=== PATIENT | male | born 1950 | race Hispanic/Latino ===

== ENCOUNTER 2018-06-01 01:40 | Emergency (ER) | payer OTHER ==
[2018-06-01 02:19] LABS: Absolute Lymphocytes (CBC) 1.3 K/uL (0.7-4.9); Absolute Monocytes 0.5 K/uL (0.1-1.3); Absolute Neutrophil 2.5 K/uL (1.8-8.0); Basophils % 0.7 % (0-1.3); Eosinophils % 6.8 % (0-4.4); Hematocrit 41.4 % (39.6-49.0); Lymphocytes % 27.7 % (15.3-44.8); MPV 7.5 fL (7.6-11.3); Monocytes % 11.4 % (3.3-12.3); RBC Red Blood Cell Count 4.15 M/uL (4.33-5.43)
[2018-06-01 02:33] LABS: Protime INR 0.95
[2018-06-01] MEDS ORDERED: ASPIRIN 81 MG CHEWABLE TABLET ONE (02:44)
[2018-06-01] MEDS ORDERED: FENTANYL CITR 100 MCG/2 ML ONE (02:44)
[2018-06-01 02:51] LABS: Albumin 3.9 g/dL (3.4-5.0); Bilirubin Direct 0.2 mg/dL (0-0.2); Bilirubin Total 0.6 mg/dL (0.2-1.0); Magnesium 2.6 mg/dL (1.8-2.4); Potassium 3.7 mmol/L (3.5-5.1); Protein, Total 7.3 g/dL (6.4-8.2); Troponin (Emerg Dept Use Only) 2.58 ng/mL (0.0-0.045)
[2018-06-01] MEDS ORDERED: ONDANSETRON 4 MG/2 ML VIAL ONE (03:38)
[2018-06-01] MEDS ORDERED: ENOXAPARIN 60 MG/0.6 ML SQ ONE (03:38)
[2018-06-01] MEDS ORDERED: PANTOPRAZOLE 40 MG INJ ONE (03:38)
--- NOTE | 2018-06-01 03:41 | ER ---
Nurse's Notes [facility] Name: Tc Mckeon Age: 68 yrs Sex: Male : 1950 Arrival Date: 06/01/2018 Time: 01:42 Bed 4 Private MD: Diagnosis: Non-ST elevation (NSTEMI) myocardial infarction Presentation: 06/01 02:01 Presenting complaint: Patient states: he has some heaviness in his chest which started bb at approx 2200 last night, with some tingling in his left wrist and pain in the back of his head after he took his shower he felt weak then on Wednesday he vomited multiple times. Pt had stress test with Dr Rodriguez about a month ago and was told everything was fine and he has an US scheduled here at 0800 this morning for his "stomach". Transition of care: patient was not received from another setting of care. Onset of symptoms was May 30, 2018. Risk Assessment: Do you want to hurt yourself or someone else? Patient reports no desire to harm self or others. Initial Sepsis Screen: Does the patient meet any 2 criteria? No. Patient's initial sepsis screen is negative. Does the patient have a suspected source of infection? No. Patient's initial sepsis screen is negative. Care prior to arrival: None. 02:01 Method Of Arrival: Ambulatory bb 02:01 Acuity: ZBIGNIEW 3 bb Historical: - Allergies: 02:04 Amoxicillin; bb 02:04 Codeine; bb 02:04 Morphine; bb 02:04 tramadol; bb - Home Meds: 02:04 colchicine 0.6 mg Oral tab 1 tab once daily [Active]; folic acid 20 mg Oral cap bb [Active]; metoprolol tartrate 50 mg Oral tab 1 tab once daily [Active]; clopidogrel 75 mg oral tab 1 tab once daily [Active]; - PMHx: 02:04 Gout; Hypertension; CAD; bb - PSHx: 02:04 CABG; bb - Immunization history:: Adult Immunizations unknown, Flu vaccine is not up to date. - Social history:: Smoking status: Patient/guardian denies using tobacco, Patient uses alcohol, on a daily basis. - Ebola Screening: : No symptoms or risks identified at this time. Screenin:09 Abuse screen: Denies threats or abuse. Nutritional screening: No deficits noted. tl2 Tuberculosis screening: No symptoms or risk factors identified. Fall Risk None identified. Assessment: 02:25 General: Appears in no apparent distress. uncomfortable, Behavior is calm, cooperative, tl2 appropriate for age. Pain: Complains of pain in chest Pain does not radiate. Pain currently is 6 out of 10 on a pain scale. Quality of pain is described as pressure, tightness. Neuro: Level of Consciousness is awake, alert, obeys commands, Oriented to person, place, time, situation. Cardiovascular: Chest pain is described as diffuse, quality is pressure, is located in anterior chest wall. Respiratory: Airway is patent Respiratory effort is even, unlabored, Respiratory pattern is regular, symmetrical. GI: No deficits noted. Patient currently denies nausea, vomiting. : No signs and/or symptoms were reported regarding the genitourinary system. Derm: Skin is pink, warm \\T\\ dry. 02:42 Reassessment: pt denies need for pain medication at this time. tl2 04:06 Reassessment: Report called to Melina KLEIN. ea 04:30 Reassessment: Patient and/or family updated on plan of care and expected duration. Pain ea level reassessed. Patient is alert, oriented x 3, equal unlabored respirations, skin warm/dry/pink. [facility] at facility for transfer. Report given to EMS. Pt taken via stretcher, per EMS, tolerating well. Vital Signs: 02:04 BP 143 / 69; Pulse 51; Resp 16 S; Temp 98.2(O); Pulse Ox 100% on R/A; Weight 58.06 kg bb (R); Height 5 ft. 3 in. (160.02 cm) (R); Pain 6/10; 03:29 BP 135 / 71; Pulse 53; Resp 18; Pulse Ox 100% on R/A; tl2 04:42 BP 150 / 61; Pulse 50; Resp 18; Pulse Ox 99% ; ea 02:04 Body Mass Index 22.67 (58.06 kg, 160.02 cm) bb Vitals: 03:29 Cardiac Rhythm Assessment Sinus serafin. tl2 NIH Stroke Scale Scores: 02:20 NIHSS Score: 0 cp ED Course: 01:42 Patient arrived in ED. ds1 02:03 Triage completed. bb 02:04 Arm band placed on Patient placed in an exam room, on a stretcher, on time buyer, bb on pulse oximetry. EKG completed in triage. Results shown to MD. Family accompanied patient. 02:06 [facility] cp 02:06 Gamaliel Jensen MD is Attending Physician. cp 02:08 Isabelle Salgado, LATOYA is Primary Nurse. tl2 02:09 Patient has correct armband on for positive identification. Placed in gown. Bed in low tl2 position. Call light in reach. Side rails up X 1. Adult w/ patient. 02:09 Inserted saline lock: 22 gauge in right antecubital area, using aseptic technique. tl2 Blood collected. 02:30 XRAY Chest (1 view) In Process Unspecified. EDMS 04:00 No provider procedures requiring assistance completed. Patient transferred, IV remains ea in place. Administered Medications: 02:40 Drug: Aspirin Chewable Tablet 324 mg Route: PO; tl2 03:35 Follow up: Response: No adverse reaction ea 03:09 CANCELLED (Physician Discretion): PlaVIX 600 mg PO once cp 03:10 CANCELLED (Physician Discretion): PlaVIX 300 mg PO once cp 03:12 Not Given (Physician Discretion): fentaNYL (PF) 25 mcg IVP once cp 03:30 Drug: ProTONIX 40 mg Route: IVP; Site: right antecubital; ea 04:00 Follow up: Response: No adverse reaction ea 03:34 Drug: Lovenox 1 mg/kg Route: Sub-Q; Site: right lower abdomen; ea 04:00 Follow up: Response: No adverse reaction ea 03:34 Drug: Zofran 4 mg Route: IVP; Site: right antecubital; ea 04:00 Follow up: Response: No adverse reaction ea Outcome: 03:40 ER care complete, transfer ordered by . cp 04:15 Instructed on the need for transfer. ea 04:30 Transferred by ground EMS to [facility], Transfer form completed. ea 04:30 Condition: stable 04:40 Patient left the ED. ea NIH Stroke Scale - NIH Stroke Score Date: 06/01/2018 Time: 02:20 Total Score = 0 1a. Level of Consciousness (LOC) - 0(Alert) 1b. Level of Consciousness (LOC) (Year \\T\\ Age) - 0(Both) 1c. LOC Commands (Open \\T\\ Closes Eyes/Photographer News) - 0(Both) 2. Best Gaze (Lateral Gaze Paresis) - 0(Normal) 3. Visual Field Loss - 0(No visual loss) 4. Facial Palsy - 0(Normal) 5a. Left Arm: Motor (10-second hold) - 0(No drift) 5b. Right Arm: Motor (10-second hold) - 0(No drift) 6a. Left Leg: Motor (5-second hold - always test supine) - 0(No drift) 6b. Right Leg: Motor (5-second hold - always test supine) - 0(No drift) 7. Limb Ataxia (finger/nose \\T\\ heel/soto - test with eyes open) - 0(Absent) 8. Sensory Loss (pinprick arms/legs/face) - 0(Normal) 9. Best Language: Aphasia (description/naming/reading) - 0(No aphasia) 10. Dysarthria (speech clarity - read or repeat words) - 0(Normal) 11. Extinction and Inattention (visual/tactile/auditory/spatial/personal) - 0(No abnormality) Initials: cp Signatures: Dispatcher [employer] [facility] Reyna Pantoja ds1 Kailee cMgregor RN RN bb Gamaliel Delacruz PA PA cp Isabelle Salgado, LATOYA KLEIN tl2 Lilia Bolden RN RN ea
--- NOTE | 2018-06-01 03:42 | EDPHYS ---
Physician Documentation [facility] Name: Tc Mckeon Age: 68 yrs Sex: Male : 1950 Arrival Date: 06/01/2018 Time: 01:42 Bed 4 Private MD: ED Physician Gamaliel Jensen HPI: 06/01 02:15 This 68 yrs old Male presents to ER via Ambulatory with complaints of Chest cp Discomfort, Tingling in Hands, Weakness. 02:15 The patient or guardian reports chest pain that is located primarily in the anterior cp chest wall, bilaterally. Onset: last night, at 22:00. 02:15 The pain does not radiate. Associated signs and symptoms: Pertinent positives: tingling cp in hands, general weakness. Historical: - Allergies: 02:04 Amoxicillin; bb 02:04 Codeine; bb 02:04 Morphine; bb 02:04 tramadol; bb - Home Meds: 02:04 colchicine 0.6 mg Oral tab 1 tab once daily [Active]; folic acid 20 mg Oral cap bb [Active]; metoprolol tartrate 50 mg Oral tab 1 tab once daily [Active]; clopidogrel 75 mg oral tab 1 tab once daily [Active]; - PMHx: 02:04 Gout; Hypertension; CAD; bb - PSHx: 02:04 CABG; bb - Immunization history:: Adult Immunizations unknown, Flu vaccine is not up to date. - Social history:: Smoking status: Patient/guardian denies using tobacco, Patient uses alcohol, on a daily basis. - Ebola Screening: : No symptoms or risks identified at this time. ROS: 02:15 Constitutional: Negative for body aches, chills, fever, poor PO intake. cp 02:15 Eyes: Negative for injury, pain, redness, and discharge. cp 02:15 ENT: Negative for drainage from ear(s), ear pain, sore throat, difficulty swallowing, difficulty handling secretions. 02:15 Cardiovascular: Positive for chest pain, Negative for edema, palpitations. 02:15 Respiratory: Negative for cough, shortness of breath, wheezing. 02:15 Abdomen/GI: Negative for abdominal pain, vomiting, diarrhea, constipation. 02:15 Back: Negative for pain at rest, pain with movement, radiated pain. 02:15 Skin: Negative for cellulitis, rash. 02:15 Neuro: Positive for headache, general weakness, tingling of hands, Negative for altered mental status. 02:15 All other systems are negative. Exam: 02:15 ECG was reviewed by the Attending Physician. cp 02:20 Head/Face: Normocephalic, atraumatic. Eyes: Pupils equal round and reactive to light, cp extra-ocular motions intact. Lids and lashes normal. Conjunctiva and sclera are non-icteric and not injected. Cornea within normal limits. Periorbital areas with no swelling, redness, or edema. ENT: Nares patent. No nasal discharge, no septal abnormalities noted. Tympanic membranes are normal and external auditory canals are clear. Oropharynx with no redness, swelling, or masses, exudates, or evidence of obstruction, uvula midline. Mucous membranes moist. Neck: Trachea midline, no thyromegaly or masses palpated, and no cervical lymphadenopathy. Supple, full range of motion without nuchal rigidity, or vertebral point tenderness. No Meningismus. Chest/axilla: Normal chest wall appearance and motion. Nontender with no deformity. No lesions are appreciated. 02:20 Constitutional: The patient appears in no acute distress, alert, awake, non-diaphoretic, non-toxic, well developed, well nourished. 02:20 Cardiovascular: Rate: bradycardic, Rhythm: regular, Pulses: Pulses are 2+ in right radial artery and left radial artery. Edema: is not appreciated, JVD: is not appreciated. 02:20 Respiratory: the patient does not display signs of respiratory distress, Respirations: normal, no use of accessory muscles, no retractions, no splinting, no tachypnea, labored breathing, is not present, Breath sounds: are clear throughout, no decreased breath sounds, no stridor, no wheezing. 02:20 Abdomen/GI: Inspection: abdomen appears normal, Bowel sounds: active, all quadrants, Palpation: abdomen is soft and non-tender, in all quadrants. 02:20 Skin: cellulitis, is not appreciated, no rash present. 02:20 Neuro: Orientation: to person, place \T\ time. Mentation: is normal, Cerebellar function: Romberg testing is negative, normal finger to nose testing, heel to soto testing is normal, Motor: moves all fours, strength is normal, Sensation: tingling, that is mild, of the right hand and left hand. Vital Signs: 02:04 BP 143 / 69; Pulse 51; Resp 16 S; Temp 98.2(O); Pulse Ox 100% on R/A; Weight 58.06 kg bb (R); Height 5 ft. 3 in. (160.02 cm) (R); Pain 6/10; 03:29 BP 135 / 71; Pulse 53; Resp 18; Pulse Ox 100% on R/A; tl2 04:42 BP 150 / 61; Pulse 50; Resp 18; Pulse Ox 99% ; ea 02:04 Body Mass Index 22.67 (58.06 kg, 160.02 cm) bb NIH Stroke Scale Scores: 02:20 NIHSS Score: 0 cp MDM: 02:06 Patient medically screened. 03:15 Data reviewed: vital signs, nurses notes, lab test result(s), EKG, radiologic studies, cp plain films. 03:15 The patient was given aspirin in the Emergency Department. Test interpretation: by ED cp physician or midlevel provider: ECG, plain radiologic studies. 03:46 Physician consultation: was contacted at 03:40, regarding regarding transfer, to [facility]. patient's condition, DR Puentes, hospitalist services \T\[facility], will accept patient as transfer. 06/01 02:03 Order name: Basic Metabolic Panel; Complete Time: 02:56 ms 06/01 03:32 Interpretation: Normal except: CL 109; GLUC 111; CRE 1.49; GFR 47; CA 8.4. 06/01 02:03 Order name: CBC with Diff; Complete Time: 02:36 ms 06/01 02:36 Interpretation: Normal except: RBC 4.15; MCV 99.9; MCH 35.3; PLT 107; MPV 7.5; cp EOSINOPHIL % 6.8. 06/01 02:03 Order name: LFT's; Complete Time: 02:56 ms 06/01 03:11 Interpretation: Normal except: AST 57. 06/01 02:03 Order name: Magnesium; Complete Time: 02:56 ms 06/01 03:11 Interpretation: Abnormal: MG 2.6. 06/01 02:03 Order name: NT PRO-BNP; Complete Time: 02:56 ms 06/01 03:43 Interpretation: Abnormal: NT PRO-BNP 910. 06/01 02:03 Order name: PT-INR; Complete Time: 02:36 ms 06/01 02:03 Order name: Troponin (emerg Dept Use Only); Complete Time: 02:56 ms 06/01 03:11 Interpretation: TROPED 2.58; Reviewed. cp 06/01 02:03 Order name: XRAY Chest (1 view) ms 06/01 02:03 Order name: EKG; Complete Time: 02:04 ms 06/01 02:03 Order name: Cardiac monitoring; Complete Time: 02:08 ms 06/01 02:03 Order name: EKG - Nurse/Tech; Complete Time: 02:09 ms 06/01 02:03 Order name: IV Saline Lock; Complete Time: 02:09 ms 06/01 02:03 Order name: Labs collected and sent; Complete Time: 02:09 ms 06/01 02:03 Order name: O2 Per Protocol; Complete Time: 02:09 ms 06/01 02:03 Order name: O2 Sat Monitoring; Complete Time: 02:09 ms EC:15 Rate is 47 beats/min. Rhythm is regular. [place] interval is normal. QRS interval is normal. cp QT interval is normal. T waves are Inverted in lead aVF. Interpreted by me. Reviewed by me. Administered Medications: 02:40 Drug: Aspirin Chewable Tablet 324 mg Route: PO; tl2 03:35 Follow up: Response: No adverse reaction ea 03:09 CANCELLED (Physician Discretion): PlaVIX 600 mg PO once cp 03:10 CANCELLED (Physician Discretion): PlaVIX 300 mg PO once cp 03:12 Not Given (Physician Discretion): fentaNYL (PF) 25 mcg IVP once cp 03:30 Drug: ProTONIX 40 mg Route: IVP; Site: right antecubital; ea 04:00 Follow up: Response: No adverse reaction ea 03:34 Drug: Lovenox 1 mg/kg Route: Sub-Q; Site: right lower abdomen; ea 04:00 Follow up: Response: No adverse reaction ea 03:34 Drug: Zofran 4 mg Route: IVP; Site: right antecubital; ea 04:00 Follow up: Response: No adverse reaction ea Disposition: 06:53 Co-signature as Attending Physician, Gamaliel Jensen MD I agree with the assessment and adi plan of care. Disposition: 06/01/18 03:40 Transfer ordered to [facility]. Diagnosis is Non-ST elevation (NSTEMI) myocardial infarction. - Reason for transfer: Higher level of care. - Accepting physician is doctor. - Condition is Stable. - Problem is new. - Symptoms have improved. NIH Stroke Scale - NIH Stroke Score Date: 06/01/2018 Time: 02:20 Total Score = 0 1a. Level of Consciousness (LOC) - 0(Alert) 1b. Level of Consciousness (LOC) (Year \T\ Age) - 0(Both) 1c. LOC Commands (Open \T\ Closes Eyes/Aerial Gunner) - 0(Both) 2. Best Gaze (Lateral Gaze Paresis) - 0(Normal) 3. Visual Field Loss - 0(No visual loss) 4. Facial Palsy - 0(Normal) 5a. Left Arm: Motor (10-second hold) - 0(No drift) 5b. Right Arm: Motor (10-second hold) - 0(No drift) 6a. Left Leg: Motor (5-second hold - always test supine) - 0(No drift) 6b. Right Leg: Motor (5-second hold - always test supine) - 0(No drift) 7. Limb Ataxia (finger/nose \T\ heel/soto - test with eyes open) - 0(Absent) 8. Sensory Loss (pinprick arms/legs/face) - 0(Normal) 9. Best Language: Aphasia (description/naming/reading) - 0(No aphasia) 10. Dysarthria (speech clarity - read or repeat words) - 0(Normal) 11. Extinction and Inattention (visual/tactile/auditory/spatial/personal) - 0(No abnormality) Initials: cp Signatures: Dispatcher [employer] EDMS Gamaliel Jensen MD MD cha Ballard, Brenda RN RN Sue Leonardo ms, Corey, LUTHER SLOAN cp Isabelle Salgado RN RN tl2 Lilia Bolden RN RN ea Corrections: (The following items were deleted from the chart) 03:09 02:56 PlaVIX 600 mg PO once ordered. cp cp 03:10 03:09 PlaVIX 300 mg PO once ordered. cp cp 03:32 03:11 Normal except: CL 109; GLUC 111; CRE 1.49; GFR 47. cp cp 04:40 03:40 06/01/2018 03:40 Transfer ordered to [facility]. ea Diagnosis is Non-ST elevation (NSTEMI) myocardial infarction. Reason for transfer: Higher level of care. Accepting physician is doctor. Condition is Stable. Problem is new. Symptoms have improved. cp
[2018-06-01 04:52] VITALS: TEMP 98.2; O2SAT 100
[2018-06-01 04:54] VITALS: BP 135/71
--- NOTE | 2018-06-01 08:15 | RAD REPORT ---
EXAM DESCRIPTION: Giulia Single View06/01/2018 2:30 am CLINICAL HISTORY: Chest pain COMPARISON: 2016 FINDINGS: The lungs appear clear of acute infiltrate. The heart is mildly enlarged. Postsurgical changes involve the chest. IMPRESSION: No acute abnormalities displayed
--- NOTE | 2018-06-01 09:53 | EKG ---
Test Date: 2018-06-01 Test Time: 01:59:44 Canvas Baster Jumpbasting: DIA MEASUREMENT RESULTS: Intervals: Rate: 47 TN: 150 QRSD: 86 QT: 482 QTc: 426 [place]: P: 35 TN: 150 QRS: 48 T: -11 INTERPRETIVE STATEMENTS: Marked sinus bradycardia Possible Left atrial enlargement T wave abnormality, consider inferior ischemia Abnormal ECG Compared to ECG 11/04/2015 23:27:26 T-wave abnormality now present Sinus rhythm no longer present Myocardial infarct finding no longer present Electronically Signed On 06-01-18 09:52:29 SLEEVE MAKER by Sanjeev Rodriguez
== END 2018-06-01 04:40 | disposition short-term general hospital (02) ==
LOC: ER 01:40
DX: I21.4 Non-ST elevation (NSTEMI) myocardial infarction (principal); M10.9 Gout, unspecified; I25.10 Atherosclerotic heart disease of native coronary artery without angina pectoris; I10 Essential (primary) hypertension; Z88.5 Allergy status to narcotic agent; Z88.0 Allergy status to penicillin
CPT/HCPCS: 36415; 71045; 80048; 80076; 83735; 83880; 84484; 85025; 85610; 93005; 96372; 96374; 96375; 99285; C9113; J1650; J2405; J3010

== ENCOUNTER 2018-10-13 06:44 | Observation (INO) | payer OTHER ==
--- OUTSIDE RECORDS SUMMARY | 2018-10-13 06:48 | XMS REPORT | Clinical Summary ---
:1950 Author Organization [facility] Address [address] [place] [address] Care Team Providers Name Role Phone Chidi Chavarria Primary Care Provider Allergies Active Allergy Reactions Severity Noted Date Comments Amoxicillin Hives 11/04/2015 Codeine Hives High 11/04/2015 Morphine Nausea And Vomiting 11/04/2015 Tramadol Nausea And Vomiting 11/04/2015 Medications Medication Sig Dispensed Refills Start Date End Date Status allopurinol Take 100 mg 1 05/04/2018 Active (ZYLOPRIM) 100 MG by mouth tablet daily with breakfast. famotidine (PEPCID) Take 20 mg by 0 Active 20 MG tablet mouth 2 (two) times daily. pantoprazole Take 40 mg by 0 Active (PROTONIX) 40 MG mouth daily. tablet atorvastatin Take 1 tablet 30 tablet 0 06/04/2018 Active (LIPITOR) 80 MG (80 mg total) tablet by mouth daily. aspirin 81 MG EC Take 1 tablet 30 tablet 0 06/04/2018 Active tablet (81 mg total) by mouth daily. lisinopril Take 1 tablet 30 tablet 0 06/04/2018 Active (PRINIVIL,ZESTRIL) (5 mg total) 5 MG tablet by mouth daily. ranolazine (RANEXA) Take 1 tablet 60 tablet 0 06/03/2018 Active 500 MG 12 hr tablet (500 mg total) by mouth 2 (two) times daily. ticagrelor Take 1 tablet 60 tablet 0 06/03/2018 Active (BRILINTA) 90 mg (90 mg total) Tab tablet by mouth 2 (two) times daily. atorvastatin Take 80 mg by 0 06/01/2018 Discontinued (LIPITOR) 80 MG mouth daily. tablet clopidogrel Take 75 mg by 0 06/03/2018 Discontinued (PLAVIX) 75 mg mouth daily. tablet phenytoin Take 100 mg 0 06/03/2018 Discontinued (DILANTIN) 100 MG by mouth ER capsule daily. folic acid Take 1 mg by 0 06/01/2018 Discontinued (FOLVITE) 1 MG mouth daily. tablet lansoprazole Take 30 mg by 0 06/03/2018 Discontinued (PREVACID) 30 MG mouth daily. capsule acetaminophen-codei Take 1 tablet 0 06/03/2018 Discontinued ne (TYLENOL #3) by mouth 300-30 mg per every 4 tablet (four) hours as needed for Pain. metoprolol Take 25 mg by 0 06/03/2018 Discontinued (LOPRESSOR) 25 MG mouth once in tabletIndications: morning. hypertension colchicine Take 0.6 mg 0 04/30/2018 06/03/2018 Discontinued (COLCRYS) 0.6 mg by mouth 2 tablet (two) times daily. 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 Encounters Date Type Specialty Care Team Description 06/01/2018 Surgery Komal Rose MD L CATH & PCI 06/01/2018 - Hospital Encounter Cardiology Lynn Puentes Coronary artery disease of [place] artery of [place] heart with stable angina pectoris (HCC); 06/03/2018 MD Kal Essential hypertension; Unstable angina pectoris (HCC); NSTEMI (non-ST elevated myocardial infarction) ([facility]) after 10/12/2017 Family History Medical History Relation Name Comments Heart disease Brother Heart disease Father Hypertension Father Stroke Father Cancer Mother Heart disease Sister Relation Name Status Comments Brother Father Mother Sister Social History Tobacco Use Types Packs/Day Years Used Date Never Smoker Smokeless Tobacco: Never Used Alcohol Use Drinks/Week oz/Week Comments Yes 30 Cans of beer 18.0 beer Sex Assigned at Date Recorded Not on file Job Start Date Occupation Industry Not on file Not on file Not on file Travel History Travel Start Travel End No recent travel history available. Last Filed Vital Signs Vital Sign Reading Time Taken Blood Pressure 118/62 06/03/2018 1:00 PM SHEAR HELPER Pulse 56 06/03/2018 1:00 PM SHEAR HELPER Temperature 36.8 C (98.2 F) 06/03/2018 1:00 PM SHEAR HELPER Respiratory Rate 18 06/03/2018 1:00 PM SHEAR HELPER Oxygen Saturation 98% 06/03/2018 1:00 PM SHEAR HELPER Inhaled Oxygen Concentration - - Weight - - Height - - Body Mass Index - - Plan of Treatment Not on file Implants Implanted Type Area Napping Machine Operator Device Shelf Model / Identifier Expiration Serial / Date Lot Coronary Stent Heart [employer] [id number] / Implanted: Qty: 1 on 06/01/2018 by Komal Rose MD / 6f Angioseal Right: TERUMO [id number] [id number] / Implanted: Qty: 1 on 06/01/2018 by Komal Rose MD Groin / Procedures Procedure Name Priority Date/Time Associated Comments Diagnosis RHYTHM STRIP - SCAN 07/23/2018 12:30 PM CDT RHYTHM STRIP - SCAN 06/13/2018 8:13 AM SHEAR HELPER REPORT OF PROCEDURE - 06/13/2018 8:13 ENDOSCOPY SCAN AM SHEAR HELPER VASCULAR DIAGRAM 06/13/2018 8:13 -SCAN AM SHEAR HELPER CARDIAC CATH REPORT - 06/13/2018 8:13 SCAN AM SHEAR HELPER VASCULAR DIAGRAM 06/08/2018 5:32 -SCAN PM SHEAR HELPER 2D ECHO W/ DOPPLER MANUEL 06/03/2018 8:51 Results for this (CW/PW/COLOR) AM SHEAR HELPER procedure are in the results section. CBC W/PLT COUNT & Routine 06/03/2018 5:05 Results for this AUTO DIFFERENTIAL AM SHEAR HELPER procedure are in the results section. CBC (HEMOGRAM ONLY) Routine 06/03/2018 5:05 Results for this AM SHEAR HELPER procedure are in the results section. CBC W/PLT COUNT & Routine 06/03/2018 5:05 Results for this AUTO DIFFERENTIAL AM SHEAR HELPER procedure are in the results section. BASIC METABOLIC PANEL Routine 06/03/2018 5:05 Results for this (7) AM SHEAR HELPER procedure are in the results section. CBC (HEMOGRAM ONLY) Routine 06/03/2018 5:05 Results for this AM SHEAR HELPER procedure are in the results section. CBC W/PLT COUNT & Routine 06/02/2018 3:37 Results for this AUTO DIFFERENTIAL AM SHEAR HELPER procedure are in the results section. CBC W/PLT COUNT & Routine 06/02/2018 3:37 Results for this AUTO DIFFERENTIAL AM SHEAR HELPER procedure are in the results section. BASIC METABOLIC PANEL Routine 06/02/2018 3:37 Results for this (7) AM SHEAR HELPER procedure are in the results section. TSH/FREE T4 IF Routine 06/02/2018 3:37 Results for this INDICATED AM SHEAR HELPER procedure are in the results section. ECG 12-LEAD Routine 06/01/2018 11:35 Results for this PM SHEAR HELPER procedure are in the results section. POCT-ACT Routine 06/01/2018 7:58 Results for this PM SHEAR HELPER procedure are in the results section. POCT-ACT Routine 06/01/2018 7:39 Results for this PM SHEAR HELPER procedure are in the results section. L CATH & PCI 06/01/2018 6:47 Non-STEMI (non-ST PM SHEAR HELPER elevated myocardial infarction) (HCC) APTT Routine 06/01/2018 10:18 Results for this AM SHEAR HELPER procedure are in the results section. PLATELET COUNT Routine 06/01/2018 10:18 Results for this AM SHEAR HELPER procedure are in the results section. POCT-GLUCOSE METER Routine 06/01/2018 7:28 Results for this AM SHEAR HELPER procedure are in the results section. XR CHEST 1 VIEW Routine 06/01/2018 7:15 Results for this PORTABLE/BEDSIDE AM SHEAR HELPER procedure are in the results section. CBC W/PLT COUNT & Routine 06/01/2018 6:59 Results for this AUTO DIFFERENTIAL AM SHEAR HELPER procedure are in the results section. CBC W/PLT COUNT & Routine 06/01/2018 6:59 Results for this AUTO DIFFERENTIAL AM SHEAR HELPER procedure are in the results section. LIPID PANEL Routine 06/01/2018 6:59 Results for this AM SHEAR HELPER procedure are in the results section. PT/APTT Routine 06/01/2018 6:59 Results for this AM SHEAR HELPER procedure are in the results section. BASIC METABOLIC PANEL Routine 06/01/2018 6:59 Results for this (7) AM SHEAR HELPER procedure are in the results section. TROPONIN I Routine 06/01/2018 6:59 Results for this AM SHEAR HELPER procedure are in the results section. after 10/12/2017 Results RHYTHM STRIP - SCAN (07/23/2018 12:30 PM CDT)Only the most recent of2 resultswithin the time period is included. Narrative Performed At EKG-SCANNED (06/13/2018 8:13 AM SHEAR HELPER) Narrative Performed At VASCULAR DIAGRAM -SCAN (06/13/2018 8:13 AM SHEAR HELPER)Only the most recent of2 resultswithin the time period is included. Narrative Performed At CARDIAC CATH REPORT - SCAN (06/13/2018 8:13 AM SHEAR HELPER) Narrative Performed At 2D Echo W/Doppler(CW/PW/Color) (06/03/2018 8:51 AM SHEAR HELPER) Ejection Fraction [facility] Specimen Narrative Performed At Transthoracic Echocardiography Report (TTE) [facility] Demographics Patient Name CONNIE MAYERS Date of Study 06/03/2018 HIGINIO [id number] GenderMale Visit Number [id number] RaceHispanic [id number] Room Number C622 Number Date of Birth1950 Referring Physician Cassius Skinner, MYRIAM Age68 year(s) Motivational Speaker Frieda Tapia RUST AnalystIzopastor Malik InterpretingJoPhysician SUMIT Contreras Procedure Type of Study TTE procedure:2DECHO W DOPPLER(CW/PW/COLOR) (MANUEL) Indications:Acute Chest Pain/ Suspected CAD. Clinical History HGB 12.5 HCT 35.9 % ANEMIA, CAD, HLD, HTN, SZ, HYPERTHYROID, ACB X4 (11/06/2015), STENT (2009, 2012), HX STEMI Contrast Medium: Definity. Amount - 3 ml Height: 62 inches Weight: 58.97 kg (130 lbs) BSA: 1.59 m^2 BMI: 23.78 kg/m^2 HR: 61 bpm BP: 112/55 mmHg Summary HGB 12.5 HCT 35.9 % The left ventricle is chamber size (by PSLAX dimension) is normal (male - LVIDd 4.2-5.8cm) . Normal LV wall thickness. Septal motion is abnormal, likely related to prior cardiac surgery . All of the LV segments contract normally . Global LV systolic function normal . Estimated LVEF by qualitative assessment is normal (55-60%) . Normal (cardiac index 2-3 L/min/m2) cardiac output state at rest is noted. Normal diastolic function. Mild mitral regurgitation. Estimated peak systolic PA pressure is 25 mmHg + RA pressure. No significant pericardial effusion is visualized. Previous Study In comparison with the prior exam no significant changes. Signature Findings Left Ventricle The left ventricle is chamber size (by PSLAX di mension) is normal (male - LVIDd 4.2-5.8cm) . No rmal LV wall thickness. Septal motion is ab normal, likely related to prior cardiac surgery . Al l of the LV segments contract normally . Global LV systolic function normal . Estimated LVEF by qu alitative assessment is normal (55-60%) . Normal (c ardiac index 2-3 L/min/m2) cardiac output state at rest is noted. Normal diastolic function. Left AtriumLA size is normal (16-34 ml/m2) . Right VentricleThe right ventricular chamber size and systolic fu nction are within normal limits. Right Atrium RA cavity size is normal . Aortic Valve Mild AoV cusp thickening. Ao V cusp mobility is normal . A trace of aortic regurgitation. Mitral Valve Mild MV leaflet thickening. Mi ld mitral annular calcification. Mi ld MV leaflet thickening. Mi ld mitral regurgitation. Tricuspid ValveA trace of tricuspid regurgitation. Es timated peak systolic PA pressure is 25 mmHg + RA pr essure. Pulmonic Valve Normal PV structure and function by limited views an d Doppler. AortaAortic root size (SInus of Valsalva diameter) is no rmal . PericardiumNo significant pericardial effusion is visualized. IVC/SVC/PA/PV/PleuralThe right upper pulmonary vein (RUPV) is normal . Th e estimated RA pressure by IVC dynamics in determinate . Th e inferior vena cava is not well visualized. Chambers/Structures Left Atrium LA Volume: 52.69 ml LA Area: 18.42 cm^2 LA Vol. Index: 33 ml/m^2 Left Ventricle LVIDd: 4.41 cm LV Septum Diastolic: 0.94 cm LV PW Diastolic: 0.89 cm LVEDV Jackson's:44.83 ml LV Length: 5.96 cm LVESV Jackson's:19.5 ml LVEF Jackson's: 56.5 % LVEDVI: 28 ml/m^2 LVESVI: 12 ml/m^2 LVOT Diameter: 2.09 cm Aorta Ao Root S of Tracie.: 2.73 cm Doppler/Quantitative Measurements Mitral Valve MV Peak E-Wave: 0.68 m/sMV Peak A-Wave: 0.57 m/s E/A Ratio: 1.19 Peak Gradient: 1.82 mmHg Deceleration Time: 132.6 msec MV Osei. Peak: Tissue Doppler E' Lateral Velocity: 0.11 m/s E/E': 5.95 Aortic Valve Peak Velocity: 1.1 m/s Mean Velocity: 0.75 m/s Peak Gradient: 4.82 mmHg Mean Gradient: 2.49 mmHg AV Area (continuity): 3.06 cm^2 AV VTI: 23.39 cm AV DVI: 0.89 LVOT Peak Velocity: 1 m/sPeak Gradient: 4.04 mmHg Mean Velocity: 0.61 m/s Mean Gradient: 1.7 mmHg LVOT Diameter: 2.09 cmLVOT VTI: 20.84 cm LVOT Area: 3.43 cm^2LVOT SV:71.46 ml LVOT CO: 4.36 l/min LVOT CI: 2.74 l/min/m^2 Tricuspid Valve TR Velocity: 2.52 m/s TR Gradient: 25.31 mmHg Procedure Note Interface, External Ris In - 06/06/2018 11:43 AM SHEAR HELPER Transthoracic Echocardiography Report (TTE) Demographics Patient Name CONNIE MAYERS Date of Study 06/03/2018 HIGINIO Gender Male Visit Number [id number] Race Room Number C622 Number Date of 1950 Referring Physician Cassius Skinner RES Age 68 year(s) Motivational Speaker Frieda Tapia RUST Manager Requirements Javan Malik Interpreting Chun Savage, Physician Procedure Type of Study TTE procedure:2DECHO W DOPPLER(CW/PW/COLOR) (MANUEL) Indications:Acute Chest Pain/ Suspected CAD. Clinical History HGB 12.5 HCT 35.9 % ANEMIA, CAD, HLD, HTN, SZ, HYPERTHYROID, ACB X4 (11/06/2015), STENT (2009, 2012), HX STEMI Contrast Medium: Definity. Amount - 3 ml Height: 62 inches Weight: 58.97 kg (130 lbs) BSA: 1.59 m^2 BMI: 23.78 kg/m^2 HR: 61 bpm BP: 112/55 mmHg Summary HGB 12.5 HCT 35.9 % The left ventricle is chamber size (by PSLAX dimension) is normal (male - LVIDd 4.2-5.8cm) . Normal LV wall thickness. Septal motion is abnormal, likely related to prior cardiac surgery . All of the LV segments contract normally . Global LV systolic function normal . Estimated LVEF by qualitative assessment is normal (55-60%) . Normal (cardiac index 2-3 L/min/m2) cardiac output state at rest is noted. Normal diastolic function. Mild mitral regurgitation. Estimated peak systolic PA pressure is 25 mmHg + RA pressure. No significant pericardial effusion is visualized. Previous Study In comparison with the prior exam no significant changes. Signature Findings Left Ventricle The left ventricle is chamber size (by PSLAX dimension) is normal (male - LVIDd 4.2-5.8cm) . Normal LV wall thickness. Septal motion is abnormal, likely related to prior cardiac surgery . All of the LV segments contract normally . Global LV systolic function normal . Estimated LVEF by qualitative assessment is normal (55-60%) . Normal (cardiac index 2-3 L/min/m2) cardiac output state at rest is noted. Normal diastolic function. Left Atrium LA size is normal (16-34 ml/m2) . Right Ventricle The right ventricular chamber size and systolic function are within normal limits. Right Atrium RA cavity size is normal . Aortic Valve Mild AoV cusp thickening. AoV cusp mobility is normal . A trace of aortic regurgitation. Mitral Valve Mild MV leaflet thickening. Mild mitral annular calcification. Mild MV leaflet thickening. Mild mitral regurgitation. Tricuspid Valve A trace of tricuspid regurgitation. Estimated peak systolic PA pressure is 25 mmHg + RA pressure. Pulmonic Valve Normal PV structure and function by limited views and Doppler. Aorta Aortic root size (SInus of Valsalva diameter) is normal . Pericardium No significant pericardial effusion is visualized. IVC/SVC/PA/PV/Pleural The right upper pulmonary vein (RUPV) is normal . The estimated RA pressure by IVC dynamics indeterminate . The inferior vena cava is not well visualized. Chambers/Structures Left Atrium LA Volume: 52.69 ml LA Area: 18.42 cm^2 LA Vol. Index: 33 ml/m^2 Left Ventricle LVIDd: 4.41 cm LV Septum Diastolic: 0.94 cm LV PW Diastolic: 0.89 cm LVEDV Jackson's:44.83 ml LV Length: 5.96 cm LVESV Jackson's:19.5 ml LVEF Jackson's: 56.5 % LVEDVI: 28 ml/m^2 LVESVI: 12 ml/m^2 LVOT Diameter: 2.09 cm Aorta Ao Root S of Tracie.: 2.73 cm Doppler/Quantitative Measurements Mitral Valve MV Peak E-Wave: 0.68 m/s MV Peak A-Wave: 0.57 m/s E/A Ratio: 1.19 Peak Gradient: 1.82 mmHg Deceleration Time: 132.6 msec MV Osei. Peak: Tissue Doppler E' Lateral Velocity: 0.11 m/s E/E': 5.95 Aortic Valve Peak Velocity: 1.1 m/s Mean Velocity: 0.75 m/s Peak Gradient: 4.82 mmHg Mean Gradient: 2.49 mmHg AV Area (continuity): 3.06 cm^2 AV VTI: 23.39 cm AV DVI: 0.89 LVOT Peak Velocity: 1 m/s Peak Gradient: 4.04 mmHg Mean Velocity: 0.61 m/s Mean Gradient: 1.7 mmHg LVOT Diameter: 2.09 cm LVOT VTI: 20.84 cm LVOT Area: 3.43 cm^2 LVOT SV:71.46 ml LVOT CO: 4.36 l/min LVOT CI: 2.74 l/min/m^2 Tricuspid Valve TR Velocity: 2.52 m/s TR Gradient: 25.31 mmHg Performing Organization Address City/State/Zipcode Phone Number [facility] CBC with platelet count + automated diff (06/03/2018 5:05 AM SHEAR HELPER)Only the most recent of3 resultswithin the time period is included. WBC 4.1 3.5 - 10.5 K/L [facility] RBC 3.58 (L) 4.63 - 6.08 M/L [facility] Hemoglobin 12.5 (L) 13.7 - 17.5 GM/DL [facility] Hematocrit 35.9 (L) 40.1 - 51.0 % [facility] MCV 100.3 (H) 79.0 - 92.2 fL [facility] MCH 34.9 (H) 25.7 - 32.2 pg [facility] MCHC 34.8 32.3 - 36.5 GM/DL [facility] RDW 13.1 11.6 - 14.4 % [facility] Platelets 76 (L) 150 - 450 K/CU MM [facility] MPV 9.5 9.4 - 12.4 fL [facility] nRBC 0 0 - 0 /100 WBC [facility] % Neutros 65 % [facility] % Lymphs 18 % [facility] % Monos 12 % [facility] % Eos 4 % [facility] % Baso 1 % [facility] # Neutros 2.64 1.78 - 5.38 K/L [facility] # Lymphs 0.72 (L) 1.32 - 3.57 K/L [facility] # Monos 0.50 0.30 - 0.82 K/L [facility] # Eos 0.18 0.04 - 0.54 K/L [facility] # Baso 0.02 0.01 - 0.08 K/L [facility] Immature 1 0 - 1 % [facility] Specimen Blood Performing Organization Address City/State/Zipcode Phone Number [facility] [address] [place] [address] CENTER CBC (hemogram only) (06/03/2018 5:05 AM SHEAR HELPER)Only the most recent of2 resultswithin the time period is included. WBC 4.1 3.5 - 10.5 K/L [facility] RBC 3.53 (L) 4.63 - 6.08 M/L [facility] Hemoglobin 12.5 (L) 13.7 - 17.5 GM/DL [facility] Hematocrit 35.4 (L) 40.1 - 51.0 % [facility] MCV 100.3 (H) 79.0 - 92.2 fL [facility] MCH 35.4 (H) 25.7 - 32.2 pg [facility] MCHC 35.3 32.3 - 36.5 GM/DL [facility] RDW 13.1 11.6 - 14.4 % [facility] Platelets 80 (L) 150 - 450 K/CU MM [facility] MPV 9.6 9.4 - 12.4 fL [facility] nRBC 0 0 - 0 /100 WBC [facility] Specimen Blood Performing Organization Address City/[facility]/Zipcode Phone Number [address] [phone] CENTER Basic Metabolic Panel (06/03/2018 5:05 AM SHEAR HELPER)Only the most recent of3 resultswithin the time period is included. Sodium 139 136 - 145 meq/L [facility] Potassium 4.0 3.5 - 5.1 meq/L [facility] Chloride 110 (H) 98 - 107 meq/L [facility] CO2 23 22 - 29 meq/L [facility] BUN 16 7 - 21 mg/dL [facility] Creatinine 1.20 0.57 - 1.25 mg/dL [facility] Glucose 90 70 - 105 mg/dL [facility] Calcium 8.7 8.4 - 10.2 mg/dL [facility] EGFR 60Comment: ESTIMATED GFR IS mL/min/1.73 sq m [facility] NOT ACCURATE CREATININE [facility] CENTER CLEARANCE IN PREDICTING GLOMERULAR FILTRATION RATE. ESTIMATED GFR IS NOT APPLICABLE FOR DIALYSIS PATIENTS. Specimen Blood Performing Organization Address City/[facility]/Zipcode Phone Number [address] [address] [place] TSH/Free T4 If Indicated (06/02/2018 3:37 AM SHEAR HELPER) TSH 1.45 0.35 - 4.94 uIU/mL [facility] Specimen Blood Performing Organization Address City/[facility]/Zipcode Phone Number [address] [address] CENTER ECG 12 lead (06/01/2018 11:35 PM SHEAR HELPER) Specimen Narrative Performed At Ventricular Rate 55 BPM GE MUSE Atrial Rate 55 BPM P-R Interval 136 ms QRS Duration 90 ms Q-T Interval 468 ms QTC Calculation(Bazett) 447 ms P [place] 56 degrees R [place] 67 degrees T [place] 7 degrees Sinus bradycardia Otherwise normal ECG When compared with ECG of 12-NOV-2015 06:10, Vent. rate has decreased BY29 BPM T wave inversion no longer evident in Anterolateral leads Confirmed by MD SAVAGE JOSEPH P ([id number]) on 06/02/2018 6:29:27 AM Procedure Note Interface, External Ris In - 06/02/2018 6:29 AM SHEAR HELPER Ventricular Rate 55 BPM Atrial Rate 55 BPM P-R Interval 136 ms QRS Duration 90 ms Q-T Interval 468 ms QTC Calculation(Bazett) 447 ms P [place] 56 degrees R [place] 67 degrees T [place] 7 degrees Sinus bradycardia Otherwise normal ECG When compared with ECG of 12-NOV-2015 06:10, Vent. rate has decreased BY 29 BPM T wave inversion no longer evident in Anterolateral leads Confirmed by MD SAVAGE JOSEPH P ([id number]) on 06/02/2018 6:29:27 AM Performing Organization Address [facility] Phone Number GE MUSE POC ACTIVATED CLOTTING TIME (06/01/2018 7:58 PM SHEAR HELPER)Only the most recent of2 resultswithin the time period is included. Activated Clotting Time 356Comment: TESTED AT sec [address] [address] Specimen Blood Performing Organization Address [facility] [place] Phone Number [address] [address] CENTER aPTT (06/01/2018 10:18 AM SHEAR HELPER) PTT 43.8 (H) 22.5 - 36.0 seconds [facility] Specimen Blood Narrative Performed At Prior to initiating heparin [facility] Performing Organization Address [facility] [place] Phone Number [address] [address] [phone] CENTER Platelet count (06/01/2018 10:18 AM SHEAR HELPER) Platelets 92 (L) 150 - 450 K/CU MM [facility] Specimen Blood Performing Organization Address City/State/Zipcode Phone Number [facility] [address] [place] [address] [place] POC-Glucose meter (06/01/2018 7:28 AM SHEAR HELPER) POC-Glucose Meter 100Comment: TESTED AT 70 - 110 mg/dL [facility] [address] [place] [id number] Specimen Blood Performing Organization Address City/[facility]/Zipcode Phone Number [facility] [address] [place] [address] [place] XR chest 1 view portable / bedside (06/01/2018 7:15 AM SHEAR HELPER) Specimen Narrative Performed At Addendum Begins GE RIS REPORT STATUS:A The right jugular line and chest tubes were removed in 2015. No acute cardiopulmonary abnormality is seen. Signed: Nito Li MD Report Verified Date/Time:06/02/2018 09:50:37 Reading Location: [facility] C013Y CT Body Reading Room Addendum Ends FINAL REPORT Portable chest. CLINICAL HISTORY: chest pain. COMPARISON STUDY: November 08, 2015. FINDINGS: The cardiac silhouette is enlarged. Sternotomy wires are seen. The pulmonary parenchyma demonstrates mild interstitial markings. The right jugular line and left chest tubes have been removed. No pneumothorax is seen. Degenerative changes are noted. IMPRESSION: Removal of right jugular line and left-sided chest tubes. Signed: Nito Li MD Report Verified Date/Time:06/01/2018 08:53:52 Reading Location: [facility] Radiology Reading Room Procedure Note Interface, External Ris In - 06/02/2018 9:52 AM SHEAR HELPER Addendum Begins REPORT STATUS:A The right jugular line and chest tubes were removed in 2015. No acute cardiopulmonary abnormality is seen. Signed: Nito Li MD Report Verified Date/Time: 06/02/2018 09:50:37 Reading Location: [facility] C013Y CT Body Reading Room Addendum Ends FINAL REPORT Portable chest. CLINICAL HISTORY: chest pain. COMPARISON STUDY: November 08, 2015. FINDINGS: The cardiac silhouette is enlarged. Sternotomy wires are seen. The pulmonary parenchyma demonstrates mild interstitial markings. The right jugular line and left chest tubes have been removed. No pneumothorax is seen. Degenerative changes are noted. IMPRESSION: Removal of right jugular line and left-sided chest tubes. Signed: Nito Li MD Report Verified Date/Time: 06/01/2018 08:53:52 Reading Location: [facility] Radiology Reading Room Performing Organization Address [facility] Phone Number [facility] PT/aPTT (06/01/2018 6:59 AM SHEAR HELPER) Protime 13.7 11.7 - 14.7 seconds [facility] INR 1.0 <=5.9 [facility] PTT 42.8 (H) 22.5 - 36.0 seconds [facility] Specimen Blood Narrative Performed At RECOMMENDED COUMADIN/WARFARIN INR THERAPY [facility] RANGES STANDARD DOSE: 2.0 - 3.0 Includes: PROPHYLAXIS for venous thrombosis, systemic embolization; TREATMENT for venous thrombosis and/or pulmonary embolus. HIGH RISK: Target INR is 2.5-3.5 for patients with mechanical heart valves. Performing Organization Address [facility] Phone Number [address] [address] [phone] CENTER Troponin I (06/01/2018 6:59 AM SHEAR HELPER) Troponin I 3.52 (HH) 0.00 - 0.03 ng/mL [facility] Specimen Blood Narrative Performed At Troponin I (TnI) levels must be interpreted [facility] in the context of the presenting symptoms and the clinical findings. Elevated TnI levels indicate myocardial damage, but are not specific for ischemic heart disease. Elevated TnI levels are seen in patients with other cardiac conditions (including myocarditis and congestive heart failure), and slight TnI elevations occur in patients with other conditions, including sepsis, renal failure, acidosis, acute neurological disease, and persistent tachyarrhythmia. Performing Organization Address City/State/Zipcode Phone Number [facility] [address] [place], [place] [id number] [place] Lipid panel (06/01/2018 6:59 AM SHEAR HELPER) Triglycerides 162 mg/dL [facility] Cholesterol 159 mg/dL [facility] HDL 33 mg/dL [facility] LDL Calculated 94 mg/dL [facility] Specimen Blood Narrative Performed At Triglyceride Reference Range: [facility] Low Risk <150 [id number] High Risk 200-499 Very High Risk>=500 Cholesterol Reference Range: Low Risk <200 Fkdkmtfswl134-123 High Risk>240 HDL Cholesterol Reference Range: Low Risk >=60 High Risk <40 LDL Cholesterol Reference Range: Optimal<100 Near Zhllbou197-193 Erkiiiadpj641-129 Lzsl809-986 Very High >=190 Performing Organization Address City/State/Zipcode Phone Number [facility] [address] [place] [address] [place] after 10/12/2017 Insurance Payer Benefit Plan / Group Subscriber ID Type Phone Address MEDICARE MEDICARE A B xxxxxxxxxxx Medicare AETNA - MGD CARE AETNA PPO OPEN [facility] xxxxxxxxx PPO (Home) [place] [address] Advance Directives For more information, please contact:[address] [phone] Code Status Date Activated Date Inactivated Comments Full Code 06/01/2018 5:46 AM This code status was determined by: Patient Full Code 11/08/2015 6:13 PM 11/12/2015 8:37 PM This code status was determined by: Patient Full Code 11/05/2015 7:14 PM 11/08/2015 6:13 PM This code status was determined by: Patient Full Code 11/05/2015 2:31 AM 11/05/2015 7:14 PM This code status was determined by: Patient Full Code 11/05/2015 2:31 AM 11/05/2015 2:31 AM This code status was determined by: Patient
--- OUTSIDE RECORDS SUMMARY | 2018-10-13 06:48 | XMS REPORT ---
:1950 [facility] Address [address] [place] [id number] Care Team Providers Name Role Phone MARILUZ DE DIOS Unavailable Unavailable Problems This patient has no known problems. Allergies, Adverse Reactions, Alerts This patient has no known allergies or adverse reactions. Medications This patient has no known medications. Results Test Description Test Time Test Comments Text Results Atomic Results Result Comments BASIC METABOLIC PANEL 2018-06-03 06:04:00 Test Item Value Reference Range Comments SODIUM (BEAKER) (test 139 meq/L 136-145 xutf=179) POTASSIUM (BEAKER) (test 4.0 meq/L 3.5-5.1 ctla=916) CHLORIDE (BEAKER) (test 110 meq/L 98-107 axwt=148) CO2 (BEAKER) (test sgbo=050) 23 meq/L 22-29 BLOOD UREA NITROGEN (BEAKER) 16 mg/dL 7-21 (test utor=113) CREATININE (BEAKER) (test 1.20 mg/dL 0.57-1.25 zihx=307) GLUCOSE RANDOM (BEAKER) 90 mg/dL 70-105 (test nwxu=318) CALCIUM (BEAKER) (test 8.7 mg/dL 8.4-10.2 uftf=880) EGFR (BEAKER) (test 60 mL/min/1.73 sq m ESTIMATED GFR IS NOT aukm=8951) ACCURATE CREATININE CLEARANCE IN PREDICTING GLOMERULAR FILTRATION RATE. ESTIMATED GFR IS NOT APPLICABLE FOR DIALYSIS PATIENTS. CBC W/PLT COUNT & AUTO [id number] 05:29:00 Test Item Value Reference Range Comments WHITE BLOOD CELL COUNT (BEAKER) (test mpqi=073) 4.1 K/ L 3.5-10.5 RED BLOOD CELL COUNT (BEAKER) (test zokc=831) 3.58 M/ L 4.63-6.08 HEMOGLOBIN (BEAKER) (test hshn=399) 12.5 GM/DL 13.7-17.5 HEMATOCRIT (BEAKER) (test jmvd=620) 35.9 % 40.1-51.0 MEAN CORPUSCULAR VOLUME (BEAKER) (test efbk=436) 100.3 fL 79.0-92.2 MEAN CORPUSCULAR HEMOGLOBIN (BEAKER) (test 34.9 pg 25.7-32.2 xfdn=726) MEAN CORPUSCULAR HEMOGLOBIN CONC (BEAKER) (test 34.8 GM/DL 32.3-36.5 rugz=688) RED CELL DISTRIBUTION WIDTH (BEAKER) (test 13.1 % 11.6-14.4 ldbe=037) PLATELET COUNT (BEAKER) (test hikq=674) 76 K/CU MM 150-450 MEAN PLATELET VOLUME (BEAKER) (test kbpp=222) 9.5 fL 9.4-12.4 NUCLEATED RED BLOOD CELLS (BEAKER) (test 0 /100 WBC 0-0 qiwk=479) NEUTROPHILS RELATIVE PERCENT (BEAKER) (test 65 % edep=554) LYMPHOCYTES RELATIVE PERCENT (BEAKER) (test 18 % hahm=360) MONOCYTES RELATIVE PERCENT (BEAKER) (test 12 % pmhl=715) EOSINOPHILS RELATIVE PERCENT (BEAKER) (test 4 % ikyp=413) BASOPHILS RELATIVE PERCENT (BEAKER) (test 1 % juqt=434) NEUTROPHILS ABSOLUTE COUNT (BEAKER) (test 2.64 K/ L 1.78-5.38 pesr=187) LYMPHOCYTES ABSOLUTE COUNT (BEAKER) (test 0.72 K/ L 1.32-3.57 uwpn=083) MONOCYTES ABSOLUTE COUNT (BEAKER) (test qwkw=869) 0.50 K/ L 0.30-0.82 EOSINOPHILS ABSOLUTE COUNT (BEAKER) (test 0.18 K/ L 0.04-0.54 jlbs=811) BASOPHILS ABSOLUTE COUNT (BEAKER) (test fcab=574) 0.02 K/ L 0.01-0.08 IMMATURE GRANULOCYTES-RELATIVE PERCENT (BEAKER) 1 % 0-1 (test ttbp=2069) CBC (HEMOGRAM ONLY)2018-06-03 05:29:00 Test Item Value Reference Range Comments WHITE BLOOD CELL COUNT (BEAKER) (test useh=903) 4.1 K/ L 3.5-10.5 RED BLOOD CELL COUNT (BEAKER) (test rasv=658) 3.58 M/ L 4.63-6.08 HEMOGLOBIN (BEAKER) (test flxh=416) 12.5 GM/DL 13.7-17.5 HEMATOCRIT (BEAKER) (test eomg=024) 35.9 % 40.1-51.0 MEAN CORPUSCULAR VOLUME (BEAKER) (test fusy=573) 100.3 fL 79.0-92.2 MEAN CORPUSCULAR HEMOGLOBIN (BEAKER) (test 34.9 pg 25.7-32.2 ihoo=722) MEAN CORPUSCULAR HEMOGLOBIN CONC (BEAKER) (test 34.8 GM/DL 32.3-36.5 rdnu=010) RED CELL DISTRIBUTION WIDTH (BEAKER) (test 13.1 % 11.6-14.4 ntgj=867) PLATELET COUNT (BEAKER) (test eyqk=164) 76 K/CU MM 150-450 MEAN PLATELET VOLUME (BEAKER) (test fgbw=112) 9.5 fL 9.4-12.4 NUCLEATED RED BLOOD CELLS (BEAKER) (test 0 /100 WBC 0-0 rsgn=456) CBC (HEMOGRAM ONLY)2018-06-03 05:28:00 Test Item Value Reference Range Comments WHITE BLOOD CELL COUNT (BEAKER) (test yfuz=293) 4.1 K/ L 3.5-10.5 RED BLOOD CELL COUNT (BEAKER) (test dqyf=618) 3.53 M/ L 4.63-6.08 HEMOGLOBIN (BEAKER) (test iywj=489) 12.5 GM/DL 13.7-17.5 HEMATOCRIT (BEAKER) (test paak=756) 35.4 % 40.1-51.0 MEAN CORPUSCULAR VOLUME (BEAKER) (test qwbz=893) 100.3 fL 79.0-92.2 MEAN CORPUSCULAR HEMOGLOBIN (BEAKER) (test 35.4 pg 25.7-32.2 uiol=846) MEAN CORPUSCULAR HEMOGLOBIN CONC (BEAKER) (test 35.3 GM/DL 32.3-36.5 ccpr=994) RED CELL DISTRIBUTION WIDTH (BEAKER) (test 13.1 % 11.6-14.4 sjpm=376) PLATELET COUNT (BEAKER) (test qdlv=708) 80 K/CU MM 150-450 MEAN PLATELET VOLUME (BEAKER) (test mhws=777) 9.6 fL 9.4-12.4 NUCLEATED RED BLOOD CELLS (BEAKER) (test 0 /100 WBC 0-0 lqaa=723) RAD, CHEST, 1 VIEW, NON [id number] 09:50:00Reason for exam:->chest painShould this be performed at the bedside?->YesAddendum BeginsREPORT STATUS :A The right jugular line and chest tubes were removed in 2015. No acute cardiopulmonary abnormality is seen. Signed: Nito Li MDReport Verified Date/Time: 06/02/2018 09:50:37 Reading Location: [facility] C013Y CT Body Reading RoomAddendum EndsFINAL REPORT Portable chest. CLINICAL HISTORY: chest pain. COMPARISON STUDY: 2015. FINDINGS: The cardiac silhouette is enlarged. Sternotomy wires are seen. The pulmonary parenchyma demonstrates mild interstitial markings. The right jugular line and left chest tubes have been removed. No pneumothorax is seen. Degenerative changes are noted. IMPRESSION: Removal of right jugular line and left-sided chest tubes. Signed: Nito [place] Verified Date/Time: 08:53:52 Reading Location: [facility] Radiology Reading Room TSH/FREE T4 IF [id number] 05:00:00 Test Item Value Reference Range Comments THYROID STIMULATING HORMONE (BEAKER) (test 1.45 uIU/mL 0.35-4.94 lqqh=685) BASIC METABOLIC [id number] 04:40:00 Test Item Value Reference Range Comments SODIUM (BEAKER) (test 140 meq/L 136-145 plty=008) POTASSIUM (BEAKER) (test 3.7 meq/L 3.5-5.1 sraa=255) CHLORIDE (BEAKER) (test 109 meq/L 98-107 dtem=978) CO2 (BEAKER) (test 26 meq/L 22-29 mbhq=661) BLOOD UREA NITROGEN 13 mg/dL 7-21 (BEAKER) (test amhv=299) CREATININE (BEAKER) (test 1.24 mg/dL 0.57-1.25 lbfg=605) GLUCOSE RANDOM (BEAKER) 89 mg/dL 70-105 (test khfo=992) CALCIUM (BEAKER) (test 8.5 mg/dL 8.4-10.2 mnwq=865) EGFR (BEAKER) (test 58 mL/min/1.73 sq m ESTIMATED GFR IS NOT yily=8718) ACCURATE CREATININE CLEARANCE IN PREDICTING GLOMERULAR FILTRATION RATE. ESTIMATED GFR IS NOT APPLICABLE FOR DIALYSIS PATIENTS. CBC W/PLT COUNT & AUTO [id number] 04:23:00 Test Item Value Reference Range Comments WHITE BLOOD CELL COUNT (BEAKER) (test bbnf=161) 4.9 K/ L 3.5-10.5 RED BLOOD CELL COUNT (BEAKER) (test eszp=103) 3.64 M/ L 4.63-6.08 HEMOGLOBIN (BEAKER) (test sqkg=765) 12.8 GM/DL 13.7-17.5 HEMATOCRIT (BEAKER) (test sirn=087) 37.0 % 40.1-51.0 MEAN CORPUSCULAR VOLUME (BEAKER) (test edxc=584) 101.6 fL 79.0-92.2 MEAN CORPUSCULAR HEMOGLOBIN (BEAKER) (test 35.2 pg 25.7-32.2 rofn=427) MEAN CORPUSCULAR HEMOGLOBIN CONC (BEAKER) (test 34.6 GM/DL 32.3-36.5 fjvy=136) RED CELL DISTRIBUTION WIDTH (BEAKER) (test 13.4 % 11.6-14.4 epsp=650) PLATELET COUNT (BEAKER) (test gbkx=476) 88 K/CU MM 150-450 MEAN PLATELET VOLUME (BEAKER) (test ommk=052) 10.0 fL 9.4-12.4 NUCLEATED RED BLOOD CELLS (BEAKER) (test 0 /100 WBC 0-0 rotj=953) NEUTROPHILS RELATIVE PERCENT (BEAKER) (test 63 % mfbc=375) LYMPHOCYTES RELATIVE PERCENT (BEAKER) (test 21 % wjwd=515) MONOCYTES RELATIVE PERCENT (BEAKER) (test 12 % rcfh=131) EOSINOPHILS RELATIVE PERCENT (BEAKER) (test 4 % xhgz=250) BASOPHILS RELATIVE PERCENT (BEAKER) (test 0 % ytgr=350) NEUTROPHILS ABSOLUTE COUNT (BEAKER) (test 3.08 K/ L 1.78-5.38 hcgk=761) LYMPHOCYTES ABSOLUTE COUNT (AKER) (test 1.01 K/ L 1.32-3.57 lrol=377) MONOCYTES ABSOLUTE COUNT (AKER) (test kqhy=418) 0.59 K/ L 0.30-0.82 EOSINOPHILS ABSOLUTE COUNT (AKER) (test 0.17 K/ L 0.04-0.54 nyil=557) BASOPHILS ABSOLUTE COUNT (AKER) (test minr=739) 0.02 K/ L 0.01-0.08 IMMATURE GRANULOCYTES-RELATIVE PERCENT ([facility]) 0 % 0-1 (test cntb=3268) [id number] 20:34:00 Test Item Value Reference Range Comments ACTIVATED CLOTTING TIME 356 sec TESTED AT [address] ([facility]) (test rqnh=682) [place] [address] [id number] 19:46:00 Test Item Value Reference Range Comments ACTIVATED CLOTTING TIME 186 sec TESTED AT [address] ([facility]) (test xzkv=045) [place] [address] [id number] 10:46:00 Test Item Value Reference Range Comments PARTIAL THROMBOPLASTIN TIME ([facility]) (test 43.8 seconds 22.5-36.0 mmoj=432) Prior to initiating heparinPLATELET [id number] 10:33:00 Test Item Value Reference Range Comments PLATELET COUNT ([facility]) (test kmcz=338) 92 K/CU MM 150-450 POCT-GLUCOSE [id number] 08:20:00 Test Item Value Reference Range Comments POC-GLUCOSE METER ([facility]) 100 mg/dL 70-110 TESTED AT [address] (test hjcx=3250) [place] [address] TROPONIN [id number] 07:41:00 Test Item Value Reference Range Comments TROPONIN I ([facility]) (test xuvo=133) 3.52 ng/mL 0.00-0.03 Troponin I (TnI) levels must be interpreted in the context of the presenting symptoms and the clinical findings. Elevated TnI levels indicate myocardial damage, but are not specific for ischemic heart disease. Elevated TnI levels are seen in patients with other cardiac conditions (including myocarditis and congestive heart failure), and slight TnI elevations occur in patients with other conditions, including sepsis, renal failure, acidosis, acute neurological disease, and persistent tachyarrhythmia.[id number] 07:31:00 Test Item Value Reference Range Comments PROTIME (BEAKER) (test rmar=185) 13.7 seconds 11.7-14.7 INR (BEAKER) (test ogxl=325) 1.0 <=5.9 PARTIAL THROMBOPLASTIN TIME (BEAKER) (test 42.8 seconds 22.5-36.0 wmso=151) RECOMMENDED COUMADIN/WARFARIN INR THERAPY RANGESSTANDARD DOSE: 2.0 - 3.0 Includes: PROPHYLAXIS forvenous thrombosis, systemic embolization; TREATMENT for venous thrombosis and/or pulmonary embolus.HIGH RISK: Target INR is 2.5-3.5 for patients with mechanical heart valves.LIPID [id number] 07:29:00 Test Item Value Reference Range Comments TRIGLYCERIDES (BEAKER) (test qbvw=277) 162 mg/dL CHOLESTEROL (BEAKER) (test ayqx=087) 159 mg/dL HDL CHOLESTEROL (BEAKER) (test mzaz=498) 33 mg/dL LDL CHOLESTEROL CALCULATED (BEAKER) (test 94 mg/dL mljy=988) Triglyceride Reference Range: Low Risk <150 Borderline 150- 199 High Risk 200-499 Very High Risk >=500Cholesterol Reference Range: Low Risk <200 Borderline 200-239 High Risk > 240HDL Cholesterol Reference Range: Low Risk >=60 High Risk <40LDL Cholesterol Reference Range: Optimal <100 Near Optimal 100-129 Borderline 130-159 High 160-189 Very High >=190BASIC METABOLIC [id number] 07:29:00 Test Item Value Reference Range Comments SODIUM (BEAKER) (test 143 meq/L 136-145 exsj=909) POTASSIUM (BEAKER) (test 3.7 meq/L 3.5-5.1 jpag=478) CHLORIDE (BEAKER) (test 110 meq/L 98-107 sicv=769) CO2 (BEAKER) (test 25 meq/L 22-29 oygk=972) BLOOD UREA NITROGEN 12 mg/dL 7-21 (BEAKER) (test qahu=957) CREATININE (BEAKER) (test 1.19 mg/dL 0.57-1.25 qpru=306) GLUCOSE RANDOM (BEAKER) 92 mg/dL 70-105 (test fdmg=577) CALCIUM (BEAKER) (test 8.9 mg/dL 8.4-10.2 xmws=991) EGFR (BEAKER) (test 61 mL/min/1.73 sq m ESTIMATED GFR IS NOT xdln=9665) ACCURATE CREATININE CLEARANCE IN PREDICTING GLOMERULAR FILTRATION RATE. ESTIMATED GFR IS NOT APPLICABLE FOR DIALYSIS PATIENTS. CBC W/PLT COUNT & AUTO [id number] 07:09:00 Test Item Value Reference Range Comments WHITE BLOOD CELL COUNT (BEAKER) (test lywu=165) 3.9 K/ L 3.5-10.5 RED BLOOD CELL COUNT (BEAKER) (test fzhg=999) 4.07 M/ L 4.63-6.08 HEMOGLOBIN (BEAKER) (test fszz=337) 14.5 GM/DL 13.7-17.5 HEMATOCRIT (BEAKER) (test eimp=929) 40.4 % 40.1-51.0 MEAN CORPUSCULAR VOLUME (BEAKER) (test jrkd=572) 99.3 fL 79.0-92.2 MEAN CORPUSCULAR HEMOGLOBIN (BEAKER) (test 35.6 pg 25.7-32.2 ppwh=459) MEAN CORPUSCULAR HEMOGLOBIN CONC (BEAKER) (test 35.9 GM/DL 32.3-36.5 vpxc=610) RED CELL DISTRIBUTION WIDTH (BEAKER) (test 13.2 % 11.6-14.4 ydgw=056) PLATELET COUNT (BEAKER) (test ojfm=491) 93 K/CU MM 150-450 MEAN PLATELET VOLUME (BEAKER) (test rhkq=801) 9.4 fL 9.4-12.4 NUCLEATED RED BLOOD CELLS (BEAKER) (test 0 /100 WBC 0-0 tduz=400) NEUTROPHILS RELATIVE PERCENT (BEAKER) (test 58 % pxfs=421) LYMPHOCYTES RELATIVE PERCENT (BEAKER) (test 23 % bqxg=462) MONOCYTES RELATIVE PERCENT (BEAKER) (test 12 % ogwx=623) EOSINOPHILS RELATIVE PERCENT (BEAKER) (test 6 % dctm=141) BASOPHILS RELATIVE PERCENT (BEAKER) (test 1 % ixen=491) NEUTROPHILS ABSOLUTE COUNT (BEAKER) (test 2.28 K/ L 1.78-5.38 yvlp=430) LYMPHOCYTES ABSOLUTE COUNT (BEAKER) (test 0.91 K/ L 1.32-3.57 cvpc=691) MONOCYTES ABSOLUTE COUNT (BEAKER) (test rufp=717) 0.46 K/ L 0.30-0.82 EOSINOPHILS ABSOLUTE COUNT (BEAKER) (test 0.24 K/ L 0.04-0.54 tmwe=594) BASOPHILS ABSOLUTE COUNT (BEAKER) (test dysr=128) 0.02 K/ L 0.01-0.08 IMMATURE GRANULOCYTES-RELATIVE PERCENT (BEAKER) 0 % 0-1 (test rljg=4968)
[2018-10-13] MEDS ORDERED: NITROGLYCERIN 0.4 MG/TAB SL ONE (07:32)
[2018-10-13] MEDS ORDERED: ASPIRIN 81 MG CHEWABLE TABLET ONE (07:32)
[2018-10-13 07:51] LABS: Protime INR 0.93
[2018-10-13 07:53] LABS: Absolute Lymphocytes (CBC) 0.5 K/uL (0.7-4.9); Basophils % 0.7 % (0-1.3); Hematocrit 38.8 % (39.6-49.0); Lymphocytes % 12.5 % (15.3-44.8); MPV 7.2 fL (7.6-11.3); Monocytes % 11.3 % (3.3-12.3); RBC Red Blood Cell Count 3.89 M/uL (4.33-5.43)
[2018-10-13 08:01] LABS: ALT/SGPT 56 U/L (12-78); AST/SGOT 37 U/L (15-37); Albumin 3.9 g/dL (3.4-5.0); Alkaline Phosphatase 105 U/L (45-117); BUN Blood Urea Nitrogen 13 mg/dL (7-18); Bicarbonate 25 mmol/L (21-32); Bilirubin Direct 0.2 mg/dL (0-0.2); Bilirubin Total 0.9 mg/dL (0.2-1.0); Glucose Level 97 mg/dL (74-106); Magnesium 2.5 mg/dL (1.8-2.4); NT PRO-BNP 296 pg/mL (<125); Protein, Total 7.4 g/dL (6.4-8.2); Sodium Level 141 mmol/L (136-145); Troponin (Emerg Dept Use Only) < 0.02 ng/mL (0.0-0.045)
--- NOTE | 2018-10-13 08:41 | ER ---
Nurse's Notes [facility] Name: Tc Mckeon Age: 68 yrs Sex: Male : 1950 Arrival Date: 10/13/2018 Time: 06:46 Bed 14 Private MD: Chidi Chavarria V Diagnosis: Angina pectoris, unspecified Presentation: 10/13 06:48 Presenting complaint: Patient states: This morning I woke up with chest pressure and jb4 left arm numbness. 06:48 Transition of care: patient was not received from another setting of care. Onset of jb4 symptoms was October 13, 2018. Risk Assessment: Do you want to hurt yourself or someone else? Patient reports no desire to harm self or others. Initial Sepsis Screen: Does the patient meet any 2 criteria? No. Patient's initial sepsis screen is negative. Does the patient have a suspected source of infection? No. Patient's initial sepsis screen is negative. Care prior to arrival: None. 06:48 Method Of Arrival: Ambulatory jb4 06:48 Acuity: ZBIGNIEW 3 jb4 Historical: - Allergies: 06:48 Amoxicillin; jb4 06:48 Codeine; jb4 06:48 Morphine; jb4 06:48 tramadol; jb4 06:48 Demerol; jb4 - Home Meds: 06:48 lisinopril Oral [Active]; BRILINTA oral oral [Active]; Colchicine Oral [Active]; jb4 - PMHx: 06:48 CAD; Gout; Hypertension; Hyperlipidemia; jb4 - PSHx: 06:48 CABG; quadruple bypass; jb4 - Immunization history:: Adult Immunizations not up to date. - Social history:: Smoking status: Patient/guardian denies using tobacco, Patient uses alcohol, on a daily basis. - Ebola Screening: : No symptoms or risks identified at this time. Screenin:13 Abuse screen: Denies threats or abuse. Denies injuries from another. Nutritional hb screening: No deficits noted. Tuberculosis screening: No symptoms or risk factors identified. Fall Risk None identified. Assessment: 07:10 General: Appears in no apparent distress. Behavior is calm, cooperative. Pain: hb Complains of pain in chest left arm Pain currently is 2 out of 10 on a pain scale. Quality of pain is described as pressure, Pain began 2 hours ago. Neuro: Level of Consciousness is awake, alert, obeys commands, Oriented to person, place, time, situation. Cardiovascular: Heart tones S1 S2 present Capillary refill < 3 seconds Patient's skin is warm and dry. Respiratory: Airway is patent Respiratory effort is even, unlabored, Respiratory pattern is regular, symmetrical, Breath sounds are clear bilaterally. GI: No signs and/or symptoms were reported involving the gastrointestinal system. : No signs and/or symptoms were reported regarding the genitourinary system. EENT: No signs and/or symptoms were reported regarding the EENT system. Derm: Skin is intact, is healthy with good turgor, Skin is pink, warm \T\ dry. Musculoskeletal: No signs and/or symptoms reported regarding the musculoskeletal system. 07:58 Reassessment: Pt report pain relief, now 0/10. NAD. VSS. hb 09:00 Reassessment: Patient appears in no apparent distress at this time. Patient and/or hb family updated on plan of care and expected duration. Pain level reassessed. Patient is alert, oriented x 3, equal unlabored respirations, skin warm/dry/pink. 10:00 Reassessment: Patient appears in no apparent distress at this time. Patient and/or hb family updated on plan of care and expected duration. Pain level reassessed. Patient is alert, oriented x 3, equal unlabored respirations, skin warm/dry/pink. Patient denies pain at this time. Patient states feeling better. Patient states symptoms have improved. Vital Signs: 06:48 BP 154 / 68; Pulse 61; Resp 15; Temp 98.1(O); Pulse Ox 99% on R/A; Weight 58.06 kg (R); jb4 Height 5 ft. 3 in. (160.02 cm) (R); Pain 2/10; 07:00 BP 143 / 62 LA; hb 07:12 BP 142 / 64 RA; hb 07:41 BP 116 / 64; Pulse 63; Resp 10; Temp 98.0(O); Pulse Ox 99% on R/A; mh5 08:00 BP 115 / 62; Pulse 56; Resp 15; Pulse Ox 100% on R/A; Pain 0/10; hb 09:01 BP 143 / 63; Pulse 57; Resp 14; Temp 97.9(O); Pulse Ox 100% on R/A; mh5 10:00 BP 130 / 72; Pulse 65; Resp 15; Pulse Ox 99% on R/A; Pain 0/10; hb 06:48 Body Mass Index 22.67 (58.06 kg, 160.02 cm) jb4 ED Course: 06:46 Patient arrived in ED. am2 06:46 Chidi Chavarria MD is Private Physician. am2 06:48 Arm band placed on left wrist. jb4 06:59 Gamaliel Delacruz PA is PHCP. cp 06:59 Jonah Peres MD is Attending Physician. cp 07:01 Triage completed. jb4 07:10 Patient has correct armband on for positive identification. Placed in gown. Bed in low hb position. Call light in reach. Side rails up X 1. rice dryer mechanic on. Pulse ox on. NIBP on. 07:10 Patient maintains SpO2 saturation greater than 95% on room air. hb 07:11 Imelda Felder, RN is Primary Nurse. hb 07:16 X-ray completed. Portable x-ray completed in exam room. Patient tolerated procedure jb2 well. 07:19 XRAY Chest (1 view) In Process Unspecified. EDMS 07:25 Initial lab(s) drawn, by az, sent to lab. Inserted saline lock: 22 gauge in right mh5 antecubital area, using aseptic technique. Blood collected. 07:39 Basic Metabolic Panel Sent. mh5 07:39 CBC with Diff Sent. mh5 07:39 LFT's Sent. 5 07:39 Magnesium Sent. 5 07:40 NT PRO-BNP Sent. 5 07:40 PT-INR Sent. 5 07:40 Troponin (emerg Dept Use Only) Sent. mh5 08:40 Chidi Chavarria MD is Hospitalizing Provider. cp 10:03 No provider procedures requiring assistance completed. Patient admitted, IV remains in hb place. Administered Medications: 07:27 Drug: Aspirin Chewable Tablet 324 mg Route: PO; hb 08:00 Follow up: Response: No adverse reaction hb 07:27 Drug: Nitroglycerin 0.4 mg Route: Sublingual; hb 08:00 Follow up: Response: No adverse reaction; Pain is decreased hb Outcome: 08:40 Decision to Hospitalize by Provider. cp 10:03 Admitted to Tele accompanied by tech, via wheelchair, with chart. hb 10:03 Condition: stable 10:03 Instructed on the need for admit, Demonstrated understanding of instructions. 10:14 Patient left the ED. brandon Signatures: Dispatcher [employer] Karam Trevino RN RN aj Buechter, Jesse jb2 Gamaliel Delacruz PA PA cp Baxter, Heather, RN RN hb Bryson, James, RN RN jb4 Sue Flores [facility] Karma Mckeon
--- NOTE | 2018-10-13 08:41 | EDPHYS ---
Physician Documentation [facility] Name: Tc Mckeon Age: 68 yrs Sex: Male : 1950 Arrival Date: 10/13/2018 Time: 06:46 Bed 14 Private MD: Chidi Chavarria V ED Physician Jonah Peres HPI: 10/13 07:08 This 68 yrs old Male presents to ER via Ambulatory with complaints of Chest cp Tightness, Numbness Of Arm. 07:08 The patient or guardian reports chest pain that is located primarily in the anterior cp chest wall. 07:08 Onset: this morning, at 06:20, upon awakening. The pain does not radiate. cp 07:08 The chest pain is described as a pressure. cp 07:08 Associated signs and symptoms: Pertinent positives: left arm numbness, improving, cp Pertinent negatives: abdominal pain, cough, fever, wheezing. Historical: - Allergies: 06:48 Amoxicillin; jb4 06:48 Codeine; jb4 06:48 Morphine; jb4 06:48 tramadol; jb4 06:48 Demerol; jb4 - Home Meds: 06:48 lisinopril Oral [Active]; BRILINTA oral oral [Active]; Colchicine Oral [Active]; jb4 - PMHx: 06:48 CAD; Gout; Hypertension; Hyperlipidemia; jb4 - PSHx: 06:48 CABG; quadruple bypass; jb4 - Immunization history:: Adult Immunizations not up to date. - Social history:: Smoking status: Patient/guardian denies using tobacco, Patient uses alcohol, on a daily basis. - Ebola Screening: : No symptoms or risks identified at this time. ROS: 07:12 Constitutional: Negative for body aches, chills, fever, poor PO intake. cp 07:12 Eyes: Negative for injury, pain, redness, and discharge. cp 07:12 ENT: Negative for drainage from ear(s), ear pain, sore throat, difficulty swallowing, difficulty handling secretions. 07:12 Cardiovascular: Positive for chest pain, Negative for edema, palpitations. 07:12 Respiratory: Negative for cough, shortness of breath, wheezing. 07:12 Abdomen/GI: Negative for abdominal pain, nausea, vomiting, and diarrhea. 07:12 Back: Negative for pain at rest, pain with movement. 07:12 MS/extremity: Positive for paresthesias, of the left forearm and left hand, Negative for injury or acute deformity, decreased range of motion. 07:12 Neuro: Negative for altered mental status, headache, speech changes, weakness. 07:12 All other systems are negative. Exam: 07:00 ECG was reviewed by the Attending Physician. cp 07:20 Constitutional: The patient appears in no acute distress, alert, awake, cp non-diaphoretic, non-toxic, well developed, well nourished. 07:20 Head/Face: Normocephalic, atraumatic. cp 07:20 Eyes: Periorbital structures: appear normal, Conjunctiva: normal, no exudate, no cp injection, Sclera: no appreciated abnormality, Lids and lashes: appear normal, bilaterally. 07:20 ENT: External ear(s): are unremarkable, Nose: is normal, Mouth: is normal, Posterior pharynx: is normal, airway is patent, no erythema, no exudate. 07:20 Neck: ROM/movement: is normal, is supple, without pain, no range of motions limitations, no meningismus, no nuchal rigidity. 07:20 Chest/axilla: Inspection: normal, Palpation: is normal, no crepitus, no tenderness. 07:20 Cardiovascular: Rate: normal, Rhythm: regular, Edema: is not appreciated, JVD: is not appreciated. 07:20 Respiratory: the patient does not display signs of respiratory distress, Respirations: cp normal, no use of accessory muscles, no retractions, no splinting, no tachypnea, labored breathing, is not present, Breath sounds: are clear throughout, no decreased breath sounds, no stridor, no wheezing. 07:20 Abdomen/GI: Inspection: abdomen appears normal, Palpation: abdomen is soft and non-tender, in all quadrants. 07:20 Back: pain, is absent, ROM is normal. 07:20 Skin: no rash present. 07:20 Neuro: Orientation: to person, place \T\ time. Mentation: is normal, Cerebellar function: is grossly normal, Motor: moves all fours, strength is normal, Sensation: no obvious gross deficits. Vital Signs: 06:48 BP 154 / 68; Pulse 61; Resp 15; Temp 98.1(O); Pulse Ox 99% on R/A; Weight 58.06 kg (R); jb4 Height 5 ft. 3 in. (160.02 cm) (R); Pain 2/10; 07:00 BP 143 / 62 LA; hb 07:12 BP 142 / 64 RA; hb 07:41 BP 116 / 64; Pulse 63; Resp 10; Temp 98.0(O); Pulse Ox 99% on R/A; mh5 08:00 BP 115 / 62; Pulse 56; Resp 15; Pulse Ox 100% on R/A; Pain 0/10; hb 09:01 BP 143 / 63; Pulse 57; Resp 14; Temp 97.9(O); Pulse Ox 100% on R/A; mh5 10:00 BP 130 / 72; Pulse 65; Resp 15; Pulse Ox 99% on R/A; Pain 0/10; hb 06:48 Body Mass Index 22.67 (58.06 kg, 160.02 cm) jb4 MDM: 07:00 Patient medically screened. cp 07:52 The patient was given aspirin in the Emergency Department. cp 08:08 HEART Score: History: Moderately Suspicious (1), ECG: Normal (0), Age: > or = 65 years cp (2), Risk Factors: > or = 3 Risk factors for atherosclerotic disease (2), [Hypercholesterolemia] [Hypertension] Troponin: < or = 1 x Normal Limit (0), Total Score =. 08:15 Data reviewed: vital signs, nurses notes, lab test result(s), EKG, radiologic studies, cp plain films. 08:15 Test interpretation: by ED physician or midlevel provider: ECG, chest xray negative for cp infiltrates. Response to treatment: the patient's symptoms have markedly improved after treatment. 08:28 Physician consultation: Chidi Chavarria MD was contacted at 08:29, regarding admission, to the telemetry unit. patient's condition. 10/13 07:06 Order name: Basic Metabolic Panel; Complete Time: 08:06 10/13 08:07 Interpretation: Normal except: CL 109; GFR 58; CA 8.4. 10/13 07:06 Order name: CBC with Diff; Complete Time: 08:06 cp 10/13 08:06 Interpretation: Normal except: WBC 3.9; RBC 3.89; HCT 38.8; MCH 35.5; PLT 108; MPV 7.2; cp LYM% 12.5; EOSINOPHIL % 6.0; LYMA 0.5. 10/13 07:06 Order name: LFT's; Complete Time: 08:06 10/13 07:06 Order name: Magnesium; Complete Time: 08:06 10/13 08:07 Interpretation: MG 2.5; Reviewed. 10/13 07:06 Order name: NT PRO-BNP; Complete Time: 08:06 10/13 08:06 Interpretation: Abnormal: NT PRO-BNP 296. 10/13 07:06 Order name: PT-INR; Complete Time: 08:06 10/13 07:06 Order name: Troponin (emerg Dept Use Only); Complete Time: 08:06 10/13 07:06 Order name: XRAY Chest (1 view); Complete Time: 09:04 10/13 09:04 Interpretation: Report review. 10/13 07:06 Order name: EKG; Complete Time: 07:08 10/13 08:57 Order name: EKG Electrocardiogram EDMA 10/13 08:57 Order name: Troponin I EDMA 10/13 08:57 Order name: Troponin I EDMA 10/13 07:06 Order name: Cardiac monitoring; Complete Time: 07:27 10/13 07:06 Order name: EKG - Nurse/Tech; Complete Time: 07:27 10/13 07:06 Order name: IV Saline Lock; Complete Time: 07:28 10/13 07:06 Order name: Labs collected and sent; Complete Time: 07:28 10/13 07:06 Order name: O2 Per Protocol; Complete Time: 07:28 10/13 07:06 Order name: O2 Sat Monitoring; Complete Time: 07:28 10/13 07:06 Order name: Blood Pressure Recheck: upper extremities; Complete Time: 07:27 10/13 08:57 Order name: EKG Electrocardiogram EDMA 10/13 08:58 Order name: Regular EDMA 10/13 08:58 Order name: EKG Electrocardiogram EDMS EC:00 Rate is 63 beats/min. Rhythm is regular. MT interval is normal. QRS interval is normal. cp QT interval is normal. Q waves are Present in leads III, aVF. Interpreted by me. Reviewed by me. Administered Medications: 07:27 Drug: Aspirin Chewable Tablet 324 mg Route: PO; hb 08:00 Follow up: Response: No adverse reaction hb 07:27 Drug: Nitroglycerin 0.4 mg Route: Sublingual; hb 08:00 Follow up: Response: No adverse reaction; Pain is decreased hb Disposition: 10/13/18 08:40 Hospitalization ordered by Chidi Chavarria for Observation. Preliminary diagnosis is Angina pectoris, unspecified. - Bed requested for Telemetry/MedSurg (observation). - Status is Observation. aj - Condition is Stable. - Problem is new. - Symptoms have improved. UTI on Admission? No Addendum: 10/15/2018 07:00 Co-signature as Attending Physician, Jonah Peres MD. r n Signatures: Dispatcher [employer] EDMS Karma Dubon RN RN aj Nieto, Roman, MD MD rn Page, Corey, PA PA cp Baxter, Heather, RN RN hb Bryson, James, RN RN jb4 Botello, Elizabeth eb Corrections: (The following items were deleted from the chart) 10/13 08:07 08:06 Normal except: CL 109; GFR 58. cp cp 09:37 08:40 Hospitalization Ordered by Chidi Chavarria MD for Observation. Preliminary diagnosis eb is Angina pectoris, unspecified. Bed requested for Telemetry/MedSurg (observation). Status is Observation. Condition is Stable. Problem is new. Symptoms have improved. UTI on Admission? No. cp 10:14 09:37 10/13/2018 08:40 Hospitalization Ordered by Chidi Chavarria MD for Observation. aj Preliminary diagnosis is Angina pectoris, unspecified. Bed requested for Telemetry/MedSurg (observation). Status is Observation. Condition is Stable. Problem is new. Symptoms have improved. UTI on Admission? No. eb 21:40 10/12 07:20 Constitutional: The patient appears in no acute distress, alert, awake, cp non-diaphoretic, non-toxic, well developed, well nourished, cp 10/13 21:40 10/12 07:20 Head/Face: Normocephalic, atraumatic. cp cp 10/14 07:34 10/13 07:08 Associated signs and symptoms: Pertinent negatives: abdominal pain, cough, cp fever, shortness of breath, vomiting, wheezing, cp
[2018-10-13] MEDS ORDERED: ONDANSETRON 4 MG/2 ML VIAL IV PRN (08:52)
--- NOTE | 2018-10-13 08:58 | RAD REPORT ---
EXAM DESCRIPTION: RAD - Chest Single View - 10/13/2018 7:19 am CLINICAL HISTORY: Chest pain, chest pressure COMPARISON: May 2018 TECHNIQUE: AP portable chest image was obtained 0713 hours . FINDINGS: No peripheral mass or consolidation. Minimal prominence of the lung markings matches the p rior study. Sternotomy wires are in place. Heart size and vasculature are normal range and similar to comparison. No measurable pleural effusion and no pneumothorax. No acute bony abnormality seen. No a cute aortic findings suspected. IMPRESSION: No acute cardiopulmonary process. No significant interval change.
--- NOTE | 2018-10-13 10:08 | EKG ---
Test Date: 2018-10-13 Test Time: 06:53:20 Field Examiner: MARY JO MEASUREMENT RESULTS: Intervals: Rate: 63 MN: 142 QRSD: 96 QT: 426 QTc: 435 [place]: P: 64 MN: 142 QRS: 70 T: 35 INTERPRETIVE STATEMENTS: Normal sinus rhythm Normal ECG Compared to ECG 06/01/2018 01:59:44 Sinus bradycardia no longer present T-wave abnormality no longer present Possible ischemia no longer present Electronically Signed On 10-13-18 10:07:21 CDT by Bryn Almanza
[2018-10-13 10:25] VITALS: BMI 22.6
[2018-10-13 13:22] VITALS: O2SAT 98
[2018-10-13 16:03] VITALS: BP 153/63; TEMP 97.4
--- NOTE | 2018-10-13 17:31 | P.SSS ---
Patient History Date of Service: 10/13/18 Reason for admission: CHEST PAIN History of Present Illness: MR. MAYERS HAS KNOWN CAD, HE HAS BEEN TO DR. EDMOND BUT THEN ENDS UP IN [facility] WHEN SENT FROM ER AND HAD OTHER HEART MD. HE COMES TO ER WITH CHEST PAIN FOR 30 MINS AND RELIEVED BY ONE NTG. HE WAS SEEN BY DR. NUNEZ AND HE AUTHORIZED DISCHARGE WITH TOPROL XL DAILY. I WILL ALSO GIVE NTG SL AND HE WILL FU WITH DR. NUNEZ. Allergies Penicillins Allergy (Intermediate, Verified 10/30/15 15:57) Hives/Rash amoxicillin trihydrate [From Amoxil] Allergy (Mild, Verified 10/13/18 11:05) Hives/Rash codeine Allergy (Mild, Verified 10/13/18 11:05) Hives/Rash morphine Allergy (Mild, Verified 10/13/18 11:05) Itching tramadol Allergy (Verified 10/13/18 11:05) Nausea/Vomiting Hydrocodone-Acetaminophen Allergy (Uncoded 10/13/18 11:05) Nausea/Vomiting Home Medications: Colchicine [Colcrys] 0.6 mg PO DAILY 10/13/18 Lisinopril [Prinivil] 5 mg PO DAILY 10/13/18 Ticagrelor [Brilinta*] 90 mg PO BID 10/13/18 - Past Medical/Surgical History Has patient received pneumonia vaccine in the past: No Diabetic: No -: HTN -: Gout -: Cardiac stents x 3 - Family History Father -: Heart disease Notes: - heart attack Mother -: Diabetes, Cancer Notes: - cancer - Social History Smoking Status: Former smoker Alcohol use: Yes CD- Drugs: No Caffeine use: Yes Place of Residence: Home Review of Systems 10-point ROS is otherwise unremarkable Cardiovascular: Chest Pain Physical Examination - Vital Signs Temperature: 97.4 F Blood Pressure: 153/63 Pulse: 60 Respirations: 18 Pulse Ox (%): 95 - Physical Exam General: Alert, In no apparent distress HEENT: Atraumatic, PERRLA, Mucous membr. moist/pink, EOMI, Sclerae nonicteric Neck: Supple, 2+ carotid pulse no bruit, No LAD, Without JVD or thyroid abnormality Respiratory: Clear to auscultation bilaterally, Normal air movement Cardiovascular: Regular rate/rhythm, Normal S1 S2 Gastrointestinal: Normal bowel sounds, No tenderness Musculoskeletal: No tenderness Integumentary: No rashes Neurological: Normal gait, Normal speech, Normal strength at 5/5 x4 extr, Normal tone, Normal affect Lymphatics: No axilla or inguinal lymphadenopathy - Studies Laboratory Data (last 24 hrs) 10/13/18 07:25: PT 11.0, INR 0.93 10/13/18 07:25: WBC 3.9 L, Hgb 13.8, Hct 38.8 L, Plt Count 108 L 10/13/18 07:25: Sodium 141, Potassium 4.0, BUN 13, Creatinine 1.24, Glucose 97, Magnesium 2.5 H, Total Bilirubin 0.9, AST 37, ALT 56, Alkaline Phosphatase 105 - Diagnosis (Problem(s)) (1) Angina pectoris Current Visit: Yes Status: Acute Plan: NTG SL. TOPROL XL. STABLE FOR DC. CE NEGATIVE DR. NUNEZ WILL SEE HIM. (2) CAD (coronary artery disease) Current Visit: Yes Status: Acute - Disposition Disposition: ROUTINE DISCHARGE
--- NOTE | 2018-10-13 22:53 | CON ---
Date of Consultation: 10/13/2018 Reason For Consultation: Chest pain. History Of Present Illness: Mr. Mckeon is a 68-year-old male, whom Dr. Rodriguez and Natasha hewitt met him in the hospital down in the office for the last few years. He had multiple stents before 2015, but then in 2015, a catheterization revealed severe coronary artery disease, three-vessel. He underwent a three-vessel bypass surgery by Dr. Lowell Gannon. He in May of 2018 underwent a stent in [place] by Dr. Craft. He has been seeing him since. Apparently, he had an NC in May here, un derwent transplant, and was transferred to [facility] where Dr. Craft met him. He unfortunately is sensitive to Crestor. He has tried Lopressor in the past, which gave him reactions as well. He came in with substernal chest pain, some left arm numbness that lasted about 10-15 minutes and resolv ed after nitroglycerin. Denied PND, orthopnea, pedal edema, palpitation, or syncope. Symptoms were not exertional. He woke up with his pain. He was ruled out for an NC. He had normal EKG, normal ch est x-ray, and normal blood work. Past Medical History: 1.CABG and stent. 2.Hypertension. 3.Dyslipidemia. 4.Gout. Allergies: HE IS ALLERGIC TO PENICILLIN, CODEINE, MORPHINE, AND HE IS SENSITIVE TO STATINS AND BETA BLOCKERS, AT LEAST LOPRESSOR. Family History: Noncontributory. Social History: Noncontributory. Medications: At home only include colchicine, lisinopril, and Brilinta. Physical Examination: Vital Signs: Stable. He was afebrile. HEENT: Negative. Neck: Supple with no bruit. Chest: Clear to auscultation and percussion. Cardiac: Regular rhythm and rate. No murmurs, gallops, or rubs. Abdomen: Benign. Extremities: No clubbing, cyanosis, or edema. Diagnostic Data: All normal. Impression And Plan: I think Mr. Mckeon is having stable angina symptoms. I am going to try him on Toprol-XL 50 mg daily. He had said that he has been sensitive to Lopressor in the past, but maybe he will do better with a long-acting beta james. Certainly another choice will be to switch him to C ardizem as a calcium james instead. We will continue the lisinopril and Brilinta for now. He is g syed to be able to go home today. I will see him in the office next week. If his symptoms continue, we may do another catheterization. If his symptoms stop, he may be due for another stress test, antonio mills I will make an arrangement for. Case was discussed with Dr. Chavarria. His other problems including hypertension, dyslipidemia, and gout are stable. BYRON/EARL Voice ID: [id number] Report ID: [id number]
== END 2018-10-13 18:22 | disposition home or self-care (01) ==
LOC: ER 06:44 → ERHOLD 08:51 → 2ND 09:58
PROVIDERS: ADMIT Internal Medicine; ATTEND Internal Medicine
DX: I25.119 Atherosclerotic heart disease of native coronary artery with unspecified angina pectoris (principal); I10 Essential (primary) hypertension; E78.5 Hyperlipidemia, unspecified; M10.9 Gout, unspecified; Z95.5 Presence of coronary angioplasty implant and graft; Z95.1 Presence of aortocoronary bypass graft; Z88.0 Allergy status to penicillin
CPT/HCPCS: 93005; 85025; 80048; 36415; 83735; 85610; 80076; 84484 ×3; 83880; 71045; 99285; G0378 ×2

== ENCOUNTER 2020-08-17 07:05 | Emergency (ER) | payer OTHER ==
--- OUTSIDE RECORDS SUMMARY | 2020-08-17 07:09 | XMS REPORT | Continuity of Care Document ---
:1950 Author Organization [facility] t Address [address] [place] [address] Care Team Providers Name Role Phone Basim Chavarria Primary Care Physician DANIEL DE DIOS Attending Clinician Unavailable DANIEL DE DIOS Admitting Clinician Unavailable Problems Condition Condition Condition Status Onset Resolution Last Treating Co mments Source Name Details Category Date Date Treatment Clinician Date NSTEMI NSTEMI Disease Active [facility] ([facility] ([facility]13 [facility] - elevated elevated 00:00: Medica l myocardial myocardial 00 Ce nter infarction infarction ) ) HLD HLD Disease Active [facility] (hyperlipi (hyperlipi 7-20 Alvina kes - demia) demia) 00:00: Medical 00 Center Essential Essential Disease Active [facility] hypertensi hypertensi 7-20 Alvina kes - on on 00:00: Medical 00 Center GERD GERD Disease Active [facility] (gastroeso (gastroeso 7-20 Alvina kes - phageal phageal 00:00: Medical reflux reflux 00 Center disease) disease) Gout Gout Disease Active [facility] 7[facility] - [facility] STEMI (ST STEMI (ST Disease Active [facility] elevation elevation 7-19 [facility] - myocardial myocardial 00:00: Me dical infarction infarction 00 Ce nter ) ) Ischemic Ischemic Disease [facility] chest pain chest pain 7-19 [facility]ina kes - 00:00: Medical 00 Center Coronary Coronary Disease [facility] artery artery [facility] - disease of disease of 00:00: Me dical [place] 00 Center artery of artery of [place] heart 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 Allergies, Adverse Reactions, Alerts Allergy Allergy Status Severity Reaction(s) Onset Inactive Treating Comm ents Source Name Type Date Date Clinician Amoxicil Drug Active Hives [facility] александр Allergy 7-18 [facility] - [facility] Center Codeine Drug Active Hives [facility] Allergy 7-18 [facility] - 00:00: Medical 00 [place] Morphine Drug Active Nausea And [facility] Allergy Vomiting 18 [facility] - 00:00: Medical 00 [place] Tramadol Drug Active Nausea And [facility] Allergy Vomiting 18 [facility] - 00:[facility]: Medical 00 Center Family History Family Member Diagnosis Comments Start Date Stop Date Source Natural father Stroke [facility] Natural father Heart disease [facility] Natural father Hypertension [facility] Natural mother Cancer [facility] Natural sister Heart disease [facility] Natural brother Heart disease [facility] Social History Social Habit Start Date Stop Date Quantity Comments Source Alcohol Comment beer [facility] Sex Assigned At [facility] Tobacco use and 2018-06-03 2018-06-03 Never used [facility] exposure 00:00:00 00:00:00 [facility] Alcohol intake 2018-06-03 2018-06-03 Current drinker [facility] - 00:00:00 00:00:00 of alcohol [facility] Center (finding) Smoking Status Start Date Stop Date Source Never smoker [facility] Medications Ordered Filled Start Stop Current Ordering Indication Dosage Frequency Signature Comments Components Source Medication Medication Date Date Medication? Clinician (SIG) Name Name atorvastati Yes 80mg QD Take [address] [facility] n (LIPITOR) 2-16 tablet (80 Alvina kes - 80 MG 00:00: mg total) Medical tablet 00 by mouth Center daily. aspirin 81 Yes 81mg QD Take 1 [facility] MG EC 2-16 tablet (81 [facility] - tablet 00:00: mg total) Medica l 00 by mouth Center daily. lisinopril Yes 5mg QD Take 1 [facility] (PRINIVIL,Z 2-16 tablet (5 [facility] es - ESTRIL) 5 00:00: mg total) Med ical MG tablet 00 by mouth Center daily. famotidine 2019-0 Yes 20mg Q.5D Take [address] (PEPCID) 20 2-15 by mouth 2 Alvina kes - MG tablet 15:17: (two) Medical 37 times Center daily. pantoprazol 2019-0 Yes 40mg QD Take [address] [facility] e 2-15 by mouth [facility] - (PROTONIX) 15:17: daily. Medic al 40 MG 37 Center tablet ranolazine 2019-0 Yes 500mg Q.5D Take [address] [facility] [address] (RANEXA) 2-15 tablet [facility] - 500 MG 12 00:00: (500 mg Medic al hr tablet 00 total) by Cente r mouth 2 (two) times daily. ticagrelor 2019-0 Yes 90mg Q.5D Take 1 [facility] (BRILINTA) 2-15 tablet (90 Mary es - 90 mg Tab 00:00: mg total) Med ical tablet 00 by mouth 2 Center (two) times daily. allopurinol 2019- Yes 100mg Take [address] (ZYLOPRIM) 1-16 mg by [facility] - 100 MG 00:00: mouth Medical tablet 00 daily with Center breakfast. Procedures This patient has no known procedures. Plan of Care Planned Activity Planned Date Details Comments Source Future Scheduled 2019-12-19 INFLUENZA VACCINE (#1) [facility] - Test 00:00:00 [code = INFLUENZA Medical Ce nter VACCINE (#1)] Future Scheduled 2015-05-[address] [facility] - Test 00:00:00 WELLNESS (YEAR 2 or Medical Center FIRST YEAR if no IPPE) [code = MEDICARE ANNUAL WELLNESS (YEAR 2 or FIRST YEAR if no IPPE)] Future Scheduled 2014 PNEUMOCOCCAL 65+ YRS [facility] - Test 00:00:00 (1 of 1 - Medical Center [id number]) [code = PNEUMOCOCCAL 65+ YRS (1 of 1 - [id number] PCV13)] Future Scheduled [address] [facility] - Test 00:00:00 malignant neoplasm of Medica l Center colon (procedure) [code = 232336511] Results Test Description Test Time Test Comments Results Result Comments Source BASIC METABOLIC PANEL 2018-06-03 06:04:00 Test Item Value Reference Range Interpretation Comme nts SODIUM (BEAKER) (test code 139 meq/L 136-145 = 381) POTASSIUM (BEAKER) (test 4.0 meq/L 3.5-5.1 code = 379) CHLORIDE (BEAKER) (test 110 meq/L 98-107 H code = 382) CO2 (BEAKER) (test code = 23 meq/L 22-29 355) BLOOD UREA NITROGEN 16 mg/dL 7-21 (BEAKER) (test code = 354) CREATININE (BEAKER) (test 1.20 mg/dL 0.57-1.25 code = 358) GLUCOSE RANDOM (BEAKER) 90 mg/dL 70-105 (test code = 652) CALCIUM (BEAKER) (test code 8.7 mg/dL 8.4-10.2 = 697) EGFR (BEAKER) (test code = 60 mL/min/1.73 sq m ESTIMATED GFR IS NOT 1092) ACCURATE CRE ATININE CLEARANCE IN [place] EDICTING GLOMERULAR FILT RATION RATE. ESTIMATED GFR IS NOT APPLICABLE FOR DIALYSIS PATIENTS. CBC W/PLT COUNT & AUTO [id number] 05:29:00 Test Item Value Reference Range Interpretation Comments WHITE BLOOD CELL COUNT (BEAKER) 4.1 K/ L 3.5-10.5 (test code = 775) RED BLOOD CELL COUNT (BEAKER) 3.58 M/ L 4.63-6.08 L (test code = 761) HEMOGLOBIN (BEAKER) (test code = 12.5 GM/DL 13.7-17.5 L 410) HEMATOCRIT (BEAKER) (test code = 35.9 % 40.1-51.0 L 411) MEAN CORPUSCULAR VOLUME (BEAKER) 100.3 fL 79.0-92.2 H (test code = 753) MEAN CORPUSCULAR HEMOGLOBIN 34.9 pg 25.7-32.2 H (BEAKER) (test code = 751) MEAN CORPUSCULAR HEMOGLOBIN CONC 34.8 GM/DL 32.3-36.5 (BEAKER) (test code = 752) RED CELL DISTRIBUTION WIDTH 13.1 % 11.6-14.4 (BEAKER) (test code = 412) PLATELET COUNT (BEAKER) (test code 76 K/CU MM 150-450 L = 756) MEAN PLATELET VOLUME (BEAKER) 9.5 fL 9.4-12.4 (test code = 754) NUCLEATED RED BLOOD CELLS (BEAKER) 0 /100 WBC 0-0 (test code = 413) NEUTROPHILS RELATIVE PERCENT 65 % (BEAKER) (test code = 429) LYMPHOCYTES RELATIVE PERCENT 18 % (BEAKER) (test code = 430) MONOCYTES RELATIVE PERCENT 12 % (BEAKER) (test code = 431) EOSINOPHILS RELATIVE PERCENT 4 % (BEAKER) (test code = 432) BASOPHILS RELATIVE PERCENT 1 % (BEAKER) (test code = 437) NEUTROPHILS ABSOLUTE COUNT 2.64 K/ L 1.78-5.38 (BEAKER) (test code = 670) LYMPHOCYTES ABSOLUTE COUNT 0.72 K/ L 1.32-3.57 L (BEAKER) (test code = 414) MONOCYTES ABSOLUTE COUNT (BEAKER) 0.50 K/ L 0.30-0.82 (test code = 415) EOSINOPHILS ABSOLUTE COUNT 0.18 K/ L 0.04-0.54 (BEAKER) (test code = 416) BASOPHILS ABSOLUTE COUNT (BEAKER) 0.02 K/ L 0.01-0.08 (test code = 417) IMMATURE GRANULOCYTES-RELATIVE 1 % 0-1 PERCENT (BEAKER) (test code = 2801) CBC (HEMOGRAM ONLY)2018-06-03 05:29:00 Test Item Value Reference Range Interpretation Comments WHITE BLOOD CELL COUNT (BEAKER) 4.1 K/ L 3.5-10.5 (test code = 775) RED BLOOD CELL COUNT (BEAKER) 3.58 M/ L 4.63-6.08 L (test code = 761) HEMOGLOBIN (BEAKER) (test code = 12.5 GM/DL 13.7-17.5 L 410) HEMATOCRIT (BEAKER) (test code = 35.9 % 40.1-51.0 L 411) MEAN CORPUSCULAR VOLUME (BEAKER) 100.3 fL 79.0-92.2 H (test code = 753) MEAN CORPUSCULAR HEMOGLOBIN 34.9 pg 25.7-32.2 H (BEAKER) (test code = 751) MEAN CORPUSCULAR HEMOGLOBIN CONC 34.8 GM/DL 32.3-36.5 (BEAKER) (test code = 752) RED CELL DISTRIBUTION WIDTH 13.1 % 11.6-14.4 (BEAKER) (test code = 412) PLATELET COUNT (BEAKER) (test code 76 K/CU MM 150-450 L = 756) MEAN PLATELET VOLUME (BEAKER) 9.5 fL 9.4-12.4 (test code = 754) NUCLEATED RED BLOOD CELLS (BEAKER) 0 /100 WBC 0-0 (test code = 413) CBC (HEMOGRAM ONLY)2018-06-03 05:28:00 Test Item Value Reference Range Interpretation Comments WHITE BLOOD CELL COUNT (BEAKER) 4.1 K/ L 3.5-10.5 (test code = 775) RED BLOOD CELL COUNT (BEAKER) 3.53 M/ L 4.63-6.08 L (test code = 761) HEMOGLOBIN (BEAKER) (test code = 12.5 GM/DL 13.7-17.5 L 410) HEMATOCRIT (BEAKER) (test code = 35.4 % 40.1-51.0 L 411) MEAN CORPUSCULAR VOLUME (BEAKER) 100.3 fL 79.0-92.2 H (test code = 753) MEAN CORPUSCULAR HEMOGLOBIN 35.4 pg 25.7-32.2 H (BEAKER) (test code = 751) MEAN CORPUSCULAR HEMOGLOBIN CONC 35.3 GM/DL 32.3-36.5 (BEAKER) (test code = 752) RED CELL DISTRIBUTION WIDTH 13.1 % 11.6-14.4 (BEAKER) (test code = 412) PLATELET COUNT (BEAKER) (test code 80 K/CU MM 150-450 L = 756) MEAN PLATELET VOLUME (BEAKER) 9.6 fL 9.4-12.4 (test code = 754) NUCLEATED RED BLOOD CELLS (BEAKER) 0 /100 WBC 0-0 (test code = 413) RAD, CHEST, 1 VIEW, NON [id number] 09:50:00Reason for exam:->chest painShould this be performed at the bedside?->YesAddendum BeginsREPORT STATUS:A The right jugular line and chest tubes were rem taran in 2015. No acute cardiopulmonary abnormality is seen. Signed: Nito Li MDReport Verified Date/Time: 06/02/2018 09:50:37 Reading Location: [facility] B1 C013Y CT Body Reading RoomAddendum EndsFINAL REPORT [...] and left-sided chest tubes. Signed: Nito Li MDReport Verified Date/Time: 06/01/201808:53:52 Reading Location: [facility] Radiology Reading Room TSH/FREE T4 IF [id number] 05:00:00 Test Item Value Reference Range Interpretation Comments THYROID STIMULATING HORMONE 1.45 uIU/mL 0.35-4.94 (BEAKER) (test code = 772) BASIC METABOLIC [id number] 04:40:00 Test Item Value Reference Range Interpretation Comments SODIUM (BEAKER) 140 meq/L 136-145 (test code = 381) POTASSIUM (BEAKER) 3.7 meq/L 3.5-5.1 (test code = 379) CHLORIDE (BEAKER) 109 meq/L 98-107 H (test code = 382) CO2 (BEAKER) (test 26 meq/L 22-29 code = 355) BLOOD UREA NITROGEN 13 mg/dL 7-21 (BEAKER) (test code = 354) CREATININE (BEAKER) 1.24 mg/dL 0.57-1.25 (test code = 358) GLUCOSE RANDOM 89 mg/dL 70-105 (BEAKER) (test code = 652) CALCIUM (BEAKER) 8.5 mg/dL 8.4-10.2 (test code = 697) EGFR (BEAKER) (test 58 mL/min/1.73 ESTIMA CHANG GFR IS code = 1092) sq m NOT ACCURATE CREATININE CLEARANCE IN PREDICTING GLOMERULAR FILTRATION RATE . ESTIMATED GFR I S NOT APPLICABLE FOR DIALYSIS PATIEN TS. CBC W/PLT COUNT & AUTO [id number] 04:23:00 Test Item Value Reference Range Interpretation Comments WHITE BLOOD CELL COUNT (BEAKER) 4.9 K/ L 3.5-10.5 (test code = 775) RED BLOOD CELL COUNT (BEAKER) 3.64 M/ L 4.63-6.08 L (test code = 761) HEMOGLOBIN (BEAKER) (test code = 12.8 GM/DL 13.7-17.5 L 410) HEMATOCRIT (BEAKER) (test code = 37.0 % 40.1-51.0 L 411) MEAN CORPUSCULAR VOLUME (BEAKER) 101.6 fL 79.0-92.2 H (test code = 753) MEAN CORPUSCULAR HEMOGLOBIN 35.2 pg 25.7-32.2 H (BEAKER) (test code = 751) MEAN CORPUSCULAR HEMOGLOBIN CONC 34.6 GM/DL 32.3-36.5 (BEAKER) (test code = 752) RED CELL DISTRIBUTION WIDTH 13.4 % 11.6-14.4 (BEAKER) (test code = 412) PLATELET COUNT (BEAKER) (test code 88 K/CU MM 150-450 L = 756) MEAN PLATELET VOLUME (BEAKER) 10.0 fL 9.4-12.4 (test code = 754) NUCLEATED RED BLOOD CELLS (BEAKER) 0 /100 WBC 0-0 (test code = 413) NEUTROPHILS RELATIVE PERCENT 63 % (BEAKER) (test code = 429) LYMPHOCYTES RELATIVE PERCENT 21 % (BEAKER) (test code = 430) MONOCYTES RELATIVE PERCENT 12 % (BEAKER) (test code = 431) EOSINOPHILS RELATIVE PERCENT 4 % (BEAKER) (test code = 432) BASOPHILS RELATIVE PERCENT 0 % (BEAKER) (test code = 437) NEUTROPHILS ABSOLUTE COUNT 3.08 K/ L 1.78-5.38 (BEAKER) (test code = 670) LYMPHOCYTES ABSOLUTE COUNT 1.01 K/ L 1.32-3.57 L (BEAKER) (test code = 414) MONOCYTES ABSOLUTE COUNT (BEAKER) 0.59 K/ L 0.30-0.82 (test code = 415) EOSINOPHILS ABSOLUTE COUNT 0.17 K/ L 0.04-0.54 (BEAKER) (test code = 416) BASOPHILS ABSOLUTE COUNT (BEAKER) 0.02 K/ L 0.01-0.08 (test code = 417) IMMATURE GRANULOCYTES-RELATIVE 0 % 0-1 PERCENT (BEAKER) (test code = 2801) [id number] 20:34:00 Test Item Value Reference Range Interpretation Comments ACTIVATED CLOTTING TIME 356 sec TEST ED AT [place] [address] (BANNER) (test code = [facility] 441) [id number] 19:46:00 Test Item Value Reference Range Interpretation Comments ACTIVATED CLOTTING TIME 186 sec TEST ED AT [place] [address] ([facility]ANNER) (test code = [facility] 441) [id number] 10:46:00 Test Item Value Reference Range Interpretation Comments PARTIAL THROMBOPLASTIN TIME 43.8 seconds 22.5-36.0 H (BANNER) (test code = 760) Prior to initiating heparinPLATELET [id number] 10:33:00 Test Item Value Reference Range Interpretation Comments PLATELET COUNT (BANNER) (test code 92 K/CU MM 150-450 L = 756) POCT-GLUCOSE [id number] 08:20:00 Test Item Value Reference Range Interpretation Comments POC-GLUCOSE METER 100 mg/dL 70-110 TESTED AT [place] [address] (BANNER) (test code = [facility] [place] [facility] 1538) [id number] TROPONIN [id number] 07:41:00 Test Item Value Reference Range Interpretation Comments TROPONIN I (BANNER) (test code = 3.52 ng/mL 0.00-0.03 397) Troponin I (TnI) levels must be interpreted [...] failure, acidosis, acute neurological disease, and persistent tachyarrhythmia.PT/[id number] 07:31:00 Test Item Value Reference Range Interpretation Comments PROTIME (BANNER) (test code = 13.7 seconds 11.7-14.7 759) INR (BANNER) (test code = 370) 1.0 <=5.9 PARTIAL THROMBOPLASTIN TIME 42.8 seconds 22.5-36.0 H (BANNER) (test code = 760) RECOMMENDED COUMADIN/WARFARIN INR THERAPY RANGESSTANDARD DOSE: 2.0 - 3.0 Includes: PROPHYLAXIS forvenous thrombosis, systemic embolization; TREATMENT for venous thrombosis and/or pulmonary embolus.HIGH RISK: Target INR is 2.5-3.5 for patients with mechanical heart valves.LIPID [id number] 07:29:00 Test Item Value Reference Range Interpretation Comments TRIGLYCERIDES (BEAKER) (test code = 162 mg/dL 540) CHOLESTEROL (BEAKER) (test code = 159 mg/dL 631) HDL CHOLESTEROL (BEAKER) (test code 33 mg/dL = 976) LDL CHOLESTEROL CALCULATED (BEAKER) 94 mg/dL (test code = 633) Triglyceride Reference Range: Low Risk <150 Borderline 150-199 High Risk 200-499 Very High Risk >=500Cholesterol Reference Range: Low Risk <200 Borderline 200-239 High Risk >240HDL Cholesterol Reference Range: Low Risk >=60 High Risk <40LDL Cholesterol Reference Range: Optimal <100 Near Optimal 100-129 Borderline 130-159 High 160-189 Very High >=190BASIC METABOLIC [id number] 07:29:00 Test Item Value Reference Range Interpretation Comments SODIUM (BEAKER) 143 meq/L 136-145 (test code = 381) POTASSIUM (BEAKER) 3.7 meq/L 3.5-5.1 (test code = 379) CHLORIDE (BEAKER) 110 meq/L 98-107 H (test code = 382) CO2 (BEAKER) (test 25 meq/L 22-29 code = 355) BLOOD UREA NITROGEN 12 mg/dL 7-21 (BEAKER) (test code = 354) CREATININE (BEAKER) 1.19 mg/dL 0.57-1.25 (test code = 358) GLUCOSE RANDOM 92 mg/dL 70-105 (BEAKER) (test code = 652) CALCIUM (BEAKER) 8.9 mg/dL 8.4-10.2 (test code = 697) EGFR (BEAKER) (test 61 mL/min/1.73 ESTIMA CHANG GFR IS code = 1092) sq m NOT ACCURATE CREATININE CLEARANCE IN PREDICTING GLOMERULAR FILTRATION RATE . ESTIMATED GFR I S NOT APPLICABLE FOR DIALYSIS PATIEN TS. CBC W/PLT COUNT & AUTO [id number] 07:09:00 Test Item Value Reference Range Interpretation Comments WHITE BLOOD CELL COUNT (BEAKER) 3.9 K/ L 3.5-10.5 (test code = 775) RED BLOOD CELL COUNT (BEAKER) 4.07 M/ L 4.63-6.08 L (test code = 761) HEMOGLOBIN (BEAKER) (test code = 14.5 GM/DL 13.7-17.5 410) HEMATOCRIT (BEAKER) (test code = 40.4 % 40.1-51.0 411) MEAN CORPUSCULAR VOLUME (BEAKER) 99.3 fL 79.0-92.2 H (test code = 753) MEAN CORPUSCULAR HEMOGLOBIN 35.6 pg 25.7-32.2 H (BEAKER) (test code = 751) MEAN CORPUSCULAR HEMOGLOBIN CONC 35.9 GM/DL 32.3-36.5 (BEAKER) (test code = 752) RED CELL DISTRIBUTION WIDTH 13.2 % 11.6-14.4 (BEAKER) (test code = 412) PLATELET COUNT (BEAKER) (test code 93 K/CU MM 150-450 L = 756) MEAN PLATELET VOLUME (BEAKER) 9.4 fL 9.4-12.4 (test code = 754) NUCLEATED RED BLOOD CELLS (BEAKER) 0 /100 WBC 0-0 (test code = 413) NEUTROPHILS RELATIVE PERCENT 58 % (BEAKER) (test code = 429) LYMPHOCYTES RELATIVE PERCENT 23 % (BEAKER) (test code = 430) MONOCYTES RELATIVE PERCENT 12 % (BEAKER) (test code = 431) EOSINOPHILS RELATIVE PERCENT 6 % (BEAKER) (test code = 432) BASOPHILS RELATIVE PERCENT 1 % (BEAKER) (test code = 437) NEUTROPHILS ABSOLUTE COUNT 2.28 K/ L 1.78-5.38 (BEAKER) (test code = 670) LYMPHOCYTES ABSOLUTE COUNT 0.91 K/ L 1.32-3.57 L (BEAKER) (test code = 414) MONOCYTES ABSOLUTE COUNT (BEAKER) 0.46 K/ L 0.30-0.82 (test code = 415) EOSINOPHILS ABSOLUTE COUNT 0.24 K/ L 0.04-0.54 (BEAKER) (test code = 416) BASOPHILS ABSOLUTE COUNT (BEAKER) 0.02 K/ L 0.01-0.08 (test code = 417) IMMATURE GRANULOCYTES-RELATIVE 0 % 0-1 PERCENT (IGNACIA) (test code = 2801)
[2020-08-17 09:07] LABS: Absolute Lymphocytes (CBC) 0.8 K/uL (0.7-4.9); Basophils % 0.9 % (0-1.3); Lymphocytes % 15.6 % (15.3-44.8); MPV 7.7 fL (7.6-11.3); RBC Red Blood Cell Count 4.38 M/uL (4.33-5.43)
[2020-08-17 09:24] LABS: Albumin 4.1 g/dL (3.4-5.0); Bilirubin Direct 0.2 mg/dL (0-0.2); Bilirubin Total 0.7 mg/dL (0.2-1.0); Potassium 4.3 mmol/L (3.5-5.1); Protein, Total 8.3 g/dL (6.4-8.2)
--- NOTE | 2020-08-17 09:38 | RAD REPORT ---
EXAM DESCRIPTION: CT - Stone Protocol - 08/17/2020 9:10 am CLINICAL HISTORY: back pain COMPARISON: Hip Left 2 View dated 11/17/2011 TECHNIQUE: Axial 3 mm thick images were obtained without oral or IV contrast. The [id number] span s the entirety of the system including uppermost abdomen and lung bases. All CT scans are performed using dose optimization technique as appropriate and may include automated exposure control or mA/KV adjustment according to patient size. FINDINGS: No hydronephrosis is present and no obstructing ureteral calculi. A punctate 2 mm calcific ation present in the calyx lower pole right kidney. Trace amount of pyramid calcifications seen in th e posterior mid right kidney. No suspicious renal masses. Isodense masses and pyelonephritis are not excluded on a stone protocol CT scan. No significant adrenal finding. No urinary bladder suspicious f inding. Imaged portions of the liver, spleen and pancreas show no suspicious findings on non-contrast imaging . Numerous small layering gallstones are present in a normal size gallbladder. No wall thickening or edema. No duct stone or biliary tree dilatation. No suspicious bowel findings. Appendix is normal. Moderate stool volume fills but does not dilate the colon. No hernia, mass or bulky lymphadenopathy noted. No free air, free fluid or inflammatory stranding. Lumbar spine degenerative changes are present with no compression fracture. No acute fracture changes present. SI joint, hip joint and pubic symphysis degenerative changes are present. Patient has a sym metric mottled pattern of diminished attenuation throughout the pelvis, sacrum and proximal femurs. F inding is slightly less pronounced in the vertebral bodies. This may be an aggressive osteoporosis. M yeloma or other marrow replacing process is possible and needs correlation with history and relevant lab studies. Changes from chronic renal disease are possible. Patient's renal status is unknown. IMPRESSION: Noncontrast CT imaging of the abdomen and pelvis shows no acute or emergent finding. Patient has multi stone cholelithiasis without any gallbladder or biliary tree findings of obstructio n or cholecystitis. Mottled attenuation pattern of the pelvis and proximal femurs. This could be prominent osteoporosis o r possibly changes related to chronic renal disease. Myeloma or other marrow replacing process cannot be excluded and needs correlation with history and relevant lab studies. Full assessment of the abdomen and pelvis limited in the absence of contrast.
[2020-08-17 09:39] LABS: Urine Bacteria <20 /HPF (NONE SEEN); Urine RBC NONE SEEN /HPF (NONE SEEN)
--- NOTE | 2020-08-17 10:07 | EDPHYS ---
Physician Documentation [facility] Name: Tc Mckeon Age: 70 yrs Sex: Male : 1950 Arrival Date: 08/17/2020 Time: 07:07 Bed 20 Private MD: Chidi Chavarria V ED Physician Jonah Peres HPI: 08/17 08:34 This 70 yrs old Male presents to ER via Ambulatory with complaints of Flank rn Pain, Low Back Pain. 08:34 The patient complains of pain in the left low back and right low back. The pain does rn not radiate. Onset: The symptoms/episode began/occurred yesterday. Modifying factors: The symptoms are alleviated by OTC meds, remaining still, the symptoms are aggravated by movement, palpation/percussion. Associated signs and symptoms: Pertinent negatives: diarrhea, dysuria, fever, hematuria, pain radiating to the lower extremities. Severity of pain: At its worst the pain was moderate in the emergency department the pain has improved. The patient has not experienced similar symptoms in the past. The patient has not recently seen a physician. Reports yesterday with left lower back pain, now hurting right lower back, no fever, no trauma, reports improved with OTC meds. No bowel or urinary problems. Reports had this before, given abx for UTI, and got better. No urinary symptoms. . Historical: - Allergies: 07:22 Amoxicillin; iw 07:22 Codeine; iw 07:22 Demerol; iw 07:22 Morphine; iw 07:22 tramadol; iw - Home Meds: 07:22 lisinopril 5 mg Oral tab 1 tab once daily [Active]; colchicine 0.6 mg Oral tab 1 tab iw once daily [Active]; aspirin 81 mg Oral TbEC 1 tab once daily [Active]; - PMHx: 07:22 CAD; Gout; Hyperlipidemia; Hypertension; Myocardial infarction; iw - PSHx: 07:22 CABG; quadruple bypass; iw - Immunization history:: Adult Immunizations Client reports receiving the 2nd dose of the Covid vaccine. - Social history:: Smoking status: Patient denies any tobacco usage or history of. - Family history:: not pertinent. - Hospitalizations: : No recent hospitalization is reported. ROS: 08:34 Constitutional: Negative for fever, chills, and weight loss, Eyes: Negative for injury, rn pain, redness, and discharge, Neck: Negative for injury, pain, and swelling, Cardiovascular: Negative for chest pain, palpitations, and edema, Respiratory: Negative for shortness of breath, cough, wheezing, and pleuritic chest pain, Abdomen/GI: Negative for abdominal pain, nausea, vomiting, diarrhea, and constipation, Back: Negative for injury : Negative for injury, bleeding, discharge, and swelling, MS/Extremity: Negative for injury and deformity, Skin: Negative for injury, rash, and discoloration, Neuro: Negative for headache, weakness, numbness, tingling, and seizure. Exam: 08:34 Constitutional: This is a well developed, well nourished patient who is awake, alert, rn and in no acute distress. Ambulatory to room without assistance. Head/Face: Normocephalic, atraumatic. Cardiovascular: Regular rate and rhythm. No pulse deficits. Respiratory: No increased work of breathing, no retractions or nasal flaring. Abdomen/GI: Soft, non-tender Back: No spinal tenderness Skin: Warm, dry MS/ Extremity: Pulses equal, no cyanosis. Neurovascular intact. Full, normal range of motion. Equal circumference. Neuro: Awake and alert, GCS 15, oriented to person, place, time, and situation. Cranial nerves II-XII grossly intact. Motor strength 5/5 in all extremities. Sensory grossly intact. Cerebellar exam normal. Normal gait. Vital Signs: 07:19 BP 146 / 63; Pulse 59; Resp 16; Pulse Ox 98% on R/A; Weight 57.61 kg; Height 5 ft. 2 iw in. (157.48 cm); Pain 4/10; 09:15 BP 149 / 79; Pulse 70; Resp 17; Pulse Ox 97% ; rb3 10:00 BP 157 / 63; Pulse 52; Resp 17; Pulse Ox 100% ; rb3 07:19 Body Mass Index 23.23 (57.61 kg, 157.48 cm) iw MDM: 08:23 Patient medically screened. rn 10:04 Differential diagnosis: nephrolithiasis, pyelonephritis, UTI, arthritis, MSK pain, rn radiculopathy. Data reviewed: vital signs, nurses notes, lab test result(s), radiologic studies, CT scan, and as a result, I will discharge patient. Counseling: I had a detailed discussion with the patient and/or guardian regarding: the historical points, exam findings, and any diagnostic results supporting the discharge/admit diagnosis, lab results, radiology results, the need for outpatient follow up, to return to the emergency department if symptoms worsen or persist or if there are any questions or concerns that arise at home. Special discussion: I discussed with the patient/guardian in detail that at this point there is no indication for admission to the hospital. It is understood, however, that if the symptoms persist or worsen the patient needs to return immediately for re-evaluation. ED course: Printed out all results, no acute findings, will dc home with muscle relaxer and pcp f/u. . 08/17 08:34 Order name: Basic Metabolic Panel rn 08/17 08:34 Order name: CBC with Diff rn 08/17 08:34 Order name: Hepatic Function; Complete Time: 09:39 rn 08/17 08:34 Order name: Lipase; Complete Time: 09:39 rn 08/17 08:34 Order name: Urine Culture rn 08/17 08:34 Order name: Urine Microscopic Only; Complete Time: 09:43 rn 08/17 08:34 Order name: IV Saline Lock; Complete Time: 09:14 rn 08/17 08:34 Order name: Labs collected and sent; Complete Time: 09:14 rn 08/17 08:34 Order name: CT Stone Protocol; Complete Time: 09:39 rn 08/17 08:34 Order name: Urine Dipstick-Ancillary (obtain specimen); Complete Time: 09:23 rn 08/17 08:34 Order name: Basic Metabolic Panel; Complete Time: 09:39 EDMS 08/17 08:34 Order name: CBC with Automated Diff; Complete Time: 09:39 EDMS Administered Medications: No medications were administered Disposition: 08/17/20 10:06 Discharged to Home. Impression: Low back pain. - Condition is Stable. - Discharge Instructions: Back Pain, Adult. - Prescriptions for Cyclobenzaprine 5 mg Oral Tablet - take 1 tablet by ORAL route 3 times per day As needed; 15 tablet. - Medication Reconciliation Form, Thank You Letter, Antibiotic Education, Prescription Opioid Use form. - Follow up: Private Physician; When: As needed; Reason: Recheck today's complaints, Re-evaluation by your physician. - Problem is new. - Symptoms have improved. Signatures: Dispatcher [employer] Michelle Arora RN Jonah Cardona MD MD rn Barber, Rebecca, RN RN rb3 Corrections: (The following items were deleted from the chart) 10:29 10:06 08/17/2020 10:06 Discharged to Home. Impression: Low back pain. Condition is rb3 Stable. Forms are Medication Reconciliation Form, Thank You Letter, Antibiotic Education, Prescription Opioid Use. Follow up: Private Physician; When: As needed; Reason: Recheck today's complaints, Re-evaluation by your physician. Problem is new. Symptoms have improved. rn
--- NOTE | 2020-08-17 10:07 | ER ---
Nurse's Notes [facility] Name: Tc Mckeon Age: 70 yrs Sex: Male : 1950 Arrival Date: 08/17/2020 Time: 07:07 Bed 20 Private MD: Chidi Chavarria V Diagnosis: Low back pain Presentation: 08/17 07:19 Chief complaint: Patient states: had pain in left lower back, now this morning his iw right low back is hurting, denies injury, denies urinary s/s. Coronavirus screen: At this time, the client does not indicate any symptoms associated with coronavirus-19. Ebola Screen: Patient negative for fever greater than or equal to 101.5 degrees Fahrenheit, and additional compatible Ebola Virus Disease symptoms Patient denies exposure to infectious person. Patient denies travel to an Ebola-affected area in the 21 days before illness onset. No symptoms or risks identified at this time. Initial Sepsis Screen: Does the patient meet any 2 criteria? No. Patient's initial sepsis screen is negative. Does the patient have a suspected source of infection? No. Patient's initial sepsis screen is negative. Risk Assessment: Do you want to hurt yourself or someone else? Patient reports no desire to harm self or others. Onset of symptoms was August 16, 2020. 07:19 Method Of Arrival: Ambulatory iw 07:19 Acuity: ZBIGNIEW 3 iw Historical: - Allergies: 07:22 Amoxicillin; iw 07:22 Codeine; iw 07:22 Demerol; iw 07:22 Morphine; iw 07:22 tramadol; iw - Home Meds: 07:22 lisinopril 5 mg Oral tab 1 tab once daily [Active]; colchicine 0.6 mg Oral tab 1 tab iw once daily [Active]; aspirin 81 mg Oral TbEC 1 tab once daily [Active]; - PMHx: 07:22 CAD; Gout; Hyperlipidemia; Hypertension; Myocardial infarction; iw - PSHx: 07:22 CABG; quadruple bypass; iw - Immunization history:: Adult Immunizations Client reports receiving the 2nd dose of the Covid vaccine. - Social history:: Smoking status: Patient denies any tobacco usage or history of. - Family history:: not pertinent. - Hospitalizations: : No recent hospitalization is reported. Screenin:29 Abuse screen: Denies threats or abuse. Nutritional screening: No deficits noted. rb3 Tuberculosis screening: No symptoms or risk factors identified. Fall Risk None identified. Assessment: 08:29 General: Appears in no apparent distress. comfortable, Behavior is calm, cooperative, rb3 Denies fever. Pain: Complains of pain in right low back Pain began this morning. Neuro: Level of Consciousness is awake, alert, obeys commands, Oriented to person, place, time, situation. Cardiovascular: Patient's skin is warm and dry. Respiratory: Airway is patent Respiratory effort is even, unlabored, Respiratory pattern is regular, symmetrical. GI: No signs and/or symptoms were reported involving the gastrointestinal system. : No signs and/or symptoms were reported regarding the genitourinary system. 09:30 Reassessment: Patient appears in no apparent distress at this time. No changes from rb3 previously documented assessment. 10:00 Reassessment: Patient appears in no apparent distress at this time. Patient and/or rb3 family updated on plan of care and expected duration. Pain level reassessed. Patient is alert, oriented x 3, equal unlabored respirations, skin warm/dry/pink. Vital Signs: 07:19 BP 146 / 63; Pulse 59; Resp 16; Pulse Ox 98% on R/A; Weight 57.61 kg; Height 5 ft. 2 iw in. (157.48 cm); Pain 4/10; 09:15 BP 149 / 79; Pulse 70; Resp 17; Pulse Ox 97% ; rb3 10:00 BP 157 / 63; Pulse 52; Resp 17; Pulse Ox 100% ; rb3 07:19 Body Mass Index 23.23 (57.61 kg, 157.48 cm) iw ED Course: 07:07 Patient arrived in ED. am2 07:07 Chidi Chavarria MD is Private Physician. am2 07:20 Triage completed. iw 07:22 Arm band placed on. iw 08:23 Jonah Peres MD is Attending Physician. rn 08:29 Patient has correct armband on for positive identification. Bed in low position. Call rb3 light in reach. Side rails up X 1. Pulse ox on. NIBP on. 08:31 Ghazal Kramer, RN is Primary Nurse. rb3 08:50 Inserted saline lock: 22 gauge in right antecubital area, using aseptic technique. rb3 Blood collected. 09:10 CT Stone Protocol In Process Unspecified. EDMS 10:20 No provider procedures requiring assistance completed. rb3 10:20 IV discontinued, intact, bleeding controlled, No redness/swelling at site. Pressure rb3 dressing applied. Administered Medications: No medications were administered Outcome: 10:06 Discharge ordered by . rn 10:20 Discharged to home ambulatory. rb3 10:20 Condition: stable 10:20 Discharge instructions given to patient, Instructed on discharge instructions, follow up and referral plans. medication usage, Demonstrated understanding of instructions, follow-up care, medications, Prescriptions given X 1. 10:20 Patient left the ED. rb3 Signatures: Dispatcher [employer] EDMichelle Mast RN RN iw Jonah Peres MD MD rn Moreno, Amanda am2 Barber, Rebecca, RN RN rb3 Corrections: (The following items were deleted from the chart) 10:29 10:29 Patient left the ED. rb3 rb3
[2020-08-17 10:38] VITALS: BP 157/63; O2SAT 100
[2020-08-19 15:14] LABS: Urine Blood Negative (Negative); Urine Glucose Negative (Negative); Urine Protein Negative (Negative); Urine Specific Gravity 1.015 (1.005-1.030); Urine pH 5.5 (5.0-7.0)
== END 2020-08-17 10:29 | disposition home or self-care (01) ==
LOC: ER 07:05
DX: M54.5 Low back pain (principal); I10 Essential (primary) hypertension; E78.5 Hyperlipidemia, unspecified; Z95.1 Presence of aortocoronary bypass graft; Z79.82 Long term (current) use of aspirin; Z88.1 Allergy status to other antibiotic agents; Z88.5 Allergy status to narcotic agent
CPT/HCPCS: 36415; 74176; 76377; 80048; 80076; 81003; 81015; 83690; 85025; 87086; 87088; 99284

== ENCOUNTER 2021-06-27 21:17 | Emergency (ER) | payer OTHER ==
--- OUTSIDE RECORDS SUMMARY | 2021-06-27 21:22 | XMS REPORT | Continuity of Care Document ---
:1950 Author Organization [facility] t Address [address] [place] [address] Care Team Providers Name Role Phone Deon Betts Primary Care Physician MAYANK, Lewis Attending Clinician Unavailable Mayank ARANA, A Attending Clinician Doctor Unassigned, Name Attending Clinician Unavailable Only, Test Attending Clinician Unavailable Pob, Lab Main Attending Clinician Unavailable DANIEL DE DIOS Attending Clinician Unavailable MAYANK, A Admitting Clinician Unavailable Mayank ARANA, A Admitting Clinician DANIEL DE DIOS Admitting Clinician Unavailable Payers Payer Name Policy Type Policy Number Effective Date Expiration Date S heri MEDICARE PART A \T\ [id number] 2014 B 00:00:00 [employer] [id number] 2014 OUT OF NETWORK 00:00:00 Problems This patient has no known problems. Allergies, Adverse Reactions, Alerts Allergy Allergy Status Severity Reaction(s) Onset Inactive Treating Comm ents Source Name Type Date Date Clinician AMOXICIL DRUG Active Med Hives 2020-04 Univers АЛЕКСАНДР INGREDI 04-19 ity of 00:00: [place] 00 [facility] CODEINE DRUG Active Med Hives 2020-04 Univers INGREDI 04-19 ity of 00:00: [place] 00 [facility] Branch MORPHINE DRUG Active Low N/V 2020-04 Univers INGREDI 04-19 ity of 00:00: [place] 00 [facility] TRAMADOL DRUG Active Low N/V 2020-04 Univers INGREDI 04-19 ity of 00:00: [place] 00 [facility] Amoxicil Propensi Active Hives 2020-04 Univer s александр ty to 04-19 ity of adverse 00:00: [place] reaction 00 Medical s Branch Codeine Propensi Active Hives 2020-04 Univers ty to 04-19 ity of adverse 00:00: [place] reaction 00 Medical s Branch Morphine Propensi Active Nausea 2020-04 Univer s ty to and/or 04-19 ity of adverse Vomiting 00:00: [place] reaction 00 Medical s Branch Tramadol Propensi Active Nausea 2020-04 Univer s ty to and/or 04-19 ity of adverse Vomiting 00:00: [place] reaction 00 Medical s Branch NO KNOWN Drug Active [facility] ALLERGIE Class ity of S [facility] Social History Social Habit Start Date Stop Date Quantity Comments Source Exposure to Not sure [facility] SARS-CoV-2 (event[facility] Tobacco use and 2021-02-18 2021-02-18 Never used [facility] exposure 00:00:00 00:00:00 [facility] Sex Ass[birth year] At [birth year] [facility] 00:00:00 00:00:00 [facility] Smoking Status Start Date Stop Date Source Unknown if ever smoked [facility] Never smoker [facility] Medications Ordered Filled Start Stop Current Ordering Indication Dosage Frequency Signature Comments Components Source Medication Medication Date Date Medication? Clinician (SIG) Name Name EPINEPHrine 2020-04 Yes PRN, Univer s 1:1,000 (05-05 Starting ity o f mg/mL) 20:31: on Wed [place] (ADRENALIN) 00 03/05/21 Medi smith injection at 1431, Branch Until Discontinu ed, Routine, Intra-op DUOVISC 2020-04 Yes PRN, Univers (DUOVISC 05-05 Starting ity of VISCO 20:31: on Wed [place] ELASTIC) 3 00 03/05/21 Medic al %-4 %(0.5 at 1431, Branch mL) 1 % Until (0.55 mL) Discontinu intraocular ed, injection Routine, Intra-op balanced 2020-04 Yes PRN, Univers salt irrig 17 Starting ity o f soln comb1 20:31: on Wed [place] (BSS PLUS) 00 03/05/21 Medic al ophthalmic at 1431, Branc h solution Until 500 mL bag Discontinu ed, Routine, Intra-op EPINEPHrine 2021-1 2021- No PRN, Unive rs 1:1,000 (05-05 Starting ity of mg/mL) 20:31: 22:59 on Wed (ADRENALIN) 00 :26 03/05/21 Medi smith injection at 1431, Branch Until Wed03/05/21 at 1659, Routine, Intra-op DUOVISC 2020-04- No PRN, Univers (DUOVISC 05-05 Starting ity of VISCO 20:31: 22:59 on Wed [place] ELASTIC) 3 00 :03/05/21 Medic al %-4 %(0.5 at 1431, Branch mL) 1 % Until Wed (0.55 mL) 03/05/21 intraocular at 1659, injection Routine, Intra-op balanced 2020-04- No PRN, Univers salt irrig 05-05 Starting ity of soln comb1 20:31: 22:59 on [place] (BSS PLUS[place] 00 :03/05/21 Medic al ophthalmic at 1431, Branc h solution Until Wed 500 mL bag 03/05/21 at 1659, Routine, Intra-op Hyaluronida 2020-04 Yes PRN, Univer s se, Human 05-05 Starting ity of Recomb. 20:03: on Wed (HYLENEX) 00 03/05/21 Medica l injection at 1403, Branch Until Discontinu ed, Routine, Intra-op eye block 2020-04 Yes PRN, Univers syringe 05-05 Starting ity o f mL 20:03: on Wed 00 03/05/21 Medical at 1403, Branch Until Discontinu ed, Intra-op Hyaluronida 2020-04- No PRN, Unive rs se, Human 05-05 Starting ity o f Recomb. 20:03: 22:59 on Wed (HYLENEX) 00 :26 03/05/21 Medica l injection at 1403, Branch Until Wed03/05/21 at 1659, Routine, Intra-op eye block 2020-04- No PRN, Univers syringe 11 05-05 Starting ity of mL 20:03: 22:59 on Wed 00 :26 03/05/21 Medical at 1403, Branch Until Wed03/05/21 at 1659, Intra-op cyclopent 2020-04- No .5mL 0.5 mL, Univ ers 1%-tropic -05 03-17 Left Eye, ity of 1%-phenyl 18:15: 18:08 ONCE, 1 [place] 2.5%-ketor 00 :00 dose, On Medic al 0.5% Wed Branch (MYDRIATIC 03/05/21 #5) at 1215, ophthalmic Routine, solution DSU Pre-op syringe 0.5 mL lactated 2020-04- No 1000mL at 42 Unive rs ringers IV 1-17 11-17 mL/hr, ity of infusion 18:15: 18:11 1,000 mL, B[place] as 1,000 mL 00 :00 IV Medical Infusion, Branch ONCE, 1 dose, On Wed03/05/21 at 1215, Routine, DSU Pre-op cyclopent 2020-04- No .5mL 0.5 mL, Univ ers 1%-tropic 05-05 Left Eye, ity of 1%-phenyl 18:15: 18:08 ONCE, 1 [place] 2.5%-ketor 00 :00 dose, On Medic al 0.5% Wed Branch (MYDRIATIC 03/05/21 #5) at 1215, ophthalmic Routine, solution DSU Pre-op syringe 0.5 mL lactated 2020-04- No 1000mL at 42 Unive rs ringers IV -17 11-17 mL/hr, ity of infusion 18:15: 18:11 1,000 mL, Beb[place] as 1,000 mL 00 :00 IV Medical Infusion, Branch ONCE, 1 dose, On Wed03/05/21 at 1215, Routine, DSU Pre-op colchicine 2020-04 Yes .6mg Take 0.6 Uni vers 0.6 mg Cap 1-17 mg by ity of 14:59: mouth. [address] gabapentin 2020-04 Yes 300mg Take 300 Un benny 100 mg 1-17 mg by ity of capsule 14:59: mouth [address] [place] [address] (three) Medical times Branch daily. aspirin 81 2020-04 Yes 81mg Take 81 mg U nivers mg chewable 1-17 by mouth ity of tablet 14:59: daily. [place] 22 Medical Branch colchicine 2020-04 Yes .6mg Take 0.6 Uni vers 0.6 mg Cap 1-17 mg by ity of 14:59: mouth. [place] 22 [facility] Branch gabapentin 2020-04 Yes 300mg Take 300 Un benny 100 mg 1-17 mg by ity of capsule 14:59: mouth 3 [place] [address] (three) Medical times [place] daily. aspirin 81 2020-04 Yes 81mg Take 81 mg U nivers mg chewable 1-17 by mouth ity of tablet 14:59: daily. [place] 22 [facility] Branch No known 2020-04 No Univers medications -17 ity of 12:00: [address] neomycin-po 2020-04 Yes PRN, Univer s lymyxin-dex 04-21 Starting ity of amethasone 16:02: on Wed [place] (MAXITROL) 00 02/19/21 at [facility] ical 3.5 1102, Branch mg/g-10,000 Until unit/g-0.1 Discontinu % ed, ophthalmic Routine, ointment Intra-op Hyaluronida 2020-04 Yes PRN, Univer s se, Human 04-21 Starting ity of Recomb. 16:02: on Wed [place] (HYLENEX) 02/19/21 at [facility] smith injection 1102, Branch Until Discontinu ed, Routine, Intra-op eye block 2020-04 Yes PRN, Univers syringe 04-21 Starting ity o f mL 16:02: on [facility] 02/19/21 at [facility] 1102, Branch Until Discontinu ed, Intra-op EPINEPHrine 2020-04 Yes PRN, Univer s 1:1,000 (04-21 Starting ity o f mg/mL) 16:02: on [facility] (ADRENALIN) 00 02/19/21 at [place] dical injection 1102, Branch Until Discontinu ed, Routine, Intra-op DUOVISC 2020-04 Yes PRN, Univers (DUOVISC 04-21 Starting ity of VISCO 16:02: on [facility] ELASTIC) 3 02/19/21 at [facility] ical %-4 %(0.5 1102, Branch mL) 1 % Until (0.55 mL) Discontinu intraocular ed, injection Routine, Intra-op neomycin-po 2020-04 PRN, Univmode rs lymyxin-dex 04-21 Starting ity of amethasone 16:02: 18:45 on Wed [place] (MAXITROL) 00 :19 02/19/21 at Med ical 3.5 1102, Branch mg/g-10,000 Until Wed unit/g-0.1 02/19/21 at % 1345, ophthalmic Routine, ointment Intra-op Hyaluronida 2020-04- No PRN, Unive rs se, Human 04-21 Starting ity o f Recomb. 16:02: 18:45 on Wed (HYLENEX) 00 :19 02/19/21 at Medi smith injection 1102, Branch Until Wed02/19/21 at 1345, Routine, Intra-op eye block 2020-04- No PRN, Univers syringe 11 04-21 Starting ity of mL 16:02: 18:45 on Wed 00 :19 02/19/21 at Medical 1102, Branch Until Wed02/19/21 at 1345, Intra-op EPINEPHrine 2020-04- No PRN, Unive rs 1:1,000 (1 04-21 Starting ity of mg/mL) 16:02: 18:45 on Wed (ADRENALIN) 00 :19 02/19/21 at Il dical injection 1102, Branch Until Wed02/19/21 at 1345, Routine, Intra-op DUOVISC 2020-04- No PRN, Univers (DUOVISC 04-21 Starting ity of VISCO 16:02: 18:45 on Wed [place] ELASTIC) 3 00 :19 02/19/21 at Med ical %-4 %(0.5 1102, Branch mL) 1 % Until Wed (0.55 mL) 02/19/21 at intraocular 1345, injection Routine, Intra-op carbachoL 2020-04 Yes PRN, Univers (MIOSTAT) 04-21 Starting ity of 0.01 % 16:01: on Wed [place] intraocular 00 02/19/21 at Il dical injection 1101, Branch Until Discontinu ed, Routine, Intra-op balanced 2020-04 Yes PRN, Univers salt irrig 04-21 Starting ity o f soln comb1 16:01: on Wed (BSS PLUS) 00 02/19/21 at [facility] ical ophthalmic 1101, Branch solution Until 500 mL bag Discontinu ed, Routine, Intra-op dexamethaso 2020-04 Yes PRN, Univer s ne 04-21 Starting ity of (DECADRON 16:01: on Wed [place] PHOSPHATE) 00 02/19/21 at [facility] ical injection 1101, Branch Until Discontinu ed, Routine, Intra-op ceFAZolin 2020-04 Yes PRN, Univers (ANCEF) 04-21 Starting ity of injection 16:01: on Wed [place] 00 02/19/21 at [facility] 1101, Branch Until Discontinu ed, MANUEL, Intra-op ceFAZolin 2020-04- No PRN, Univers (ANCEF) 04-21 Starting ity of injection 16:01: 18:45 on Wed [place] 00 :19 02/19/21 at [facility] 1101, Branch Until Wed02/19/21 at 1345, MANUEL, Intra-op carbachoL 2020-04- No PRN, Univers (MIOSTAT) 04-21 Starting ity o f 0.01 % 16:01: 18:45 on Wed [place] intraocular 00 :19 02/19/21 at Il dical injection 1101, Branch Until Wed02/19/21 at 1345, Routine, Intra-op balanced 2020-04- No PRN, Univers salt irrig 04-21 Starting ity of soln comb1 16:01: 18:45 on Wed [place] (BSS PLUS) 00 :19 02/19/21 at [facility] ical ophthalmic 1101, Branch solution Until Wed 500 mL bag 02/19/21 at 1345, Routine, Intra-op dexamethaso 2020-04- No PRN, Unive rs ne 04-21 Starting ity of (DECADRON 16:01: 18:45 on Wed [place] PHOSPHATE) 00 :19 02/19/21 at [facility] ical injection 1101, Branch Until 02/19/21 at 1345, Routine, Intra-op mydriatic 2020-04- No .5mL 0.5 mL, Univ ers #5 04-21 Right Eye, ity of ophthalmic 13:15: 13:39 ONCE, 1 [place] as solution 00 :00 dose, On Medical 0.5 mL Wed Branch syringe 02/19/21 at 0815, Routine, DSU Pre-op lactated 2020-04- No 1000mL at 42 Unive rs ringers IV 1-03 11-03 mL/hr, ity of infusion 13:15: 13:39 1,000 mL, Beb[place] as 1,000 mL 00 :00 IV Medical Infusion, Branch ONCE, 1 dose, On Wed02/19/21 at 0815, Routine, DSU Pre-op mydriatic 2020-04- No .5mL 0.5 mL, Univ ers #5 04-21 1103 Right Eye, ity of ophthalmic 13:15: 13:39 ONCE, 1 [place] as solution 00 :00 dose, On Medical 0.5 mL Wed Branch syringe 02/19/21 at 0815, Routine, DSU Pre-op lactated 2020-04- No 1000mL at 42 Unive rs ringers IV 04-21 11-03 mL/hr, ity of infusion 13:15: 13:39 1,000 mL, Beb[place] as 1,000 mL 00 :00 IV Medical Infusion, Branch ONCE, 1 dose, On Wed02/19/21 at 0815, Routine, DSU Pre-op colchicine 2020-04 Yes .6mg Take 0.6 Uni vers 0.6 mg Cap 1-03 mg by ity of 11:45: mouth. [address] gabapentin 2020-04 Yes 300mg Take 300 Un benny 100 mg 1-03 mg by ity of capsule 11:45: mouth 3 [place] [address] (three) Medical times [place] daily. aspirin 81 2020-04 Yes 81mg Take 81 mg U nivers mg chewable 1-03 by mouth ity of tablet 11:45: daily. [address] colchicine 2020-04 Yes .6mg Take 0.6 Uni vers 0.6 mg Cap 1-03 mg by ity of 11:45: mouth. [address] gabapentin 2020-04 Yes 300mg Take 300 Un benny 100 mg 1-03 mg by ity of capsule 11:45: mouth 3 [place] [address] (three) Medical times [place] daily. aspirin 81 2020-04 Yes 81mg Take 81 mg U nivers mg chewable 1-03 by mouth ity of tablet 11:45: daily. [address] colchicine 2020-04 Yes .6mg Take 0.6 Uni vers 0.6 mg Cap 1-03 mg by ity of 11:45: mouth. [address] gabapentin 2020-04 Yes 300mg Take 300 Un benny 100 mg 1-03 mg by ity of capsule 11:45: mouth 3 [place] [address] (three) Medical times [place] daily. aspirin 81 2020-04 Yes 81mg Take 81 mg U nivers mg chewable 1-03 by mouth ity of tablet 11:45: daily. [address] colchicine 2020-04 Yes .6mg Take 0.6 Uni vers 0.6 mg Cap 1-02 mg by ity of 08:41: mouth. [address] gabapentin 2020-04 Yes 300mg Take 300 Un benny 100 mg 1-02 mg by ity of capsule 08:41: mouth 3 [place] [address] (three) Medical times [place] daily. aspirin 81 2020-04 Yes 81mg Take 81 mg U nivers mg chewable 1-02 by mouth ity of tablet 08:41: daily. [address] lisinopriL 0 Yes Univers 5 mg tablet 12-26 ity of 00:00: [address] lisinopriL 2020-0 Yes Univers 5 mg tablet 12-26 ity of 00:00: [address] lisinopriL 2020-0 Yes Univers 5 mg tablet 12-26 ity of 00:00: [address] lisinopriL 2020-0 Yes Univers 5 mg tablet 12-26 ity of 00:00: [address] lisinopriL 2020-0 Yes Univers 5 mg tablet 12-26 ity of 00:00: [address] lisinopriL 2020-0 Yes Univers 5 mg tablet -09 ity of 00:00: [address] Immunizations Ordered Filled Immunization Date Status Comments [facility] e Immunization Name Name SARS-COV-2 COVID-19 2020-08-13 Completed Unive rsity of MODERNA VACCINE 00:00:00 [facility] SARS-COV-2 COVID-19 2020-08-13 Completed Unive rsity of MODERNA VACCINE 00:00:00 [facility] SARS-COV-2 COVID-19 2020-08-13 Completed Unive rsity of MODERNA VACCINE 00:00:00 [facility] SARS-COV-2 COVID-19 2020-07-16 Completed Unive rsity of MODERNA VACCINE 00:00:00 [facility] SARS-COV-2 COVID-19 2020-07-16 Completed Unive rsity of MODERNA VACCINE 00:00:00 [facility] SARS-COV-2 COVID-19 2020-07-16 Completed Unive rsity of MODERNA VACCINE 00:00:00 [facility] Vital Signs Vital Name Observation Time Observation Value Comments Source Heart rate 2021-03-05 20:49:00 51 /min Universi ty of [facility] Respiratory rate 2021-03-05 20:49:00 14 /min Univ ersity of [facility] Oxygen saturation in 2021-03-05 20:49:00 100 /min University of Arterial blood by [facility] Pulse oximetry Branch Systolic blood 2021-03-05 20:46:00 166 mm[Hg] Univer sity of pressure [facility] Diastolic blood 2021-03-05 20:46:00 51 mm[Hg] Unive rsity of pressure [facility] Body temperature 2021-03-05 20:34:00 36.28 Dalila Univ ersity of [facility] Body height 2021-02-27 14:55:00 160 cm [facility] Body weight 2021-02-27 14:55:00 80.3 kg [facility] BMI 2021-02-27 14:55:00 31.37 kg/m2 [facility] Systolic blood 2021-03-05 18:01:00 150 mm[Hg] Univer sity of pressure [place] [facility] Diastolic blood 2021-03-05 18:01:00 56 mm[Hg] Unive rsity of pressure [facility] Heart rate 2021-03-05 18:01:00 56 /min Universi ty [facility] Body temperature 2021-03-05 18:01:00 36.11 Dalila Univ ersity of [place] [facility] Respiratory rate 2021-03-05 18:01:00 19 /min Univ ersity of [facility] Oxygen saturation in 2021-03-05 18:01:00 100 /min University of Arterial blood by [facility] Pulse oximetry Branch Body height 2021-02-27 14:55:00 160 cm Universi ty of [place] [facility] Body weight 2021-02-27 14:55:00 80.3 kg Universi ty of [place] [facility] BMI 2021-02-27 14:55:00 31.37 kg/m2 Universi ty of [place] [facility] Systolic blood 2021-02-19 16:30:00 167 mm[Hg] Univer sity of pressure [place] [facility] Diastolic blood 2021-02-19 16:30:00 93 mm[Hg] Unive rsity of pressure [place] [facility] Heart rate 2021-02-19 16:30:00 54 /min Universi ty of [place] [facility] Respiratory rate 2021-02-19 16:30:00 20 /min Univ ersity of [place] [facility] Oxygen saturation in 2021-02-19 16:30:00 99 /min University of Arterial blood by [facility] Pulse oximetry Branch Body temperature 2021-02-19 16:15:00 36.67 Dalila Univ ersity of [place] [facility] Body height 2021-02-17 15:18:00 160 cm Universi ty of [place] [facility] Body weight 2021-02-17 15:18:00 80.3 kg Universi ty of [place] [facility] BMI 2021-02-17 15:18:00 31.37 kg/m2 Universi ty of [place] [facility] Systolic blood 2021-02-19 13:37:00 144 mm[Hg] Univer sity of pressure [place] [facility] Diastolic blood 2021-02-19 13:37:00 79 mm[Hg] Unive rsity of pressure [place] [facility] Heart rate 2021-02-19 13:37:00 63 /min Universi ty of [place] [facility] Body temperature 2021-02-19 13:37:00 36.56 Dalila Univ ersity of [place] [facility] Respiratory rate 2021-02-19 13:37:00 18 /min Univ ersity of [place] [facility] Oxygen saturation in 2021-02-19 13:37:00 100 /min University of Arterial blood by [facility] Pulse oximetry Branch Body height 2021-02-17 15:18:00 160 cm Universi ty of [place] [facility] Body weight 2021-02-17 15:18:00 80.3 kg Universi ty of [place] [facility] BMI 2021-02-17 15:18:00 31.37 kg/m2 [facility] Medical Branch Procedures Procedure Date / Time Performing Source Performed Clinician PHACOEMULSIFICATION OF 2021-03-05 Korey Burger [facility] CATARACT WITH INTRAOCULAR 19:53:00 Medica l Branch LENS IMPLANT NOTICE OF PRIVACY PRACTICES 2021-03-03 Doctor Unassigned, [facility] 16:32:56 [place] [facility] NOTICE OF PRIVACY PRACTICES 2021-03-03 Doctor Unassigned, [facility] 16:32:56 [place] [facility] CONSENT/REFUSAL FOR DIAGNOSIS 2021-03-03 Doctor Unassigned, [facility] 16:32:37 [place] [facility] CONSENT/REFUSAL FOR DIAGNOSIS 2021-03-03 Doctor Unassigned, [facility] TREATMENT 16:32:37 [place] [facility] ASSIGNMENT OF BENEFITS 2021-03-03 Doctor Unassigned, [facility] 16:32:14 [place] [facility] ASSIGNMENT OF BENEFITS 2021-03-03 Doctor Unassigned, [facility] 16:32:14 [place] [facility] PHACOEMULSIFICATION OF 2021-02-19 Korey Burger [facility] CATARACT WITH INTRAOCULAR 15:25:00 Medica l Branch LENS IMPLANT DAY SURGERY - ADC 2021-02-19 Doctor Unassigned, [facility] 05:01:00 [place] [facility] ASSIGNMENT OF BENEFITS 2021-02-10 Doctor Nicole, [facility] 17:54:14 [place] [facility] EXTERNAL PROVIDER RECORDS 2021-01-29 Doctor Unassigned, [facility] 05:01:00 [place] [facility] EXTERNAL PROVIDER RECORDS 2021-01-29 Doctor Unassigned, [facility] 05:01:00 [place] [facility] VACCINATIONS - CONSENTS, 2020-08-13 Doctor Unassigned, [facility] ELIGIBILITY, HISTORY 05:01:00 [place] [facility] Encounters Start End Encounter Admission Attending Care Care Encounter Source Date/Time Date/Time Type Type Clinicians Facility Department ID 2021-03-05 2021-03-05 Outpatient R VINAY BURGER OPH [id number] Univers 11:56:00 14:58:00 KOREY delgado [facility] Medical Branch 2021-03-05 2021-03-05 [facility] [id number] Univers 11:56:00 14:58:00 Encounter Korey Saucedo ANNI [id number] ity of [place] SUR[place] [id number] [place] [address] Branch 2021-03-05 2021-03-05 [facility] [id number] Univers 13:29:00 14:12:00 Korey Saucedo ANNI [id number] ity of [place] [id number] [facility] 020 Branch 2021-02-19 2021-02-19 Outpatient R [facility] OPH [id number] Univers 08:08:00 11:44:00 KOREY ity [facility] 2021-02-19 2021-02-19 [facility] [id number] Univers 08:08:00 11:44:00 Encounter Korey Saucedo ANNI [id number] [place]y of [place] [id number] [place] [address] Branch 2021-02-19 2021-02-19 [facility] [id number] Univers 09:30:00 10:09:00 Korey Lewis ANNI [id number] [place]y [place] [id number] [facility] 020 Branch 2021-02-19 2021-02-19 Orders Doctor SAMEERA [id number] Univers 00:00:00 00:00:00 Only Unassigned, GUME 350.1.13.10 ity of [place] [facility] 4.2.7.2.686 [place] as [id number] [facility] 009 Branch 2021-02-18 2021-02-18 Laboratory Only, Adc Test [facility] [id number]. [id number] Univers 10:59:59 11:14:59 Only Korey Burger 350.1.13.1 0 [place] [id number] [address] 2021-02-18 2021-02-18 Outpatient R [facility] [id number] Univers 11:00:00 11:00:00 [id number] boy [facility] 2021-02-18 2021-02-18 Outpatient Chelsea MAYANK [facility] [id number] Univers 11:00:00 11:00:00 KOREY [facility] 2021-02-10 2021-02-10 Slubber Runner Barry, Adc Lab Main [facility] [id number] Univers 12:57:31 13:12:31 Visit Korey Burger 350.1.13.1 0 [facility] 4.2.7.2.686 [facility] [id number] [address] 2021-02-10 2021-02-10 [facility] [id number] Univers 13:00:00 13:00:00 KOREY [facility] 2021-02-10 2021-02-10 Orders Doctor SAMEERA [id number] Univers 00:00:00 00:00:00 Only Unassigned, GUME 350.1.13.10 ity of [place] [facility] 4.2.7.2.686 [place] as [id number] [address] 2020-08-13 2020-08-13 Orders Doctor SAMEERA [id number] Univers 00:00:00 00:00:00 Only Unassigned, GUME 350.1.13.10 ity of [place] [facility] 4.2.7.2.686 [place] as [id number] [address] Results Test Description Test Time Test Comments [...] NOT 1092) ACCURATE CRE ATININE CLEARANCE IN HI EDICTING GLOMERULAR FILT RATION RATE. ESTIMATED GFR IS NOT APPLICABLE FOR DIALYSIS PATIENTS. CBC W/PLT COUNT & AUTO [id number] 05:29:00 Test Item Value Reference Range Interpretation [...] = 413) RAD, CHEST, 1 VIEW, NON [id number] 09:50:00Reason for exam:->chest painShould this be performed at the bedside?->YesAddendum BeginsREPORT STATUS:A The right jugular line and chest tubes were rem taran in 2015. No acute cardiopulmonary abnormality is seen. Signed: Nito Li MDReport Verified Date/Time: 06/02/2018 09:50:37 Reading Location: [facility] C013Y CT Body Reading RoomAddendum EndsFINAL REPORT [...] Li MDReport Verified Date/Time: 06/01/201808:53:52 Reading Location: [facility] Radiology Reading Room TSH/FREE T4 IF [id number] 05:00:00 Test Item Value Reference Range Interpretation Comments THYROID STIMULATING HORMONE 1.45 uIU/mL 0.35-4.94 (BEAKER) (test code = 772) BASIC METABOLIC [id number] 04:40:00 Test Item Value Reference Range Interpretation [...] PATIEN TS. CBC W/PLT COUNT & AUTO [id number] 04:23:00 Test Item Value Reference Range Interpretation [...] 0-1 PERCENT (BEAKER) (test code = 2801) [id number] 20:34:00 Test Item Value Reference Range Interpretation Comments ACTIVATED CLOTTING TIME 356 sec TEST ED AT [facility] 6720 ([facility]) (test code = [place] 441) [address] [id number] 19:46:00 Test Item Value Reference Range Interpretation Comments ACTIVATED CLOTTING TIME 186 sec TEST ED AT [place] [address] ([facility]) (test code = TRI [place] 441) [id number] 10:46:00 Test Item Value Reference Range Interpretation Comments PARTIAL THROMBOPLASTIN TIME 43.8 seconds 22.5-36.0 H ([facility]) (test code = 760) Prior to initiating heparinPLATELET [id number] 10:33:00 Test Item Value Reference Range Interpretation Comments PLATELET COUNT ([facility]) (test code 92 K/CU MM 150-450 L = 756) POCT-GLUCOSE [id number] 08:20:00 Test Item Value Reference Range Interpretation Comments POC-GLUCOSE METER 100 mg/dL 70-110 TESTED AT [place] [address] ([facility]) (test code = TRI [facility] 1538) [address] TROPONIN [id number] 07:41:00 Test Item Value Reference Range Interpretation Comments TROPONIN I ([facility]) (test code = 3.52 ng/mL 0.00-0.03 397) [...] failure, acidosis, acute neurological disease, and persistent tachyarrhythmia.PT/[id number] 07:31:00 Test Item Value Reference Range Interpretation Comments PROTIME ([facility]) (test code = 13.7 seconds 11.7-14.7 759) INR ([facility]) (test code = 370) 1.0 <=5.9 PARTIAL THROMBOPLASTIN TIME 42.8 seconds 22.5-36.0 H ([facility]) (test code = 760) RECOMMENDED COUMADIN/WARFARIN INR THERAPY RANGESSTANDARD DOSE: 2.0 - 3.0 Includes: PROPHYLAXIS forvenous thrombosis, systemic embolization; TREATMENT for venous thrombosis and/or pulmonary embolus.HIGH RISK: Target INR is 2.5-3.5 for patients with mechanical heart valves.LIPID [id number] 07:29:00 Test Item Value Reference Range Interpretation [...] 130-159 High 160-189 Very High >=190BASIC METABOLIC [id number] 07:29:00 Test Item Value Reference Range Interpretation [...] PATIEN TS. CBC W/PLT COUNT & AUTO [id number] 07:09:00 Test Item Value Reference Range Interpretation [...]
[2021-06-27 21:54] LABS: Urine Blood 3+ (Negative); Urine Glucose Negative (Negative); Urine Protein 3+ (Negative); Urine Specific Gravity >=1.030 (1.005-1.030); Urine pH 5.5 (5.0-7.0)
[2021-06-27] MEDS ORDERED: COLCHICINE 0.6 MG TAB ONE (23:16)
[2021-06-27] MEDS ORDERED: CIPROFLOXACIN 400mg IV 400 MG/200 ML BAG IV ONE (23:16)
[2021-06-27 23:18] LABS: Absolute Lymphocytes (CBC) 0.7 K/uL (0.7-4.9); Hematocrit 39.4 % (39.6-49.0); Lymphocytes % 15.9 % (15.3-44.8); MPV 7.5 fL (7.6-11.3); RBC Red Blood Cell Count 3.81 M/uL (4.33-5.43)
[2021-06-27 23:23] LABS: Protime INR 1.01
[2021-06-27 23:32] LABS: Potassium 3.7 mmol/L (3.5-5.1)
--- NOTE | 2021-06-27 23:39 | EDPHYS ---
Physician Documentation [facility] Name: Tc Mckeon Age: 71 yrs Sex: Male : 1950 Arrival Date: 06/27/2021 Time: 21:19 Bed 27 Private MD: ED Physician Jonah Peres HPI: 06/27 23:34 This 71 yrs old Male presents to ER via Wheelchair with complaints of Gout rn flare up, Blood in urine. 23:34 The patient presents with urinary symptoms, hematuria. Onset: The symptoms/episode rn began/occurred today. Modifying factors: The symptoms are alleviated by nothing, the symptoms are aggravated by urinating. Severity of symptoms: At their worst the symptoms were mild, in the emergency department the symptoms are unchanged. The patient has not experienced similar symptoms in the past. The patient has not recently seen a physician. Pt reports noticed dark/red urine today, no difficulty urinating, no signs of urinary retention, no fever. Reports has been having a gout flare for 1 week and taking aspirin/colchicine. No trauma. . Historical: - Allergies: 21:36 Amoxicillin; st1 21:36 Codeine; st1 21:36 Demerol; st1 21:36 Morphine; st1 21:36 tramadol; st1 - PMHx: 21:36 CAD; Gout; Hyperlipidemia; Hypertension; Myocardial infarction; st1 - Immunization history:: Adult Immunizations not up to date, Pneumococcal vaccine is not up to date, patient has never been vaccinated, Flu vaccine is not up to date. - Social history:: Smoking status: Patient denies any tobacco usage or history of. Patient/guardian denies using alcohol, street drugs, IV drugs, tobacco products. - Family history:: not pertinent. - Hospitalizations: : No recent hospitalization is reported. ROS: 23:34 Constitutional: Negative for fever, chills, and weight loss, Eyes: Negative for injury, rn pain, redness, and discharge, Cardiovascular: Negative for chest pain, palpitations, and edema, Respiratory: Negative for shortness of breath, cough, wheezing, and pleuritic chest pain, Abdomen/GI: Negative for abdominal pain, nausea, vomiting, diarrhea, and constipation, Back: Negative for injury and pain, : + dark/bloody urine MS/Extremity: Negative for injury and deformity, Skin: Negative for injury, rash, and discoloration, Neuro: Negative for headache, weakness, numbness, tingling, and seizure. Exam: 23:34 Constitutional: This is a well developed, well nourished patient who is awake, alert, rn and in no acute distress. Head/Face: Normocephalic, atraumatic. Eyes: Periorbital areas with no swelling, redness, or edema. Cardiovascular: Regular rate and rhythm . No pulse deficits. Respiratory: No increased work of breathing, no retractions or nasal flaring. Abdomen/GI: soft, non-tender Back: No spinal tenderness. No costovertebral tenderness. Full range of motion. Skin: Warm, dry MS/ Extremity: Pulses equal, no cyanosis. + tophi to left toes Neuro: Awake and alert, GCS 15 Vital Signs: 21:32 BP 144 / 59; Pulse 71; Resp 16; Temp 98.8; Pulse Ox 100% on R/A; Weight 57.15 kg; st1 Height 5 ft. 2 in. (157.48 cm); Pain 8/10; 22:07 BP 153 / 60 RA Sitting (auto/reg); Pulse 67 MON; Resp 19 S; Temp 98.3(O); Pulse Ox 96% sv1 on R/A; Pain 8/10; 06/28 00:11 BP 128 / 104 LA Supine (auto/reg); Pulse 77 MON; Resp 18 S; Pulse Ox 98% on R/A; Pain sv1 06/26; 06/27 21:32 Body Mass Index 23.05 (57.15 kg, 157.48 cm) st1 MDM: 06/27 22:03 Patient medically screened. rn 23:37 Differential diagnosis: UTI, cystitis. Data reviewed: vital signs, nurses notes, bottle label inspector test result(s), and as a result, I will discharge patient. Counseling: I had a detailed discussion with the patient and/or guardian regarding: the historical points, exam findings, and any diagnostic results supporting the discharge/admit diagnosis, lab results, the need for outpatient follow up, to return to the emergency department if symptoms worsen or persist or if there are any questions or concerns that arise at home. Response to treatment: the patient's symptoms have mildly improved after treatment, and as a result, I will discharge patient. Special discussion: I discussed with the patient/guardian in detail that at this point there is no indication for admission to the hospital. It is understood, however, that if the symptoms persist or worsen the patient needs to return immediately for re-evaluation. ED course: Pt with UTI/cystitis, in combination with aspirin likely leading to some hematuria, normal h/h, stable vitals, will dc home with abx for uti with return precautions.. 06/27 21:44 Order name: Urine Culture [facility] 06/27 21:45 Order name: Urine Culture EDMD 06/27 21:53 Order name: Urine Dipstick-Ancillary; Complete Time: 22:10 EDMD 06/27 22:11 Order name: CBC with Diff 06/27 22:11 Order name: Basic Metabolic Panel 06/27 22:11 Order name: Protime (+inr); Complete Time: 23:37 06/27 22:11 Order name: Ptt, Activated; Complete Time: 23:37 06/27 22:11 Order name: Procalcitonin; Complete Time: 01:01 06/27 22:11 Order name: CBC with Automated Diff; Complete Time: 23:37 EDMD 06/27 22:11 Order name: Basic Metabolic Panel; Complete Time: 23:37 [facility] 06/27 22:11 Order name: Blood Culture Adult (2) rn 06/27 23:13 Order name: Lactate 2 06/27 23:13 Order name: Lactate; Complete Time: 01:01 [facility] 06/27 21:44 Order name: Urine Dipstick-Ancillary (obtain specimen); Complete Time: 21:49 [facility] 06/27 22:11 Order name: IV Start; Complete Time: 22:37 rn Administered Medications: 23:24 Drug: Cipro (ciprofloxacin) 400 mg Volume: 200 ml; Route: IVPB; Infused Over: 60 mins; sv1 Site: right antecubital; 23:24 Drug: Colchicine-Probenecid 2 tabs Route: PO; sv1 Disposition Summary: 06/27/21 23:38 Discharge Ordered Location: Home rn Problem: new rn Symptoms: have improved rn Condition: Stable rn Diagnosis - UTI/ Urinary tract infection, site not specified rn - Gout, unspecified rn Followup: rn - With: Private Physician - When: As needed - Reason: Recheck today's complaints, Re-evaluation by your physician Discharge Instructions: - Discharge Summary Sheet rn - Gout rn - Urinary Tract Infection, Adult rn Forms: - Medication Reconciliation Form rn - Thank You Letter rn - Antibiotic heater furnace - Prescription Opioid Use rn Prescriptions: - Cipro 500 mg Oral Tablet - take 1 tablet by ORAL route every 12 hours for 10 days; 20 tablet; Refills: 0, rn Product Selection Permitted Signatures: Dispatcher [employer] Jonah Gama MD MD rn Villicano, Steven RN RN sv1 Shahana Christine RN RN st1
--- NOTE | 2021-06-27 23:39 | ER ---
Nurse's Notes [facility] Name: Tc Mckeon Age: 71 yrs Sex: Male : 1950 Arrival Date: 06/27/2021 Time: 21:19 Bed 27 Private MD: Diagnosis: UTI/ Urinary tract infection, site not specified;Gout, unspecified Presentation: 06/27 21:32 Chief complaint: Patient states: The patient has a left ankle gout exacerbation since st1 Wednesday with blood in his urine today. Coronavirus screen: Vaccine status: Patient reports receiving the 2nd dose of the covid vaccine. Moderna. Ebola Screen: No symptoms or risks identified at this time. Initial Sepsis Screen: Does the patient meet any 2 criteria? No. Patient's initial sepsis screen is negative. Does the patient have a suspected source of infection? No. Patient's initial sepsis screen is negative. Risk Assessment: Do you want to hurt yourself or someone else? Patient reports no desire to harm self or others. Onset of symptoms was June 23, 2021. 21:32 Method Of Arrival: Wheelchair st1 21:32 Acuity: ZBIGNIEW 3 st1 Triage Assessment: 21:36 General: Appears in no apparent distress. uncomfortable, slender, well groomed, st1 Behavior is calm, cooperative. Pain: Complains of pain in left ankle (outer) Pain radiates to Up the left leg Pain currently is 8 out of 10 on a pain scale. Historical: - Allergies: 21:36 Amoxicillin; st1 21:36 Codeine; st1 21:36 Demerol; st1 21:36 Morphine; st1 21:36 tramadol; st1 - PMHx: 21:36 CAD; Gout; Hyperlipidemia; Hypertension; Myocardial infarction; st1 - Immunization history:: Adult Immunizations not up to date, Pneumococcal vaccine is not up to date, patient has never been vaccinated, Flu vaccine is not up to date. - Social history:: Smoking status: Patient denies any tobacco usage or history of. Patient/guardian denies using alcohol, street drugs, IV drugs, tobacco products. - Family history:: not pertinent. - Hospitalizations: : No recent hospitalization is reported. Screenin:38 Abuse screen: Denies threats or abuse. Nutritional screening: No deficits noted. st1 Tuberculosis screening: No symptoms or risk factors identified. Fall Risk None identified. No fall in past 12 months (0 pts). No secondary diagnosis (0 pts). No IV (0 pts). Ambulatory Aid- None/Bed Rest/Nurse Assist (0 pts). Gait- Normal/Bed Rest/Wheelchair (0 pts) Mental Status- Oriented to own ability (0 pts). Total Esparza Fall Scale indicates No Risk (0-24 pts). Assessment: 21:39 Reassessment: Patient appears in no apparent distress at this time. No changes from st1 previously documented assessment. Please see triage note. 23:54 Reassessment: received discharge orders. Will discharge the patient when the cipro is sv1 done infusing. . Vital Signs: 21:32 BP 144 / 59; Pulse 71; Resp 16; Temp 98.8; Pulse Ox 100% on R/A; Weight 57.15 kg; st1 Height 5 ft. 2 in. (157.48 cm); Pain 8/10; 22:07 BP 153 / 60 RA Sitting (auto/reg); Pulse 67 MON; Resp 19 S; Temp 98.3(O); Pulse Ox 96% sv1 on R/A; Pain 8/10; 06/28 00:11 BP 128 / 104 LA Supine (auto/reg); Pulse 77 MON; Resp 18 S; Pulse Ox 98% on R/A; Pain sv1 3/10; 06/27 21:32 Body Mass Index 23.05 (57.15 kg, 157.48 cm) st1 ED Course: 06/27 21:19 Patient arrived in ED. wm 21:36 Triage completed. st1 21:38 Arm band placed on right wrist. st1 21:39 Patient has correct armband on for positive identification. st1 21:49 Urine Culture Sent. bb 21:49 Urine Culture Sent. bb 21:55 Dell Don, LATOYA is Primary Nurse. sv1 22:03 Jonah Peres MD is Attending Physician. rn 22:07 Assist provider with bone marrow aspiration. sv1 22:37 Basic Metabolic Panel Sent. sv1 22:37 CBC with Automated Diff Sent. sv1 22:37 Ptt, Activated Sent. sv1 22:37 Protime (+inr) Sent. sv1 22:37 Basic Metabolic Panel Sent. sv1 22:37 CBC with Diff Sent. sv1 22:37 Urine Culture Sent. sv1 23:10 Blood Culture Adult (2) Sent. sv1 23:10 Procalcitonin Sent. sv1 Administered Medications: 23:24 Drug: Cipro (ciprofloxacin) 400 mg Volume: 200 ml; Route: IVPB; Infused Over: 60 mins; sv1 Site: right antecubital; 23:24 Drug: Colchicine-Probenecid 2 tabs Route: PO; sv1 Outcome: 23:38 Discharge ordered by . rn 06/28 00:08 Discharged to home ambulatory, with family. sv1 Condition: improved Discharge instructions given to patient, family. 01:21 Patient left the ED. bb Signatures: Kailee Mcgregor RN RN bb Jonah Peres MD MD rn Marsh, Wendy wm Villicano, Steven, RN RN sv1 Shahana Christine RN RN st1
[2021-06-28 02:18] VITALS: TEMP 98.3
[2021-06-28 02:19] VITALS: BP 128/104; O2SAT 98
== END 2021-06-28 01:21 | disposition home or self-care (01) ==
LOC: ER 21:17
DX: N39.0 Urinary tract infection, site not specified (principal); M10.9 Gout, unspecified; I10 Essential (primary) hypertension; I25.2 Old myocardial infarction; Z88.1 Allergy status to other antibiotic agents; Z88.5 Allergy status to narcotic agent
CPT/HCPCS: 87040 ×2; 87088; 85025; 87086; 80048; 36415; 85610; 83605; 85730; 81003; 84145; 96374; 99284; J0744

== ENCOUNTER 2022-06-24 06:59 | Day surgery (SDC) | payer OTHER ==
[2022-06-23 10:06] LABS: Absolute Lymphocytes (CBC) 0.6 K/uL (0.7-4.9); Hematocrit 31.1 % (39.6-49.0); Lymphocytes % 21.4 % (15.3-44.8); MCV 101.9 fL (80-100); MPV 6.9 fL (7.6-11.3); RBC Red Blood Cell Count 3.05 M/uL (4.33-5.43)
[2022-06-23 10:32] LABS: Albumin 3.3 g/dL (3.4-5.0); Bilirubin Direct 0.3 mg/dL (0-0.2); Bilirubin Total 0.9 mg/dL (0.2-1.0); Potassium 3.7 mmol/L (3.5-5.1); Protein, Total 7.1 g/dL (6.4-8.2)
--- NOTE | 2022-06-23 11:05 | RAD REPORT ---
EXAM DESCRIPTION: Giulia Strauss And Kori (2 Views)06/23/2022 10:00 am CLINICAL HISTORY: Hypertension/preop for gallbladder surgery COMPARISON: May 2022 FINDINGS: The lungs appear clear of acute infiltrate. The heart is normal size. Postsurgical changes involve the chest IMPRESSION: No acute abnormalities displayed
--- NOTE | 2022-06-23 17:31 | EKG ---
Test Date: 2022-06-23 Test Time: 10:16:26 Bag Making Machine Tender: SAMAN MEASUREMENT RESULTS: Intervals: Rate: 54 CT: 138 QRSD: 102 QT: 478 QTc: 453 [place]: P: 66 CT: 138 QRS: 83 T: 46 INTERPRETIVE STATEMENTS: Sinus bradycardia Otherwise normal ECG Compared to ECG 10/13/2018 06:53:20 Sinus rhythm no longer present Electronically Signed On 06-23-22 17:30:34 LABOR REPRESENTATIVE by Raul Braun
[2022-06-24] MEDS ORDERED: CIPROFLOXACIN 400mg IV 400 MG/200 ML BAG IV ONE (07:25)
[2022-06-24] MEDS ORDERED: Ringers Lactate 1,000 ML IV ONE (07:25)
[2022-06-24] MEDS ORDERED: BUPIVACAINE 0.5% PF 10 ML VIAL ONE (08:51)
[2022-06-24] MEDS ORDERED: propofoL 200 MG/20 ML VIAL IV ONE (09:00)
[2022-06-24] MEDS ORDERED: FENTANYL CITR 100 MCG/2 ML ONE (09:00)
[2022-06-24] MEDS ORDERED: LIDOCAINE 2% MPF 5 ML VIAL ONE (09:00)
[2022-06-24] MEDS ORDERED: ROCURONIUM 50 MG/5 ML VIAL IV ONE (09:00)
[2022-06-24] MEDS ORDERED: ONDANSETRON 4 MG/2 ML VIAL ONE ×2 (09:30→12:49)
[2022-06-24] MEDS ORDERED: EPHEDRINE SULF 50 MG/ML VIAL ONE (09:39)
[2022-06-24] MEDS ORDERED: GLYCOPYRROLATE 0.2 MG/ML SYR ONE (09:58)
[2022-06-24] MEDS ORDERED: NEOSTIGMINE 1 MG/ML -10 ML VIAL ONE (09:58)
--- NOTE | 2022-06-24 10:31 | P.OP ---
Date of Service: 06/24/22 Preop diagnosis: Chronic cholecystitis and cholelithiasis Postop diagnosis: Same Procedure performed: Laparoscopic cholecystectomy Surgeon: Alverto Arndt MD Surgeon/President: RADHA Cuevas Estimated blood loss: Minimal Specimen: Gallbladder Findings: As above Anesthesia: General Complications: None Drains: None Fluids and blood products: Nonapplicable Disposition: Recovery room Operative note: Patient brought to the OR and placed in supine position. General anesthesia begun. Patient prepped and draped in the usual sterile fashion. Marcaine 0.5% right locally. 15 blade used to make a 1 cm supraumbilical midline incision. Subcutaneous tissue divided and fascia identified and divided. #1 Vicryl stay suture placed. Peritoneal cavity entered with sharp and blunt dissection. 12 mm trocar placed into the peritoneal cavity under direct vision. Pneumoperitoneum established. One 5 mm trocar placed in the epigastric region just to the right of midline. Two 5 mm trocars placed in the right subcostal region. Laparoscopy revealed chronic inflammation of the gallbladder. Fundus retracted superiorly and inferiorly identified retracted inferolaterally. Cystic duct cystic artery clearly identified with sharp and blunt dissection. Clips clips placed and both structures divided. Gallbladder removed from the gallbladder fossa utilizing cautery. Patient did have oozing from the liver bed. Memo and Surgicel were utilized as patient had low platelets as a preventive measure. Patient's blood was clotting. Bleeding was under control. Gallbladder was retrieved to the umbilicus via Endo Catch bag. Prior to the Memo and Surgicel being placed right upper quadrant was irrigated. Effluent was clear and there was no evidence of bleeding or bile leakage appreciated. Subsequently all trocars removed under direct vision. Stay sutures tied to each other to reapproximate the fascial defect. Subcutaneous was irrigated bleeding controlled cautery. 0 chromic used to approximate subcutaneous tissue. Jon used to close skin. Sterile dressing applied and patient awakened. Patient taken to recovery room in good general condition. CC: Dr. Chavarria's office
[2022-06-24] MEDS ORDERED: HYDROCODONE/APAP 7.5/325 MG TAB PO PRN (10:33)
[2022-06-24 10:34] VITALS: O2SAT 100
[2022-06-24] MEDS: HYDROMORPHONE HCL 1 MG/ML INJ ONE ×4 (10:47→11:06)
[2022-06-24] MEDS ORDERED: PROMETHAZINE INJ 25 MG/ML AMP ONE (13:44)
[2022-06-24 14:48] VITALS: BP 134/53; TEMP 97.1
== END 2022-06-24 14:15 | disposition home or self-care (01) ==
LOC: OR 06:59
PROVIDERS: ATTEND Surgery
PROC: 0FT44ZZ Resection of Gallbladder, Percutaneous Endoscopic Approach (ICD-10-PCS; principal; 2022-06-24 08:30)
DX: K80.10 Calculus of gallbladder with chronic cholecystitis without obstruction (principal)
CPT/HCPCS: 36415; 71046; 80048; 80076; 83690; 85025; 86850; 86900; 86901; 88304; 93005; J0744; J1170; J2001; J2405; J2550; J2704; J2710; J3010; J7120

== ENCOUNTER 2022-06-26 21:23 | Emergency (ER) | payer OTHER ==
--- OUTSIDE RECORDS SUMMARY | 2022-06-26 21:45 | XMS REPORT | Continuity of Care Document ---
:1950 Author Organization [facility] t Address [address] [facility] [address] [place] [address] Care Team Providers Name Role Phone Chidi Mora Primary Care Physician KOREY BURGER Attending Clinician Unavailable Korey Burger MD Attending Clinician Doctor Unassigned, [place] Attending Clinician Unavailable Only, Adc Test Attending Clinician Unavailable Pob, [facility] Lab Main Attending Clinician Unavailable MARILUZ DE DIOS Attending Clinician Unavailable KOREY BURGER Admitting Clinician Unavailable Korey Burger MD Admitting Clinician MARILUZ DE DIOS Admitting Clinician Unavailable Payers Payer Name Policy Type Policy Number Effective Date Expiration Date S [facility] MEDICARE PART A \T\ [id number] 2014 B 00:00:00 [employer] [id number] 2014 OUT OF NETWORK 00:00:00 Problems Condition Condition Condition Status Onset Resolution Last Treating Co mments Source Name Details Category Date Date Treatment Clinician Date NSTEMI NSTEMI Disease Active [facility] ([facility] (non-ST [facility]13 [facility] elevated elevated 00:00: Medica l myocardial myocardial 00 Ce nter infarction infarction ) ) HLD HLD Disease Active [facility] (hyperlipi (hyperlipi 7-20 Alvina kes demia) demia) 00:00: Medical Center Essential Essential Disease Active [facility] hypertensi hypertensi 7-20 Alvina kes on on 00:00: Medical 00 Center GERD GERD Disease Active [facility] (gastroeso (gastroeso 7-20 Alvina kes phageal phageal 00:00: Medical reflux reflux 00 Center disease) disease) Gout Gout Disease Active [facility] 00 Center STEMI (ST STEMI (ST Disease Active [facility] elevation elevation 11-04 Luke s myocardial myocardial 00:00: Me dical infarction infarction 00 Ce nter ) ) Ischemic Ischemic Disease Active [facility] chest pain chest pain 11-04 Alvina kes 00:00: Medical 00 Center 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-04 [facility] disease of disease of 00:00: [place] 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 Allergies, Adverse Reactions, Alerts Allergy Allergy Status Severity Reaction(s) Onset Inactive Treating Comm ents Source Name Type Date Date Clinician AMOXICIL DRUG Active Med Hives 2020-04 Univers АЛЕКСАНДР INGREDI 04-19 ity of 00:00: [place] 00 Medical Branch CODEINE DRUG Active Med Hives 2020-04 Univers INGREDI 04-19 ity of 00:00: [place] 00 Medical Branch MORPHINE DRUG Active Low N/V 2020-04 Univers INGREDI 04-19 ity of 00:00: [place] 00 Medical Branch TRAMADOL DRUG Active Low N/V 2020-04 Univers INGREDI 04-19 ity of 00:00: [place] 00 Medical Branch Amoxicil Propensi Active Hives [...] 00:00: [place] reaction 00 Medical s Branch Amoxicil Drug Active Hives [facility] александр Allergy 718 [facility] 00:[facility] Medical [facility] Center Codeine Drug Active Hives 2015- [facility] Allergy 7-18 [facility] 00:[facility]: Medical 00 Center Morphine Drug Active Nausea And [facility] Allergy Vomiting 7-18 [facility] 00:[facility]: Medical 00 Center Tramadol Drug Active Nausea [facility] Allergy Vomiting 7-18 [facility] 00:[facility]: Medical 00 Center NO KNOWN Drug Active Univers ALLERGIE Class ity of S [facility] Family History Family Member Diagnosis Comments Start Date Stop Date Source Natural brother Heart disease [facility] Natural father Heart disease [facility] Natural father Hypertension [facility] Natural father Stroke [facility] Natural mother Cancer [facility] Natural sister Heart disease [facility] Social History Social Habit Start Date Stop Date Quantity Comments Source Exposure to Not sure [facility] SARS-CoV-2 [facility] (event) [place] Tobacco use and 2021-02-18 2021-02-18 Never used Universit y of exposure 00:00:00 00:00:00 [facility] Alcohol intake 2018-06-03 2018-06-03 Current drinker [facility] Mary Ellen pena Luivan 00:00:00 00:00:[address] [facility] (finding) Sex Assigned At [birth year] [facility] 00:00:00 00:00:00 [facility] Center Smoking Status Start Date Stop Date Source Unknown if ever smoked Universit y [facility] Never smoker [facility] Medications Ordered Filled Start Stop Current Ordering Indication Dosage Frequency Signature Comments Components Source Medication Medication Date Date Medication? Clinician (SIG) Name Name EPINEPHrine 2020-04 Yes PRN, Univer s 1:1,000 (05-05 Starting ity o f mg/mL) 20:31: on Wed [place] (ADRENALIN) 00 03/05/21 Medi smith injection at 1431, Branch Until Discontinu ed, Routine, Intra-op DUOVISC 2020-04 Yes PRN, Univers (DUOVISC 05-05 Starting ity of VISCO 20:31: on Wed [place] ELASTIC) 3 00 03/05/21 Medic al %-4 %(0.5 at 1431, Branch mL) 1 % Until (0.55 mL) Discontinu intraocular ed, injection Routine, Intra-op balanced 2020-04 Yes PRN, Univers salt irrig 1-17 Starting ity o f soln comb1 20:31: on Wed (BSS PLUS) 00 03/05/21 Medic al ophthalmic at 1431, Branc h solution Until 500 mL bag Discontinu ed, Routine, Intra-op EPINEPHrine 2020-04- No PRN, Unive rs 1:1,000 (05-05 Starting ity of mg/mL) 20:31: 22:59 on Wed (ADRENALIN) 00 :26 03/05/21 Medi smith injection at 1431, Branch Until Wed03/05/21 at 1659, Routine, Intra-op DUOVISC 2020-04- No PRN, Univers (DUOVISC 05-05 Starting ity of VISCO 20:31: 22:59 on Wed ELASTIC) 3 00 :03/05/21 Medic al %-4 %(0.5 at 1431, Branch mL) 1 % Until Wed (0.55 mL) 03/05/21 intraocular at 1659, injection Routine, Intra-op balanced 2020-04- No PRN, Univers salt irrig 05-05 Starting ity of soln comb1 20:31: 22:59 on Weda s (BSS PLUS) 00 :03/05/21 Medic al ophthalmic at 1431, Branc h solution Until Wed 500 mL bag 03/05/21 at 1659, Routine, Intra-op Hyaluronida 2020-04 Yes PRN, Univer s se, Human 05-05 Starting ity of Recomb. 20:03: on Wed (HYLENEX) 03/05/21 Medica l injection at 1403, Branch [...] 1000mL at 42 Unive rs ringers IV 05-05 11-17 mL/hr, ity of infusion 18:15: 18:11 [...] 1000mL at 42 Unive rs ringers IV 17 11-17 mL/hr, ity of infusion 18:15: 18:11 1,000 mL, [place] as 1,000 mL 00 :00 IV Medical Infusion, Branch ONCE, 1 dose, On Wed03/05/21 at 1215, Routine, DSU Pre-op gabapentin 2020-04 Yes 300mg Take 300 Un benny 100 mg 1-17 mg by ity of capsule 14:59: mouth 3 [place] 22 (three) Medical times Branch daily. aspirin 81 2020-04 Yes 81mg Take 81 mg U nivers mg chewable 1-17 by mouth ity of tablet 14:59: daily. [address] colchicine 2020-04 Yes .6mg Take 0.6 Uni vers 0.6 mg Cap 1-17 mg by ity of 14:59: mouth. [address] gabapentin 2020-04 Yes 300mg Take 300 Un benny 100 mg 1-17 mg by ity of capsule 14:59: mouth 3 [place] [address] (three) Medical times [place] daily. aspirin 81 2020-04 Yes 81mg Take 81 mg U nivers mg chewable 1-17 by mouth ity of tablet 14:59: daily. [address] colchicine 2020-04 Yes .6mg Take 0.6 Uni vers 0.6 mg Cap 1-17 mg by ity of 14:59: mouth. [address] No known 2020-04 No Univers medications 17 ity of 12:00: [address] neomycin-po 2020-04 Yes PRN, Univer s lymyxin-dex 04-21 Starting ity of amethasone 16:02: on [facility] (MAXITROL) 02/19/21 at [facility] ical 3.5 [facility], [place] mg/g-10,000 Until unit/g-0.1 Discontinu % ed, ophthalmic Routine, ointment Intra-op Hyaluronida 2020-04 Yes PRN, Univer s se, Human 04-21 Starting ity of Recomb. 16:02: on [facility] (HYLENEX) 02/19/21 at [facility] smith injection 1102, [place] Until Discontinu ed, Routine, Intra-op eye block 2020-04 Yes PRN, Univers syringe 04-21 Starting ity o f mL 16:02: on [facility] 02/19/21 at [place] [address], [place] Until Discontinu ed, Intra-op EPINEPHrine 2020-04 Yes PRN, Univer s 1:1,000 (04-21 Starting ity o f mg/mL) 16:02: on [facility] (ADRENALIN) 02/19/21 at Va dical injection 1102, [place] Until Discontinu ed, Routine, Intra-op DUOVISC 2020-04 Yes PRN, Univers (DUOVISC 04-21 Starting ity of VISCO 16:02: on [facility] ELASTIC) 3 02/19/21 at Med ical %-4 %(0.5 1102, Branch mL) 1 % Until (0.55 mL) Discontinu intraocular ed, injection Routine, Intra-op neomycin-po 2020-04- No PRN, Unive rs lymyxin-dex 04-21 Starting ity of amethasone [...] ity of mL 16:02: 18:45 on Wed [place] 00 :19 02/19/21 at Medical 1102, Branch Until Wed02/19/21 at 1345, Intra-op EPINEPHrine 2020-04- No PRN, Unive rs 1:1,000 (1 04-21 Starting ity of mg/mL) 16:02: 18:45 on Wed (ADRENALIN) 00 :19 02/19/21 at Me dical injection 1102, Branch Until Wed02/19/21 at 1345, Routine, Intra-op DUOVISC 2020-04- No PRN, Univers (DUOVISC 04-21 Starting ity of VISCO 16:02: 18:45 on Wed ELASTIC) 3 00 :19 02/19/21 at Med ical %-4 %(0.5 1102, Branch mL) 1 % Until Wed (0.55 mL) 02/19/21 at intraocular 1345, injection Routine, Intra-op dexamethaso 2020-04 Yes PRN, Univer s ne 04-21 Starting ity of (DECADRON 16:01: on Wed [place] PHOSPHATE) 00 02/19/21 at [facility] ical injection 1101, Branch Until Discontinu ed, Routine, Intra-op ceFAZolin 2020-04 Yes PRN, Univers (ANCEF) 04-21 Starting ity of injection 16:01: on Wed [place] 00 02/19/21 at [facility] 1101, Branch Until Discontinu ed, MANUEL, Intra-op carbachoL 2020-04 Yes PRN, Univers (MIOSTAT) 04-21 Starting ity of 0.01 % 16:01: on Wed [place] intraocular 00 02/19/21 at Va dical injection 1101, Branch Until Discontinu ed, Routine, Intra-op balanced 2020-04 Yes PRN, Univers salt irrig 04-21 Starting ity o f soln comb1 16:01: on Wed [place] (BSS PLUS) 00 02/19/21 at [facility] ical ophthalmic 1101, Branch solution Until 500 mL bag Discontinu ed, Routine, Intra-op ceFAZolin 2020-04- No PRN, Univers (ANCEF) 04-21 Starting ity of injection 16:01: 18:45 on Wed [place] 00 :19 02/19/21 at Medical 1101, Branch Until Wed02/19/21 at 1345, MANUEL, Intra-op carbachoL 2020-04- No PRN, Univers (MIOSTAT) 04-21 Starting ity o f 0.01 % 16:01: 18:45 on Wed [place] intraocular 00 :19 02/19/21 at Va dical injection 1101, Branch Until Wed02/19/21 at 1345, Routine, Intra-op balanced 2020-04- No PRN, Univers salt irrig 04-21 Starting ity of soln comb1 16:01: 18:45 on Wed [place] (BSS PLUS) 00 :19 02/19/21 at [facility] ical ophthalmic 1101, Branch solution Until Wed 500 mL bag 02/19/21 at 1345, Routine, Intra-op dexamethaso 2020-04- No PRN, Unive rs ne 04-21 Starting ity of (DECADRON 16:01: 18:45 on Wed [place] PHOSPHATE) 00 :19 02/19/21 at [facility] ical injection 1101, Branch Until Wed02/19/21 at 1345, Routine, Intra-op mydriatic 2020-04- No [...] 1-03 mg by ity of 11:45: mouth. [address] gabapentin 2020-04 Yes 300mg Take 300 Un benny 100 mg 1-03 mg by ity of capsule 11:45: mouth 3 [place] [address] (three) Medical times [place] daily. aspirin 81 2020-04 Yes 81mg Take 81 mg U nivers mg chewable 1-03 by mouth ity of tablet 11:45: daily. [address] colchicine 2020-04 Yes .6mg Take 0.6 Uni vers 0.6 mg Cap 1-03 mg by ity of 11:45: mouth. [address] gabapentin 2020-04 Yes 300mg Take 300 Un benny 100 mg 1-03 mg by ity of capsule 11:45: mouth 3 [place] [address] (three) Medical times Branch daily. aspirin 81 2020-04 Yes 81mg Take 81 mg U nivers mg chewable 1-03 by mouth ity of tablet 11:45: daily. [address] colchicine 2020-04 Yes .6mg Take 0.6 Uni vers 0.6 mg Cap 1-03 mg by ity of 11:45: mouth. [address] gabapentin 2020-04 Yes 300mg Take 300 Un benny 100 mg 1-03 mg by ity of capsule 11:45: mouth 3 [place] [address] (three) Medical times [place] daily. aspirin 81 2020-04 Yes 81mg Take 81 mg U nivers mg chewable 1-03 by mouth ity of tablet 11:45: daily. [address] colchicine 2020-04 Yes .6mg Take 0.6 Uni vers 0.6 mg Cap 1-02 mg by ity of 08:41: mouth. [address] gabapentin 2020-04 Yes 300mg Take 300 Un benny 100 mg 1-02 mg by ity of capsule 08:41: mouth 3 [place] [address] [address]) Medical times [place] daily. aspirin 81 2020-04 Yes 81mg Take 81 mg U nivers mg chewable 1-02 by mouth ity of tablet 08:41: daily. [address] lisinopriL 2020-0 Yes Univers 5 mg tablet 12-26 ity of 00:00: [address] Branch lisinopriL 0 Yes Univers 5 mg tablet 12-26 ity of 00:00: [address] lisinopriL 2020-0 Yes Univers 5 mg tablet 12-26 ity of 00:00: [address] lisinopriL 2020-0 Yes Univers 5 mg tablet 12-26 ity of 00:00: [place] [address] Medical Branch lisinopriL 2020-0 Yes Univers 5 mg tablet 12-26 ity of 00:00: [place] [facility] lisinopriL 2020-0 Yes Univers 5 mg tablet 12-26 ity of 00:00: [place] [address] Medical Branch atorvastati 2018-0 Yes 80mg QD Take [address] [facility] (LIPITOR) 2-16 tablet (80 Alvina kes 80 MG 00:00: mg total) Medical tablet 00 by mouth Center daily. aspirin 81 2019-0 Yes 81mg QD Take 1 [facility]I [facility] t MG EC 2-16 tablet (81 [facility] tablet 00:00: mg total) Medica l 00 by mouth Center daily. lisinopril 2019-0 Yes 5mg QD Take 1 [facility] t (PRINIVIL,Z 2-16 tablet (5 Mary es ESTRIL) 5 00:00: mg total) Med ical MG tablet 00 by mouth Center daily. famotidine 2019-0 Yes 20mg Q.5D Take [address] (PEPCID) 20 2-15 by mouth 2 Alvina kes MG tablet 15:17: (two) Medical 37 times Center daily. pantoprazol 2019-0 Yes 40mg QD Take [address] [facility] e 2-15 by mouth [facility] (PROTONIX) 15:17: daily. Medic al 40 MG 37 Center tablet ranolazine 2019-0 Yes 500mg Q.5D Take [address] (RANEXA) 2-15 tablet [facility] 500 MG 12 00:00: (500 mg Medic al hr tablet 00 total) by Cente r mouth 2 (two) times daily. ticagrelor 2019-0 Yes 90mg Q.5D Take 1 [facility] t (BRILINTA) 2-15 tablet (90 Mary es 90 mg Tab 00:00: mg total) Med ical tablet 00 by mouth 2 Center (two) times daily. allopurinol 2019-0 Yes 100mg Take [address] (ZYLOPRIM) 1-16 mg by [facility] 100 MG 00:00: mouth Medical tablet 00 daily with Center breakfast. Immunizations Ordered Filled Immunization Date Status Comments [facility] e Immunization Name Name SARS-COV-2 COVID-19 2020-08-13 Completed Unive rsity of MODERNA VACCINE 00:00:00 [facility] SARS-COV-2 COVID-19 2020-08-13 Completed Unive rsity of MODERNA VACCINE 00:00:00 [facility] SARS-COV-2 COVID-19 2020-08-13 Completed Unive rsity of MODERNA VACCINE 00:00:00 [facility] SARS-COV-2 COVID-19 2020-07-16 Completed Unive rsity of MODERNA VACCINE 00:00:00 [facility] SARS-COV-2 COVID-19 2020-07-16 Completed Unive rsity of MODERNA VACCINE 00:00:00 [place] [facility] ical Branch SARS-COV-2 COVID-19 2020-07-16 Completed Unive rsity of MODERNA VACCINE 00:00:00 [facility] [place] Vital Signs Vital Name Observation Time Observation Value Comments Source Heart rate 2021-03-05 20:49:00 51 /min [facility] [place] [facility] Respiratory rate 2021-03-05 20:49:00 14 /min Univ ersity of [place] [facility] Oxygen saturation in 2021-03-05 20:49:00 100 /min University of Arterial blood by [facility] Pulse oximetry Branch Systolic blood 2021-03-05 20:46:00 166 mm[Hg] Univer sity of pressure [place] [facility] Diastolic blood 2021-03-05 20:46:00 51 mm[Hg] Unive rsity of pressure [place] [facility] Body temperature 2021-03-05 20:34:00 36.28 Dalila Univ ersity [facility] [place] [facility] Body height 2021-02-27 14:55:00 160 cm [facility] [place] [facility] Body weight 2021-02-27 14:55:00 80.3 kg [facility] [place] [facility] BMI 2021-02-27 14:55:00 31.37 kg/m2 [facility] [place] [facility] Systolic blood 2021-03-05 18:01:00 150 mm[Hg] Univer sity of pressure [place] [facility] Diastolic blood 2021-03-05 18:01:00 56 mm[Hg] Unive rsity of pressure [place] [facility] Heart rate 2021-03-05 18:01:00 56 /min [facility] [place] [facility] Body temperature 2021-03-05 18:01:00 36.11 Dalila Univ ersity [facility] [place] [facility] Respiratory rate 2021-03-05 18:01:00 19 /min Univ ersity [facility] [place] [facility] Oxygen saturation in 2021-03-05 18:01:00 100 /min University of Arterial blood by [facility] Pulse oximetry Branch Body height 2021-02-27 14:55:00 160 cm [facility] [place] [facility] Body weight 2021-02-27 14:55:00 80.3 kg [facility] [place] [facility] BMI 2021-02-27 14:55:00 31.37 kg/m2 Universi ty of [facility] [place] [facility] Systolic blood 2021-02-19 16:30:00 167 mm[Hg] Univer sity of pressure [facility] Branch Diastolic blood 2021-02-19 16:30:00 93 mm[Hg] Unive rsity of pressure [facility] Heart rate 2021-02-19 16:30:00 54 /min Universi ty of [facility] Respiratory rate 2021-02-19 16:30:00 20 /min Univ ersity of [facility] Oxygen saturation in 2021-02-19 16:30:00 99 /min University of Arterial blood by [place] [employer] smith Pulse oximetry Branch Body temperature 2021-02-19 16:15:00 36.67 Dalila [facility] ersity of [facility] Body height 2021-02-17 15:18:00 160 cm Universi ty of [facility] Body weight 2021-02-17 15:18:00 80.3 kg Universi ty of [facility] [place] [facility] BMI 2021-02-17 15:18:00 31.37 kg/m2 Universi ty of [facility] [place] [facility] Systolic blood 2021-02-19 13:37:00 144 mm[Hg] Univer sity of pressure [facility] Diastolic blood 2021-02-19 13:37:00 79 mm[Hg] Unive rsity of pressure [facility] Heart rate 2021-02-19 13:37:00 63 /min Universi ty of [facility] [place] [facility] Body temperature 2021-02-19 13:37:00 36.56 Dalila Univ ersity of [facility] [place] [facility] Respiratory rate 2021-02-19 13:37:00 18 /min Univ ersity of [facility] Oxygen saturation in 2021-02-19 13:37:00 100 /min University of Arterial blood by [place] [employer] smith Pulse oximetry Branch Body height 2021-02-17 15:18:00 160 cm Universi ty of [facility] [place] [facility] Body weight 2021-02-17 15:18:00 80.3 kg Universi ty of [facility] [place] [facility] BMI 2021-02-17 15:18:00 31.37 kg/m2 Universi ty of [facility] [place] [facility] Procedures Procedure Date / Time Performing Source Performed Clinician PHACOEMULSIFICATION OF 2021-03-05 [facility] Burger [facility] [place] CATARACT WITH INTRAOCULAR 19:53:00 Medica l Branch LENS IMPLANT NOTICE OF PRIVACY PRACTICES 2021-03-03 Doctor Unassigned, [facility] 16:32:56 [place] [facility] NOTICE OF PRIVACY PRACTICES 2021-03-03 Doctor Unassigned, [facility] 16:32:56 [place] [facility] CONSENT/REFUSAL FOR DIAGNOSIS 2021-03-03 Doctor Unassigned, [facility] 16:32:37 [place] [facility] CONSENT/REFUSAL FOR DIAGNOSIS 2021-03-03 Doctor Unassigned, [facility] 16:32:37 [place] [facility] ASSIGNMENT OF BENEFITS 2021-03-03 Doctor Unassigned, [facility] 16:32:14 [place] [facility] ASSIGNMENT OF BENEFITS 2021-03-03 Doctor Unassigned, [facility] 16:32:14 [place] [facility] PHACOEMULSIFICATION OF 2021-02-19 Korey Burger [facility] CATARACT WITH INTRAOCULAR 15:25:00 Medica l Branch LENS IMPLANT DAY SURGERY - ADC 2021-02-19 Doctor Unassigned, [facility] 05:01:00 [place] [facility] ASSIGNMENT OF BENEFITS 2021-02-10 Doctor Unassigned, [facility] 17:54:14 [place] [facility] EXTERNAL PROVIDER RECORDS 2021-01-29 Doctor Unassigned, [facility] 05:01:00 [place] [facility] EXTERNAL PROVIDER RECORDS 2021-01-29 Doctor Unassigned, [facility] 05:01:00 [place] [facility] VACCINATIONS - CONSENTS, 2020-08-13 Doctor Unassigned, [facility] ELIGIBILITY, HISTORY 05:01:00 [place] Medical [facility] Encounters Start End Encounter Admission Attending Care Care Encounter Source Date/Time Date/Time Type Type Clinicians Facility Department ID 2021-03-05 2021-03-05 Outpatient R VINAY BURGER OPH [id number] Univers 11:56:00 14:58:00 KOREY delgado [facility] Medical Branch 2021-03-05 2021-03-05 Hospital VINAY Burger [id number] Univers 11:56:00 14:58:00 Encounter Korey HUTTON [id number] sandy su SLEMP [id number] [id number] [facility] 071 Branch 2021-03-05 2021-03-05 Surgery [facility] [id number] Univers 13:29:00 14:12:00 Korey HUTTON [id number] ity of [facility] [id number] [place] [id number] [facility] 020 Branch 2021-02-19 2021-02-19 Outpatient R JENNYFERUNM [facility] OPH [id number] Univers 08:08:00 11:44:00 KOREY ity of [facility] [place] [facility] 2021-02-19 2021-02-19 [facility] [id number] Univers 08:08:00 11:44:00 Encounter Korey HUTTON [id number] ity of [facility] [id number] [place] [id number] [place] [address] Branch 2021-02-19 2021-02-19 Surgery [facility] [id number] Univers 09:30:00 10:09:00 Korey HUTTON [id number] ity of [facility] [id number] [place] [id number] [facility] 020 Branch 2021-02-19 2021-02-19 Orders Doctor SAMEERA [id number] Univers 00:00:00 00:00:00 Only Unassigned, GUME [id number] ity of [place] [facility] [id number] Bebeto as [id number] [facility] 009 Branch 2021-02-18 2021-02-18 Laboratory Only, Adc Test [facility] [id number]. 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 [employer] Barry, Alida Lab Main [facility] [id number] Univers 12:57:31 13:12:31 Visit Korey Burger 350.1.13.1 0 ity of [id number] [place] Professio [id number] Va dical [facility] 353 [facility] 2021-02-10 2021-02-10 Outpatient R JENNYFER [facility] [id number] Univers 13:00:00 13:00:00 KOREY sandy [facility] 2021-02-10 2021-02-10 Orders Doctor SAMEERA [id number] Univers 00:00:00 00:00:00 Only Unassigned, GUME [id number] ity of [facility] [id number] [place] as [id number] [address] 2020-08-13 2020-08-13 Orders Doctor SAMEERA [id number] Univers 00:00:00 00:00:00 Only Unassigned, GUME [id number] ity of [facility] [id number] [place] as [id number] [address] Results Test Description Test Time Test [...] NOT 1092) ACCURATE CRE ATININE CLEARANCE IN [place] EDICTING GLOMERULAR FILT RATION RATE. ESTIMATED GFR IS NOT APPLICABLE FOR DIALYSIS PATIENTS. CBC W/PLT COUNT & AUTO [id number] 05:29:00 Test Item Value Reference Range Interpretation [...] = 413) RAD, CHEST, 1 VIEW, NON [id number] 09:50:00Reason for exam:->chest painShould this be performed at the bedside?->YesAddendum BeginsREPORT STATUS:A The right jugular line and chest tubes were remov ed in 2015. No acute cardiopulmonary abnormality is seen. Signed: Nito Lieport Verified Date/Time: 06/02/2018 09:50:37 Reading Location: [address] Body Reading RoomAddendum EndsFINAL REPORT Portable [...] chest tubes. Signed: Nito Lieport Verified Date/Time: 06/01/2018 08:53:52 Reading Location: [facility] [facility] TSH/FREE T4 IF [id number] 05:00:00 Test Item Value Reference Range Interpretation Comments THYROID STIMULATING HORMONE 1.45 uIU/mL 0.35-4.94 (BEAKER) (test code = 772) BASIC METABOLIC [id number] 04:40:00 Test Item Value Reference Range Interpretation [...] PATIEN TS. CBC W/PLT COUNT & AUTO [id number] 04:23:00 Test Item Value Reference Range Interpretation [...] 0-1 PERCENT (BEAKER) (test code = 2801) [id number] 20:34:00 Test Item Value Reference Range Interpretation Comments ACTIVATED CLOTTING TIME 356 sec TEST ED AT [place] [address] ([facility]) (test code = [place] [address]) [id number] 19:46:00 Test Item Value Reference Range Interpretation Comments ACTIVATED CLOTTING TIME 186 sec TEST ED AT [place] [address] ([facility]) (test code = [place] [address]) [id number] 10:46:00 Test Item Value Reference Range Interpretation Comments PARTIAL THROMBOPLASTIN TIME 43.8 seconds 22.5-36.0 H ([facility]) (test code = 760) Prior to initiating heparinPLATELET [id number] 10:33:00 Test Item Value Reference Range Interpretation Comments PLATELET COUNT ([facility]) (test code 92 K/CU MM 150-450 L = 756) POCT-GLUCOSE [id number] 08:20:00 Test Item Value Reference Range Interpretation Comments POC-GLUCOSE METER 100 mg/dL 70-110 TESTED AT [facility] [address] ([facility]) (test code = [place] [address]) [id number] TROPONIN [id number] 07:41:00 Test Item Value Reference Range Interpretation Comments TROPONIN I ([facility]) (test code = 3.52 ng/mL 0.00-0.03 397) [...] failure, acidosis, acute neurological disease, and persistent tachyarrhythmia.[id number] 07:31:00 Test Item Value Reference Range Interpretation Comments PROTIME ([facility]) (test code = 13.7 seconds 11.7-14.7 759) INR ([facility]) (test code = 370) 1.0 <=5.9 PARTIAL THROMBOPLASTIN TIME 42.8 seconds 22.5-36.0 H (AKER) (test code = 760) RECOMMENDED COUMADIN/WARFARIN INR THERAPY RANGESSTANDARD DOSE: 2.0 - 3.0 Includes: PROPHYLAXIS for venous thrombosis, systemic embolization; TREATMENT for venous thrombosis and/or pulmonary embolus.HIGH RISK: Target INR is 2.5-3.5 for patients with mechanical heart valves.LIPID [id number] 07:29:00 Test Item Value Reference Range Interpretation Comments TRIGLYCERIDES (BEAKER) (test code = 162 mg/dL 540) CHOLESTEROL (BEAKER) (test code = 159 mg/dL 631) HDL CHOLESTEROL (BEAKER) (test code 33 mg/dL = 976) LDL CHOLESTEROL CALCULATED ([facility]) 94 mg/dL (test code = 633) Triglyceride Reference Range: Low Risk <150 Borderline 150-199 High Risk 200- 499 Very High Risk >=500Cholesterol Reference Range: Low Risk <200 Borderline 200-239 High Risk >240HDL Cholesterol Reference Range: Low Risk >=60 High Risk <40LDL Cholesterol Reference Range: Optimal <100 Near Optimal 100-129 Borderline 130-159 High 160-189 Very High >=190BASIC METABOLIC [id number] 07:29:00 Test Item Value Reference Range Interpretation [...] PATIEN TS. CBC W/PLT COUNT & AUTO [id number] 07:09:00 Test Item Value Reference Range Interpretation [...] % 0-1 PERCENT (BEAKER) (test code = 5001)
[2022-06-26 23:30] LABS: Hematocrit 32.8 % (39.6-49.0); Lymphocytes % 14.6 % (15.3-44.8); MCV 100.8 fL (80-100); MPV 6.8 fL (7.6-11.3); RBC Red Blood Cell Count 3.25 M/uL (4.33-5.43)
[2022-06-26 23:46] LABS: Albumin 3.2 g/dL (3.4-5.0); Bilirubin Total 1.9 mg/dL (0.2-1.0); Protein, Total 7.5 g/dL (6.4-8.2)
[2022-06-27 07:53] VITALS: BP 143/58; TEMP 99.4; O2SAT 99
--- NOTE | 2022-06-27 21:24 | RAD REPORT ---
EXAM DESCRIPTION: CT - Abdomen Pelvis W Contrast - 06/27/2022 2:58 am CLINICAL HISTORY: The patient is 72 years old and is Male; abd pain, recent cholecystectomy [facility] MAIN TECHNIQUE: Axial computed tomography images of the abdomen and pelvis with intravenous contrast. S agittal and coronal reformatted images were created and reviewed. This CT exam was performed using one or more of the following dose reduction techniques: automated exposure control, adjustment of t he mA and/or kV according to patient size, and/or use of iterative reconstruction technique. COMPARISON: 08/17/2020 CT abdomen pelvis without contrast FINDINGS: LUNG BASES: Bibasal subsegmental atelectasis. HEART: Sternotomy and post-CABG changes with multivessel coronary artery calcifications. ABDOMEN: LIVER: See below. GALLBLADDER AND BILE DUCTS: 6.4 x 5.2 x 5.8 cm gas and heterogenous collection noted in the gallbl adder fossa, suspicious for developing abscess versus post procedural phlegmonous change. No calcified stones. No ductal dilation. PANCREAS: Unremarkable. No mass. No ductal dilation. SPLEEN: New mild splenomegaly, measuring 13 cm in the craniocaudal dimension. ADRENALS: Unremarkable. No mass. KIDNEYS AND URETERS: Mildly atrophic appearance of the right kidney, with otherwise unremarkable a ppearance of the bilateral renal nephrograms. No hydronephrosis. STOMACH AND BOWEL: Unremarkable. No obstruction. No mucosal thickening. No pneumatosis or portal venous gas. PELVIS: APPENDIX: No findings to suggest acute appendicitis. BLADDER: Unremarkable. No mass. REPRODUCTIVE: Mild prostatomegaly. ABDOMEN and PELVIS: INTRAPERITONEAL SPACE: Small volume pneumoperitoneum, not unexpected in the setting of recent lapa roscopy, with trace subcutaneous emphysema demonstrated along the right abdominal wall and inferior c hest wall. Trace free fluid noted in the upper abdomen and tracking along the bilateral paracolic gutte rs, with layering simple free fluid in the pelvic cul-de-sac. BONES/JOINTS: Redemonstrated diffusely heterogenous appearance of the bone marrow and the bilatera l hips and hemipelvis, and sternum, which appears less conspicuous in the vertebral bodies. No acute fracture. No dislocation. SOFT TISSUES: Surgical clips noted in the superficial right supraumbilical midline abdominal wall. Tiny fat-containing supraumbilical hernia. VASCULATURE: No abdominal aortic aneurysm or dissection. LYMPH NODES: Unremarkable. No enlarged lymph nodes. IMPRESSION: 1. Small volume pneumoperitoneum, not unexpected in the setting of recent laparoscopy, with trace subcutaneous emphysema demonstrated along the right abdominal wall and inferior chest wal l. 2. 6.4 x 5.2 x 5.8 cm gas and heterogenous collection noted in the gallbladder fossa, suspicious fo r developing abscess versus post procedural phlegmonous change. Dr. Roca discussed the above impressions with Dr. Jensen via telephone at approximately 02:12 hour s EST on 06/27/2022. 3. Mild prostatomegaly. 4. New mild splenomegaly, measuring 13 cm in the craniocaudal dimension. Possibly reactive in the s etting of acute inflammatory/infectious process. Attention on follow-up exams recommended. 5. Redemonstrated diffusely heterogenous appearance of the bone marrow and the bilateral hips and h emipelvis, and sternum, which appears less conspicuous in the vertebral bodies. Nonspecific appearanc e may be related to osteoporosis, sequela of chronic renal disease, or possible marrow infiltrating p rocess, such as multiple myeloma. Clinical and laboratory correlation recommended if not previously p erformed. Consider bone marrow biopsy if not previously performed. 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 The interpreting radiologist is fully responsible for the content of the report.
--- NOTE | 2022-07-10 16:11 | ER ---
Nurse's Notes [facility] Name: Tc Mckeon Age: 72 yrs Sex: Male : 1950 Arrival Date: 06/26/2022 Time: 21:24 Bed Treatment Private MD: Diagnosis: Postprocedural hemorrhage of skin and subcutaneous tissue following other procedure-LAP RACHELE;Thrombocytopenia, unspecified;Alcohol abuse Presentation: 06/26 21:46 Chief complaint: Patient states: he had a cholecystectomy on Wednesday by Dr Arndt and bb today when he took off the bandage there was no bleeding but later on he coughed real hard and his umbilical incision started bleeding. Coronavirus screen: At this time, the client does not indicate any symptoms associated with coronavirus-19. Ebola Screen: No symptoms or risks identified at this time. Initial Sepsis Screen: Does the patient meet any 2 criteria? No. Patient's initial sepsis screen is negative. Does the patient have a suspected source of infection? No. Patient's initial sepsis screen is negative. Risk Assessment: Do you want to hurt yourself or someone else? Patient reports no desire to harm self or others. Onset of symptoms was June 26, 2022. 21:46 Method Of Arrival: Ambulatory bb 21:46 Acuity: ZBIGNIEW 3 bb Triage Assessment: 21:48 General: Appears in no apparent distress. uncomfortable, slender, Behavior is calm, bb cooperative. Pain: Complains of pain in abdomen. Neuro: Level of Consciousness is awake, alert, obeys commands, Oriented to person, place, time, situation. Cardiovascular: Capillary refill Patient's skin is warm and dry. Respiratory: Respiratory effort is unlabored. GI: Abdomen is non-distended. Derm: surgical incision to umbilicus intact slow drop of serosanguinous fluid dripping. Historical: - Allergies: 21:48 Amoxicillin; bb 21:48 Codeine; bb 21:48 Demerol; bb 21:48 Morphine; bb 21:48 tramadol; bb - Home Meds: 21:48 aspirin 81 mg Oral TbEC 1 tab once daily [Active]; BRILINTA Oral [Active]; clopidogrel bb 75 mg Oral tab 1 tab once daily [Active]; colchicine 0.6 mg Oral tab 1 tab once daily [Active]; Colchicine Oral [Active]; folic acid 20 mg Oral cap [Active]; lisinopril 5 mg Oral tab 1 tab once daily [Active]; lisinopril Oral [Active]; - PMHx: 21:48 CAD; Gout; Hyperlipidemia; Hypertension; Myocardial infarction; bb - PSHx: 21:48 Coronary artery bypass graft; Cholecystectomy; bb - Immunization history:: Client reports receiving the 2nd dose of the Covid vaccine, Moderna. - Social history:: Smoking status: Patient denies any tobacco usage or history of. - Family history:: not pertinent. Screenin:19 [facility] ED Fall Risk Assessment (Adult) History of falling in the last 3 months, mb9 including since admission No falls in past 3 months (0 pts) Confusion or Disorientation No (0 pts) Intoxicated or Sedated No (0 pts) Impaired Gait No (0 pts) Mobility Assist Device Used No (0 pt) Altered Elimination No (0 pt) Score/Fall Risk Level 0 - 2 = Low Risk Oriented to surroundings, Maintained a safe environment, Educated pt \T\ family on fall prevention, incl call for assistance when getting out of bed. Abuse screen: Denies threats or abuse. Nutritional screening: No deficits noted. Tuberculosis screening: No symptoms or risk factors identified. Assessment: 23:18 General: Appears uncomfortable, Behavior is cooperative. Pain: Complains of pain in mb9 abdomen Pain does not radiate. Quality of pain is described as throbbing. Neuro: Level of Consciousness is awake, alert, obeys commands, Oriented to person, place, time, situation, Appropriate for age. Cardiovascular: Patient's skin is warm and dry. Respiratory: Airway is patent Respiratory effort is even, unlabored, Respiratory pattern is regular, symmetrical. GI: Reports bleeding from post surgical site from gallbladder removal after coughing. : No signs and/or symptoms were reported regarding the genitourinary system. Derm: Skin is pink, warm \T\ dry. Musculoskeletal: Range of motion: intact in all extremities. 06/27 00:41 Reassessment: Patient is alert, oriented x 3, equal unlabored respirations, skin bb warm/dry/pink. pt to CT scan via stretcher accompanied by technical support assistant. 02:22 Reassessment: Patient is alert, oriented x 3, equal unlabored respirations, skin bb warm/dry/pink. pt verbalized understanding of and agrees to plan of care discharge instructions given pt ambulated with steady gait to exit accompanied by spouse. Vital Signs: 06/26 21:46 BP 155 / 51; Pulse 80; Resp 18 S; Temp 98.5(O); Pulse Ox 97% on R/A; Weight 56.7 kg bb (R); Height 5 ft. 2 in. (R); Pain 10/26; 06/27 02:23 BP 143 / 58; Pulse 79; Resp 16 S; Temp 99.4(O); Pulse Ox 99% on R/A; bb 06/26 21:46 Body Mass Index 22.86 (56.70 kg, 157.48 cm) bb 06/26 21:46 Pain Scale: Adult bb ED Course: 06/26 21:24 Patient arrived in ED. ja2 21:48 Triage completed. bb 21:48 Arm band placed on Patient placed in waiting room, Patient notified of wait time. bb Family accompanied patient. 22:08 Gamaliel Jensen MD is Attending Physician. adi 23:17 Comprehensive Metabolic Panel Sent. mb9 23:17 CBC with Diff Sent. mb9 23:18 Inserted saline lock: 22 gauge in left antecubital area, using aseptic technique. mb9 23:19 Bed in low position. Call light in reach. Side rails up X 1. Client placed on mb9 continuous cardiac and pulse oximetry monitoring. NIBP monitoring applied. 23:19 No provider procedures requiring assistance completed. mb9 23:49 Haley Castellano, RN is Primary Nurse. mb9 06/27 00:47 CT Abd/Pelvis - IV Contrast Only In Process Unspecified. EDAL 01:55 Alverto Arndt MD is Referral Physician. adi 02:24 IV discontinued, intact, bleeding controlled, No redness/swelling at site. Pressure bb dressing applied. Administered Medications: No medications were administered Medication: 06/26 23:19 VIS not applicable for this client. mb9 Outcome: 06/27 01:55 Discharge ordered by . adi 02:23 Discharged to home ambulatory, with family. bb 02:23 Condition: stable 02:23 Discharge instructions given to patient, Instructed on discharge instructions, follow up and referral plans. medication usage, Demonstrated understanding of instructions, follow-up care, medications, Prescriptions given X 1. 02:24 Patient left the ED. bb Signatures: Dispatcher [employer] EDAL Sam Jenseny, MD MD adi Mcgregor, Kailee, RN RN bb Ann Thompson Mary Beth, RN RN mb9
--- NOTE | 2022-07-10 16:12 | EDPHYS ---
Physician Documentation [facility] Name: Tc Mckeon Age: 72 yrs Sex: Male : 1950 Arrival Date: 06/26/2022 Time: 21:24 Bed Treatment Private MD: HEIDY Physician Gamaliel Jensen HPI: 06/27 00:15 This 72 yrs old Male presents to ER via Ambulatory with complaints of Post adi Surgical Bleeding. 00:15 The patient presents with abdominal pain in the periumbilical area. abdominal adi distention in the upper abdomen, in the lower abdomen. Onset: The symptoms/episode began/occurred 4 day(s) ago. The symptoms do not radiate. Associated signs and symptoms: none. The symptoms are described as crampy. Severity of pain: At its worst the pain was mild in the emergency department the pain is unchanged. The patient has not experienced similar symptoms in the past, HAD LAP RACHELE ON WEDNESDAY, DR SOLIS. Historical: - Allergies: 06/26 21:48 Amoxicillin; bb 21:48 Codeine; bb 21:48 Demerol; bb 21:48 Morphine; bb 21:48 tramadol; bb - Home Meds: 21:48 aspirin 81 mg Oral TbEC 1 tab once daily [Active]; BRILINTA Oral [Active]; clopidogrel bb 75 mg Oral tab 1 tab once daily [Active]; colchicine 0.6 mg Oral tab 1 tab once daily [Active]; Colchicine Oral [Active]; folic acid 20 mg Oral cap [Active]; lisinopril 5 mg Oral tab 1 tab once daily [Active]; lisinopril Oral [Active]; - PMHx: 21:48 CAD; Gout; Hyperlipidemia; Hypertension; Myocardial infarction; bb - PSHx: 21:48 Coronary artery bypass graft; Cholecystectomy; bb - Immunization history:: Client reports receiving the 2nd dose of the Covid vaccine, Moderna. - Social history:: Smoking status: Patient denies any tobacco usage or history of. - Family history:: not pertinent. ROS: 06/27 00:15 Constitutional: Negative for fever, chills, and weight loss, Eyes: Negative for injury, adi pain, redness, and discharge, ENT: Negative for injury, pain, and discharge, Neck: Negative for injury, pain, and swelling, Cardiovascular: Negative for chest pain, palpitations, and edema, Respiratory: Negative for shortness of breath, cough, wheezing, and pleuritic chest pain, Back: Negative for injury and pain, : Negative for injury, bleeding, discharge, and swelling, MS/Extremity: Negative for injury and deformity, Neuro: Negative for headache, weakness, numbness, tingling, and seizure, Psych: Negative for depression, anxiety, suicide ideation, homicidal ideation, and hallucinations, Allergy/Immunology: Negative for hives, rash, and allergies, Endocrine: Negative for neck swelling, polydipsia, polyuria, polyphagia, and marked weight changes, Hematologic/Lymphatic: Negative for swollen nodes, abnormal bleeding, and unusual bruising. Abdomen/GI: Positive for abdominal pain, abdominal distension, of the umbilical area. Skin: Positive for hematoma, swelling. Exam: 00:15 Constitutional: This is a well developed, well nourished patient who is awake, alert, adi and in no acute distress. Head/Face: Normocephalic, atraumatic. Eyes: Pupils equal round and reactive to light, extra-ocular motions intact. Lids and lashes normal. Conjunctiva and sclera are non-icteric and not injected. Cornea within normal limits. Periorbital areas with no swelling, redness, or edema. ENT: Nares patent. No nasal discharge, no septal abnormalities noted. Tympanic membranes are normal and external auditory canals are clear. Oropharynx with no redness, swelling, or masses, exudates, or evidence of obstruction, uvula midline. Mucous membranes moist. Neck: Trachea midline, no thyromegaly or masses palpated, and no cervical lymphadenopathy. Supple, full range of motion without nuchal rigidity, or vertebral point tenderness. No Meningismus. Chest/axilla: Normal chest wall appearance and motion. Nontender with no deformity. No lesions are appreciated. Cardiovascular: Regular rate and rhythm with a normal S1 and S2. No gallops, murmurs, or rubs. Normal PMI, no JVD. No pulse deficits. Respiratory: Lungs have equal breath sounds bilaterally, clear to auscultation and percussion. No rales, rhonchi or wheezes noted. No increased work of breathing, no retractions or nasal flaring. Abdomen/GI: Soft, non-tender, with normal bowel sounds. No distension or tympany. No guarding or rebound. No evidence of tenderness throughout. Back: No spinal tenderness. No costovertebral tenderness. Full range of motion. Male : Normal genitalia with no discharge or lesions. MS/ Extremity: Pulses equal, no cyanosis. Neurovascular intact. Full, normal range of motion. Neuro: Awake and alert, GCS 15, oriented to person, place, time, and situation. Cranial nerves II-XII grossly intact. Motor strength 5/5 in all extremities. Sensory grossly intact. Cerebellar exam normal. Normal gait. Psych: Awake, alert, with orientation to person, place and time. Behavior, mood, and affect are within normal limits. 00:15 Skin: Appearance: PERIUMBILICAL HEMATOMA , SEROMA, injury, contusion(s), that are superficial. Vital Signs: 06/26 21:46 BP 155 / 51; Pulse 80; Resp 18 S; Temp 98.5(O); Pulse Ox 97% on R/A; Weight 56.7 kg (R); Height 5 ft. 2 in. (R); Pain 10/26; 06/27 02:23 BP 143 / 58; Pulse 79; Resp 16 S; Temp 99.4(O); Pulse Ox 99% on R/A; bb 06/26 21:46 Body Mass Index 22.86 (56.70 kg, 157.48 cm) 06/26 21:46 Pain Scale: Adult bb MDM: 06/26 22:08 Patient medically screened. [facility] 06/27 00:20 Differential diagnosis: non-specific abd pain. Data reviewed: vital signs, nurses [facility] notes, radiologic studies, CT scan. Consideration of Admission/Observation Escalation of care including admission/observation considered. Test considered but Not performed: Ultrasound NO ABD USG. Care significantly affected by the following chronic conditions: Hypertension, Obesity, Liver Disease. 06/26 22:09 Order name: CBC with Diff; Complete Time: 00:12 [facility] 06/26 22:09 Order name: Comprehensive Metabolic Panel; Complete Time: 00:12 [facility] 06/26 22:09 Order name: CT Abd/Pelvis - IV Contrast Only [facility] 06/26 22:09 Order name: Urine Dipstick-Ancillary (obtain specimen) [facility] 06/26 23:18 Order name: IV Saline Lock; Complete Time: 23:18 mb9 Administered Medications: No medications were administered Disposition Summary: 06/27/22 01:55 Discharge Ordered Location: Home adi Problem: new adi Symptoms: have improved adi Condition: Stable adi Diagnosis - Postprocedural hemorrhage of skin and subcutaneous tissue following other procedure adi - LAP RACHELE - Thrombocytopenia, unspecified adi - Alcohol abuse adi Followup: adi - With: Private Physician - When: 2 - 3 days - Reason: Recheck today's complaints, Continuance of care, Re-evaluation by your physician Followup: adi - With: - When: 2 - 3 days - Reason: Recheck today's complaints, Re-evaluation by your physician Discharge Instructions: - Discharge Summary Sheet adi - Hematoma adi - Hematoma, [id number] adi - Thrombocytopenia adi - Alcohol Abuse and Nutrition adi - Thrombocytopenia, [id number] adi Forms: - Medication Reconciliation Form adi - Thank You Letter adi - Antibiotic Education adi - Prescription Opioid Use adi Prescriptions: - Cephalexin 500 mg Oral Capsule - take 1 capsule by ORAL route every 6 hours for 10 days; 20 capsule; Refills: 0, adi Product Selection Permitted Signatures: Dispatcher [employer] EDGamaliel Albert MD MD cha Ballard, Brenda, RN RN Haley Barahona RN RN mb9
== END 2022-06-27 02:24 | disposition home or self-care (01) ==
LOC: ER 21:23
DX: K91.840 Postprocedural hemorrhage of a digestive system organ or structure following a digestive system procedure (principal); D69.6 Thrombocytopenia, unspecified; F10.10 Alcohol abuse, uncomplicated; I10 Essential (primary) hypertension; Z95.1 Presence of aortocoronary bypass graft; Z90.49 Acquired absence of other specified parts of digestive tract
CPT/HCPCS: 85025; 36415; 80053; 74177; 99284; Q9967

== ENCOUNTER 2022-08-24 15:45 | Inpatient (IN) | payer OTHER ==
--- OUTSIDE RECORDS SUMMARY | 2022-08-24 15:50 | XMS REPORT | Continuity of Care Document ---
:1950 Author Organization [facility] t Address [address] [facility] [address] [place] [address] Care Team Providers Name Role Phone MAGDALENE HORTON Primary Care Physician UnavailTASH Rosas Attending Clinician Unavailable KOREY BURGER Attending Clinician Unavailable Korey Burger MD Attending Clinician Doctor Unassigned, [place] Attending Clinician Unavailable Only, Adc Test Attending Clinician Unavailable Pob, [facility] Lab Main Attending Clinician Unavailable MARILUZ DE DIOS Attending Clinician Unavailable KOREY BURGER Admitting Clinician Unavailable Korey Burger MD Admitting Clinician MARILUZ DE DIOS Admitting Clinician Unavailable Payers Payer Name Policy Type Policy Number Effective Date Expiration Date S heri MEDICARE A B [id number] 2014 00:00:00 [employer] PPO [facility] [id number] 2014 NAP 00:00:00 MEDICARE PART A \T\ [id number] 2014 B 00:00:00 [employer] COMMERCIAL [id number] 2014 OUT OF NETWORK 00:00:00 Problems Condition Condition Condition Status Onset Resolution Last Treating Co mments Source Name Details Category Date Date Treatment Clinician Date NSTEMI NSTEMI Disease Recurre [facility] ([facility] (non-ST nce 2[facility]13 [facility] elevated elevated 00:00: Medica l myocardial myocardial 00 Ce nter infarction infarction ) ) HLD HLD Disease Active [facility] (hyperlipi (hyperlipi 7-20 Alvina kes demia) demia) 00:00: Medical 00 Center Essential [...] (ST Disease Active [facility] elevation elevation -19 [facility] myocardial myocardial 00:00: Me dical infarction infarction 00 Ce nter ) ) Ischemic Ischemic Disease [facility] chest pain chest pain 7-19 Alvina kes 00:00: Medical 00 Center Coronary Coronary Disease [facility] artery artery 7-19 [facility] disease of disease of 00:00: Me dical tling[place] & ha[place] tlingit & haida 00 Center artery of artery of tling[place] & [place] tling[place] & [place] heart 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 Coronary Coronary Disease Active [facility] artery artery 7-19 [facility] disease of disease of 00:00: Me dical tling[place] tlingit & ha[place] 00 Center artery of artery of [place] tling[place] & [place] heart with heart with stable stable angina [...] [place] 00 Medical Branch Amoxicil Propensi Active 2020-04 Univer s александр ty to 04-19 ity of adverse 00:00: [place] reaction 00 Medical s Branch Codeine Propensi Active Hiv2020-04 Univers ty to 04-19 ity of adverse 00:00: [place] reaction 00 Medical s Branch Morphine Propensi Active Nausea 2020-04 Univer s ty to and/or 04-19 ity of adverse Vomiting 00:00: [place] reaction [facility] s Branch Tramadol Propensi Active Nausea 2020-04 Univer s ty to and/or 04-19 ity of adverse Vomiting 00:00: [place] reaction 00 [facility] Amoxicil Drug Active Hives [address] [facility] александр Allergy 7-18 [facility] 00:00: Medical 00 Center Codeine Drug Active Hives [address] [facility] Allergy 7-18 [facility] 00:00: Medical 00 Center Morphine Drug Active Nausea And [facility] Allergy Vomiting 7-18 [facility] 00:00: Medical 00 Center Tramadol Drug Active Nausea And [facility] Allergy Vomiting 7-18 [facility] 00:00: Medical 00 Center CODEINE Allergy Active High Hives 0 [facility] 7-18 00:00: 00 AMOXICIL Allergy Active Hives 0 [facility] АЛЕКСАНДР 7-18 00:00: 00 MORPHINE Allergy Active N\T\V 0 [facility] 7-18 00:00: 00 TRAMADOL Allergy Active N\T\V 0 [facility] 7-18 00:00: 00 NO KNOWN Drug Active Univers ALLERGIE Class ity of [facility] Family History Family Member Diagnosis Comments Start Date Stop Date Source Natural brother Heart disease [facility] Natural father Heart disease [facility] Natural father Hypertension [facility] Natural father Stroke [facility] Natural mother Cancer [facility] Natural sister Heart disease [facility] Social History Social Habit Start Date Stop Date Quantity Comments Source Exposure to Not sure [facility] SARS-CoV-2 [facility] (event) Branch Tobacco use and 2021-02-18 2021-02-18 Never used Universit y of exposure 00:00:00 00:00:00 [facility] Alcohol intake 2018-06-03 2018-06-03 [facility] (finding) Sex Ass[birth year] At [birth year] [facility] 00:00:00 00:00:00 Medical Center Smoking Status Start Date Stop Date Source Unknown if ever smoked [facility] [place] [facility] [place] Never smoker [facility] [place] [facility] Medications Ordered Filled Start Stop Current Ordering Indication Dosage Frequency Signature Comments Components Source Medication Medication Date Date Medication? Clinician (SIG) Name Name EPINEPHrine 2020-04 Yes PRN, Univer s 1:1,000 (05-05 Starting ity o f mg/mL) 20:31: on Wed [place] (ADRENALIN) 00 03/05/21 Medi smith injection at 1431, Branch Until Discontinu ed, Routine, Intra-op DUOVISC 2020-04 Yes PRN, Univers (DUOVISC 05-05 Starting ity of VISCO 20:31: on Wed [place] ELASTIC) 3 00 03/05/21 Medic al %-4 %(0.5 at 1431, Branch mL) 1 % Until (0.55 mL) Discontinu intraocular ed, injection Routine, Intra-op balanced 2020-04 Yes PRN, Univers salt irrig 05-05 Starting ity o f soln comb1 20:31: on Wed (BSS PLUS) 00 03/05/21 Medic al ophthalmic at 1431, Branc h solution Until 500 mL bag Discontinu ed, Routine, Intra-op EPINEPHrine 2020-04- No PRN, Unive rs 1:1,000 (05-05 Starting ity of mg/mL) 20:31: 22:59 on Wed [place] (ADRENALIN) 00 :26 03/05/21 Medi smith injection at 1431, Branch Until 03/05/21 at 1659, Routine, Intra-op DUOVISC 2020-04- No [...] on Wed [place] (BSS PLUS) 00 :26 03/05/21 Medic al ophthalmic at 1431, Branc h solution Until Wed 500 mL bag 03/05/21 at 1659, Routine, Intra-op Hyaluronida 2020-04 Yes PRN, Univer s se, Human 05-05 Starting ity of Recomb. 20:03: on Wed (HYLENEX) 03/05/21 Medica l injection at 1403, Branch Until Discontinu ed, Routine, Intra-op eye block 2020-04 Yes PRN, Univers syringe 05-05 Starting ity o f mL 20:03: on Wed03/05/21 Medical at 1403, Branch Until Discontinu ed, Intra-op Hyaluronida 2020-04- No PRN, Unive rs se, Human 05-05 Starting ity o f Recomb. 20:03: 22:59 on Wed (HYLENEX) 00 :03/05/21 Medica l injection at 1403, Branch Until Wed03/05/21 at 1659, Routine, Intra-op eye block 2020-04- No PRN, Univers syringe 05-05 Starting ity of mL 20:03: 22:59 on Wed [place] 00 :03/05/21 Medical at 1403, Branch Until Wed03/05/21 at 1659, Intra-op cyclopent 2020-04- No .5mL 0.5 mL, Univ ers 1%-tropic 05-05 Left Eye, ity of 1%-phenyl 18:15: 18:08 ONCE, 1 [place] 2.5%-ketor 00 :00 dose, On Medic al 0.5% [facility] Branch (MYDRIATIC 03/05/21 #5) at 1215, ophthalmic Routine, solution DSU Pre-op syringe 0.5 mL lactated 2020-04- No 1000mL at 42 Unive rs ringers IV 05-05 mL/hr, ity of infusion 18:15: 18:11 1,000 mL, Bebeto as 1,000 mL 00 :00 IV Medical Infusion, Branch ONCE, 1 dose, On Wed03/05/21 at 1215, Routine, DSU Pre-op cyclopent 2020-04- No .5mL 0.5 mL, Univ ers 1%-tropic 05-05 Left Eye, ity of 1%-phenyl 18:15: 18:08 ONCE, 1 [place] 2.5%-ketor 00 :00 dose, On Medic al 0.5% Wed [place] (MYDRIATIC 03/05/21 #5) at 1215, ophthalmic Routine, solution DSU Pre-op syringe 0.5 mL lactated 2020-04 1000mL at 42 Univ rs ringers IV -17 11-17 mL/hr, ity of infusion 18:15: 18:11 1,000 mL, Bebeto as 1,000 mL 00 :00 IV Medical Infusion, Branch ONCE, 1 dose, On Wed03/05/21 at 1215, Routine, DSU Pre-op colchicine 2020-04 Yes .6mg Take 0.6 Uni vers 0.6 mg Cap 1-17 mg by ity of 14:59: mouth. [address] gabapentin 2020-04 Yes 300mg Take 300 Un benny 100 mg 1-17 mg by ity of capsule 14:59: mouth [address] [place] [id number] (three) Medical times [place] daily. aspirin 81 2020-04 Yes 81mg Take 81 mg U nivers mg chewable 1-17 by mouth ity of tablet 14:59: daily. [address] colchicine 2020-04 Yes .6mg Take 0.6 Uni vers 0.6 mg Cap 1-17 mg by ity of 14:59: mouth. [address] gabapentin 2020-04 Yes 300mg Take 300 Un benny 100 mg 1-17 mg by ity of capsule 14:59: mouth [address] [place] [address] (three) Medical times [place] daily. aspirin 81 2020-04 Yes 81mg Take 81 mg U nivers mg chewable 1-17 by mouth ity of tablet 14:59: daily. [address] No known 2020-04 No Univers medications -17 ity of 12:00: [address] neomycin-po 2020-04 Yes PRN, [facility] s lymyxin-dex 1-03 Starting ity of amethasone 16:02: on Wed [place] (MAXITROL) 02/19/21 at [facility] ical 3.5 1102, Branch mg/g-10,000 Until unit/g-0.1 Discontinu % ed, ophthalmic Routine, ointment Intra-op Hyaluronida 2020-04 Yes PRN, [facility] s se, Human 1-03 Starting ity of Recomb. 16:02: on Wed [place] (HYLENEX) 00 02/19/21 at [facility] smith injection 1102, Branch Until Discontinu ed, Routine, Intra-op eye block 2020-04 Yes PRN, Univers syringe 11 04-21 Starting ity o f mL 16:02: on Wed 00 02/19/21 at [facility] 1102, Branch Until Discontinu ed, Intra-op EPINEPHrine 2020-04 Yes PRN, Univer s 1:1,000 (04-21 Starting ity o f mg/mL) 16:02: on Wed (ADRENALIN) 00 02/19/21 at Ia dical injection 1102, Branch Until Discontinu ed, Routine, Intra-op DUOVISC 2020-04 Yes PRN, Univers (DUOVISC 04-21 Starting ity of VISCO 16:02: on Wed ELASTIC) 3 00 02/19/21 at [facility] ical %-4 %(0.5 1102, Branch mL) 1 % Until (0.55 mL) Discontinu intraocular ed, injection Routine, Intra-op neomycin-po 2020-04- No PRN, Unive rs lymyxin-dex 04-21 Starting ity of amethasone 16:02: 18:45 on Wed [place] (MAXITROL) 00 :19 02/19/21 at [facility] ical 3.5 1102, Branch mg/g-10,000 Until Wed unit/g-0.1 02/19/21 at % 1345, ophthalmic Routine, ointment Intra-op Hyaluronida 2020-04- No PRN, Unive rs se, Human 04-21 Starting ity o f Recomb. 16:02: 18:45 on Wed (HYLENEX) 00 :19 02/19/21 at [facility] smith injection 1102, Branch Until Wed02/19/21 at 1345, Routine, Intra-op eye block 2020-04- No PRN, Univers syringe 11 04-21 Starting ity of mL 16:02: 18:45 on Wed [place] 00 :19 02/19/21 at [facility] 1102, Branch Until Wed02/19/21 at 1345, Intra-op EPINEPHrine 2020-04- No PRN, Unive rs 1:1,000 (04-21 Starting ity of mg/mL) 16:02: 18:45 on Wed (ADRENALIN) 00 :19 02/19/21 at Ia dical injection 1102, Branch Until Wed02/19/21 at 1345, Routine, Intra-op DUOVISC 2020-04- No PRN, Univers (DUOVISC 04-21 Starting ity of VISCO 16:02: 18:45 on Wed ELASTIC) 3 00 :19 02/19/21 at [facility] ica %-4 %(0.5 1102, Branch mL) 1 % Until Wed (0.55 mL) 02/19/21 at intraocular 1345, injection Routine, Intra-op dexamethaso 2020-04 Yes PRN, Univer s ne 04-21 Starting ity of (DECADRON 16:01: on Wed PHOSPHATE) 00 02/19/21 at [facility] ical injection 1101, Branch Until Discontinu ed, Routine, Intra-op ceFAZolin 2020-04 Yes PRN, Univers (ANCEF) 04-21 Starting ity of injection 16:01: on Wed 00 02/19/21 at Medical 1101, Branch Until Discontinu ed, MANUEL, Intra-op carbachoL 2020-04 Yes PRN, Univers (MIOSTAT) 04-21 Starting ity of 0.01 % 16:01: on Wed intraocular 00 02/19/21 at Ia dical injection 1101, Branch Until Discontinu ed, Routine, Intra-op balanced 2020-04 Yes PRN, Univers salt irrig 04-21 Starting ity o f soln comb1 16:01: on Wed (BSS PLUS) 00 02/19/21 at [facility] ical ophthalmic 1101, Branch solution Until 500 mL bag Discontinu ed, Routine, Intra-op ceFAZolin 2020-04- No PRN, Univers (ANCEF) 04-21 Starting ity of injection 16:01: 18:45 on Wed [place] 00 :19 02/19/21 at Medical 1101, Branch Until 02/19/21 at 1345, MANUEL, Intra-op carbachoL 2020-04- No PRN, Univers (MIOSTAT) 04-21 Starting ity o f 0.01 % 16:01: 18:45 on Wed intraocular 00 :19 02/19/21 at Ia dical injection 1101, Branch Until Wed02/19/21 at 1345, Routine, Intra-op balanced 2020-04- No PRN, Univers salt irrig 04-21 Starting ity of soln comb1 16:01: 18:45 on Wed [place] (BSS PLUS) 00 :19 02/19/21 at [facility] ical ophthalmic 1101, Branch solution Until Wed 500 mL bag 02/19/21 at 1345, Routine, Intra-op dexamethaso 2020-04- No PRN, Unive rs ne 04-21 Starting ity of (DECADRON 16:01: 18:45 on Wed [place] PHOSPHATE) 00 :19 02/19/21 at [facility] ical injection 1101, Branch Until Wed02/19/21 at 1345, Routine, Intra-op mydriatic 2020-04- No .5mL 0.5 mL, Univ ers #5 04-21 Right Eye, ity of ophthalmic 13:15: 13:39 ONCE, 1 [place] as solution 00 :00 dose, On Medical 0.5 mL Wed Branch syringe 02/19/21 at 0815, Routine, DSU Pre-op lactated 2020-04- No 1000mL at 42 [facility] 04-21 mL/hr, ity of infusion 13:15: 13:39 1,000 [...] 1000mL at 42 Unive rs ringers IV 04-2103 mL/hr, ity of infusion 13:15: 13:39 1,000 mL, Bebeto as 1,000 mL 00 :00 IV Medical Infusion, Branch ONCE, 1 dose, On Wed02/19/21 at 0815, Routine, DSU Pre-op colchicine 2020-04 Yes .6mg Take 0.6 Uni vers 0.6 mg Cap 1-03 mg by ity of 11:45: mouth. [address] gabapentin 2020-04 Yes 300mg Take 300 Un benny 100 mg 1-03 mg by ity of capsule 11:45: mouth 3 [place] [id number] ([facility] daily. aspirin 81 2020-04 Yes 81mg Take 81 mg U nivers mg chewable 1-03 by mouth ity of tablet 11:45: daily. [address] colchicine 2020-04 Yes .6mg Take 0.6 Uni vers 0.6 mg Cap 1-03 mg by ity of 11:45: mouth. [address] gabapentin 2020-04 Yes 300mg Take 300 Un benny 100 mg 1-03 mg by ity of capsule 11:45: mouth [address] daily[address] aspirin 81 2020-04 Yes 81mg Take 81 mg U nivers mg chewable 1-03 by mouth ity of tablet 11:45: daily. [address] colchicine 2020-04 Yes .6mg Take 0.6 Uni vers 0.6 mg Cap 1-03 mg by ity of 11:45: mouth. [address] gabapentin 2020-04 Yes 300mg Take 300 Un benny 100 mg 1-03 mg by ity of capsule 11:45: mouth [address] daily[address] aspirin 81 2020-04 Yes 81mg Take 81 mg U nivers mg chewable 1-03 by mouth ity of tablet 11:45: daily. [address] colchicine 2020-04 Yes .6mg Take 0.6 Uni vers 0.6 mg Cap 1-02 mg by ity of 08:41: mouth. [address] gabapentin 2020-04 Yes 300mg Take 300 Un benny 100 mg 1-02 mg by ity of capsule 08:41: mouth [address] daily. aspirin 81 2020-04 Yes 81mg Take 81 mg U nivers mg chewable 1-02 by mouth ity of tablet 08:41: daily. [address] lisinopriL Yes Univers 5 mg tablet 12-26 ity of 00:00: [place] 00 Medical Branch lisinopriL 1-0 Yes Univers 5 mg tablet 12-26 ity of 00:00: Medical Branch lisinopriL 2020-0 Yes Univers 5 mg tablet 12-26 ity of 00:00: Medical Branch lisinopriL 2020-0 Yes Univers 5 mg tablet 12-26 ity of 00:: Medical Branch lisinopriL 2020-0 Yes Univers 5 mg tablet 12-26 ity of :: [place] [facility] lisinopriL 2020-0 Yes Univers 5 mg tablet 12-26 ity of 00:00: [place] [facility] atorvastati 2019-0 Yes 80mg QD Take [address] [facility] [facility] (LIPITOR) 2-16 tablet (80 Alvina kes 80 MG 00:00: mg total) Medical tablet 00 by mouth Center daily. aspirin 81 2018-0 Yes 81mg QD Take 1 [facility] MG EC 2-16 tablet (81 [facility] tablet 00:00: mg total) Medica l 00 by mouth Center daily. lisinopril 2019-0 Yes 5mg QD Take 1 [facility] (PRINIVIL,Z 2-16 tablet (5 Mary es ESTRIL) 5 00:00: mg total) Med ical MG tablet 00 by mouth Center daily. atorvastati 2019-0 Yes 80mg QD Take [address] [facility] [facility] [...] MG tablet 00 by mouth Center daily. atorvastati 2019-0 Yes 80mg QD Take [address] [...] MG tablet 00 by mouth Center daily. atorvastati 2019-0 Yes 80mg QD Take [address] [...] Medic al 40 MG 37 Center tablet famotidine 2019-0 Yes 20mg Q.5D Take [address] (PEPCID) 20 2-15 by mouth 2 Alvina kes MG tablet 15:17: (two) Medical 37 times Center daily. pantoprazol 2019-0 Yes 40mg QD Take [address] [facility] 2-15 by mouth [facility] (PROTONIX) 15:17: daily. Medic al 40 MG 37 Center tablet famotidine 2019-0 Yes 20mg Q.5D Take [address] (PEPCID) 20 2-15 by mouth 2 Alvina kes MG tablet 15:17: (two) Medical 37 times Center daily. pantoprazol 2019-0 Yes 40mg QD Take [address] e 2-15 by mouth [facility] (PROTONIX) 15:17: daily. Medic al 40 MG 37 Center tablet famotidine 2019-0 Yes 20mg Q.5D Take 20 [...] by mouth 2 Center (two) times daily. ranolazine 2019-0 Yes 500mg Q.5D Take 1 [...] by mouth 2 Center (two) times daily. ranolazine 2019-0 Yes 500mg Q.5D Take 1 [...] by mouth 2 Center (two) times daily. ranolazine 2019-0 Yes 500mg Q.5D Take 1 [...] Medical tablet 00 daily with Center breakfast. allopurinol 2019-0 Yes 100mg Take [address] (ZYLOPRIM) 1-16 mg by [facility] 100 MG 00:00: mouth Medical tablet 00 daily with Center breakfast. allopurinol 2018-0 Yes 100mg Take [address] (ZYLOPRIM) 1-16 mg by [facility] 100 MG 00:00: mouth Medical tablet 00 daily with Center breakfast. allopurinol 2018-0 Yes 100mg Take [address] (ZYLOPRIM) 1-16 mg by [facility] 100 MG 00:00: mouth Medical tablet 00 daily with Center breakfast. Immunizations Ordered Filled Immunization Date Status Comments [facility] e Immunization Name Name SARS-COV-2 COVID-19 2020-08-13 Completed Unive rsity of MODERNA VACCINE 00:00:00 [facility] SARS-COV-2 COVID-19 2020-08-13 Completed Unive rsity of MODERNA VACCINE 00:00:00 [facility] SARS-COV-2 COVID-19 2020-08-13 Completed Unive rsity of MODERNA VACCINE 00:00:00 [facility] SARS-COV-2 COVID-19 2020-07-16 Completed Unive rsity of MODERNA VACCINE 00:00:00 [facility] SARS-COV-2 COVID-19 2020-07-16 Completed Unive rsity of MODERNA VACCINE 00:00:00 [facility] SARS-COV-2 COVID-19 2020-07-16 Completed Unive rsity of MODERNA VACCINE 00:00:00 [facility] Vital Signs Vital Name Observation Time Observation Value Comments Source Heart rate 2021-03-05 20:49:00 51 /min Universi ty [facility] Respiratory rate 2021-03-05 20:49:00 14 /min [facility] Oxygen saturation in 2021-03-05 20:49:00 100 /min [facility] Arterial blood by [facility] Pulse oximetry Branch Systolic blood 2021-03-05 20:46:00 166 mm[Hg] [facility] pressure [place] [facility] Diastolic blood 2021-03-05 20:46:00 51 mm[Hg] Unive rsity of pressure [place] [facility] Body temperature 2021-03-05 20:34:00 36.28 Dalila Univ ersity of [place] [facility] Body height 2021-02-27 14:55:00 160 cm Universi ty [facility] [place] [facility] Body weight 2021-02-27 14:55:00 80.3 kg Universi ty [facility] [place] [facility] BMI 2021-02-27 14:55:00 31.37 kg/m2 [facility] [place] [facility] Systolic blood 2021-03-05 18:01:00 150 mm[Hg] Univer sity of pressure [place] [facility] Diastolic blood 2021-03-05 18:01:00 56 mm[Hg] Unive rsity of pressure [place] [facility] Heart rate 2021-03-05 18:01:00 56 /min Universi ty [facility] [place] [facility] Body temperature 2021-03-05 18:01:00 36.11 Dalila Univ ersity of [place] [facility] Respiratory rate 2021-03-05 18:01:00 19 /min Univ ersity of [place] [facility] Oxygen saturation in 2021-03-05 18:01:00 100 /min University of Arterial blood by CIRQY smith Pulse oximetry Branch Body height 2021-02-27 14:55:00 160 cm Universi ty [facility] [place] [facility] Body weight 2021-02-27 14:55:00 80.3 kg Universi [facility] [place] [facility] BMI 2021-02-27 14:55:00 31.37 kg/m2 [facility] [place] [facility] Systolic blood 2021-02-19 16:30:00 167 mm[Hg] Univer sity of pressure [place] [facility] Diastolic blood 2021-02-19 16:30:00 93 mm[Hg] Unive rsity of pressure [place] [facility] Heart rate 2021-02-19 16:30:00 54 /min [facility]i ty [facility] [place] [facility] Respiratory rate 2021-02-19 16:30:00 20 /min Univ ersity of [place] [facility] Oxygen saturation in 2021-02-19 16:30:00 99 /min University of Arterial blood by CIRQY smith Pulse oximetry Branch Body temperature 2021-02-19 16:15:00 36.67 Dal[place] Univ ersity of [place] [facility] Body height 2021-02-17 15:18:00 160 cm Universi ty [facility] [place] [facility] [place] Body weight 2021-02-17 15:18:00 80.3 kg Universi ty of [facility] BMI 2021-02-17 15:18:00 31.37 kg/m2 Universi ty [facility] Systolic blood 2021-02-19 13:37:00 144 mm[Hg] Univer sity of pressure [facility] Diastolic blood 2021-02-19 13:37:00 79 mm[Hg] Unive rsity of pressure [facility] Heart rate 2021-02-19 13:37:00 63 /min Universi ty [facility] Body temperature 2021-02-19 13:37:00 36.56 [place] [facility] Respiratory rate 2021-02-19 13:37:00 18 /min [facility] Oxygen saturation in 2021-02-19 13:37:00 100 /min [facility] Arterial blood by [facility] Pulse oximetry Branch Body height 2021-02-17 15:18:00 160 cm Universi ty of [facility] Body weight 2021-02-17 15:18:00 80.3 kg Universi ty [facility] BMI 2021-02-17 15:18:00 31.37 kg/m2 [facility] Procedures Procedure Date / Time Performing Source Performed Clinician PHACOEMULSIFICATION OF 2021-03-05 Korey Burger [facility] CATARACT WITH INTRAOCULAR 19:53:00 [facility] LENS IMPLANT NOTICE OF PRIVACY PRACTICES 2021-03-03 Doctor Unassigned, [facility] 16:32:56 [place] [facility] NOTICE OF PRIVACY PRACTICES 2021-03-03 Doctor Unassigned, [facility] 16:32:56 [place] [facility] CONSENT/REFUSAL FOR DIAGNOSIS 2021-03-03 Doctor Unassigned, [facility] 16:32:37 [place] [facility] CONSENT/REFUSAL FOR DIAGNOSIS 2021-03-03 Doctor Unassigned, [facility] 16:32:37 [place] [facility] ASSIGNMENT OF BENEFITS 2021-03-03 Doctor Unassigned, [facility] 16:32:14 [place] [facility] ASSIGNMENT OF BENEFITS 2021-03-03 Doctor Unassigned, [facility] 16:32:14 [place] [facility] PHACOEMULSIFICATION OF 2021-02-19 Korey Burger [facility] CATARACT WITH INTRAOCULAR 15:25:00 Medica l Branch LENS IMPLANT DAY SURGERY - ADC 2021-02-19 Doctor Unassigned, [facility] 05:01:00 [place] [facility] ASSIGNMENT OF BENEFITS 2021-02-10 Doctor Unassigned, [facility] 17:54:14 [place] [facility] EXTERNAL PROVIDER RECORDS 2021-01-29 Doctor Unassigned, [facility] 05:01:00 [place] [facility] EXTERNAL PROVIDER RECORDS 2021-01-29 Doctor Unassigned, [facility] 05:01:00 [place] [facility] VACCINATIONS - CONSENTS, 2020-08-13 Doctor Unassigned, [facility] ELIGIBILITY, HISTORY 05:01:00 [place] [facility] Plan of Care Planned Activity Planned Date Details Comments Source Future Scheduled 2022-12-[address] [facility] Test 00:00:00 (Season Ended) [code = Medic al Center INFLUENZA VACCINE (Season Ended)] Future Scheduled 2022-04-[address] [facility] Test 00:00:00 (12+) [code = Medical Center DEPRESSION SCREENING (12+)] Future Scheduled 2022-04-19 FALLS RISK SCREENING [facility] Test 00:00:00 [code = FALLS RISK Medical C enter SCREENING] Future Scheduled 2020-10-08 COVID-19 VACCINE (3 - [facility] 00:[facility]00 Booster for [facility] series) [code = COVID-19 VACCINE (3 - Booster for [employer] series)] Future Scheduled 2015-05-[address] [facility] 00:00:00 WELLNESS (YEAR 2 or Medical Center FIRST YEAR if no IPPE) [code = MEDICARE ANNUAL WELLNESS (YEAR 2 or FIRST YEAR if no IPPE)] Future Scheduled 1999 SHINGLES VACCINES ([address] [facility] Test 00:00:00 2) [code = SHINGLES Medical Center VACCINES (1 of 2)] Future Scheduled 1968 DTAP/TDAP/TD VACCINES [facility] 00:00:00 (1 - Tdap) [code = Medical C enter DTAP/TDAP/TD VACCINES (1 - Tdap)] Future Scheduled 1967 HEPATITIS C SCREENING [facility] 00:00:00 [code = HEPATITIS C Medical Center SCREENING] Future Scheduled [address] [facility] Test 00:00:00 Counseling and Medical Cente r Screening (12+) [code = Tobacco Cessation Counseling and Screening (12+)] Future Scheduled 1955 PNEUMOCOCCAL 65+ YRS ([address] [facility] Test 00:00:00 - PCV) [code = Medical Cente r PNEUMOCOCCAL 65+ YRS (1 - PCV)] Future Scheduled 1949 CT Colonography (combo) [facility] Test 00:00:00 [code = CT Colonography [facility] (combo)] Future Scheduled 1950 Screening for malignant [facility] Test 00:00:00 neoplasm of colon Medical Ce nter (procedure) [code = 476698502] Future Scheduled 1950 Screening for malignant [facility] Test 00:00:00 neoplasm of colon Medical Ce nter (procedure) [code = 828310079] Future Scheduled 1949 Screening for malignant [facility] Test 00:00:00 neoplasm of colon Medical Ce nter (procedure) [code = 911276670] Future Scheduled 1949 Screening for malignant [facility] Test 00:00:00 neoplasm of colon Medical Ce nter (procedure) [code = 361389890] Future Scheduled 1950 Sigmoidoscopy [code = [facility]] [facility] Encounters Start End Encounter Admission Attending Care Care Encounter Source Date/Time Date/Time Type Type Clinicians Facility Department ID 2022-08-26 2022-08-26 Outpatient CHUN NUNO [facility] SLE [id number] SLE 00:00:00 00:00:00 PRASUN 2021-03-05 2021-03-05 Outpatient Chelsea BURGER CAJOE OPH [id number] Univers 11:56:00 14:58:00 KOREY delgado [facility] 2021-03-05 2021-03-05 [facility] Mayank [facility] [id number] Univers 11:56:00 14:58:00 Encounter Korey HUTTON 350.1.13.10 it[place] [id number] [facility] [address] 2021-03-05 2021-03-05 Surgery [facility] [id number] Univers 13:29:00 14:12:00 Korey Saucedo ANNI 350.1.13.10 [place] [id number] [facility] [address] 2021-02-19 2021-02-19 Outpatient R [facility] OPH [id number] Univers 08:08:00 11:44:00 KOREY ity of [facility] 2021-02-19 2021-02-19 [facility] [id number] Univers 08:08:00 11:44:00 Encounter Korey HUTTON 350.1.13.10 [facility] [place] [id number] [place] [address] [place] 2021-02-19 2021-02-19 Surgery [facility] [id number] Univers 09:30:00 10:09:00 Korey Lewis ANNI 350.1.13.10 [place] [id number] [facility] [address] [place] 2021-02-19 2021-02-19 Orders Doctor BRASHER [id number] Univers 00:00:00 00:00:00 Only Unassigned, GUME 350.1.13.10 ity of [place] [facility] 4.2.7.2.686 [place] as [id number] [facility] [address] 2021-02-18 2021-02-18 Laboratory Only, Adc Test [facility] 1.2.840. [id number] Univers 10:59:59 11:14:59 Only Korey Burger 350.1.13.1 0 [place] [id number] [facility] [address] 2021-02-18 2021-02-18 Outpatient R [facility] [id number] Univers 11:00:00 11:00:00 KOREY delgado [facility] 2021-02-10 2021-02-10 Diversity Intern Barry, Alida Lab Main [facility] [id number] Univers 12:57:31 13:12:31 Visit Korey Burger 350.1.13.1 0 [place] of [place] Profess[place] [id number] Ia dical [address] 2021-02-10 2021-02-10 [facility] [id number] Univers 13:00:00 13:00:00 KOREY sandy [facility] 2021-02-10 2021-02-10 Orders Doctor SAMEERA [id number] Univers 00:00:00 00:00:00 Only Unassigned, GUME 350.1.13.10 ity of [place] [facility] 4.2.7.2.686 [place] as [id number] [address] 2020-08-13 2020-08-13 Orders Doctor SAMEERA [id number] Univers 00:00:00 00:00:00 Only Unassigned, GUME 350.1.13.10 ity of [place] [facility] 4.2.7.2.686 [place] [phone] [address] Results Test Description Test Time Test [...] NOT 1092) ACCURATE CRE ATININE CLEARANCE IN ND EDICTING GLOMERULAR FILT RATION RATE. ESTIMATED GFR IS NOT APPLICABLE FOR DIALYSIS PATIENTS. CBC W/PLT COUNT & AUTO [id number] 05:29:00 Test Item Value Reference Range Interpretation [...] = 413) RAD, CHEST, 1 VIEW, NON [id number] 09:50:00Reason for exam:->chest painShould this be performed at the bedside?->YesAddendum BeginsREPORT STATUS:A The right jugular line and chest tubes were remov ed in 2015. No acute cardiopulmonary abnormality is seen. Signed: Nito Lieport Verified Date/Time: 06/02/2018 09:50:37 Reading Location: [facility] C013Y CT Body Reading RoomAddendum [...] tubes. Signed: Nito Li MDReport Verified Date/Time: 06/01/2018 08:53:52 Reading Location: [facility] Radiology Reading Room TSH/FREE T4 IF [id number] 05:00:00 Test Item Value Reference Range Interpretation Comments THYROID STIMULATING HORMONE 1.45 uIU/mL 0.35-4.94 (BEAKER) (test code = 772) BASIC METABOLIC [id number] 04:40:00 Test Item Value Reference Range Interpretation [...] 697) EGFR (BEAKER) (test 58 mL/min/1.73 ESTIMA CHAGN GFR IS code = 1092) sq m NOT ACCURATE CREATININE CLEARANCE IN PREDICTING GLOMERULAR FILTRATION RATE . ESTIMATED GFR I S NOT APPLICABLE FOR DIALYSIS PATIEN TS. CBC W/PLT COUNT & AUTO [id number] 04:23:00 Test Item Value Reference Range Interpretation [...] 0-1 PERCENT (BEAKER) (test code = 2801) [id number] 20:34:00 Test Item Value Reference Range Interpretation Comments ACTIVATED CLOTTING TIME 356 sec TEST ED AT [place] [address] ([facility]) (test code = [place] [address]) [id number] 19:46:00 Test Item Value Reference Range Interpretation Comments ACTIVATED CLOTTING TIME 186 sec TEST ED AT [place] [address] ([facility]) (test code = [place] [address]) [address] [id number] 10:46:00 Test Item Value Reference Range Interpretation Comments PARTIAL THROMBOPLASTIN TIME 43.8 seconds 22.5-36.0 H ([facility]) (test code = 760) Prior to initiating heparinPLATELET [id number] 10:33:00 Test Item Value Reference Range Interpretation Comments PLATELET COUNT (IGNACIA) (test code 92 K/CU MM 150-450 L = 756) POCT-GLUCOSE [id number] 08:20:00 Test Item Value Reference Range Interpretation Comments POC-GLUCOSE METER 100 mg/dL 70-110 TESTED AT [facility] 6720 ([facility]) (test code = [place] [address]) [address] TROPONIN [id number] 07:41:00 Test Item Value Reference Range Interpretation Comments TROPONIN I (BEAKER) (test code = 3.52 ng/mL 0.00-0.03 HH 397) Troponin I (TnI) levels must be [...] failure, acidosis, acute neurological disease, and persistent tachyarrhythmia.[id number] 07:31:00 Test Item Value Reference Range Interpretation Comments PROTIME (BEAKER) (test code = 13.7 seconds 11.7-14.7 759) INR (AKER) (test code = 370) 1.0 <=5.9 PARTIAL THROMBOPLASTIN TIME 42.8 seconds 22.5-36.0 H (BEAKER) (test code = 760) RECOMMENDED COUMADIN/WARFARIN INR THERAPY RANGESSTANDARD DOSE: 2.0 - 3.0 Includes: PROPHYLAXIS for venous thrombosis, systemic embolization; TREATMENT for venous thrombosis and/or pulmonary embolus.HIGH RISK: Target INR is 2.5-3.5 for patients with mechanical heart valves.LIPID [id number] 07:29:00 Test Item Value Reference Range Interpretation Comments TRIGLYCERIDES (BEAKER) (test code = 162 mg/dL 540) CHOLESTEROL (BEAKER) (test code = 159 mg/dL 631) HDL CHOLESTEROL (BEAKER) (test code 33 mg/dL = 976) LDL CHOLESTEROL CALCULATED ([facility]) 94 mg/dL (test code = 633) Triglyceride Reference Range: Low Risk <150 Borderline 150-199 High Risk 200- 499 Very High Risk >=500Cholesterol Reference Range: Low Risk <200 Borderline 200-239 High Risk >240HDL Cholesterol Reference Range: Low Risk >=60 High Risk <40LDL Cholesterol Reference Range: Optimal <100 Near Optimal 100-129 Borderline 130-159 High 160-189 Very High >=190BASIC METABOLIC [id number] 07:29:00 Test Item Value Reference Range Interpretation [...] PATIEN TS. CBC W/PLT COUNT & AUTO [id number] 07:09:00 Test Item Value Reference Range Interpretation [...] % 0-1 PERCENT (BEAKER) (test code = 9751)
--- NOTE | 2022-08-24 17:00 | RAD REPORT ---
EXAM DESCRIPTION: RADChest Single View08/24/2022 4:12 pm CLINICAL HISTORY: SWELLING COMPARISON: Chest Pa And Lat (2 Views) dated 06/23/2022; Chest Pa And Lat (2 Views) dated 06/16/2022; C hest Single View dated 10/13/2018; Chest Single View dated 06/01/2018 TECHNIQUE: Portable AP view of the chest. FINDINGS: The lungs are clear.Decreased inspiratory effort limits evaluation. Bibasilar minimal atel ectatic changes. No pneumothorax or effusion. The cardiomediastinal contours are unremarkable. 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 IMPRESSION: No acute cardiopulmonary process.
[2022-08-24 17:18] LABS: Absolute Lymphocytes (CBC) 0.5 K/uL (0.7-4.9); Hematocrit 31.7 % (39.6-49.0); Lymphocytes % 7.4 % (15.3-44.8); MCV 96.4 fL (80-100); MPV 7.1 fL (7.6-11.3); RBC Red Blood Cell Count 3.29 M/uL (4.33-5.43)
[2022-08-24 17:30] LABS: Protime INR 1.28
[2022-08-24] MEDS ORDERED: NA CHLORIDE 0.9% 500 ML ONE (17:32)
[2022-08-24 17:38] LABS: Albumin 2.3 g/dL (3.4-5.0); Bilirubin Direct 0.5 mg/dL (0-0.2); Bilirubin Total 1.2 mg/dL (0.2-1.0); Magnesium 2.4 mg/dL (1.6-2.4); Potassium 3.9 mEq/L (3.5-5.1); Protein, Total 7.3 g/dL (6.4-8.2); Troponin High Sensitivity 12.1 pg/mL (<58.9)
--- NOTE | 2022-08-24 18:54 | RAD REPORT ---
EXAM DESCRIPTION: CT - Abdomen Pelvis Wo Contrast - 08/24/2022 6:02 pm CLINICAL HISTORY: ABD PAIN COMPARISON: Abdomen Pelvis Wo Contrast dated 07/28/2022; Abdomen Pelvis Wo Contrast dated 3; Abdomen Pelvis W Contrast dated 06/27/2022; Stone Protocol dated 08/17/2020 TECHNIQUE: Thin cut axial CT imaging of the abdomen and pelvis was performed without IV contrast. Mu ltiplanar reformats were generated and reviewed. All CT scans are performed using dose optimization technique as appropriate and may include automated exposure control or mA/KV adjustment according to patient size. FINDINGS: Trace left pleural effusion. . The liver, spleen, and pancreas show no suspicious findings. Gallbladder Was surgically removed, with a small collection containing locules of gas in the gallbladder bed, measuring 3.9 x 3.0 centimeter, not significantly changed since the prior exam. Atrophic changes of the right kidney again noted. No suspicious parenchymal findings within limits of noncontrast technique. No evidence of radiopaque calculi or hydroureteronephrosis. No dilated bowel loops or bowel wall thickening. No free air. Large volume ascites, increased since t he prior exam. No hernia, mass or bulky lymphadenopathy. The urinary bladder is without significant f inding. No suspicious bony findings. IMPRESSION: Large volume ascites, increased since the prior exam. Stable small collection containing locules of gas in the gallbladder bed. Trace left pleural effusion.
--- NOTE | 2022-08-24 21:06 | ER ---
Nurse's Notes [facility] Name: Tc Mckeon Age: 72 yrs Sex: Male : 1950 Arrival Date: 08/24/2022 Time: 15:45 Bed 8 Private MD: Chidi Chavarria V Diagnosis: Other ascites;Weakness Presentation: 08/24 15:54 Chief complaint: Spouse and/or significant other states: the patient has not been ap3 eating much over the last 5-7 days, and has become increasingly weak. Coronavirus screen: At this time, the client does not indicate any symptoms associated with coronavirus-19. Ebola Screen: No symptoms or risks identified at this time. Initial Sepsis Screen: Does the patient meet any 2 criteria? No. Patient's initial sepsis screen is negative. Does the patient have a suspected source of infection? No. Patient's initial sepsis screen is negative. Risk Assessment: Do you want to hurt yourself or someone else? Patient reports no desire to harm self or others. Onset of symptoms was August 17, 2022. 15:54 Method Of Arrival: Wheelchair ap3 15:54 Acuity: ZBIGNIEW 2 ap3 Triage Assessment: 15:56 General: Appears ill, malnourished, Behavior is quiet. Pain: Denies pain. EENT: Oral ap3 mucosa is dry. Neuro: Level of Consciousness is awake, Weakness. Cardiovascular: Patient's skin is warm and dry. Respiratory: Airway is patent Respiratory effort is even, unlabored, Respiratory pattern is regular, symmetrical. GI: Parent/caregiver reports the patient having decreased appetite over the last 5-7 days. Historical: - Allergies: 15:56 Amoxicillin; ap3 15:56 Codeine; ap3 15:56 Demerol; ap3 15:56 Morphine; ap3 15:56 tramadol; ap3 - PMHx: 15:56 CAD; Gout; Hyperlipidemia; Hypertension; Myocardial infarction; Angina pectoris; ap3 - Immunization history:: Client reports having NOT received the Covid vaccine. - Social history:: Smoking status: Patient denies any tobacco usage or history of. Screenin:57 Abuse screen: Denies threats or abuse. Nutritional screening: Intervention for positive ap3 screen:. Tuberculosis screening: No symptoms or risk factors identified. Assessment: 17:00 Reassessment:. General: Appears in no apparent distress. uncomfortable, Behavior is nj1 calm, cooperative. Pain: Complains of pain in abdomen. Neuro: Level of Consciousness is awake, alert, obeys commands, Oriented to person, place, situation. Cardiovascular: Patient's skin is warm and dry. Respiratory: Airway is patent Respiratory effort is even, unlabored. GI: Abdomen is round distended, Reports upper abdominal pain. 18:00 Reassessment: Patient appears in no apparent distress at this time. Patient and/or nj1 family updated on plan of care and expected duration. Pain level reassessed. Patient is alert, oriented x 3, equal unlabored respirations, skin warm/dry/pink. 19:00 Reassessment: Patient appears in no apparent distress at this time. Patient and/or nj1 family updated on plan of care and expected duration. Pain level reassessed. Pt resting/sleeping. 20:00 Reassessment: Patient appears in no apparent distress at this time. Patient and/or nj1 family updated on plan of care and expected duration. Pain level reassessed. Pt resting/sleeping. at bedside. 21:00 Reassessment: Patient appears in no apparent distress at this time. Patient and/or nj1 family updated on plan of care and expected duration. Pain level reassessed. Patient is alert, oriented x 3, equal unlabored respirations, skin warm/dry/pink. 22:35 Reassessment: Patient appears in no apparent distress at this time. Patient and/or nj1 family updated on plan of care and expected duration. Pain level reassessed. Patient is alert, oriented x 3, equal unlabored respirations, skin warm/dry/pink. Vital Signs: 15:54 BP 120 / 66; Pulse 90; Resp 18; Temp 97.7; Pulse Ox 98% ; Weight 50.8 kg; ap3 17:13 BP 132 / 61; Pulse 87; Resp 15; Pulse Ox 99% on R/A; nj1 18:00 BP 132 / 54; Pulse 84; Resp 17; Pulse Ox 100% on R/A; nj1 19:00 BP 121 / 58; Pulse 83; Resp 16; Pulse Ox 100% on R/A; nj1 20:00 BP 124 / 56; Pulse 83; Resp 16; Pulse Ox 100% on R/A; nj1 22:29 BP 129 / 60; Pulse 86; Resp 16; Pulse Ox 100% on R/A; nj1 ED Course: 15:47 Patient arrived in ED. am2 15:48 Chidi Chavarria MD is Private Physician. am2 15:53 Lindsay Duncan FNP-C [facility]. kb 15:53 Gamaliel Jensen MD is Attending Physician. kb 15:56 Triage completed. ap3 15:58 Arm band placed on left wrist. ap3 16:14 XRAY Chest (1 view) In Process Unspecified. EDMS 16:30 Char Hoffmann, RN is Primary Nurse. nj1 17:00 Patient has correct armband on for positive identification. Bed in low position. Call nj1 light in reach. Side rails up X 1. Adult w/ patient. 17:00 Inserted saline lock: 22 gauge in right antecubital area, using aseptic technique. nj1 Blood collected. 18:03 CT Abd/Pelvis - Without Contrast In Process Unspecified. EDMS 21:05 Chidi Chavarria MD is Hospitalizing Provider. kb 22:29 No provider procedures requiring assistance completed. Patient admitted, IV remains in nj1 place. Administered Medications: 17:25 Drug: NS 0.9% IV 500 ml Route: IV; Rate: bolus; Site: right antecubital; nj1 Medication: 22:29 VIS not applicable for this client. nj1 Outcome: 21:06 Decision to Hospitalize by Provider. kb 22:29 Admitted to Tele room 408, Report called to Magdi KLEIN nj1 22:34 Condition: stable nj1 22:34 Instructed on the need for admit. 23:10 Patient left the ED. lg3 Signatures: Dispatcher [employer] EDMO Lindsay Duncan FNP-C ELECTRIC METER SETTER-[employer] [place]ary am2 Karma Gallegos, RN RN ap3 Aline Black, RN RN lg3 Char Hoffmann, RN RN nj1 Corrections: (The following items were deleted from the chart) 20:29 19:00 Reassessment: Patient appears in no apparent distress at this time. Patient nj1 and/or family updated on plan of care and expected duration. Pain level reassessed. Patient is alert, oriented x 3, equal unlabored respirations, skin warm/dry/pink. Pt resting/sleeping. nj1
--- NOTE | 2022-08-24 21:06 | EDPHYS ---
Physician Documentation [facility] Name: Tc Mckeon Age: 72 yrs Sex: Male : 1950 Arrival Date: 08/24/2022 Time: 15:45 Bed 8 Private MD: Chidi Chavarria V ED Physician Gamaliel Jensen HPI: 08/24 16:03 This 72 yrs old Male presents to ER via Wheelchair with complaints of kb Decreased Appetite, General Weakness. 16:03 The patient presents with generalized weakness. Onset: The symptoms/episode kb began/occurred 2 month(s) ago, and became worse today. Context: occurred at home. Modifying factors: The symptoms are alleviated by nothing, the symptoms are aggravated by nothing. Associated signs and symptoms: Pertinent positives: abdominal pain. Severity of symptoms: At their worst the symptoms were moderate in the emergency department the symptoms are unchanged. Patient's baseline: Neuro: alert and fully oriented, Motor: no deficits, Ambulation: walks without assistance, Speech: normal. The patient has experienced similar episodes in the past. The patient has been recently seen by a physician:. Family reports pt had his gallbladder removed 2 months ago and since then has been declining. Reports pt will not eat or drink anything and has been getting more and more weak. also reports fluid on his abd that started happening after the surgery, had it drained once. . Historical: - Allergies: 15:56 Amoxicillin; ap3 15:56 Codeine; ap3 15:56 Demerol; ap3 15:56 Morphine; ap3 15:56 tramadol; ap3 - PMHx: 15:56 CAD; Gout; Hyperlipidemia; Hypertension; Myocardial infarction; Angina pectoris; ap3 - Immunization history:: Client reports having NOT received the Covid vaccine. - Social history:: Smoking status: Patient denies any tobacco usage or history of. ROS: 16:05 Respiratory: Negative for shortness of breath, cough, wheezing, and pleuritic chest kb pain. 16:05 Constitutional: Positive for poor PO intake, weight loss. 16:05 Abdomen/GI: Positive for abdominal pain, abdominal distension. 16:05 Neuro: Positive for weakness. 16:05 All other systems are negative. Exam: 17:40 ECG was reviewed by the Attending Physician. kb 08/25 00:36 Head/Face: Normocephalic, atraumatic. ENT: dry Mucous membranes Cardiovascular: kb Regular rate and rhythm with a normal S1 and S2. No gallops, murmurs, or rubs. No pulse deficits. Respiratory: Respirations even and unlabored. No increased work of breathing. Talking in full sentences Skin: Warm, dry with normal turgor. Normal color. MS/ Extremity: Pulses equal, no cyanosis. Neurovascular intact. Full, normal range of motion. Constitutional: The patient appears alert, awake. Abdomen/GI: Inspection: distension, that is moderate, in the abdomen diffusely. Vital Signs: 08/24 15:54 BP 120 / 66; Pulse 90; Resp 18; Temp 97.7; Pulse Ox 98% ; Weight 50.8 kg; ap3 17:13 BP 132 / 61; Pulse 87; Resp 15; Pulse Ox 99% on R/A; nj1 18:00 BP 132 / 54; Pulse 84; Resp 17; Pulse Ox 100% on R/A; nj1 19:00 BP 121 / 58; Pulse 83; Resp 16; Pulse Ox 100% on R/A; nj1 20:00 BP 124 / 56; Pulse 83; Resp 16; Pulse Ox 100% on R/A; nj1 22:29 BP 129 / 60; Pulse 86; Resp 16; Pulse Ox 100% on R/A; nj1 MDM: 15:55 Patient medically screened. kb 19:05 ED course: Call placed to Dr Chavarria, voicemail left. kb 21:00 Data reviewed: vital signs, nurses notes. kb 21:03 Management of patient was discussed with the following: Primary Care Provider: ann marie Discussed case with Dr Chavarria. Accepts pt for admission. Requests paracentesis order be placed for tomorrow. 08/25 00:38 Differential diagnosis: CVA, generalized weakness, TIA. Historians other than the kb Patient: Daughter/Son: son. Counseling: I had a detailed discussion with the patient and/or guardian regarding: the historical points, exam findings, and any diagnostic results supporting the discharge/admit diagnosis, lab results, radiology results, the need for further work-up and treatment in the hospital. 08/24 16: Order name: Basic Metabolic Panel; Complete Time: 17:40 kb 08/24 16: Order name: CBC with Diff; Complete Time: 17:27 kb 08/24 16:01 Order name: LFT's; Complete Time: 17:40 kb 08/24 16:01 Order name: Magnesium; Complete Time: 17:40 kb 08/24 16:01 Order name: NT PRO-BNP; Complete Time: 17:40 kb 05 16:01 Order name: PT-INR; Complete Time: 17:38 kb 05 16:01 Order name: Troponin HS; Complete Time: 17:40 kb 08/24 16:50 Order name: AMMONIA; Complete Time: 17:38 kb 08/24 20:59 Order name: Ptt, Activated kb 05 16:01 Order name: XRAY Chest (1 view); Complete Time: 17:05 kb 08/24 16:29 Order name: CT Abd/Pelvis - Without Contrast; Complete Time: 18:56 kb 08/24 16:01 Order name: EKG; Complete Time: 16:02 kb 08/24 16:02 Order name: Cardiac monitoring; Complete Time: 16:42 kb 08/24 16:02 Order name: EKG - Nurse/Tech; Complete Time: 17:40 kb 08/24 16:02 Order name: IV Saline Lock; Complete Time: 17:40 kb 08/24 16:02 Order name: Labs collected and sent; Complete Time: 17:13 kb 08/24 16:02 Order name: O2 Per Protocol; Complete Time: 17:13 kb 08/24 16:02 Order name: O2 Sat Monitoring; Complete Time: 17:13 kb EC/08 17:40 Rate is 82 beats/min. Rhythm is regular. QRS [place] is Normal. IA interval is normal at kb 128 msec. QRS interval is normal at 90 msec. QT interval is normal at 450 msec. Administered Medications: 17:25 Drug: NS 0.9% IV 500 ml Route: IV; Rate: bolus; Site: right antecubital; nj1 Disposition Summary: 08/24/22 21:06 Hospitalization Ordered Hospitalization Status: Observation kb Provider: Chidi Chavarria Location: Telemetry/MedSurg (observation) kb Condition: Fair kb Problem: chronic kb Symptoms: are unchanged kb Bed/Room Type: Standard Room Assignment: 408(08/24/22 21:43) kd3 Diagnosis - Other ascites kb - Weakness kb Forms: - Medication Reconciliation Form kb - SBAR form kb Signatures: Dispatcher [employer] Lindsay Brady, DISTRIBUTION DISPATCHER-C DISTRIBUTION DISPATCHER-Ckb Karma Gallegos, RN RN ap3 Nadeen Allen RN RN kd3 Char Hoffmann RN RN nj1 Corrections: (The following items were deleted from the chart) 21:43 21:06 kb kd3
[2022-08-24] MEDS ORDERED: NA CHLORIDE 0.9% 1,000 ML IV SCH (23:01)
[2022-08-25 06:44] LABS: Absolute Lymphocytes (CBC) 0.4 K/uL (0.7-4.9); Lymphocytes % 7.9 % (15.3-44.8); MCV 96.9 fL (80-100); MPV 7.1 fL (7.6-11.3); RBC Red Blood Cell Count 2.89 M/uL (4.33-5.43)
[2022-08-25 06:46] LABS: Potassium 3.6 mEq/L (3.5-5.1)
[2022-08-25] MEDS ORDERED: TRAMADOL HCL 50 MG TAB PO PRN (07:48)
[2022-08-25] MEDS: NA CHLORIDE 0.9% 1,000 ML IV SCH ×2 (07:49→17:06)
--- NOTE | 2022-08-25 07:53 | EKG ---
Test Date: 2022-08-24 Test Time: 17:37:28 Senior Internet Sales Consultant: ALIYAH MEASUREMENT RESULTS: Intervals: Rate: 82 NJ: 128 QRSD: 90 QT: 386 QTc: 450 [place]: P: 69 NJ: 128 QRS: 94 T: 10 INTERPRETIVE STATEMENTS: Normal sinus rhythm Normal ECG Compared to ECG 06/23/2022 10:16:26 Sinus bradycardia no longer present Electronically Signed On 08-25-22 07:52:20 CDT by Bryn Almanza
--- NOTE | 2022-08-25 11:02 | RAD REPORT ---
EXAM DESCRIPTION: US - Paracentesis Proc Guidance - 08/25/2022 10:06 am CLINICAL HISTORY: ascites Ascites COMPARISON: Paracentesis Proc Guidance dated 07/23/2022 FINDINGS: Informed consent was obtained and time-out was performed. Patient's abdomen was prepped and draped in the usual sterile fashion. 1% lidocaine was used for loca l anesthetic purposes. A small skin incision was made. A paracentesis catheter was guided into the peroneal cavity under son ographic guidance. A small amount of fluid was sent for requested lab studies. A large volume paracentesis was performed yielding 4.3 liters of yellow fluid. The patient tolerated the procedure well. IMPRESSION: Successful ultrasound-guided paracentesis.
--- NOTE | 2022-08-25 14:29 | P.HP ---
Certification for Inpatient Patient admitted to: Inpatient With expected LOS: >2 Midnights Practitioner: I am a practitioner with admitting privileges, knowledge of patient current condition, hospital course, and medical plan of care. Services: Services provided to patient in accordance with Admission requirements found in Title 42 Section 412.3 of the Code of Federal Regulations Patient History Date of Service: 08/25/22 Reason for admission: WEAK, NOT EATING WELL History of Present Illness: SAYDA HAS SEVERE CIRRHOSIS FROM ALCOHOL USE. HE IS NOT DOING WELL. HE IS NOT EATING. HE HAS ASCITES AGAIN. HE COULD NOT WALK ANY LONGER. THEY BROUGHT HIM TO ER. I TALKED TO HIM AND LAST VISIT AND TOLD THEM THAT ALCOHOL HAS DONE SEVERE DAMAGE AND HE HAS CIRRHOSIS FROM IT AND SHE DENIED THAT TO ER PA. I ONCE AGAIN TOLD HER TODAY. SHE SAYS SHE KNEW AND HE HAD APT WITH LICENSED INVESTMENT SALES ASSISTANT BUT HE WILL NOT MAKE IT HE IS VERY WEAK. Allergies amoxicillin trihydrate [From Amoxil] Allergy (Mild, Verified 06/23/22 09:55) Hives/Rash morphine Allergy (Mild, Verified 06/23/22 09:55) Itching Home Medications: Cefuroxime [Ceftin*] 1 tab PO BID 08/24/22 Ondansetron [Zofran (Odt)*] 8 mg PO Q8HP PRN 08/24/22 Tramadol HCl [Ultram] 25 mg PO Q8HP PRN 08/24/22 - Past Medical/Surgical History Has patient received pneumonia vaccine in the past: No Diabetic: No -: HTN -: Gout -: CAD -: hyperlipidemia -: cirrhosis -: Cardiac stents x 3, 2009, 2012 -: CABAG 2015 -: cholecystectomy - Family History Father -: Heart disease Notes: - heart attack Mother -: Diabetes, Cancer Notes: - cancer - Social History Smoking Status: Unknown if ever smoked Alcohol use: Yes CD- Drugs: No Caffeine use: No Place of Residence: Home Review of Systems 10-point ROS is otherwise unremarkable General: Weakness, Malaise Gastrointestinal: Distention, As per HPI Physical Examination - Vital Signs Temperature: 97.8 F Blood Pressure: 120/58 Pulse: 86 Respirations: 16 Pulse Ox (%): 96 - Physical Exam General: Alert, Cachectic, Mild distress, Confused HEENT: Atraumatic Neck: Supple Respiratory: Clear to auscultation bilaterally Cardiovascular: Normal S1 S2, Edema Gastrointestinal: No tenderness, Distended, Ascites Neurological: Abnormal speech (LOW VOLUME.) - Studies Laboratory Data (last 24 hrs) 08/24/22 20:59: APTT Cancelled 08/24/22 17:00: PT 14.1 H, INR 1.28 08/24/22 17:00: WBC 7.20, Hgb 10.9 L, Hct 31.7 L, Plt Count 85 L 08/24/22 17:00: Sodium 137, Potassium 3.9, BUN 30 H, Creatinine 1.44 H, Glucose 106, Magnesium 2.4, Total Bilirubin 1.2 H, AST 20, ALT 18, Alkaline Phosphatase 90 Assessment and Plan - Problems (Diagnosis) (1) End stage liver disease Current Visit: Yes Status: Chronic Plan: HE HAS BEEN A HEAVY DRINKER AND PER HE DID NOT LISTEN TO ANY ONE. NOW HIS LIVER IS FAILING RAPIDLY. HE IS NOT ABLE TO GO TO LICENSED INVESTMENT SALES ASSISTANT. THEY ASKED ME ABOUT TUBE FEEDING. I EXPLAINED THAT WITH SEVERE ASICTES THAT PROCEDURE IS CONTRAINDICATED. HE IS CACHECTIC AND MOST LIKE WILL NOT MAKE IT FOR LONG. I ADVISED HOSPICE CARE AND FAMILY IS THINKING ABOUT IT. I TALKED TO AND ONE SON TODAY. (2) Hepatorenal failure Current Visit: Yes Status: Acute (3) Alcoholic cirrhosis of liver with ascites Current Visit: No Status: Chronic - Advance Directives Does patient have a Living Will: No Does patient have a Durable POA for Healthcare: No
[2022-08-25] MEDS: CEFTRIAXONE 1,000 MG in NA CHLORIDE 0.9% 50 ML IVPB SCH (20:46)
[2022-08-26] MEDS ORDERED: ONDANSETRON 4 MG/2 ML VIAL ONE ×2 (01:37→12:08)
[2022-08-26] MEDS ORDERED: PANTOPRAZOLE 40 MG INJ ONE (01:37)
[2022-08-26] MEDS ORDERED: NA CHLORIDE 0.9% 250 ML ONE (01:38)
[2022-08-26] MEDS ORDERED: NA CHLORIDE 0.9% 500 ML ONE (01:53)
[2022-08-26] MEDS ORDERED: OCTREOTIDE ACETATE 500 MCG/ML ONE (01:54)
[2022-08-26] MEDS ORDERED: OCTREOTIDE 500 MCG in NA CHLORIDE 0.9% 500 ML IV SCH (05:00)
[2022-08-26] MEDS ORDERED: PANTOPRAZOLE INJ 80 MG in NA CHLORIDE 0.9% 250 ML IV SCH (05:00)
[2022-08-26 06:26] LABS: Absolute Lymphocytes (CBC) 0.3 K/uL (0.7-4.9); Hematocrit 26.6 % (39.6-49.0); Lymphocytes % 4.6 % (15.3-44.8); MCV 97.9 fL (80-100); MPV 7.7 fL (7.6-11.3); RBC Red Blood Cell Count 2.72 M/uL (4.33-5.43)
[2022-08-26 06:44] LABS: Potassium 4.2 mEq/L (3.5-5.1)
[2022-08-26] MEDS ORDERED: Ringers Lactate 1,000 ML IV ONE (09:56)
--- NOTE | 2022-08-26 10:35 | P.PN ---
Subjective Date of Service: 08/26/22 Chief Complaint: VOMITED BLOOD LAST NIGHT. Subjective: Worsening SAYDA HAS END STAGE CIRRHOSIS FROM ALCOHOL USE AND HE VOMITED BLOOD LAST NIGHT. SANDOSTATIN HELPED TO STOP BLEEDING. DR. FLORES CALLED IN TO DO EGD TODAY. I CALLED TO DISCUSS. NO REPLY YET. I ALSO TALKED TO HIM THIS AM. HE IS LUCID AND HE DECIDED TO HAVE DNR STATUS AND HOSPICE AT HOME. Review of Systems 10-point ROS is otherwise unremarkable General: Weakness, Malaise Gastrointestinal: No Distention Physical Examination - Vital Signs Temperature: 98.0 F Blood Pressure: 118/56 Pulse: 89 Respirations: 16 Pulse Ox (%): 98 - Physical Exam General: Oriented x3, Cachectic ( PALE, ASHENED.), Moderate distress HEENT: Atraumatic, PERRLA, EOMI Neck: Supple, JVD not distended Respiratory: Clear to auscultation bilaterally, Normal air movement Cardiovascular: Regular rate/rhythm, Normal S1 S2 Gastrointestinal: Normal bowel sounds, No tenderness Musculoskeletal: No tenderness Integumentary: No rashes Neurological: Normal speech, Normal tone, Normal affect Lymphatics: No axilla or inguinal lymphadenopathy - Studies Laboratory Data (last 24 hrs) 08/26/22 06:02: Sodium 140, Potassium 4.2 D, BUN 39 H, Creatinine 1.19, Glucose 135 H 08/26/22 06:02: WBC 6.00, Hgb 9.1 L, Hct 26.6 L, Plt Count 62 L Medications List Reviewed: Yes Assessment And Plan - Current Problems (Diagnosis) (1) End stage liver disease Current Visit: Yes Status: Chronic Plan: HE HAS BEEN A HEAVY DRINKER AND PER HE DID NOT LISTEN TO ANY ONE. NOW HIS LIVER IS FAILING RAPIDLY. 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 THEY ASKED ME ABOUT TUBE FEEDING. I EXPLAINED THAT WITH SEVERE ASICTES THAT PROCEDURE IS CONTRAINDICATED. HE IS CACHECTIC AND MOST LIKE WILL NOT MAKE IT FOR LONG. I ADVISED HOSPICE CARE AND FAMILY IS THINKING ABOUT IT. I TALKED TO AND ONE SON TODAY. HE HAS VARICEAL BLEEDING NOW EGD TODAY. SANDOSTATIN POOR PROGNOGIS HE WANTS DNR STATUS AND HOSPICE FOR HOME. NURSES TRIED TO CALL ME BUT WITH HEAVY STORM MY HOME PHONE AND MY CELL PHONE DID NOT RING. THEY GOT HELP FROM HOSPITALISTS LAST NIGHT. (2) Hepatorenal failure Current Visit: Yes Status: Acute (3) Alcoholic cirrhosis of liver with ascites Current Visit: No Status: Chronic
[2022-08-26] MEDS ORDERED: propofoL 200 MG/20 ML VIAL IV ONE ×2 (10:47→11:25)
[2022-08-26] MEDS ORDERED: LIDOCAINE 1% MPF 5 ML VIAL ONE (10:47)
[2022-08-26] MEDS: OCTREOTIDE 500 MCG in NA CHLORIDE 0.9% 500 ML IV SCH ×2 (12:27→22:49)
[2022-08-26] MEDS: LACTULOSE 20 GM/30 ML UCUP PO SCH (12:27)
[2022-08-26] MEDS: PANTOPRAZOLE INJ 80 MG in NA CHLORIDE 0.9% 250 ML IV SCH ×2 (12:55→22:50)
[2022-08-26] MEDS: NA CHLORIDE 0.9% 1,000 ML IV SCH ×2 (15:57→23:49)
[2022-08-26] MEDS: carvediloL 3.125 MG TAB PO SCH (17:21)
[2022-08-26] MEDS: ONDANSETRON 4 MG (ODT) TAB PO PRN (17:23)
[2022-08-26] MEDS: ENSURE HIGH PROTEIN 237 ML CAN PO SCH (21:00)
[2022-08-26] MEDS: CEFTRIAXONE 1,000 MG in NA CHLORIDE 0.9% 50 ML IVPB SCH (21:27)
[2022-08-27] MEDS: carvediloL 3.125 MG TAB PO SCH ×2 (06:41→22:08)
[2022-08-27] MEDS: OCTREOTIDE 500 MCG in NA CHLORIDE 0.9% 500 ML IV SCH ×2 (09:51→22:03)
[2022-08-27] MEDS: LACTULOSE 20 GM/30 ML UCUP PO SCH (09:52)
[2022-08-27] MEDS: PANTOPRAZOLE INJ 80 MG in NA CHLORIDE 0.9% 250 ML IV SCH ×2 (09:52→22:04)
[2022-08-27] MEDS: ENSURE HIGH PROTEIN 237 ML CAN PO SCH ×2 (09:58→21:00)
[2022-08-27] MEDS: COLCHICINE 0.6 MG TAB PO SCH ×2 (12:22→22:07)
--- NOTE | 2022-08-27 13:05 | P.PN ---
Subjective Date of Service: 08/27/22 Chief Complaint: WEAK, BEDBOUND Subjective: Worsening SAYDA HAS END STAGE CIRRHOSIS FROM ALCOHOL USE AND HE VOMITED BLOOD LAST NIGHT. SANDOSTATIN HELPED TO STOP BLEEDING. DR. FLORES CALLED IN TO DO EGD TODAY. I CALLED TO DISCUSS. NO REPLY YET. I ALSO TALKED TO HIM THIS AM. HE IS LUCID AND HE DECIDED TO HAVE DNR STATUS AND HOSPICE AT HOME. I TALK TO DAILY. HE SHOULD BE ON HOSPICE WITH THIS END STAGE CONDITION. THE OTHER SON WANTS SECOND OPINION. I CALLED DR. FALCON THEY ASKED FOR HIM. HE WILL COME ON HIS OFF DAY TO SEE HIM AND GIVE OPINION. Review of Systems 10-point ROS is otherwise unremarkable General: Weakness, Malaise Gastrointestinal: No Distention, As per HPI Physical Examination - Vital Signs Temperature: 97.9 F Blood Pressure: 135/60 Pulse: 83 Respirations: 16 Pulse Ox (%): 100 - Physical Exam General: Cachectic, Mild distress, Other (LETHARGIC. PALE, ASHENED, FRAIL, SUNKEN EYES. ) HEENT: Atraumatic, PERRLA, EOMI Neck: Supple, JVD not distended Respiratory: Clear to auscultation bilaterally, Normal air movement Cardiovascular: Regular rate/rhythm, Normal S1 S2 Gastrointestinal: Normal bowel sounds, No tenderness Musculoskeletal: No tenderness Integumentary: No rashes Neurological: Normal speech (WEAK BUT UNDERSTANDABLE.), Other (FATIGUE, SLOW TO SPEAK, LETHARGIC, LUCID WHEN DISCUSSED HIS PLANS. HE IS OKAY WITH HOSPICE AND DNR. FAMILY WANTS OPINIONS.) Lymphatics: No axilla or inguinal lymphadenopathy - Studies Medications List Reviewed: Yes Assessment And Plan - Current Problems (Diagnosis) (1) End stage liver disease Current Visit: Yes Status: Chronic Plan: HE HAS BEEN A HEAVY DRINKER AND PER HE DID NOT LISTEN TO ANY ONE. NOW HIS LIVER IS FAILING RAPIDLY. HE IS NOT ABLE TO GO TO PEN RIDER. THEY ASKED ME ABOUT TUBE FEEDING. I EXPLAINED THAT WITH SEVERE ASICTES THAT PROCEDURE IS CONTRAINDICATED. HE IS CACHECTIC AND MOST LIKE WILL NOT MAKE IT FOR LONG. I ADVISED HOSPICE CARE AND FAMILY IS THINKING ABOUT IT. I TALKED TO AND ONE SON TODAY. HE HAS VARICEAL BLEEDING NOW EGD TODAY. SANDOSTATIN POOR PROGNOGIS HE WANTS DNR STATUS AND HOSPICE FOR HOME. NURSES TRIED TO CALL ME BUT WITH HEAVY STORM MY HOME PHONE AND MY CELL PHONE DID NOT RING. THEY GOT HELP FROM HOSPITALISTS LAST NIGHT. (2) Hepatorenal failure Current Visit: Yes Status: Acute (3) Alcoholic cirrhosis of liver with ascites Current Visit: No Status: Chronic Plan: HE IS TERMINAL IN MY OPINION. HE IS NOT ABLE TO GO TO ANY P[facility] RIDER. WE WILL GET FAMILY SECOND OPINION. THEY ARE THINKING ABOUT HOSPICE. ME TALKING TO AND ONE SON WAS NOT ENOUGH. 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
[2022-08-27] MEDS: CEFTRIAXONE 1,000 MG in NA CHLORIDE 0.9% 50 ML IVPB SCH (22:08)
[2022-08-27] MEDS: Mupirocin NASAL 2 APPL/1 GM TUBE NAS SCH (22:09)
[2022-08-27] MEDS: NA CHLORIDE 0.9% 1,000 ML IV SCH (22:09)
[2022-08-28] MEDS: PANTOPRAZOLE INJ 80 MG in NA CHLORIDE 0.9% 250 ML IV SCH ×2 (04:00→15:58)
[2022-08-28] MEDS: OCTREOTIDE 500 MCG in NA CHLORIDE 0.9% 500 ML IV SCH ×2 (04:00→15:58)
[2022-08-28] MEDS: carvediloL 3.125 MG TAB PO SCH ×2 (07:25→18:06)
[2022-08-28 07:28] LABS: Absolute Lymphocytes (CBC) 0.4 K/uL (0.7-4.9); Hematocrit 24.2 % (39.6-49.0); Lymphocytes % 5.5 % (15.3-44.8); MCV 97.9 fL (80-100); MPV 7.1 fL (7.6-11.3); RBC Red Blood Cell Count 2.47 M/uL (4.33-5.43)
[2022-08-28 07:33] LABS: Protime INR 1.31
[2022-08-28 07:45] LABS: Albumin 1.7 g/dL (3.4-5.0); Bilirubin Direct 0.4 mg/dL (0-0.2); Bilirubin Indirect, Calculated 0.3 (0.2-0.8); Bilirubin Total 0.7 mg/dL (0.2-1.0); Potassium 3.8 mEq/L (3.5-5.1); Protein, Total 5.5 g/dL (6.4-8.2)
[2022-08-28] MEDS ORDERED: DEXTROSE 10%-WATER 500 ML IV SCH (09:00)
[2022-08-28] MEDS: LACTULOSE 20 GM/30 ML UCUP PO SCH (09:00)
[2022-08-28 09:23] LABS: Blood Morphology Comment NOT SEEN (NOT SEEN); Platelet Estimate DECR; White Blood Cell Scan OK (OK)
[2022-08-28] MEDS: COLCHICINE 0.6 MG TAB PO SCH ×2 (10:11→20:34)
[2022-08-28] MEDS: Mupirocin NASAL 2 APPL/1 GM TUBE NAS SCH ×2 (10:12→20:33)
[2022-08-28] MEDS: ENSURE HIGH PROTEIN 237 ML CAN PO SCH ×3 (10:13→20:43)
[2022-08-28] MEDS: NA CHLORIDE 0.9% 1,000 ML IV SCH ×2 (12:31→15:49)
[2022-08-28] MEDS ORDERED: AA 4.25 %/D5W/ELECTROLYTES 2,000 ML, Lipids 20% 250 ML with MULTIVITAMINS INJ 10 ML IV SCH ×3 (17:00)
--- NOTE | 2022-08-28 17:23 | P.PN ---
Subjective Date of Service: 08/28/22 Chief Complaint: WEAK, BEDBOUND Subjective: No new changes HE IS WEAK. HIS VOICE IS DOWN TO WHISPER. NOT EATING MUCH. Review of Systems 10-point ROS is otherwise unremarkable General: Weakness Physical Examination - Vital Signs Temperature: 97.7 F Blood Pressure: 149/67 Pulse: 76 Respirations: 16 Pulse Ox (%): 98 - Physical Exam General: In no apparent distress, Cachectic, Mild distress, Other (ASHENED, PALE, LACK OF LUSTER. ) HEENT: Atraumatic, PERRLA, EOMI Neck: Supple, JVD not distended Respiratory: Clear to auscultation bilaterally, Normal air movement Cardiovascular: Regular rate/rhythm, Normal S1 S2 Gastrointestinal: Normal bowel sounds, No tenderness Musculoskeletal: No tenderness Integumentary: No rashes Neurological: Normal speech, Normal tone, Normal affect Lymphatics: No axilla or inguinal lymphadenopathy - Studies Medications List Reviewed: Yes Assessment And Plan - Current Problems (Diagnosis) (1) End stage liver disease Current Visit: Yes Status: Chronic Plan: PATIENTS WITH CIRRHOSIS AND COMPLICATIONS LIKE ASCITES, VARICEAL BLEEDING AND WEIGHT LOSS WITH ANOREXIA USUALLY DON'T LIVE LONGER THAN A YEAR. FAMILY DID NOT WANT HOSPICE SO I ORDERED LTAC WITH PICC LINE AND PPN. FAMILY DOES NOT WANT LTAC ALSO. I WILL GIVE OVER THE WEEKEND TO DECIDE WHAT THEY WANT. PROGNOSIS IS POOR IN MY OPINION. MELD SCORE IS MISLEADING IN SOMEONE WITH POOR GENERAL CONDITION LIKE HIS. (2) Hepatorenal failure Current Visit: Yes Status: Acute (3) Alcoholic cirrhosis of liver with ascites Current Visit: No Status: Chronic Plan: HE IS TERMINAL IN MY OPINION. 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 WE WILL GET FAMILY SECOND OPINION. THEY ARE THINKING ABOUT HOSPICE. ME TALKING TO AND ONE SON WAS NOT ENOUGH. 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
[2022-08-28] MEDS: AA 4.25 %/D5W/ELECTROLYTES 2,000 ML, Lipids 20% 250 ML with MULTIVITAMINS INJ 10 ML IV SCH ×3 (17:54)
[2022-08-28] MEDS: CEFTRIAXONE 1,000 MG in NA CHLORIDE 0.9% 50 ML IVPB SCH (20:33)
[2022-08-28] MEDS: MIRTAZAPINE 15 MG TAB PO SCH (20:34)
[2022-08-29] MEDS: PANTOPRAZOLE INJ 80 MG in NA CHLORIDE 0.9% 250 ML IV SCH ×3 (04:04)
[2022-08-29] MEDS: OCTREOTIDE 500 MCG in NA CHLORIDE 0.9% 500 ML IV SCH ×3 (04:04)
[2022-08-29] MEDS: carvediloL 3.125 MG TAB PO SCH ×2 (05:22→17:11)
[2022-08-29] MEDS: LACTULOSE 20 GM/30 ML UCUP PO SCH (09:00)
[2022-08-29] MEDS: ENSURE HIGH PROTEIN 237 ML CAN PO SCH ×2 (09:00→20:45)
[2022-08-29] MEDS: Mupirocin NASAL 2 APPL/1 GM TUBE NAS SCH ×2 (09:09→20:45)
[2022-08-29] MEDS: COLCHICINE 0.6 MG TAB PO SCH ×2 (09:09→20:45)
[2022-08-29] MEDS ORDERED: dexAMETHasone 10 MG/ML VIAL IV ONE (09:28)
[2022-08-29] MEDS ORDERED: OCTREOTIDE 500 MCG in NA CHLORIDE 0.9% 500 ML IV SCH ×8 (12:00→20:00)
[2022-08-29] MEDS ORDERED: PANTOPRAZOLE INJ 80 MG in NA CHLORIDE 0.9% 250 ML IV SCH (14:00)
--- NOTE | 2022-08-29 14:45 | P.PN ---
Subjective Date of Service: 08/29/22 Chief Complaint: WEAK, BEDBOUND Subjective: No new changes HE IS WEAK. HIS VOICE IS DOWN TO WHISPER. NOT EATING MUCH. SAYDA IS HAVING L KNEE AND ANKLE PAIN NOW FROM ACUTE GOUT. HE IS NOT EATING MUCH. I SAW HIM THIS AM AND HE HAD NOT HAD BREAKFAST THAT WAS IN FRONT OF HIM. Review of Systems 10-point ROS is otherwise unremarkable General: Weakness Physical Examination - Vital Signs Temperature: 98.1 F Blood Pressure: 123/59 Pulse: 68 Respirations: 18 Pulse Ox (%): 98 - Physical Exam General: Oriented x3, Cachectic, Mild distress HEENT: Atraumatic, PERRLA, EOMI Neck: Supple, JVD not distended Respiratory: Clear to auscultation bilaterally, Normal air movement Cardiovascular: Regular rate/rhythm, Normal S1 S2 Gastrointestinal: Normal bowel sounds, No tenderness Musculoskeletal: No tenderness Integumentary: No rashes Neurological: Normal speech (WEAK, WHISPERS), Abnormal strength (GEN WEAK. ), Abnormal tone (GEN WEAK.) Lymphatics: No axilla or inguinal lymphadenopathy - Studies Medications List Reviewed: Yes Assessment And Plan - Current Problems (Diagnosis) (1) End stage liver disease Current Visit: Yes Status: Chronic Plan: PATIENTS WITH CIRRHOSIS AND COMPLICATIONS LIKE ASCITES, VARICEAL BLEEDING AND WEIGHT LOSS WITH ANOREXIA USUALLY DON'T LIVE LONGER THAN A YEAR. FAMILY DID NOT WANT HOSPICE SO I ORDERED LTAC WITH PICC LINE AND PPN. FAMILY DOES NOT WANT LTAC ALSO. I WILL GIVE OVER THE WEEKEND TO DECIDE WHAT THEY WANT. PROGNOSIS IS POOR IN MY OPINION. MELD SCORE IS MISLEADING IN SOMEONE WITH POOR GENERAL CONDITION LIKE HIS. (2) Hepatorenal failure Current Visit: Yes Status: Acute (3) Alcoholic cirrhosis of liver with ascites Current Visit: No Status: Chronic Plan: HIS FLUID IS BUILDING UP AGAIN IN ABDOMEN. I ALSO TOOK OPINION OF DR. FLORES ABOUT HIS LIFESPAN. HE SUGGESTED THAT WITH TWO MAJOR COMPLICATIONS OF CIRRHOSIS, THAT IS ASCITES AND HEMATEMESIS HE HAS ONLY 50% CHANCE OF MAKING THROUGH A YEAR. HOSPICE WILL BE GOOD IN THIS CONDITION. FAMILY HAS NOT AGREED TO IT YET. HIS PPN HAS STARTED. IDEALLY HE SHOULD BE IN LTAC HE MAY TAKE MORE THAN A COUPLE OF WEEKS TO RECOVER IF HE DOES RECOVER. I TALKED TO SON SHAHAB TODAY AND THEY WILL THINK ABOUT LTAC AFTER A FEW DAYS HERE. HE IS NOT SHOWING ANY SIGNS OF ALCOHOL DT YET.
[2022-08-29] MEDS ORDERED: dexAMETHasone 4 MG/ML VIAL IV SCH (15:00)
[2022-08-29] MEDS: dexAMETHasone 4 MG/ML VIAL IV SCH (17:10)
[2022-08-29] MEDS: AA 4.25 %/D5W/ELECTROLYTES 2,000 ML IV SCH (17:10)
[2022-08-29] MEDS: CEFTRIAXONE 1,000 MG in NA CHLORIDE 0.9% 50 ML IVPB SCH (20:44)
[2022-08-29] MEDS: MIRTAZAPINE 15 MG TAB PO SCH (20:45)
[2022-08-30] MEDS: dexAMETHasone 4 MG/ML VIAL IV SCH ×5 (00:05→23:58)
[2022-08-30] MEDS: carvediloL 3.125 MG TAB PO SCH ×2 (05:34→17:31)
[2022-08-30] MEDS: LACTULOSE 20 GM/30 ML UCUP PO SCH (09:00)
[2022-08-30] MEDS: ENSURE HIGH PROTEIN 237 ML CAN PO SCH ×2 (09:00→19:58)
[2022-08-30] MEDS: Mupirocin NASAL 2 APPL/1 GM TUBE NAS SCH ×2 (09:20→21:10)
[2022-08-30] MEDS: PANTOPRAZOLE 40MG TABLET PO SCH (09:22)
[2022-08-30] MEDS: COLCHICINE 0.6 MG TAB PO SCH ×2 (09:22→21:09)
[2022-08-30 10:32] LABS: Absolute Lymphocytes (CBC) 0.4 K/uL (0.7-4.9); Hematocrit 25.8 % (39.6-49.0); Lymphocytes % 7.3 % (15.3-44.8); MCV 97.8 fL (80-100); RBC Red Blood Cell Count 2.64 M/uL (4.33-5.43)
[2022-08-30 10:46] LABS: Potassium 4.4 mEq/L (3.5-5.1)
[2022-08-30] MEDS: AA 4.25 %/D5W/ELECTROLYTES 2,000 ML IV SCH (17:00)
[2022-08-30] MEDS: MIRTAZAPINE 15 MG TAB PO SCH (21:09)
--- NOTE | 2022-08-30 22:26 | P.PN ---
Subjective Date of Service: 08/30/22 Chief Complaint: WEAK, BEDBOUND Subjective: Worsening HE IS WEAK. HIS VOICE IS DOWN TO WHISPER. NOT EATING MUCH. SAYDA IS HAVING L KNEE AND ANKLE PAIN NOW FROM ACUTE GOUT. HE IS NOT EATING MUCH. I SAW HIM THIS AM AND HE HAD NOT HAD BREAKFAST THAT WAS IN FRONT OF HIM. SAYDA IS NOT EATING. I AM GIVING HIM IV STEROIDS FOR SEVERE GOUT AND REMERON FOR APPETITE. HE IS STILL NOT EATING. IS AT BEDSIDE TODAY ADN I TALKED TO SON ON PHONE. I ANSWERED THEIR QUESTIONS. Review of Systems 10-point ROS is otherwise unremarkable General: Weakness Gastrointestinal: Distention Physical Examination - Vital Signs Temperature: 99.8 F Blood Pressure: 132/64 Pulse: 62 Respirations: 15 Pulse Ox (%): 99 - Physical Exam General: Oriented x1, Cachectic, Moderate distress (KNEE PAIN. ) HEENT: Atraumatic, PERRLA, EOMI Neck: Supple, JVD not distended Respiratory: Clear to auscultation bilaterally, Normal air movement Cardiovascular: Regular rate/rhythm, Normal S1 S2 Gastrointestinal: Normal bowel sounds, No tenderness Musculoskeletal: No tenderness Integumentary: No rashes Neurological: Normal speech, Normal tone, Normal affect Lymphatics: No axilla or inguinal lymphadenopathy - Studies Medications List Reviewed: Yes Assessment And Plan - Current Problems (Diagnosis) (1) End stage liver disease Current Visit: Yes Status: Chronic Plan: PATIENTS WITH CIRRHOSIS AND COMPLICATIONS LIKE ASCITES, VARICEAL BLEEDING AND WEIGHT LOSS WITH ANOREXIA USUALLY DON'T LIVE LONGER THAN A YEAR. FAMILY DID NOT WANT HOSPICE SO I ORDERED LTAC WITH PICC LINE AND PPN. FAMILY DOES NOT WANT LTAC ALSO. I WILL GIVE OVER THE WEEKEND TO DECIDE WHAT THEY WANT. PROGNOSIS IS POOR IN MY OPINION. MELD SCORE IS MISLEADING IN SOMEONE WITH POOR GENERAL CONDITION LIKE HIS. HE IS NOT RECOVERING MUCH WE LIKE FOR IT TO HAPPEN. HE IS ON PPN NOW THAT HE IS NOT EATING. SON ASKED ABOUT SANDOSTATIN AND PROTONIX THAT WERE TAPERED BY DR. FLORES. HE ASKED IF PPN WILL TAKE HIS APPETITE AWAY. I EXPLAINED THAT PPN WILL HELP THE ORGANS RECOVER AT CELLULAR LEVEL SO NORMAL FUNCTIONING MAY HOPEFULLY RETURN. (2) Hepatorenal failure Current Visit: Yes Status: Acute (3) Alcoholic cirrhosis of liver with ascites Current Visit: No Status: Chronic Plan: HIS FLUID IS BUILDING UP AGAIN IN ABDOMEN. I ALSO TOOK OPINION OF DR. FLORES ABOUT HIS LIFE-SPAN. HE SUGGESTED THAT WITH TWO MAJOR COMPLICATIONS OF CIRRHOSIS, THAT IS ASCITES AND HEMATEMESIS HE HAS ONLY 50% CHANCE OF MAKING THROUGH A YEAR. HOSPICE WILL BE GOOD IN THIS CONDITION. FAMILY HAS NOT AGREED TO IT YET. HIS PPN HAS STARTED. IDEALLY HE SHOULD BE IN LTAC HE MAY TAKE MORE THAN A COUPLE OF WEEKS TO RECOVER IF HE DOES RECOVER. I TALKED TO SON SHAHAB TODAY AND THEY WILL THINK ABOUT LTAC AFTER A FEW DAYS HERE. HE IS NOT SHOWING ANY SIGNS OF ALCOHOL DT YET. I AM NOT SURE IF WE CAN HAVE INDWELLING CATHETER IN HE HAS RECURRENT ASCITES TO A GOOD EXTENT ALREADY IN A WEEK I EXPECTED.
[2022-08-31 04:51] LABS: Absolute Lymphocytes (CBC) 0.4 K/uL (0.7-4.9); Hematocrit 25.2 % (39.6-49.0); Lymphocytes % 3.9 % (15.3-44.8); MCV 96.8 fL (80-100); MPV 8.5 fL (7.6-11.3); RBC Red Blood Cell Count 2.61 M/uL (4.33-5.43)
[2022-08-31 05:08] LABS: Albumin 1.5 g/dL (3.4-5.0); Bilirubin Direct 0.2 mg/dL (0-0.2); Bilirubin Indirect, Calculated 0.3 mg/dL (0.2-0.8); Bilirubin Total 0.5 mg/dL (0.2-1.0); Potassium 4.4 mEq/L (3.5-5.1); Protein, Total 5.6 g/dL (6.4-8.2)
[2022-08-31] MEDS: carvediloL 3.125 MG TAB PO SCH ×2 (06:00→17:12)
[2022-08-31] MEDS: dexAMETHasone 4 MG/ML VIAL IV SCH ×3 (06:00→17:12)
[2022-08-31] MEDS: PANTOPRAZOLE 40MG TABLET PO SCH (07:34)
[2022-08-31] MEDS: COLCHICINE 0.6 MG TAB PO SCH ×2 (08:22→20:55)
[2022-08-31] MEDS: Mupirocin NASAL 2 APPL/1 GM TUBE NAS SCH ×2 (08:22→20:57)
[2022-08-31] MEDS: LACTULOSE 20 GM/30 ML UCUP PO SCH ×2 (08:23→08:27)
[2022-08-31] MEDS: ENSURE HIGH PROTEIN 237 ML CAN PO SCH ×2 (08:23→08:24)
[2022-08-31] MEDS: AA 4.25 %/D5W/ELECTROLYTES 2,000 ML, Lipids 20% 250 ML with MULTIVITAMINS INJ 10 ML IV SCH ×3 (17:13)
--- NOTE | 2022-08-31 18:55 | P.PN ---
Subjective Date of Service: 08/31/22 Chief Complaint: WEAK, BEDBOUND Subjective: No new changes HE IS STILL NOT EATING. HE HAS FACE LIKE MASK. HE HAS LOT OF SECRETIONS THAT ARE THICK HE IS NOT ABLE TO SWALLOW. Review of Systems 10-point ROS is otherwise unremarkable General: Weakness, Malaise Physical Examination - Vital Signs Temperature: 97.7 F Blood Pressure: 152/71 Pulse: 65 Respirations: 18 Pulse Ox (%): 98 - Physical Exam General: Oriented x2, Cachectic, Mild distress, Moderate distress HEENT: Atraumatic, PERRLA, EOMI Neck: Supple, JVD not distended Respiratory: Clear to auscultation bilaterally, Normal air movement Cardiovascular: Regular rate/rhythm, Normal S1 S2 Gastrointestinal: Normal bowel sounds, No tenderness Musculoskeletal: No tenderness Integumentary: No rashes Neurological: Other (WEAK, CACHECTIC, NOT ABLE TO SWALLOW MUCH. THICK SALIVA COLLECTS IN THE BACK OF RHTOAT AND HAS TO REGURGITATE OUT.) Lymphatics: No axilla or inguinal lymphadenopathy - Studies Medications List Reviewed: Yes Assessment And Plan - Current Problems (Diagnosis) (1) End stage liver disease Current Visit: Yes Status: Chronic Plan: PATIENTS WITH CIRRHOSIS AND COMPLICATIONS LIKE ASCITES, VARICEAL BLEEDING AND WEIGHT LOSS WITH ANOREXIA USUALLY DON'T LIVE LONGER THAN A YEAR. FAMILY DID NOT WANT HOSPICE SO I ORDERED LTAC WITH PICC LINE AND PPN. FAMILY DOES NOT WANT LTAC ALSO. I WILL GIVE OVER THE WEEKEND TO DECIDE WHAT THEY WANT. PROGNOSIS IS POOR IN MY OPINION. MELD SCORE IS MISLEADING IN SOMEONE WITH POOR GENERAL CONDITION LIKE HIS. HE IS NOT RECOVERING MUCH WE LIKE FOR IT TO HAPPEN. HE IS ON PPN NOW THAT HE IS NOT EATING. SON ASKED ABOUT SANDOSTATIN AND PROTONIX THAT WERE TAPERED BY DR. LFORES. HE ASKED IF PPN WILL TAKE HIS APPETITE AWAY. I EXPLAINED THAT PPN WILL HELP THE ORGANS RECOVER AT CELLULAR LEVEL SO NORMAL FUNCTIONING MAY HOPEFULLY RETURN. (2) Hepatorenal failure Current Visit: Yes Status: Acute (3) Alcoholic cirrhosis of liver with ascites Current Visit: No Status: Chronic Plan: HIS FLUID IS BUILDING UP AGAIN IN ABDOMEN. I ALSO TOOK OPINION OF DR. FLORES ABOUT HIS LIFE-SPAN. HE SUGGESTED THAT WITH TWO MAJOR COMPLICATIONS OF CIRRHOSIS, THAT IS ASCITES AND HEMATEMESIS HE HAS ONLY 50% CHANCE OF MAKING THROUGH A YEAR. HOSPICE WILL BE GOOD IN THIS CONDITION. FAMILY HAS NOT AGREED TO IT YET. HIS PPN HAS STARTED. IDEALLY HE SHOULD BE IN LTAC HE MAY TAKE MORE THAN A COUPLE OF WEEKS TO RECOVER IF HE DOES RECOVER. I TALKED TO SON SHAHAB TODAY AND THEY WILL THINK ABOUT LTAC AFTER A FEW DAYS HERE. HE IS NOT SHOWING ANY SIGNS OF ALCOHOL DT YET. I AM NOT SURE IF WE CAN HAVE INDWELLING CATHETER IN HE HAS RECURRENT ASCITES TO A GOOD EXTENT ALREADY IN A WEEK I EXPECTED. (4) Dysphagia Current Visit: Yes Status: Chronic Plan: FROM DEBILTIY I SUSPECT NEUROLOGICAL ISSUES ALSO. I CONSULTED DR. ACUÑA. WILL ORDER SPEECH THERAPY. THIS ALL HAPPENED SINCE CURRENT ILLNESS THAT IS CONSEQUENCE OF HEAVY ALCOHOL RELATED CIRRHOSIS. FAMILY IS NOT DECIDING ON LTAC HE NEEDS TO GO TO LTAC I STILL SEE VERY POOR PROGNOSIS. FAMILY IS IN DENIAL. HE CAN'T HAVE G TUBE BEC OF SEVERE ASCITES.
[2022-08-31] MEDS: CARBIDOPA/LEVODOPA 25/100 TAB PO SCH (20:56)
[2022-08-31] MEDS: MIRTAZAPINE 15 MG TAB PO SCH (20:56)
--- NOTE | 2022-08-31 22:42 | P.PN ---
Subjective Date of Service: 08/31/22 Chief Complaint: Hematemesis, ESLD/cirrhosis from prior EtOH use, Subjective: New changes (No further hematemesis s/p EGD with esophageal varices banding. Decreased appetite with increased abdominal girth.) Review of Systems 10-point ROS is otherwise unremarkable General: Weakness, Malaise Gastrointestinal: Distention Neurological: Weakness Physical Examination - Vital Signs Temperature: 97.9 F Blood Pressure: 143/66 Pulse: 66 Respirations: 16 Pulse Ox (%): 98 - Physical Exam General: Alert, Oriented x3, Cooperative, Mild distress HEENT: Atraumatic, Normocephalic, PERRLA Respiratory: Diminished Cardiovascular: Normal pulses Gastrointestinal: Distended - Studies Medications List Reviewed: Yes Assessment And Plan - Current Problems (Diagnosis) (1) Hematemesis Current Visit: Yes Status: Acute (2) Esophageal varices Current Visit: Yes Status: Acute (3) Hepatorenal failure Current Visit: Yes Status: Acute (4) Angina pectoris Current Visit: No Status: Acute (5) Alcoholic cirrhosis of liver with ascites Current Visit: No Status: Chronic (6) Renal insufficiency Current Visit: No Status: Chronic - Plan REC:1) Dobhoff tube & start TFs 2) Discontinue TPN (probably adding to ascites) 3) U/S guided paracentesis with studies
[2022-09-01] MEDS: dexAMETHasone 4 MG/ML VIAL IV SCH ×4 (00:01→17:14)
[2022-09-01 04:44] LABS: Absolute Lymphocytes (CBC) 0.3 K/uL (0.7-4.9); Hematocrit 24.3 % (39.6-49.0); Lymphocytes % 3.3 % (15.3-44.8); MCV 97.7 fL (80-100); MPV 8.6 fL (7.6-11.3); RBC Red Blood Cell Count 2.49 M/uL (4.33-5.43)
[2022-09-01 05:05] LABS: Albumin 1.6 g/dL (3.4-5.0); Bilirubin Direct 0.2 mg/dL (0-0.2); Bilirubin Indirect, Calculated 0.4 mg/dL (0.2-0.8); Bilirubin Total 0.6 mg/dL (0.2-1.0); Potassium 4.5 mEq/L (3.5-5.1); Protein, Total 5.6 g/dL (6.4-8.2)
[2022-09-01] MEDS: carvediloL 3.125 MG TAB PO SCH ×2 (05:17→17:13)
[2022-09-01 05:36] LABS: Blood Morphology Comment NOT SEEN (NOT SEEN); Platelet Estimate DECR
--- NOTE | 2022-09-01 08:21 | CON ---
Reason For Consultation: Consultation called because of possible parkinsonism. History Of Present Illness: Mr. 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 After he became seizure-free, he was not seen in clinic around 7 years. Anyway, in this admission he is now because of progressive weakness, nonambulatory, and not eating and chronic alcohol use. The patient was admitted to [facility] on 08/24/2022 with failure to thrive, cirrhosis of the liver, alcohol use, and ascites. He is nonambulatory. It is not clear how long, 7 weeks now, he has diffuse weakness and he is not following instructions to stop dr inking alcohol. The patient is noted to be diffusely weak and has mask-like face with inability to a mbulate and dysphagia. Past Medical History: He has gout, hypertension, dyslipidemia, cirrhosis, multiple cardiac stents, s troke 2014 and localization-related seizures uncontrolled. Past Surgical History: Coronary artery bypass grafting 2016, cholecystectomy. Family History: Heart disease in father, he is . Mother diabetes and cancer, also . Allergies: AMOXICILLIN AND MORPHINE. Home Medications: Zofran, Ultram, and Ceftin. Social History: Reportedly, he drinks alcohol heavily. No IV drugs. Review of Systems: The patient is lying in bed without much spontaneous speech, but does answer questions. He denies an y fevers, chills. Just reports weakness, some abdominal pain and distention, some pain in his ankles and has gout from pain in his feet and swelling. Otherwise, no problems with swallowing and some is sues with stool and urine. No other positives on the systems review. Physical Examination: Vital Signs: Blood pressure 140 to 165 over 70 to 76, temperature 97.6, oxygen saturation is 94%, pu lse 66, respiratory rate 16. General: Mr. Mckeon was resting in bed. He does have very little expression and does make poor eye contact. HEENT: He is otherwise normocephalic, atraumatic. Sclerae anicteric. Oropharynx is moist. Abdomen: Somewhat distended. Extremities: Show no significant edema or cyanosis. Neurologic: He is somewhat he does answer appropriately and follows instructions to move arms and legs without significant difficulty. In terms of cranial nerves, no focal deficits. Motor examination, diffuse weakness of lower extremities. Sensory exam, stocking-glove loss to light touch and temperature. Reflexes depressed. Coordination, mild incoordination in upper and lower extremit ies. Gait, the patient has been nonambulatory . Laboratory Studies: White blood cell count 10.0, hemoglobin 8.7, platelets 171. INR 1.3. Sodium 14 0, potassium 4.4, carbon dioxide 20, BUN 53, creatinine 1.24, calcium 7.2, AST 25, ALT 16, alkaline p hosphatase 65, direct bilirubin 0.2, indirect 0.3, total bilirubin 0.5, total serum protein 5.6, albu min 5.1, albumin to globulin ratio 0.4. Chest x-ray report is pending. Stomach biopsy shows chronic active gastritis, Helicobacter related, Helicobacter organism identified specimen stain. No intestinal metaplasia or dysplasia identified. Assessment: Mr. Mckeon is a 72-year-old patient with multiple medical problems as above. He does ramirez ve apparently heavy alcohol abuse with cirrhosis of the liver, stroke with localization-related seizu res that are uncontrolled, gout. He does have gastroesophageal reflux, hypertension. His examinatio n is suggestive of parkinsonism. He does not have cogwheeling or ratcheting. He does have some slow speech in terms of labial, lingual and guttural sounds and a mask-like face. Plan: 1.We will try Sinemet 25/100 twice daily and will have the patient ambulate with physical therapy to determine his improvement. barium swallow to fully assess his aspiration risk. Also, hi s comorbid issues are managed by Dr. Chavarria, his primary care physician. 2.After discharge, he may have DaTscan to rule out Parkinson disease and that may be done in [facility] facilitate. He may follow up in Dr. Hadley's office once discharged from hospital within a month. JUSTINE/EARL Voice ID: [id number] Report ID: [id number]
[2022-09-01] MEDS: PANTOPRAZOLE 40MG TABLET PO SCH (08:46)
[2022-09-01] MEDS: LACTULOSE 20 GM/30 ML UCUP PO SCH ×2 (08:46→08:54)
--- NOTE | 2022-09-01 08:46 | RAD REPORT ---
EXAM DESCRIPTION: RAD - Chest Single View - 08/28/2022 2:11 am CLINICAL HISTORY: 72 years, Male, PICC placement COMPARISON: None. FINDINGS: Single view of the chest was obtained portable. No prior films are available for compariso n. Sternotomy wires and pericardiac clips correspond to previous CABG. The lung volume is decreased. There has been interval placement of a right upper extremity PICC line tip of the catheter within the cavoatrial junction/right atrium in good position. The heart is not enlarged. The thoracic aorta is unremarkable. The pulmonary vasculature is normal distribution. Costophrenic angles are sharp. No a reas of consolidation or masses are seen. The rest of the soft tissue and bony structures demonstra te to be unremarkable. IMPRESSION: Decreased lung volume. Right upper extremity PICC line in good position. Status post CABG. Electronically signed by: Jeffrey Almanzar MD 08/28/2022 2:27 AM CDT Due to temporary technical issues with the PACS/Fluency reporting system, reports are being signed by the in house radiologist without review as a courtesy to ensure prompt reporting. The interpreting r adiologist is fully responsible for the content of the report.
[2022-09-01] MEDS: Mupirocin NASAL 2 APPL/1 GM TUBE NAS SCH (08:47)
[2022-09-01] MEDS: COLCHICINE 0.6 MG TAB PO SCH ×2 (08:47→20:53)
[2022-09-01] MEDS: CARBIDOPA/LEVODOPA 25/100 TAB PO SCH ×2 (08:47→20:55)
--- NOTE | 2022-09-01 13:22 | RAD REPORT ---
EXAM DESCRIPTION: MRI - Brain Wo Cont - 09/01/2022 1:15 pm CLINICAL HISTORY: dysphagia Headache, drowsiness COMPARISON: MRI BRAIN W WO CONTRAST dated 01/24/2015 TECHNIQUE: Multi-sequence, multiplanar MR imaging of the brain was performed without contrast. FINDINGS: No intracranial hemorrhage, hydrocephalus or extra-axial fluid collections.There is a larg e area of gliosis left frontal region compatible with old infarction. No edema or shift of midline st ructures. No findings to suspect brain mass. DWI is negative for acute CVA. Midline structures are normally formed. Mastoid air cells and paranasal sinuses are clear. IMPRESSION: No acute or aggressive abnormality is identified. Large area of old infarction left frontal lobe.
[2022-09-01] MEDS: AA 4.25 %/D5W/ELECTROLYTES 2,000 ML IV SCH (17:14)
[2022-09-01] MEDS: MIRTAZAPINE 15 MG TAB PO SCH (20:53)
--- NOTE | 2022-09-01 21:01 | P.PN ---
Subjective Date of Service: 09/01/22 Chief Complaint: Hematemesis, ESLD/cirrhosis from prior EtOH use, Subjective: No new changes HE IS STILL NOT EATING. HE HAS FACE LIKE MASK. HE HAS LOT OF SECRETIONS THAT ARE THICK HE IS NOT ABLE TO SWALLOW. HE IS STILL SAME. WEAK, NOT ABLE TO TALK MUCH, WHISPERS. NOT EATING MUCH. Review of Systems 10-point ROS is otherwise unremarkable General: Weakness, Malaise Physical Examination - Vital Signs Temperature: 97.6 F Blood Pressure: 140/70 Pulse: 65 Respirations: 16 Pulse Ox (%): 99 - Physical Exam General: Oriented x2, Cachectic, Mild distress HEENT: Atraumatic, PERRLA, EOMI Neck: Supple, JVD not distended Respiratory: Clear to auscultation bilaterally, Normal air movement Cardiovascular: Regular rate/rhythm, Normal S1 S2 Gastrointestinal: Normal bowel sounds, No tenderness, Ascites (SEVERE AGAIN) Musculoskeletal: No tenderness Integumentary: No rashes Neurological: Normal speech, Normal tone, Normal affect Lymphatics: No axilla or inguinal lymphadenopathy - Studies Medications List Reviewed: Yes Assessment And Plan - Current Problems (Diagnosis) (1) End stage liver disease Current Visit: Yes Status: Chronic Plan: I TALKED TO SON AGAIN TODAY. I TOLD HIM THAT IF DOES NOT GO ON HOSPICE HE SHOULD BE IN LTAC. HE AGREES. HE KNOWS THAT IF HE RECOVERS IT WILL TAKE HIM WEEKS TO DO SO. HE WILL NEED LTAC FOR LONGER DURATION OF CARE. HE UNDERSTANDS THAT ACUTE CARE FACITLITY NEEDS TO DO DISCHARGE PLANNING FOR ONE WHO HAS CHRONIC ILLNESS LIKE HIS DAD. (2) Hepatorenal failure Current Visit: Yes Status: Acute (3) Alcoholic cirrhosis of liver with ascites Current Visit: No Status: Chronic Plan: HIS FLUID IS BUILDING UP AGAIN IN ABDOMEN. I ALSO TOOK OPINION OF DR. FLORES ABOUT HIS LIFE-SPAN. HE SUGGESTED THAT WITH TWO MAJOR COMPLICATIONS OF CIRRHOSIS, THAT IS ASCITES AND HEMATEMESIS HE HAS ONLY 50% CHANCE OF MAKING THROUGH A YEAR. HOSPICE WILL BE GOOD IN THIS CONDITION. FAMILY HAS NOT AGREED TO IT YET. HIS PPN HAS STARTED. IDEALLY HE SHOULD BE IN LTAC HE MAY TAKE MORE THAN A COUPLE OF WEEKS TO RECOVER IF HE DOES RECOVER. I TALKED TO SON SHAHAB TODAY AND THEY WILL THINK ABOUT LTAC AFTER A FEW DAYS HERE. HE IS NOT SHOWING ANY SIGNS OF ALCOHOL DT YET. I AM NOT SURE IF WE CAN HAVE INDWELLING CATHETER IN HE HAS RECURRENT ASCITES TO A GOOD EXTENT ALREADY IN A WEEK I EXPECTED. HE NEEDS TAP AGAIN. DR. FLORES IS AGAINST PIGTAIL CATHETER. WILL DO REGULAR TAP. (4) Dysphagia Current Visit: Yes Status: Chronic Plan: FROM DEBILTIY I SUSPECT NEUROLOGICAL ISSUES ALSO. I CONSULTED DR. ACUÑA. WILL ORDER SPEECH THERAPY. THIS ALL HAPPENED SINCE CURRENT ILLNESS THAT IS CONSEQUENCE OF HEAVY ALCOHOL RELATED CIRRHOSIS. FAMILY IS NOT DECIDING ON LTAC HE NEEDS TO GO TO LTAC I STILL SEE VERY POOR PROGNOSIS. FAMILY IS IN DENIAL. HE CAN'T HAVE G TUBE BEC OF SEVERE ASCITES. 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 NO EFFECT ON CURRENT FINDINGS.
[2022-09-01 23:48] VITALS: BMI 23.3
[2022-09-02] MEDS: dexAMETHasone 4 MG/ML VIAL IV SCH ×5 (00:15→23:19)
[2022-09-02] MEDS: carvediloL 3.125 MG TAB PO SCH ×2 (05:46→17:57)
[2022-09-02 06:07] LABS: Absolute Lymphocytes (CBC) 0.2 K/uL (0.7-4.9); Lymphocytes % 2.4 % (15.3-44.8); MCV 97.7 fL (80-100); RBC Red Blood Cell Count 2.26 M/uL (4.33-5.43)
[2022-09-02 06:20] LABS: Potassium 4.4 mEq/L (3.5-5.1)
[2022-09-02 06:51] LABS: Protime INR 1.15
[2022-09-02] MEDS: PANTOPRAZOLE 40MG TABLET PO SCH (07:30)
[2022-09-02] MEDS: LACTULOSE 20 GM/30 ML UCUP PO SCH (09:00)
[2022-09-02] MEDS: SPIRONOLACTONE 25 MG TABLET PO SCH (09:00)
[2022-09-02] MEDS: COLCHICINE 0.6 MG TAB PO SCH ×2 (09:00→20:25)
[2022-09-02] MEDS: CARBIDOPA/LEVODOPA 25/100 TAB PO SCH ×2 (09:00→20:25)
--- NOTE | 2022-09-02 11:33 | RAD REPORT ---
EXAM DESCRIPTION: US - Paracentesis Proc Guidance - 09/02/2022 10:56 am CLINICAL HISTORY: acites Ascites COMPARISON: Paracentesis Proc Guidance dated 08/25/2022 FINDINGS: Informed consent was obtained and time-out was performed. Patient's abdomen was prepped and draped in the usual sterile fashion. 1% lidocaine was used for loca l anesthetic purposes. A small skin incision was made right lower quadrant. A paracentesis catheter was guided into the [place] cavity under sonographic guidance. A small amount of fluid was sent for requested lab studies. A large volume paracentesis was performed . The patient tolerated the procedure well. Patient was administered IV albumin per protocol following the procedure. IMPRESSION: Successful ultrasound-guided paracentesis.
[2022-09-02] MEDS ORDERED: NA CHLORIDE 0.9% 250 ML ONE ×2 (14:14→21:07)
[2022-09-02 16:56] LABS: Appearance SLT. TURBID (CLEAR); Body Fluid Source PERITONEAL; Body Fluid WBC 24 /mm^3; Color of fluid Yellow (COLORLESS)
[2022-09-02] MEDS: AA 4.25 %/D5W/ELECTROLYTES 2,000 ML, Lipids 20% 250 ML with MULTIVITAMINS INJ 10 ML IV SCH ×3 (17:56)
--- NOTE | 2022-09-02 18:11 | P.PN ---
Subjective Date of Service: 09/02/22 Chief Complaint: Hematemesis, ESLD/cirrhosis from prior EtOH use, Subjective: No new changes HE IS STILL NOT EATING. HE HAS FACE LIKE MASK. HE HAS LOT OF SECRETIONS THAT ARE THICK HE IS NOT ABLE TO SWALLOW. HE IS STILL SAME. WEAK, NOT ABLE TO TALK MUCH, WHISPERS. NOT EATING MUCH. HE IS ABOUT THE SAME. HE REFUSES TO WEAR THE SCDS. HIS GOUT PAIN HAS IMPROVED. HE IS STILL NOT EATING WELL. Review of Systems 10-point ROS is otherwise unremarkable General: Weakness Physical Examination - Vital Signs Temperature: 98.1 F Blood Pressure: 140/65 Pulse: 62 Respirations: 12 Pulse Ox (%): 97 - Physical Exam General: Alert, Oriented x2, Cachectic HEENT: Atraumatic, PERRLA, EOMI Neck: Supple, JVD not distended Respiratory: Clear to auscultation bilaterally, Normal air movement Cardiovascular: Regular rate/rhythm, Normal S1 S2 Gastrointestinal: Normal bowel sounds, No tenderness Musculoskeletal: No tenderness Integumentary: No rashes Neurological: Normal speech, Normal tone, Normal affect Lymphatics: No axilla or inguinal lymphadenopathy - Studies Medications List Reviewed: Yes Assessment And Plan - Current Problems (Diagnosis) (1) End stage liver disease Current Visit: Yes Status: Chronic Plan: I TALKED TO SON AGAIN TODAY. I TOLD HIM THAT IF DOES NOT GO ON HOSPICE HE SHOULD BE IN LTAC. HE AGREES. HE KNOWS THAT IF HE RECOVERS IT WILL TAKE HIM WEEKS TO DO SO. HE WILL NEED LTAC FOR LONGER DURATION OF CARE. HE UNDERSTANDS THAT ACUTE CARE FACITLITY NEEDS TO DO DISCHARGE PLANNING FOR ONE WHO HAS CHRONIC ILLNESS LIKE HIS DAD. FAMILY IS STILL NOT DECIDING ABOUT LTAC. HE IS STABLE TO GO AND CARRIES POOR PROGNOSIS. (2) Hepatorenal failure Current Visit: Yes Status: Acute (3) Alcoholic cirrhosis of liver with ascites Current Visit: No Status: Chronic Plan: HIS FLUID IS BUILDING UP AGAIN IN ABDOMEN. I ALSO TOOK OPINION OF DR. FLORES ABOUT HIS LIFE-SPAN. HE SUGGESTED THAT WITH TWO MAJOR COMPLICATIONS OF CIRRHOSIS, THAT IS ASCITES AND HEMATEMESIS HE HAS ONLY 50% CHANCE OF MAKING THROUGH A YEAR. HOSPICE WILL BE GOOD IN THIS CONDITION. FAMILY HAS NOT AGREED TO IT YET. HIS PPN HAS STARTED. IDEALLY HE SHOULD BE IN LTAC HE MAY TAKE MORE THAN A COUPLE OF WEEKS TO RECOVER IF HE DOES RECOVER. I TALKED TO SON SHAHAB TODAY AND THEY WILL THINK ABOUT LTAC AFTER A FEW DAYS HERE. HE IS NOT SHOWING ANY SIGNS OF ALCOHOL DT YET. I AM NOT SURE IF WE CAN HAVE INDWELLING CATHETER IN HE HAS RECURRENT ASCITES TO A GOOD EXTENT ALREADY IN A WEEK I EXPECTED. HE NEEDS TAP AGAIN. DR. FLORES IS AGAINST PIGTAIL CATHETER. WILL DO REGULAR TAP. (4) Dysphagia Current Visit: Yes Status: Chronic Plan: FROM DEBILTIY I SUSPECT NEUROLOGICAL ISSUES ALSO. I CONSULTED DR. ACUÑA. WILL ORDER SPEECH THERAPY. THIS ALL HAPPENED SINCE CURRENT ILLNESS THAT IS CONSEQUENCE OF HEAVY ALCOHOL RELATED CIRRHOSIS. FAMILY IS NOT DECIDING ON LTAC HE NEEDS TO GO TO LTAC I STILL SEE VERY POOR PROGNOSIS. FAMILY IS IN DENIAL. HE CAN'T HAVE G TUBE BEC OF SEVERE ASCITES. 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 NO EFFECT ON CURRENT FINDINGS.
[2022-09-02] MEDS: MIRTAZAPINE 15 MG TAB PO SCH (20:25)
[2022-09-03 05:11] LABS: Absolute Lymphocytes (CBC) 0.1 K/uL (0.7-4.9); Hematocrit 32.6 % (39.6-49.0); Lymphocytes % 2.4 % (15.3-44.8); MCV 86.4 fL (80-100); MPV 8.8 fL (7.6-11.3); RBC Red Blood Cell Count 3.77 M/uL (4.33-5.43)
[2022-09-03 05:30] LABS: Albumin 1.6 g/dL (3.4-5.0); Bilirubin Direct 0.3 mg/dL (0-0.2); Bilirubin Total 1.3 mg/dL (0.2-1.0); Protein, Total 5.3 g/dL (6.4-8.2)
[2022-09-03 05:31] LABS: Potassium 4.2 mEq/L (3.5-5.1)
[2022-09-03] MEDS: carvediloL 3.125 MG TAB PO SCH ×2 (06:00→17:08)
[2022-09-03] MEDS: dexAMETHasone 4 MG/ML VIAL IV SCH ×3 (06:09→17:08)
[2022-09-03] MEDS: SPIRONOLACTONE 25 MG TABLET PO SCH (08:57)
[2022-09-03] MEDS: CARBIDOPA/LEVODOPA 25/100 TAB PO SCH ×2 (08:57→20:03)
[2022-09-03] MEDS: COLCHICINE 0.6 MG TAB PO SCH ×2 (08:57→20:03)
[2022-09-03] MEDS: LACTULOSE 20 GM/30 ML UCUP PO SCH ×2 (08:58→09:00)
[2022-09-03] MEDS: PANTOPRAZOLE 40MG TABLET PO SCH (09:00)
--- NOTE | 2022-09-03 09:39 | P.PN ---
Subjective Date of Service: 09/01/22 Chief Complaint: Hematemesis, ESLD/cirrhosis from prior EtOH use, Subjective: No new changes (No GIB / hematemesis. On TPN.) Review of Systems 10-point ROS is otherwise unremarkable General: Weakness, Malaise Gastrointestinal: Distention Neurological: Other (Somnolent. Family says he is awake at night) Physical Examination - Vital Signs Temperature: 97.1 F Blood Pressure: 141/68 Pulse: 52 Respirations: 16 Pulse Ox (%): 99 - Physical Exam General: Other (Somnolent) HEENT: Atraumatic, Normocephalic Neck: Supple Respiratory: Normal air movement Cardiovascular: Normal pulses Gastrointestinal: Distended Neurological: Other (Somnolent ) - Studies Medications List Reviewed: Yes Assessment And Plan - Current Problems (Diagnosis) (1) Hematemesis Current Visit: Yes Status: Acute Comment: Resolved. S/p EGD with esophageal varices banding. Octreotide weaned off. (2) Esophageal varices Current Visit: Yes Status: Acute (3) Hepatorenal failure Current Visit: Yes Status: Acute (4) Angina pectoris Current Visit: No Status: Acute (5) Alcoholic cirrhosis of liver with ascites Current Visit: No Status: Chronic (6) Renal insufficiency Current Visit: No Status: Chronic - Plan REC:1) U/S guided paracentesis with studies today 2) d/c TPN 3) appetite stimulant -> Remeron by PCP
--- NOTE | 2022-09-03 09:44 | P.PN ---
Subjective Date of Service: 09/02/22 Chief Complaint: Hematemesis, ESLD/cirrhosis from prior EtOH use, Subjective: New changes (No DHT due to risk with recent esophageal varices bandings. Remeron started as appetite stimulant. Somnolent during the day and awake at night as per family. Still on TPN.) Review of Systems 10-point ROS is otherwise unremarkable General: Weakness, Malaise Neurological: Other (Somnolent) Physical Examination - Vital Signs Temperature: 97.1 F Blood Pressure: 141/68 Pulse: 52 Respirations: 16 Pulse Ox (%): 99 - Physical Exam General: Other (Somnolent) HEENT: Atraumatic, Normocephalic Neck: Supple Respiratory: Normal air movement Gastrointestinal: Soft and benign (Improved after paracentesis) Neurological: Other (Somnolent) - Studies Medications List Reviewed: Yes Assessment And Plan - Current Problems (Diagnosis) (1) Hematemesis Current Visit: Yes Status: Acute Comment: Resolved. S/p EGD with esophageal varices banding. Octreotide weaned off. (2) Esophageal varices Current Visit: Yes Status: Acute (3) Hepatorenal failure Current Visit: Yes Status: Acute (4) Angina pectoris Current Visit: No Status: Acute (5) Alcoholic cirrhosis of liver with ascites Current Visit: No Status: Chronic (6) Renal insufficiency Current Visit: No Status: Chronic - Plan REC:1) advance diet 2) d/c TPN 3) appetite stimulant -> Remeron by PCP
--- NOTE | 2022-09-03 09:50 | P.PN ---
Subjective Date of Service: 09/03/22 Chief Complaint: Hematemesis, ESLD/cirrhosis from prior EtOH use, Subjective: New changes (Distention / ascites returning on TPN. On Aldactone 50 mg po qd with Cr 1.16 and K 4.2. Diet at CLs. Somnolent, family states awake at night. Remeron started 2 days ago qhs - mainly to help appetite.) Review of Systems 10-point ROS is otherwise unremarkable General: Weakness, Malaise Gastrointestinal: Distention Neurological: Other (Somnolent) Physical Examination - Vital Signs Temperature: 97.1 F Blood Pressure: 141/68 Pulse: 52 Respirations: 16 Pulse Ox (%): 99 - Physical Exam General: Other (Somnolent ) HEENT: Atraumatic, Normocephalic Neck: Supple Respiratory: Normal air movement Cardiovascular: Normal pulses Gastrointestinal: Distended (no tender ) Neurological: Other (Somnolent) - Studies Medications List Reviewed: Yes Assessment And Plan - Current Problems (Diagnosis) (1) Hematemesis Current Visit: Yes Status: Acute Comment: Resolved. S/p EGD with esophageal varices banding. Octreotide weaned off. (2) Esophageal varices Current Visit: Yes Status: Acute (3) Hepatorenal failure Current Visit: Yes Status: Acute (4) Angina pectoris Current Visit: No Status: Acute (5) Alcoholic cirrhosis of liver with ascites Current Visit: No Status: Chronic (6) Renal insufficiency Current Visit: No Status: Chronic - Plan REC:1) advance diet to Low Sodium 2) d/c TPN 3) appetite stimulant -> Remeron by PCP 4) continue Aldactone 5) add Lasix 20 mg 6) add Xifaxan bid 7) check Pre-albumin
[2022-09-03] MEDS: AA 4.25 %/D5W/ELECTROLYTES 2,000 ML IV SCH (17:09)
[2022-09-03] MEDS: MIRTAZAPINE 15 MG TAB PO SCH (20:04)
--- NOTE | 2022-09-03 21:55 | P.PN ---
Subjective Date of Service: 09/03/22 Chief Complaint: Hematemesis, ESLD/cirrhosis from prior EtOH use, Subjective: No C/O voiced HE IS STILL NOT EATING. HE HAS FACE LIKE MASK. HE HAS LOT OF SECRETIONS THAT ARE THICK HE IS NOT ABLE TO SWALLOW. HE IS STILL SAME. WEAK, NOT ABLE TO TALK MUCH, WHISPERS. NOT EATING MUCH. HE IS ABOUT THE SAME. HE REFUSES TO WEAR THE SCDS. HIS GOUT PAIN HAS IMPROVED. HE IS STILL NOT EATING WELL. HE IS THE SAME. HE DOES NOT COMPLAIN OF PAIN NOW. HE REFUSES TO WEAR SCDS TO PREVENT CLOTS. Review of Systems 10-point ROS is otherwise unremarkable General: Weakness, Malaise Physical Examination - Vital Signs Temperature: 98.1 F Blood Pressure: 144/62 Pulse: 61 Respirations: 16 Pulse Ox (%): 97 - Physical Exam General: Oriented x1, Cachectic, Mild distress, Confused HEENT: Atraumatic, PERRLA, EOMI Neck: Supple, JVD not distended Respiratory: Clear to auscultation bilaterally, Normal air movement Cardiovascular: Regular rate/rhythm, Normal S1 S2 Gastrointestinal: Normal bowel sounds, No tenderness, Ascites (LOT SOFTER ABDOMEN AFTER TAP NOW.) Musculoskeletal: No tenderness Integumentary: No rashes Neurological: Normal affect, Abnormal speech (FEEBLE), Abnormal strength (GEN WEAK, NOT ABLE TO WALK.), Abnormal tone Lymphatics: No axilla or inguinal lymphadenopathy - Studies Medications List Reviewed: Yes Assessment And Plan - Current Problems (Diagnosis) (1) End stage liver disease Current Visit: Yes Status: Chronic Plan: I CALLED SON TODAY- NO REPLY- VOICEBOX IS FULL I TALKED TO TODAY AND EXPLAINED THAT THEY NEED TO PICK LTAC FOR HIM IF NOT HOSPICE. I STILL THINK HE IS HOSPICE CANDIDATE AND HAS LIMITED LIFE LESS THAN A YEAR THE MOST. HE AT ONE POINT WAS AGREEABLE TO HOSPICE BUT FAMILY DECIDED AGAINST. (2) Hepatorenal failure Current Visit: Yes Status: Acute (3) Alcoholic cirrhosis of liver with ascites Current Visit: No Status: Chronic Plan: HIS FLUID IS BUILDING UP AGAIN IN ABDOMEN. I ALSO TOOK OPINION OF DR. FLORES ABOUT HIS LIFE-SPAN. HE SUGGESTED THAT WITH TWO MAJOR COMPLICATIONS OF CIRRHOSIS, THAT IS ASCITES AND HEMATEMESIS HE HAS ONLY 50% CHANCE OF MAKING THROUGH A YEAR. HOSPICE WILL BE GOOD IN THIS CONDITION. FAMILY HAS NOT AGREED TO IT YET. HIS PPN HAS STARTED. IDEALLY HE S HOULD BE IN LTAC HE MAY TAKE MORE THAN A COUPLE OF WEEKS TO RECOVER IF HE DOES RECOVER. I TALKED TO SON SHAHAB TODAY AND THEY WILL THINK ABOUT LTAC AFTER A FEW DAYS HERE. HE IS NOT SHOWING ANY SIGNS OF ALCOHOL DT YET. I AM NOT SURE IF WE CAN HAVE INDWELLING CATHETER IN HE HAS RECURRENT ASCITES TO A GOOD EXTENT ALREADY IN A WEEK I EXPECTED. HE NEEDS TAP AGAIN. DR. FLORES IS AGAINST PIGTAIL CATHETER. WILL DO REGULAR TAP. RAISE SPIRNOLACTONE STOP LASIX IV. (4) Dysphagia Current Visit: Yes Status: Chronic Plan: FROM DEBILTIY I SUSPECT NEUROLOGICAL ISSUES ALSO. I CONSULTED DR. ACUÑA. WILL ORDER SPEECH THERAPY. THIS ALL HAPPENED SINCE CURRENT ILLNESS THAT IS CONSEQUENCE OF HEAVY ALCOHOL RELATED CIRRHOSIS. FAMILY IS NOT DECIDING ON LTAC HE NEEDS TO GO TO LTAC I STILL SEE VERY POOR PROGNOSIS. FAMILY IS IN DENIAL. HE CAN'T HAVE G TUBE BEC OF SEVERE ASCITES. 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 NO EFFECT ON CURRENT FINDINGS. (6) Anemia Current Visit: Yes Status: Acute Plan: FROM VARICEAL BLEEDING. TRANSFUSE TWO UNITS OF PACKED RBCS.
[2022-09-04] MEDS: carvediloL 3.125 MG TAB PO SCH ×2 (04:59→17:33)
[2022-09-04 05:30] LABS: Absolute Lymphocytes (CBC) 0.1 K/uL (0.7-4.9); Hematocrit 36.7 % (39.6-49.0); Lymphocytes % 0.8 % (15.3-44.8); MCV 86.8 fL (80-100); MPV 8.5 fL (7.6-11.3); RBC Red Blood Cell Count 4.23 M/uL (4.33-5.43)
[2022-09-04 05:45] LABS: Potassium 4.5 mEq/L (3.5-5.1); Prealbumin 10.6 mg/dL (20-40)
[2022-09-04] MEDS: PANTOPRAZOLE 40MG TABLET PO SCH (07:30)
[2022-09-04] MEDS ORDERED: FUROSEMIDE 20 MG/ 2ML VIAL IV SCH (09:00)
[2022-09-04] MEDS: LACTULOSE 20 GM/30 ML UCUP PO SCH (09:00)
[2022-09-04] MEDS: CARBIDOPA/LEVODOPA 25/100 TAB PO SCH ×2 (09:00→20:40)
[2022-09-04] MEDS: COLCHICINE 0.6 MG TAB PO SCH ×2 (09:00→20:40)
[2022-09-04] MEDS ORDERED: SPIRONOLACTONE 25 MG TABLET PO SCH (09:00)
--- NOTE | 2022-09-04 11:12 | P.PN ---
Subjective Date of Service: 09/04/22 Chief Complaint: Hematemesis, ESLD/cirrhosis from prior EtOH use, Subjective: New changes (Ate minimal food yesterday. Reports abdominal pain to son. WBC up from 5.5 to 10.6 with polys 92.5% overnight. Not on antibiotics. Abdomen distended again with ascites. Went down for paracentesis.), Other (Son agrees to stopping TPN and seeing if patient will eat over next 2 days. If not, son agrees to Dobhoff tube placement. Pre-albumin low at 10.6.) Review of Systems 10-point ROS is otherwise unremarkable General: Weakness, Malaise Gastrointestinal: Abdominal Pain Physical Examination - Vital Signs Temperature: 97.7 F Blood Pressure: 133/67 Pulse: 65 Respirations: 16 Pulse Ox (%): 96 - Studies Medications List Reviewed: Yes Assessment And Plan - Current Problems (Diagnosis) (1) Hematemesis Current Visit: Yes Status: Acute Comment: Resolved. S/p EGD with esophageal varices banding. Octreotide weaned off. (2) Esophageal varices Current Visit: Yes Status: Acute (3) Hepatorenal failure Current Visit: Yes Status: Acute (4) Angina pectoris Current Visit: No Status: Acute (5) Alcoholic cirrhosis of liver with ascites Current Visit: No Status: Chronic (6) Renal insufficiency Current Visit: No Status: Chronic (7) Abdominal pain Current Visit: Yes Status: Acute - Plan REC:1) Low Sodium 2) d/c TPN 3) appetite stimulant -> add Marinal to Remeron 4) continue Aldactone 5) continue Lasix 20 mg 6) continue Xifaxan bid 7) start Ceftriaxone 8) U/S guided paracentesis with studies (being done now) 9) consider DHT if he does not eat much. Discussed with son and approves if patient does not eat
--- NOTE | 2022-09-04 12:49 | RAD REPORT ---
EXAM DESCRIPTION: US - Paracentesis Proc Guidance - 09/04/2022 10:39 am CLINICAL HISTORY: ascites Ascites COMPARISON: Paracentesis Proc Guidance dated 09/02/2022 FINDINGS: Informed consent was obtained and time-out was performed. Patient's abdomen was prepped and draped in the usual sterile fashion. 1% lidocaine was used for loca l anesthetic purposes. Initial scanning demonstrated fluid accumulation in the left hemiabdomen. A small skin incision was m amy. A paracentesis catheter was guided into the peroneal cavity under sonographic guidance. A small amount of fluid was sent for requested lab studies. A total of 4 liters of ascitic fluid were drained. The patient tolerated the procedure well. Patient was administered IV albumin per protocol following the procedure. IMPRESSION: Successful ultrasound-guided diagnostic and therapeutic paracentesis.
[2022-09-04] MEDS: CEFTRIAXONE 2,000 MG in NA CHLORIDE 0.9% 100 ML IV SCH ×2 (13:47→20:40)
--- NOTE | 2022-09-04 14:45 | RAD REPORT ---
EXAM DESCRIPTION: RAD - Chest Pa And Lat (2 Views) - 09/04/2022 2:27 pm CLINICAL HISTORY: 2 days coughing increased WBC Chest pain. COMPARISON: 08/28/2022 TECHNIQUE: PA and lateral views of the chest were obtained. FINDINGS: The lungs are hyperexpanded compatible with COPD. The heart is upper limit of normal in si ze. No fracture or aggressive bony process. Right-sided venous catheter tip in the SVC. IMPRESSION: COPD without acute process identified.
--- NOTE | 2022-09-04 15:25 | P.PN ---
Subjective Date of Service: 09/04/22 Chief Complaint: Hematemesis, ESLD/cirrhosis from prior EtOH use, Subjective: No new changes HE IS NOT EATING GOOD YET. I TOLD HIM THAT HE MUST EAT AND DO PT SO HE CAN GO HOME. [facility] FAMILY HAS AGREED FOR LTAC TO [facility] Review of Systems 10-point ROS is otherwise unremarkable General: Weakness Physical Examination - Vital Signs Temperature: 97.7 F Blood Pressure: 132/60 Pulse: 60 Respirations: 16 Pulse Ox (%): 95 - Physical Exam General: In no apparent distress, Oriented x3, Mild distress HEENT: Atraumatic, PERRLA, EOMI Neck: Supple, JVD not distended Respiratory: Clear to auscultation bilaterally, Normal air movement Cardiovascular: Regular rate/rhythm, Normal S1 S2 Gastrointestinal: Normal bowel sounds, No tenderness Musculoskeletal: No tenderness Integumentary: No rashes Neurological: Normal speech, Normal tone, Normal affect Lymphatics: No axilla or inguinal lymphadenopathy - Studies Medications List Reviewed: Yes Assessment And Plan - Current Problems (Diagnosis) (1) End stage liver disease Current Visit: Yes Status: Chronic Plan: I CALLED SON TODAY- NO REPLY- VOICEBOX IS FULL I TALKED TO TODAY AND EXPLAINED THAT THEY NEED TO PICK LTAC FOR HIM IF NOT HOSPICE. I STILL THINK HE IS HOSPICE CANDIDATE AND HAS LIMITED LIFE LESS THAN A YEAR THE MOST. HE AT ONE POINT WAS AGREEABLE TO HOSPICE BUT FAMILY DECIDED AGAINST. (2) Hepatorenal failure Current Visit: Yes Status: Acute (3) Alcoholic cirrhosis of liver with ascites Current Visit: No Status: Chronic Plan: HIS FLUID IS BUILDING UP AGAIN IN ABDOMEN. I ALSO TOOK OPINION OF DR. FLORES ABOUT HIS LIFE-SPAN. HE SUGGESTED THAT WITH TWO MAJOR COMPLICATIONS OF CIRRHOSIS, THAT IS ASCITES AND HEMATEMESIS HE HAS ONLY 50% CHANCE OF MAKING THROUGH A YEAR. HOSPICE WILL BE GOOD IN THIS CONDITION. FAMILY HAS NOT AGREED TO IT YET. HIS PPN HAS STARTED. IDEALLY HE SHOULD BE IN LTAC HE MAY TAKE MORE THAN A COUPLE OF WEEKS TO RECOVER IF HE DOES RECOVER. I TALKED TO SON SHAHAB TODAY AND THEY WILL THINK ABOUT LTAC AFTER A FEW DAYS HERE. HE IS NOT SHOWING ANY SIGNS OF ALCOHOL DT YET. I AM NOT SURE IF WE CAN HAVE INDWELLING CATHETER IN HE HAS RECURRENT ASCITES TO A GOOD EXTENT ALREADY IN A WEEK I EXPECTED. HE NEEDS TAP AGAIN. DR. FLORES IS AGAINST PIGTAIL CATHETER. WILL DO REGULAR TAP. RAISE SPIRNOLACTONE STOP LASIX IV. TAP AGAIN TODAY. LTAC WEDNESDAY OR WEDNESDAY MAY BE POSSIBLE. POOR PROGNOSIS. (4) Dysphagia Current Visit: Yes Status: Chronic Plan: FROM DEBILTIY I SUSPECT NEUROLOGICAL ISSUES ALSO. I CONSULTED DR. ACUÑA. WILL ORDER SPEECH THERAPY. THIS ALL HAPPENED SINCE CURRENT ILLNESS THAT IS CONSEQUENCE OF HEAVY ALCOHOL RELATED CIRRHOSIS. FAMILY IS NOT DECIDING ON LTAC HE NEEDS TO GO TO LTAC I STILL SEE VERY POOR PROGNOSIS. FAMILY IS IN DENIAL. HE CAN'T HAVE G TUBE BEC OF SEVERE ASCITES. 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 NO EFFECT ON CURRENT FINDINGS. (6) Anemia Current Visit: Yes Status: Acute Plan: FROM VARICEAL BLEEDING. TRANSFUSE TWO UNITS OF PACKED RBCS. (7) Gout, arthritis Current Visit: Yes Status: Acute Plan: HE IS PAINFREE NOW. WE WILL START ULORIC NEEDS TO PT TO BE ABLE TO GO HOME.
[2022-09-04] MEDS: FEBUXOSTAT 40 MG PO SCH (17:33)
[2022-09-04] MEDS: MIRTAZAPINE 15 MG TAB PO SCH (20:40)
[2022-09-05] MEDS: carvediloL 3.125 MG TAB PO SCH ×2 (05:35→16:43)
[2022-09-05 05:44] LABS: Absolute Lymphocytes (CBC) 0.1 K/uL (0.7-4.9); Hematocrit 36.7 % (39.6-49.0); MCV 86.4 fL (80-100); MPV 9.3 fL (7.6-11.3); RBC Red Blood Cell Count 4.25 M/uL (4.33-5.43)
[2022-09-05 05:51] LABS: Potassium 4.1 mEq/L (3.5-5.1)
--- NOTE | 2022-09-05 07:41 | P.PN ---
Subjective Date of Service: 09/05/22 Chief Complaint: Hematemesis, ESLD/cirrhosis from prior EtOH use, Subjective: Improving (Much more alert this morning, not sleeping - with start of Xifaxan and antibiotics. TPN stopped yesterday. Family to bring in his favorite foods today. He notes some mild RLQ/LLQ pain with 2-3 loose stools yesterday.) Review of Systems 10-point ROS is otherwise unremarkable General: Weakness, Malaise Gastrointestinal: Abdominal Pain, Diarrhea Physical Examination - Vital Signs Temperature: 97.1 F Blood Pressure: 107/58 Pulse: 65 Respirations: 18 Pulse Ox (%): 99 - Physical Exam General: Alert, In no apparent distress, Cooperative HEENT: Atraumatic, Normocephalic, PERRLA, EOMI Neck: Supple Respiratory: Normal air movement Cardiovascular: Normal pulses Gastrointestinal: No rebound, Tenderness (RLQ/LLQ ) Neurological: Normal speech - Studies Medications List Reviewed: Yes Assessment And Plan - Current Problems (Diagnosis) (1) Hematemesis Current Visit: Yes Status: Acute Comment: Resolved. S/p EGD with esophageal varices banding. Octreotide weaned off. (2) Esophageal varices Current Visit: Yes Status: Acute (3) Hepatorenal failure Current Visit: Yes Status: Acute (4) Angina pectoris Current Visit: No Status: Acute (5) Alcoholic cirrhosis of liver with ascites Current Visit: No Status: Chronic (6) Renal insufficiency Current Visit: No Status: Chronic (7) Abdominal pain Current Visit: Yes Status: Acute (8) Hepatic encephalopathy Current Visit: Yes Status: Acute - Plan REC:1) Low Sodium 2) family can bring favorites foods 3) appetite stimulant -> add Marinal to Remeron (Marinal not in hospital) 4) continue Aldactone 5) continue Lasix 20 mg 6) continue Xifaxan bid 7) continue Ceftriaxone 8) consider DHT if he does not eat much. Discussed with son and approves if patient does not eat
[2022-09-05] MEDS: LACTULOSE 20 GM/30 ML UCUP PO SCH (09:00)
[2022-09-05 09:13] LABS: Anisocytosis 1+; Blood Morphology Comment NOTED (NOT SEEN); Macrocytosis 1+; Platelet Estimate DECR
[2022-09-05 09:14] LABS: Basophilic Stippling 1+
[2022-09-05] MEDS: VENLAFAXINE HCL XR 37.5MG CAP PO SCH (09:17)
[2022-09-05] MEDS: CEFTRIAXONE 2,000 MG in NA CHLORIDE 0.9% 100 ML IV SCH ×2 (09:17→19:54)
[2022-09-05] MEDS: SPIRONOLACTONE 25 MG TABLET PO SCH (09:17)
[2022-09-05] MEDS: PANTOPRAZOLE 40MG TABLET PO SCH (09:18)
[2022-09-05] MEDS: CARBIDOPA/LEVODOPA 25/100 TAB PO SCH ×2 (09:18→19:50)
[2022-09-05] MEDS: COLCHICINE 0.6 MG TAB PO SCH ×2 (09:18→19:49)
[2022-09-05] MEDS: FEBUXOSTAT 40 MG PO SCH (09:30)
--- NOTE | 2022-09-05 11:08 | P.PN ---
Subjective Date of Service: 09/05/22 Chief Complaint: weak, lethargic Subjective: No new changes HE IS STILL NOT EATING. PER NURSE HE DID NOT EAT THIS AM. HE IS NOT PARTICIPITATING WITH PT. I HAVE TOLD HIM DAILY AFTER WAKING HIM UP THAT WE ARE DOING ALL WE CAN. HE MUST START EATING AND DO PT SO HE CAN GO HOME SOMETIME. BUFFING WHEEL INSPECTOR IS WORKING ON LTAC REFERRAL OFF WEDNESDAY WEDNESDAY IS WHEN FAMILY PICKED A LTAC FACILITY. UNTIL THEN THEY DID NOT DECIDE. Review of Systems 10-point ROS is otherwise unremarkable General: Weakness, Malaise Physical Examination - Vital Signs Temperature: 97.7 F Blood Pressure: 120/59 Pulse: 73 Respirations: 16 Pulse Ox (%): 98 - Physical Exam General: Oriented x2, Cachectic, Mild distress, Other (SOMNOLENT) HEENT: Atraumatic, PERRLA, EOMI Neck: Supple, JVD not distended Respiratory: Clear to auscultation bilaterally, Normal air movement Cardiovascular: Regular rate/rhythm, Normal S1 S2 Gastrointestinal: Normal bowel sounds, No tenderness Musculoskeletal: No tenderness Integumentary: No rashes Neurological: Normal speech, Normal tone, Normal affect Lymphatics: No axilla or inguinal lymphadenopathy - Studies Medications List Reviewed: Yes Assessment And Plan - Current Problems (Diagnosis) (1) End stage liver disease Current Visit: Yes Status: Chronic Plan: DR FLORES HAS STARTED ANTIBIOITC WITH PRESUMPTION OF SBP BUT HE MAY NOT NEED FOR LONG. HIS WBC COUNT IS NORMAL. HE HAS END STAGE LIVER DISEASE IN ADDITION TO CACHEXIA. I AM STARTING HIM ON VENLAFAXINE REMERON DID NOT WORK FOR DPERSSION OR APPETITE. PROGNOSIS IS POOR. FAMILY IS IN DENIAL. HE IN LUCID STATE TOLD ME YESTERDAY THAT HE WANTS TO GO HOME AND BE ON HOSPICE. HIS FAMILY DOES NOT WANT TO FOLLOW THAT. (2) Hepatorenal failure Current Visit: Yes Status: Acute (3) Alcoholic cirrhosis of liver with ascites Current Visit: No Status: Chronic Plan: HIS FLUID IS BUILDING UP AGAIN IN ABDOMEN. I ALSO TOOK OPINION OF DR. FLORES ABOUT HIS LIFE-SPAN. HE SUGGESTED THAT WITH TWO MAJOR COMPLICATIONS OF CIRRHOSIS, THAT IS ASCITES AND HEMATEMESIS HE HAS ONLY 50% CHANCE OF MAKING THROUGH A YEAR. HOSPICE WILL BE GOOD IN THIS CONDITION. FAMILY HAS NOT AGREED TO IT YET. HIS PPN HAS STARTED. IDEALLY HE SHOULD BE IN LTAC HE MAY TAKE MORE THAN A COUPLE OF WEEKS TO RECOVER IF HE DOES RECOVER. I TALKED TO SON SHAHAB TODAY AND THEY WILL THINK ABOUT LTAC AFTER A FEW DAYS HERE. HE IS NOT SHOWING ANY SIGNS OF ALCOHOL DT YET. I AM NOT SURE IF WE CAN HAVE INDWELLING CATHETER IN HE HAS RECURRENT ASCITES TO A GOOD EXTENT ALREADY IN A WEEK I EXPECTED. HE NEEDS TAP AGAIN. DR. FLORES IS AGAINST PIGTAIL CATHETER. WILL DO REGULAR TAP. RAISE SPIRNOLACTONE STOP LASIX IV. TAP AGAIN TODAY. LTAC WEDNESDAY OR WEDNESDAY MAY BE POSSIBLE. POOR PROGNOSIS. (4) Dysphagia Current Visit: Yes Status: Chronic Plan: FROM DEBILTIY I SUSPECT NEUROLOGICAL ISSUES ALSO. I CONSULTED DR. ACUÑA. WILL ORDER SPEECH THERAPY. THIS ALL HAPPENED SINCE CURRENT ILLNESS THAT IS CONSEQUENCE OF HEAVY ALCOHOL RELATED CIRRHOSIS. FAMILY IS NOT DECIDING ON LTAC HE NEEDS TO GO TO LTAC I STILL SEE VERY POOR PROGNOSIS. FAMILY IS IN DENIAL. HE CAN'T HAVE G TUBE BEC OF SEVERE ASCITES. 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 NO EFFECT ON CURRENT FINDINGS. (6) Anemia Current Visit: Yes Status: Acute Plan: FROM VARICEAL BLEEDING. TRANSFUSE TWO UNITS OF PACKED RBCS. (7) Gout, arthritis Current Visit: Yes Status: Acute Plan: HE IS PAINFREE NOW. WE WILL START ULORIC NEEDS TO PT TO BE ABLE TO GO HOME.
[2022-09-06] MEDS: ONDANSETRON 4 MG (ODT) TAB PO PRN (04:04)
[2022-09-06 04:05] LABS: Absolute Lymphocytes (CBC) 0.3 K/uL (0.7-4.9); Hematocrit 40.6 % (39.6-49.0); MCV 88.4 fL (80-100); MPV 10.8 fL (7.6-11.3); RBC Red Blood Cell Count 4.59 M/uL (4.33-5.43)
[2022-09-06 04:19] LABS: Potassium 4.6 mEq/L (3.5-5.1)
[2022-09-06] MEDS: carvediloL 3.125 MG TAB PO SCH ×2 (06:27→18:00)
[2022-09-06] MEDS: PANTOPRAZOLE 40MG TABLET PO SCH (08:01)
[2022-09-06] MEDS: SPIRONOLACTONE 25 MG TABLET PO SCH (08:02)
[2022-09-06] MEDS: CARBIDOPA/LEVODOPA 25/100 TAB PO SCH ×2 (08:02→20:48)
[2022-09-06] MEDS: VENLAFAXINE HCL XR 37.5MG CAP PO SCH (08:02)
[2022-09-06] MEDS: COLCHICINE 0.6 MG TAB PO SCH ×2 (08:02→20:48)
[2022-09-06] MEDS: LACTULOSE 20 GM/30 ML UCUP PO SCH (08:03)
[2022-09-06] MEDS: CEFTRIAXONE 2,000 MG in NA CHLORIDE 0.9% 100 ML IV SCH ×2 (08:04→20:48)
[2022-09-06] MEDS: FEBUXOSTAT 40 MG PO SCH (08:04)
[2022-09-06] MEDS ORDERED: FEBUXOSTAT 40 MG PO SCH (09:00)
--- NOTE | 2022-09-06 09:29 | P.PN ---
Subjective Date of Service: 09/06/22 Chief Complaint: Hematemesis, esoph varices, ESLD/cirrhosis, AMS Subjective: Improving (Alert and oriented X3 today. Sitting in bed thinking. Loss of hope, rejecting medications and food. is to bring family to see him and encourage him. Family wants Dobhoff tube today after they have a chance to see him. Possible LTAC transfer.) Review of Systems General: Weakness, Malaise, Other (Apathetic, almost asthenia) Physical Examination - Vital Signs Temperature: 97.1 F Blood Pressure: 126/63 Pulse: 74 Respirations: 16 Pulse Ox (%): 98 - Physical Exam General: Alert, In no apparent distress, Oriented x3, Cooperative, Cachectic HEENT: Atraumatic, Normocephalic, PERRLA, EOMI Neck: Supple Respiratory: Normal air movement Cardiovascular: Normal pulses Gastrointestinal: Soft and benign, No tenderness, No rebound, No guarding, Distended (Minimal today. ) Neurological: Normal speech - Studies Medications List Reviewed: Yes Assessment And Plan - Current Problems (Diagnosis) (1) Hematemesis Current Visit: Yes Status: Acute Comment: Resolved. S/p EGD with esophageal varices banding. Octreotide weaned off. (2) Esophageal varices Current Visit: Yes Status: Acute (3) Hepatorenal failure Current Visit: Yes Status: Acute (4) Angina pectoris Current Visit: No Status: Acute (5) Alcoholic cirrhosis of liver with ascites Current Visit: No Status: Chronic (6) Renal insufficiency Current Visit: No Status: Chronic (7) Abdominal pain Current Visit: Yes Status: Acute (8) Hepatic encephalopathy Current Visit: Yes Status: Acute - Plan REC:1) Low Sodium diet 2) family can bring favorites foods 3) appetite stimulant -> add Marinal to Remeron (Marinal not in hospital) 4) continue Aldactone 5) consider Lasix 20 mg po 6) continue Xifaxan bid 7) continue Ceftriaxone 8) DHT today after family sees him. Discussed with son and (risks, benefits, alternatives); they approve
--- NOTE | 2022-09-06 21:28 | P.PN ---
Subjective Date of Service: 09/06/22 Chief Complaint: weak, not eating, lethargic Subjective: Worsening THIS PM WAS AT BEDSIDE. HE WAS LUCID TO WAKE UP AND TALK TO ME SLOWLY. I ASKED HIM WHO I AND WERE AND HE NAMED US. I EXPLAINED THAT HE HAS TERMINAL LIVER FAILURE WITH SEVERE CAHCEXIA AND HE HAS TWO CHOICES. ONE TO GO TO LTAC AND OTHER TO GO HOME WITH HOSPICE. HE PICKED SECOND ONE. SAW THIS BUT STILL SONS AND WANT HIM TO GO TO LTAC. Review of Systems 10-point ROS is otherwise unremarkable General: Weakness, Malaise Gastrointestinal: No Distention Physical Examination - Vital Signs Temperature: 96.8 F Blood Pressure: 118/64 Pulse: 68 Respirations: 15 Pulse Ox (%): 98 - Physical Exam General: Oriented x2, Cachectic, Other (LETHARGIC, LISTLESS.) HEENT: Atraumatic, PERRLA, EOMI Neck: Supple, JVD not distended Respiratory: Clear to auscultation bilaterally, Normal air movement Cardiovascular: Regular rate/rhythm, Normal S1 S2 Gastrointestinal: Normal bowel sounds, No tenderness Musculoskeletal: No tenderness Integumentary: No rashes Neurological: Abnormal speech (FAINT BUT LEGIBLE.) Lymphatics: No axilla or inguinal lymphadenopathy - Studies Medications List Reviewed: Yes Assessment And Plan - Current Problems (Diagnosis) (1) End stage liver disease Current Visit: Yes Status: Chronic Plan: DR FLORES HAS STARTED ANTIBIOITC WITH PRESUMPTION OF SBP BUT HE MAY NOT NEED FOR LONG. HIS WBC COUNT IS NORMAL. HE HAS END STAGE LIVER DISEASE IN ADDITION TO CACHEXIA. I AM STARTING HIM ON VENLAFAXINE REMERON DID NOT WORK FOR DPERSSION OR APPETITE. PROGNOSIS IS POOR. FAMILY IS IN DENIAL. HE IN LUCID STATE TOLD ME YESTERDAY THAT HE WANTS TO GO HOME AND BE ON HOSPICE. HIS FAMILY DOES NOT WANT TO FOLLOW THAT. (2) Hepatorenal failure Current Visit: Yes Status: Acute Plan: RENAL FUNCTION IS WORSE. I WILL START IV FLUIDS AGAIN UNTIL HE GETS DOBHOFF. NG TUBE IS RISKY WITH ESOPHAGEAL VARICES AND FAMILY UNDERSTANDS. (3) Alcoholic cirrhosis of liver with ascites Current Visit: No Status: Chronic Plan: HIS FLUID IS BUILDING UP AGAIN IN ABDOMEN. I ALSO TOOK OPINION OF DR. FLORES ABOUT HIS LIFE-SPAN. HE SUGGESTED THAT WITH TWO MAJOR COMPLICATIONS OF CIRRHOSIS, THAT IS ASCITES AND HEMATEMESIS HE HAS ONLY 50% CHANCE OF MAKING THROUGH A YEAR. HOSPICE WILL BE GOOD IN THIS CONDITION. FAMILY HAS NOT AGREED TO IT YET. HIS PPN HAS STARTED. IDEALLY HE SHOULD BE IN LTAC HE MAY TAKE MORE THAN A COUPLE OF WEEKS TO RECOVER IF HE DOES RECOVER. I TALKED TO SON SHAHAB TODAY AND THEY WILL THINK ABOUT LTAC AFTER A FEW DAYS HERE. HE IS NOT SHOWING ANY SIGNS OF ALCOHOL DT YET. I AM NOT SURE IF WE CAN HAVE INDWELLING CATHETER IN HE HAS RECURRENT ASCITES TO A GOOD EXTENT ALREADY IN A WEEK I EXPECTED. HE NEEDS TAP AGAIN. DR. FLORES IS AGAINST PIGTAIL CATHETER. WILL DO REGULAR TAP. RAISE SPIRNOLACTONE STOP LASIX IV. TAP AGAIN TODAY. LTAC WEDNESDAY OR WEDNESDAY MAY BE POSSIBLE. POOR PROGNOSIS. (4) Dysphagia Current Visit: Yes Status: Chronic Plan: FROM DEBILTIY I SUSPECT NEUROLOGICAL ISSUES ALSO. I CONSULTED DR. ACUÑA. WILL ORDER SPEECH THERAPY. THIS ALL HAPPENED SINCE CURRENT ILLNESS THAT IS CONSEQUENCE OF HEAVY ALCOHOL RELATED CIRRHOSIS. FAMILY IS NOT DECIDING ON LTAC HE NEEDS TO GO TO LTAC I STILL SEE VERY POOR PROGNOSIS. FAMILY IS IN DENIAL. HE CAN'T HAVE G TUBE BEC OF SEVERE ASCITES. 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 NO EFFECT ON CURRENT FINDINGS. (6) Anemia Current Visit: Yes Status: Acute Plan: FROM VARICEAL BLEEDING. TRANSFUSE TWO UNITS OF PACKED RBCS. (7) Gout, arthritis Current Visit: Yes Status: Acute Plan: HE IS PAINFREE NOW. WE WILL START ULORIC NEEDS TO PT TO BE ABLE TO GO HOME.
[2022-09-06] MEDS: D5 0.45 NS 1,000 ML IV SCH (21:55)
[2022-09-07] MEDS: carvediloL 3.125 MG TAB PO SCH ×2 (06:06→17:25)
[2022-09-07] MEDS: VENLAFAXINE HCL XR 37.5MG CAP PO SCH (08:19)
[2022-09-07] MEDS: COLCHICINE 0.6 MG TAB PO SCH ×2 (08:19→23:01)
[2022-09-07] MEDS: CARBIDOPA/LEVODOPA 25/100 TAB PO SCH ×2 (08:19→23:04)
[2022-09-07] MEDS: PANTOPRAZOLE 40MG TABLET PO SCH (08:19)
[2022-09-07] MEDS: LACTULOSE 20 GM/30 ML UCUP PO SCH (08:19)
[2022-09-07] MEDS: CEFTRIAXONE 2,000 MG in NA CHLORIDE 0.9% 100 ML IV SCH ×2 (08:20→23:01)
[2022-09-07] MEDS: FEBUXOSTAT 40 MG PO SCH (08:20)
[2022-09-07] MEDS: D5 0.45 NS 1,000 ML IV SCH ×2 (08:21→23:36)
[2022-09-07 08:46] LABS: Absolute Lymphocytes (CBC) 0.3 K/uL (0.7-4.9); Hematocrit 40.3 % (39.6-49.0); Lymphocytes % 1.9 % (15.3-44.8); MCV 89.7 fL (80-100); MPV 9.6 fL (7.6-11.3); RBC Red Blood Cell Count 4.49 M/uL (4.33-5.43)
[2022-09-07 08:48] LABS: Potassium 4.3 mEq/L (3.5-5.1)
[2022-09-07] MEDS ORDERED: CEFTRIAXONE 2000 MG/VIAL ONE (21:17)
[2022-09-08 06:44] LABS: Absolute Lymphocytes (CBC) 0.2 K/uL (0.7-4.9); Hematocrit 39.2 % (39.6-49.0); Lymphocytes % 1.5 % (15.3-44.8); MCV 88.7 fL (80-100); MPV 9.6 fL (7.6-11.3); RBC Red Blood Cell Count 4.42 M/uL (4.33-5.43)
[2022-09-08 07:03] LABS: Potassium 3.6 mEq/L (3.5-5.1)
[2022-09-08] MEDS: PANTOPRAZOLE 40MG TABLET PO SCH (07:30)
[2022-09-08] MEDS: carvediloL 3.125 MG TAB PO SCH ×2 (07:33→17:51)
[2022-09-08] MEDS ORDERED: D5 0.45 NS 1,000 ML IV SCH (07:58)
[2022-09-08] MEDS: CEFTRIAXONE 2,000 MG in NA CHLORIDE 0.9% 100 ML IV SCH ×2 (07:58→21:29)
[2022-09-08] MEDS: CARBIDOPA/LEVODOPA 25/100 TAB PO SCH ×2 (08:02→21:00)
[2022-09-08] MEDS: LACTULOSE 20 GM/30 ML UCUP PO SCH (08:02)
[2022-09-08] MEDS: FEBUXOSTAT 40 MG PO SCH (08:02)
[2022-09-08] MEDS: COLCHICINE 0.6 MG TAB PO SCH (08:02)
[2022-09-08] MEDS: VENLAFAXINE HCL XR 37.5MG CAP PO SCH (08:02)
[2022-09-08] MEDS: ONDANSETRON 4 MG (ODT) TAB PO PRN (10:56)
[2022-09-08] MEDS ORDERED: NA CHLORIDE 0.9% 1,000 ML IV ONE (11:17)
--- NOTE | 2022-09-08 11:59 | CON ---
Date of Consultation: 09/08/2022 Reason For Consultation: Elevated BUN and creatinine. History Of Present Illness: This is a 72-year-old gentleman, fortunately well known to me from the [facility] with significant past medical history of GERD, CAD status post PTCA back in 2009, 2012 and 2014 , status post CABG and gout, last attack back in June 2020, chronic kidney disease status post acute kidney injury before last year, advanced cirrhosis, end-stage liver disease secondary to alcoholic l iver cirrhosis, with recurrent ascites, malnourish and failure to thrive. The patient was admitted t o [facility] on the . Because of poor intake and ascites, the patient had gradually started dec lining and the patient started to develop acute kidney injury, creatinine gradually rising starting o September 05, before that creatinine was halving around his baseline of 1.4, currently creatinine up to 3.2 with GFR of 19. There is no report on his urine output. The patient started having some emesis . Reviewing the record for the patient, there is no contrast. The patient on IV fluid, was on andreea nolactone which was discontinued on the , and he was also on Lasix. The patient had marginal low blood pressure down to the 100 to 110 on the . Other than that, he usually halving around 140 a nd 160. Past Medical History: Includes; 1.Alcoholic liver disease with cirrhosis complicated with portal hypertension and ascites. 2.Hypertension. 3.Chronic kidney disease, stage 3, secondary to hepatorenal syndrome, baseline creatinine 1.5, GFR a round 48. 4.Nephrolithiasis. 5.Gout. 6.Advanced liver disease. 7.Edema. 8.CAD, status post PTCA. Allergies: TO AMOXICILLIN AND MORPHINE. Home Medications: Include Zofran, tramadol, cefuroxime. Family History: Positive for hypertension. Social History: Denied smoking, active alcohol, denied drugs abuse. Review of Systems: Not obtainable. The patient is obtunded. Physical Examination: Vital Signs: When I saw the patient; blood pressure 168/87, pulse of 72, afebrile. Chest: Clear to auscultation. Heart: S1, S2. No gallop. Abdomen: Ascites. Extremity: No edema. Neuro: The patient obtunded. Laboratory Data: Upon admission; creatinine 1.4 down to 1.2 on the , then started rising on the at 1.4, currently creatinine 3.2. Sodium 146, potassium 4.3, bicarb 15, BUN 116, creatinine 3.2 , calcium 7.2. Hemoglobin 12.9, WBC 12. Before on the , hemoglobin down to 7.5. INR 1.1. Asci laron, negative for SBP. Current Medications: Include ceftriaxone, carvedilol, carbidopa, venlafaxine, lactulose, Zofran, D5 with half normal. Assessment And Plan: 1.Acute kidney injury, mostly secondary to hepatorenal syndrome, looked to me on the dry side, super imposed with poor perfusion ATN, oliguric, questionable of uremia. The patient has overall very poor prognosis. I am going to go ahead and place a Denis. We will get renal ultrasound to rule out any obstruction. We will treat the patient on hepatorenal syndrome with fluid expansion and albumin, dis continue diuresis, and we will follow up the patient. 2.Hypertension, controlled, currently with the presence of acute kidney injury. We will avoid any A CE inhibitor or ARB. 3.Acidosis, non-anion gap metabolic acidosis secondary to renal failure. We will start the patient on bicarb drip. 4.Hepatorenal syndrome. We will start fluid expansion, send for urine electrolyte. 5.Encephalopathy, mostly metabolic with severe elevation in BUN. To rule out possible GI bleed, we will follow up with GI. We will start hydration. 6.Cirrhosis, advanced as by primary and GI. Time spent examining the patient [id number], reviewing the data, lab and Radiology, placing border, discussing the case with nursing staff and hospitalist more than 75 minutes. MARYAN Voice ID: [id number] Report ID: [id number]
[2022-09-08] MEDS: MIDODRINE HCL 5 MG TABLET PO SCH ×2 (14:00→21:00)
[2022-09-08] MEDS: D5W 1,000 ML with NA BICARB 8.4% 75 MEQ IV SCH ×4 (14:09→23:57)
--- NOTE | 2022-09-08 14:18 | RAD REPORT ---
EXAM DESCRIPTION: US - Renal Ultrasound-Complete - 09/08/2022 1:25 pm CLINICAL HISTORY: MOHSEN COMPARISON: Abdomen Pelvis Wo Contrast dated 08/24/2022 TECHNIQUE: Sonographic grayscale and color flow images of the kidneys were obtained. FINDINGS: Both kidneys are normal in size, shape and echotexture. The right kidney measures 7.5 x 3.5 x 3.6 centimeter. Marked cortical thinning and increased echogeni city. No hydronephrosis, focal mass or radiopaque calculi. The left kidney measures 8.5 x 4.4 x 4.1 centimeter. Mildly thickened cortex. Increased cortical echo genicity. No hydronephrosis, focal mass or radiopaque calculi. Moderate volume of free ascites noted. IMPRESSION: Hypertrophic changes of the right kidney. Bilateral cortical thinning and increased echo genicity more pronounced on the right, compatible with sequelae of medical renal disease. Moderate volume free ascites.
[2022-09-08] MEDS: OCTREOTIDE ACETATE 100 MCG/ML SQ SCH (21:00)
[2022-09-08] MEDS ORDERED: OCTREOTIDE ACETATE 100 MCG/ML SQ SCH (21:00)
--- NOTE | 2022-09-08 21:52 | P.PN ---
Subjective Date of Service: 09/07/22 Chief Complaint: weak, not eating, lethargic Subjective: Worsening THIS PM WAS AT BEDSIDE. HE WAS LUCID TO WAKE UP AND TALK TO ME SLOWLY. I ASKED HIM WHO I AND WERE AND HE NAMED US. I EXPLAINED THAT HE HAS TERMINAL LIVER FAILURE WITH SEVERE CAHCEXIA AND HE HAS TWO CHOICES. ONE TO GO TO LTAC AND OTHER TO GO HOME WITH HOSPICE. HE PICKED SECOND ONE. SAW THIS BUT STILL SONS AND WANT HIM TO GO TO LTAC. HE IS NOT EATING HE HAS TOLD ME NEAR HIS THAT HE WANTS TO GO HOME AND KNOWS HE IS NOT GOING TO SURVIVE WITH CURRENT CONDITION. Review of Systems 10-point ROS is otherwise unremarkable General: Weakness, Malaise Physical Examination - Vital Signs Temperature: 97.2 F Blood Pressure: 119/61 Pulse: 82 Respirations: 18 Pulse Ox (%): 99 - Physical Exam General: Cachectic, Mild distress, Other (LETHARGIC.) HEENT: Atraumatic, PERRLA, EOMI Neck: Supple, JVD not distended Respiratory: Clear to auscultation bilaterally, Normal air movement Cardiovascular: Regular rate/rhythm, Normal S1 S2 Gastrointestinal: Normal bowel sounds, No tenderness Musculoskeletal: No tenderness Integumentary: No rashes Neurological: Abnormal speech (FAINT SPEECH, HARD TO AROUSE.) Lymphatics: No axilla or inguinal lymphadenopathy - Studies Medications List Reviewed: Yes Assessment And Plan - Current Problems (Diagnosis) (1) End stage liver disease Current Visit: Yes Status: Chronic Plan: PROGNOSIS IS POOR HE IS WORSENING ON DAILY BASIS FAMILY FAILS TO SEE THIS EVEN AFTER ME EXPLAINING. (2) Hepatorenal failure Current Visit: Yes Status: Acute Plan: RENAL FUNCTION IS WORSE. I WILL START IV FLUIDS AGAIN UNTIL HE GETS DOBHOFF. NG TUBE IS RISKY WITH ESOPHAGEAL VARICES AND FAMILY UNDERSTANDS. (3) Alcoholic cirrhosis of liver with ascites Current Visit: No Status: Chronic Plan: HIS FLUID IS BUILDING UP AGAIN IN ABDOMEN. I ALSO TOOK OPINION OF DR. FLORES ABOUT HIS LIFE-SPAN. HE SUGGESTED THAT WITH TWO MAJOR COMPLICATIONS OF CIRRHOSIS, THAT IS ASCITES AND HEMATEMESIS HE HAS O NLY 50% CHANCE OF MAKING THROUGH A YEAR. HOSPICE WILL BE GOOD IN THIS CONDITION. FAMILY HAS NOT AGREED TO IT YET. HIS PPN HAS STARTED. IDEALLY HE SHOULD BE IN LTAC HE MAY TAKE MORE THAN A COUPLE OF WEEKS TO RECOVER IF HE DOES RECOVER. I TALKED TO SON SHAHAB TODAY AND THEY WILL THINK ABOUT LTAC AFTER A FEW DAYS HERE. HE IS NOT SHOWING ANY SIGNS OF ALCOHOL DT YET. I AM NOT SURE IF WE CAN HAVE INDWELLING CATHETER IN HE HAS RECURRENT ASCITES TO A GOOD EXTENT ALREADY IN A WEEK I EXPECTED. HE NEEDS TAP AGAIN. DR. FLORES IS AGAINST PIGTAIL CATHETER. WILL DO REGULAR TAP. RAISE SPIRNOLACTONE STOP LASIX IV. TAP AGAIN TODAY. LTAC WEDNESDAY OR WEDNESDAY MAY BE POSSIBLE. POOR PROGNOSIS. (4) Dysphagia Current Visit: Yes Status: Chronic Plan: FROM DEBILTIY I SUSPECT NEUROLOGICAL ISSUES ALSO. I CONSULTED DR. ACUÑA. WILL ORDER SPEECH THERAPY. THIS ALL HAPPENED SINCE CURRENT ILLNESS THAT IS CONSEQUENCE OF HEAVY ALCOHOL RELATED CIRRHOSIS. FAMILY IS NOT DECIDING ON LTAC HE NEEDS TO GO TO LTAC I STILL SEE VERY POOR PROGNOSIS. FAMILY IS IN DENIAL. HE CAN'T HAVE G TUBE BEC OF SEVERE ASCITES. 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 NO EFFECT ON CURRENT FINDINGS. (6) Anemia Current Visit: Yes Status: Acute Plan: FROM VARICEAL BLEEDING. TRANSFUSE TWO UNITS OF PACKED RBCS. (7) Gout, arthritis Current Visit: Yes Status: Acute Plan: HE IS PAINFREE NOW. WE WILL START ULORIC NEEDS TO PT TO BE ABLE TO GO HOME.
--- NOTE | 2022-09-08 21:56 | P.PN ---
Subjective Date of Service: 09/08/22 Chief Complaint: WEAK, DOES NOT WANT ANYTHING DONE. Subjective: Worsening PER NURSES HE REFUSED SUMA PLACEMENT. HE IS NOT EATING AND NOT WANTING ANYTHING DONE. Review of Systems General: Weakness, Malaise Physical Examination - Vital Signs Temperature: 97.2 F Blood Pressure: 119/61 Pulse: 82 Respirations: 18 Pulse Ox (%): 99 - Physical Exam General: Cachectic, Mild distress, Moderate distress, Other (LETHARGIC, RESPONDS AFTER MULTIPLE REPETATIONS OF QUESTIONS.) HEENT: Atraumatic, PERRLA, EOMI Neck: Supple, JVD not distended Respiratory: Clear to auscultation bilaterally, Normal air movement Cardiovascular: Regular rate/rhythm, Normal S1 S2 Gastrointestinal: Normal bowel sounds, No tenderness Musculoskeletal: No tenderness Integumentary: No rashes Neurological: Normal tone, Abnormal speech, Abnormal strength Lymphatics: No axilla or inguinal lymphadenopathy - Studies Medications List Reviewed: Yes Assessment And Plan - Current Problems (Diagnosis) (1) End stage liver disease Current Visit: Yes Status: Chronic Plan: PROGNOSIS IS POOR HE IS WORSENING ON DAILY BASIS FAMILY FAILS TO SEE THIS EVEN AFTER ME EXPLAINING. (2) Hepatorenal failure Current Visit: Yes Status: Acute Plan: RENAL FUNCTION IS WORSE. I WILL START IV FLUIDS AGAIN UNTIL HE GETS DOBHOFF. NG TUBE IS RISKY WITH ESOPHAGEAL VARICES AND FAMILY UNDERSTANDS. I ASKED DR. LIU TO COME BY FAMILY HAS REFUSED TO FOLLOW MY RECOMMENDATIONS. THERE IS A HUGE DENIAL TO ACCEPT HIS CURRENT CONDITION FROM AND SONS. HE WANTS TO GO HOME AND BE ON HOSPICE. HE MAY NOT MAKE IT A WEEK OR SO GOING AT CURRENT CONDITION. WE CAN'T PLACE SUMA HE REFUSED TO COOPERATE WE CAN'T DO G TUBE IT IS CONTRAINDICATED. (3) Alcoholic cirrhosis of liver with ascites Current Visit: No Status: Chronic Plan: HIS FLUID IS BUILDING UP AGAIN IN ABDOMEN. I ALSO TOOK OPINION OF DR. FLORES ABOUT HIS LIFE-SPAN. HE SUGGESTED THAT WITH TWO MAJOR COMPLICATIONS OF CIRRHOSIS, THAT IS ASCITES AND HEMATEMESIS HE HAS ONLY 50% CHANCE OF MAKING THROUGH A YEAR. HOSPICE WILL BE GOOD IN THIS CONDITION. FAMILY HAS NOT AGREED TO IT YET. HIS PPN HAS STARTED. IDEALLY HE SHOULD BE IN LTAC HE MAY TAKE MORE THAN A COUPLE OF WEEKS TO RECOVER IF HE DOES RECOVER. I TALKED TO SON SHAHAB TODAY AND THEY WILL THINK ABOUT LTAC AFTER A FEW DAYS HERE. HE IS NOT SHOWING ANY SIGNS OF ALCOHOL DT YET. I AM NOT SURE IF WE CAN HAVE INDWELLING CATHETER IN HE HAS RECURRENT ASCITES TO A GOOD EXTENT ALREADY IN A WEEK I EXPECTED. HE NEEDS TAP AGAIN. DR. FLORES IS AGAINST PIGTAIL CATHETER. WILL DO REGULAR TAP. RAISE SPIRNOLACTONE STOP LASIX IV. TAP AGAIN TODAY. LTAC WEDNESDAY OR WEDNESDAY MAY BE POSSIBLE. POOR PROGNOSIS. (4) Dysphagia Current Visit: Yes Status: Chronic Plan: FROM DEBILTIY I SUSPECT NEUROLOGICAL ISSUES ALSO. I CONSULTED DR. ACUÑA. WILL ORDER SPEECH THERAPY. THIS ALL HAPPENED SINCE CURRENT ILLNESS THAT IS CONSEQUENCE OF HEAVY ALCOHOL RELATED CIRRHOSIS. FAMILY IS NOT DECIDING ON LTAC HE NEEDS TO GO TO LTAC I STILL SEE VERY POOR PROGNOSIS. FAMILY IS IN DENIAL. HE CAN'T HAVE G TUBE BEC OF SEVERE ASCITES. 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 NO EFFECT ON CURRENT FINDINGS. (6) Anemia Current Visit: Yes Status: Acute Plan: FROM VARICEAL BLEEDING. TRANSFUSE TWO UNITS OF PACKED RBCS. (7) Gout, arthritis Current Visit: Yes Status: Acute Plan: HE IS PAINFREE NOW. WE WILL START ULORIC NEEDS TO PT TO BE ABLE TO GO HOME.
[2022-09-09 05:40] LABS: RBC Red Blood Cell Count 4.03 M/uL (4.33-5.43)
[2022-09-09] MEDS: carvediloL 3.125 MG TAB PO SCH ×2 (06:00→17:40)
[2022-09-09 06:20] LABS: Albumin 1.3 g/dL (3.4-5.0); BUN Blood Urea Nitrogen 105 mg/dL (7-18); Bicarbonate 16 mEq/L (21-32); Creatine Phosphokinase 175 U/L (39-308); Ferritin 2547.1 ng/mL (26-388); Glomerular Filtration Rate 18 ml/min (=/>90); Glucose Level 135 mg/dL (74-106); Magnesium 2.4 mg/dL (1.6-2.4); Phosphorus 5.4 mg/dL (2.5-4.9); Sodium Level 147 mEq/L (136-145); Thyroid Stimulating Hormone 0.887 uIU/mL (0.358-3.740); Transferrin 48 mg/dL (200-360); Uric Acid 3.8 mg/dL (3.5-7.2)
[2022-09-09] MEDS: VENLAFAXINE HCL XR 37.5MG CAP PO SCH (09:00)
[2022-09-09] MEDS: LACTULOSE 20 GM/30 ML UCUP PO SCH (09:00)
[2022-09-09] MEDS: MIDODRINE HCL 5 MG TABLET PO SCH ×3 (09:00→21:00)
[2022-09-09] MEDS: CARBIDOPA/LEVODOPA 25/100 TAB PO SCH ×2 (09:00→21:00)
[2022-09-09] MEDS: FEBUXOSTAT 40 MG PO SCH (09:00)
[2022-09-09] MEDS: OCTREOTIDE ACETATE 100 MCG/ML SQ SCH ×2 (09:00→21:00)
[2022-09-09] MEDS: D5W 1,000 ML with NA BICARB 8.4% 75 MEQ IV SCH ×2 (09:30)
[2022-09-09] MEDS: CEFTRIAXONE 2,000 MG in NA CHLORIDE 0.9% 100 ML IV SCH ×2 (09:40→21:17)
--- NOTE | 2022-09-09 10:14 | P.PN ---
Subjective Date of Service: 09/07/22 Chief Complaint: Hematemesis, N/V, abd pain, ascites, cirrhosis, EtOH abuse hx Subjective: New changes (Minimal po despite family trying to feed him.) Physical Examination - Vital Signs Temperature: 97.6 F Blood Pressure: 121/61 Pulse: 69 Respirations: 12 Pulse Ox (%): 96 - Studies Medications List Reviewed: Yes Assessment And Plan - Current Problems (Diagnosis) (1) Hematemesis Current Visit: Yes Status: Acute Comment: Resolved. S/p EGD with esophageal varices banding. Octreotide weaned off. (2) Esophageal varices Current Visit: Yes Status: Acute (3) Hepatorenal failure Current Visit: Yes Status: Acute (4) Angina pectoris Current Visit: No Status: Acute (5) Alcoholic cirrhosis of liver with ascites Current Visit: No Status: Chronic (6) Renal insufficiency Current Visit: No Status: Chronic (7) Abdominal pain Current Visit: Yes Status: Acute (8) Hepatic encephalopathy Current Visit: Yes Status: Acute - Plan REC:1) Low Sodium diet 2) family can bring favorites foods 3) appetite stimulant -> add Marinal to Remeron (Marinal not in hospital) 4) continue Aldactone 5) consider Lasix 20 mg po 6) continue Xifaxan bid 7) continue Ceftriaxone 8) DHT. Discussed with son and (risks, benefits, alternatives); they approve
--- NOTE | 2022-09-09 10:19 | P.PN ---
Subjective Date of Service: 09/09/22 Chief Complaint: Hematemesis, N/V, abd pain, ascites, cirrhosis, EtOH abuse hx Subjective: New changes (He refused Dobhoff tube. Minimal p.o. intake despite family attempts to get him to eat. Loss of hope. No recurrence of hematemesis. No abdominal pain, N/V. Somewhat somnolent today; not on Xifaxan.) Review of Systems 10-point ROS is otherwise unremarkable General: Weakness, Malaise Neurological: Confusion (Somnolent) Physical Examination - Vital Signs Temperature: 97.6 F Blood Pressure: 121/61 Pulse: 69 Respirations: 12 Pulse Ox (%): 96 - Physical Exam General: Cachectic, Disheveled, Other (Somnolent but arousable by physical stimuli) HEENT: Atraumatic, Normocephalic, PERRLA, EOMI Neck: Supple Respiratory: Normal air movement Cardiovascular: Normal pulses Gastrointestinal: Soft and benign, No tenderness, No rebound, No guarding Neurological: Other (Somnolent but arousable. ) - Studies Medications List Reviewed: Yes Assessment And Plan - Current Problems (Diagnosis) (1) Hematemesis Current Visit: Yes Status: Acute Comment: Resolved. S/p EGD with esophageal varices banding. Octreotide weaned off. (2) Esophageal varices Current Visit: Yes Status: Acute (3) Hepatorenal failure Current Visit: Yes Status: Acute (4) Angina pectoris Current Visit: No Status: Acute (5) Alcoholic cirrhosis of liver with ascites Current Visit: No Status: Chronic (6) Renal insufficiency Current Visit: No Status: Chronic (7) Abdominal pain Current Visit: Yes Status: Acute (8) Hepatic encephalopathy Current Visit: Yes Status: Acute - Plan REC:1) Low Sodium diet 2) family can bring favorites foods 3) appetite stimulant -> add Marinal to Remeron (Marinal not in hospital) 4) continue Aldactone 5) consider Lasix 20 mg po 6) restart Xifaxan bid 7) continue Ceftriaxone 8) DHT when patient agrees. Discussed with son and (risks, benefits, alternatives); they approve
[2022-09-09] MEDS ORDERED: D5W 1,000 ML with NA BICARB 8.4% 75 MEQ IV SCH ×2 (11:00)
--- NOTE | 2022-09-09 13:32 | PN ---
Date of Progress Note: 09/09/2022 Subjective: The patient was admitted with hepatic encephalopathy, acute kidney injury secondary to hepatorenal. The patient started being declining. Yesterday, we held all the diuresis, started the patient on fluid expansion with albumin and IV fluid and bicarb. The patient today poorly responsive. The patient has overall very poor prognosis with end-stage liver. Physical Examination: Vital Signs: Blood pressure 84/47, pulse of 63, afebrile. Chest: Clear to auscultation. Heart: S1, S2. Regular. Abdomen: Ascites with varicose on the abdominal wall. Extremities: No edema. Neuro: The patient poorly responsive. No focality. Laboratory Data: Hemoglobin 12.9. Sodium 147, potassium 3, bicarb 16, BUN 105, creatinine 3.3, GFR of 18, glucose 135, phosphorus 5.4, magnesium 2.4, uric acid 3.8. Iron saturation 101. Serum protein electrophoresis is still pending. PTH 542. Urine was not done. Current Medications: The patient on include midodrine 5 mg t.i.d., ceftriaxone, carvedilol 3.125 b.i.d., carbidopa, venlafaxine, lactulose, octreotide. Assessment And Plan: 1. Acute kidney injury secondary to cardiorenal with acidosis and possible uremic symptoms. The patient has overall very poor prognosis with end-stage liver disease. I do not think the patient is going to be a good candidate for any renal replacement therapy. We will treat the patient as hepatorenal with fluid expansion. I had long discussion with the and the son over the phone about the condition of the patient and the option of treatment. Family understanding, but still not interested on any hospice care. We will continue current treatment. 2. Hypertension, currently hypotension. I am going to go ahead and discontinue carvedilol. We will continue midodrine and fluid expansion. 3. Anemia secondary to GI bleed, stable. 4. Hypokalemia. We will supplement cautiously. 5. Acidosis, non-anion gap metabolic acidosis secondary to renal failure. We will start bicarb drip. 6. Secondary hyperparathyroidism. We will start the patient on calcitriol. time spend exam the patient face to face reviewing data lab and radiology placing order , discussing with patient and nursing staff discussing with hospitalisit >35min MA/MODL Voice ID: [id number] Report ID: [id number]
[2022-09-09 13:48] LABS: GLUCOSE, PERITONEAL FLUID 122 mg/dL; TOTAL PROTEIN,PERITONEAL FLUID <3.0 g/dL
[2022-09-09] MEDS ORDERED: POTASSIUM CL 40 MEQ in NA CHLORIDE 0.9% 500 ML IV ONE (14:00)
[2022-09-09] MEDS: ALBUMIN HUMAN 25% 100 ML IV SCH ×2 (14:18→22:43)
[2022-09-09] MEDS ORDERED: XIFAXAN 550 MG PO SCH (21:00)
[2022-09-09] MEDS: Rifaximin 550 MG Tab PO SCH (21:00)
--- NOTE | 2022-09-09 23:13 | PN ---
Subjective: Mr. Mckeon is weak, lethargic, not eating, not drinking. It takes a long time for him t o wake up and stays lethargic after waking up. Not able to communicate a whole lot this morning his. Physical Examination: General: Weak, frail, pale, cachectic gentleman. Vital Signs: Blood pressure 120/57, pulse is 66, and temperature 97.1. HEENT: Clinical signs of debility as described above. Neurologic: He moves all 4 limbs, but stays feeble. He is not able to ambulate anymore and he is no t cooperative with his medications or food for the last 4 to 5 days. Assessment And Plan: End-stage liver cirrhosis from alcohol use. Prognosis remains poor, conferred by 2 doctors at least which will me and Dr. Benton. The patient does not have more than a few days to live, it seems in my opinion. I have offered the patient's family hospice care. The patient act ually wants hospice when I discussed with him twice in that one week when he was lucid. He does not want any more prolongation of his agony or misery, but family does not give up and the family is over riding his decision and wants him to go to a long-term acute care facility. The patient wants to go home and be on hospice. The family, which is and 2 sons want him to go to long-term care place. The patient refuses here any kind of feeding. We cannot insert a G-tube because he has ascites and G-tube is contraindicated. He is not cooperating with any kind of food or medications and though un fortunately he is not going to survive too long, even better without food. I think the prognosis is poor and the family needs to understand, which is what I have called in Ethics Committee, Dr. Yris hurley is the pesticide use medical coordinator for this hospital to fully discuss with the family about multiple doctors' opinion about patient, Tc Mckeon being in a serious condition at this point, which is terminal. RVD/MODL Voice ID: [id number] Report ID: [id number]
[2022-09-10] MEDS: D5W 1,000 ML with NA BICARB 8.4% 75 MEQ IV SCH ×4 (02:52→17:14)
[2022-09-10] MEDS: ALBUMIN HUMAN 25% 100 ML IV SCH ×3 (05:21→22:13)
[2022-09-10] MEDS: carvediloL 3.125 MG TAB PO SCH ×2 (05:28→17:35)
[2022-09-10 06:49] LABS: Albumin 2.2 g/dL (3.4-5.0); Magnesium 2.5 mg/dL (1.6-2.4); Phosphorus 4.5 mg/dL (2.5-4.9); Potassium 2.7 mEq/L (3.5-5.1)
[2022-09-10] MEDS: CARBIDOPA/LEVODOPA 25/100 TAB PO SCH ×2 (09:00→19:29)
[2022-09-10] MEDS: VENLAFAXINE HCL XR 37.5MG CAP PO SCH (09:00)
[2022-09-10] MEDS: FEBUXOSTAT 40 MG PO SCH (09:00)
[2022-09-10] MEDS: MIDODRINE HCL 5 MG TABLET PO SCH ×3 (09:00→19:29)
[2022-09-10] MEDS: Rifaximin 550 MG Tab PO SCH ×2 (09:00→19:29)
[2022-09-10] MEDS: LACTULOSE 20 GM/30 ML UCUP PO SCH (09:00)
[2022-09-10] MEDS: OCTREOTIDE ACETATE 100 MCG/ML SQ SCH ×2 (09:59→20:37)
[2022-09-10] MEDS: CEFTRIAXONE 2,000 MG in NA CHLORIDE 0.9% 100 ML IV SCH (09:59)
[2022-09-10] MEDS ORDERED: THIAMINE 200 MG/2 ML INJ IVP SCH (10:36)
[2022-09-10] MEDS: KCL 20 MEQ/100 mL IVPB 100 ML IV SCH ×2 (10:38→13:00)
[2022-09-10 14:00] LABS: Specific Gravity 1.015 (1.005-1.030); Urine Bacteria 20-50 /HPF (<20); Urine Bilirubin NEGATIVE (Negative); Urine Blood 3+ (OVER) (Negative); Urine Clarity Extremely Turbid (Clear); Urine Color Light-Orange (Yellow); Urine Glucose NEGATIVE (Negative); Urine Mucus 1+ /HPF (None Seen); Urine Protein 1+ (Negative); Urine RBC >50 /HPF (None Seen); Urine Urobilinogen Normal (Normal); Urine pH 5.5 (5.0-7.0)
--- NOTE | 2022-09-10 14:28 | P.PN ---
Subjective Date of Service: 09/10/22 Chief Complaint: Hematemesis, N/V, abd pain, ascites, cirrhosis, EtOH abuse hx Subjective: New changes (Somnolent for past 2 days. Xifaxan restarted. He has been refusing food and medications. Probable depression. Family at bedside, with son, , grandson and daughter; they want DBT placed today after they speak with Nephrology.), Other (Denis placed today.) Review of Systems 10-point ROS is otherwise unremarkable General: Weakness, Malaise Gastrointestinal: Distention Neurological: Other (Somnolent) Physical Examination - Vital Signs Temperature: 97.0 F Blood Pressure: 132/74 Pulse: 72 Respirations: 14 Pulse Ox (%): 94 - Studies Medications List Reviewed: Yes Assessment And Plan - Current Problems (Diagnosis) (1) Hematemesis Current Visit: Yes Status: Acute Comment: Resolved. S/p EGD with esophageal varices banding. Octreotide weaned off. (2) Esophageal varices Current Visit: Yes Status: Acute (3) Hepatorenal failure Current Visit: Yes Status: Acute (4) Angina pectoris Current Visit: No Status: Acute (5) Alcoholic cirrhosis of liver with ascites Current Visit: No Status: Chronic (6) Renal insufficiency Current Visit: No Status: Chronic (7) Abdominal pain Current Visit: Yes Status: Acute (8) Hepatic encephalopathy Current Visit: Yes Status: Acute - Plan REC:1) Low Sodium diet 2) family can bring favorites foods 3) appetite stimulant -> add Marinal to Remeron (Marinal not in hospital) 4) continue Aldactone 5) consider Lasix 20 mg po 6) continue Xifaxan bid 7) continue Ceftriaxone 8) DHT today. Discussed with son and (risks, benefits, alternatives); they approve
[2022-09-10] MEDS ORDERED: POTASSIUM CL 40 MEQ in NA CHLORIDE 0.9% 500 ML IV SCH (16:00)
[2022-09-10] MEDS ORDERED: SCOPOLAMINE HYDROBROMIDE PATCH TD ONE (17:04)
--- NOTE | 2022-09-10 17:11 | PN ---
Date of Progress Note: 09/10/2022 Subjective: The patient was admitted with acute kidney injury, hepatorenal syndrome. The patient status post paracentesis. The patient has GI bleed. The patient started declining significantly. The patient today still anuric. We done a bladder scan, came positive. Physical Examination: Vital Signs: Blood pressure 132/74, pulse of 72, afebrile. Denis was inserted and had around 600. Chest: Clear to auscultation. Heart: S1, S2 regular. Abdomen: Soft, nontender. Ascites is positive. Extremities: No edema. Neuro: The patient is sleepy, semicomatose, moves upper extremities. No focality. Not responding to verbal. Laboratory Data: WBC 12, H and H 12.9/39.2, platelet 51. Sodium 149, potassium 2.7, bicarb 20, BUN 105, creatinine 3.3, calcium 7.3, phosphorus 4.5, magnesium 2.5, albumin 2.2. Current Medications: The patient on include; 1. Rifaximin. 2. Midodrine 5 t.i.d. 3. Albumin. 4. Carvedilol 3.125 b.i.d. 5. Carbidopa. 6. Zoloft. 7. D5 with bicarb. 8. Lactulose. 9. Zofran. 10. Thiamin. Assessment And Plan: 1. Acute kidney injury secondary to hepatorenal syndrome, nonoliguric, acidosis, no hyperkalemia in fact hypokalemic. I had long discussion with the family in the presence of the and the son about overall prognosis for the patient. Explained to them how poor prognosis has the patient and discussing the option of treatment. Explained the prognosis of the patient and the patient may need dialysis in the 24 hours if kidney function continued to decline. I explained to them that the dialysis in his condition is not going to be a good option and I am not going to add for any his comorbidity any improvement. Its look the family started more understanding and may be more acceptable on possible going to hospice care. We will follow up in the next 24 hours. Anyhow, currently the patient nonoliguric, no hyperkalemia. Acidosis has been controlled, possible uremic. I going to watch in the next 24 hours, but I do not see the urgency to initiate renal replacement therapy by link. 2. Hypertension, controlled, optimal. We will continue midodrine. 3. Anemia of chronic kidney disease/GI loss. Continue p.r.n. transfusion. 4. Hypokalemia, mostly secondary to GI loss. We are going to replenish aggressively. 5. Acidosis. Continue bicarb drip. 6. Secondary hyperparathyroidism. Calcium and phosphorus on the acceptable range. We will follow up. 7. Liver cirrhosis as by GI. The patient has overall very poor prognosis. Time spent examining the patient [id number], reviewing data, lab and radiology, discussing the case with the family, the and the son by bedside side, placing daughter, discussing the case with the senior stereo compiler team lead including nursing and hospitalist more than 45 minutes. MARYAN Voice ID: [id number] Report ID: [id number] MTDD
[2022-09-10] MEDS ORDERED: HYDROMORPHONE HCL 1 MG/ML INJ IV PRN (20:08)
[2022-09-10] MEDS ORDERED: LIDOCAINE 4% PATCH TOP PRN (20:28)
[2022-09-10 21:10] VITALS: O2SAT 95
--- NOTE | 2022-09-10 21:13 | P.PN ---
Subjective Date of Service: 09/10/22 Chief Complaint: Hematemesis, N/V, abd pain, ascites, cirrhosis, EtOH abuse hx Subjective: Worsening PER NURSES HE REFUSED SUMA PLACEMENT. HE IS NOT EATING AND NOT WANTING ANYTHING DONE. HE IS GETTING MORE AN MORE LETHARGIC AND NOT EATING ANY. HE HAS REFUSES DOBHOFF TUBE NURSES TRIED TO PUT IN DAILY. FAMILY HAS BEEN IN TOTAL DENIAL UNTIL TODAY THEY ARE LISTENING TO DR. BAUER. I HAVE TRIED TO CALL DAILY FOR LAST TWO DAYS AND SON SHAHAB YESTERDAY WITH NO REPLY. WE LEFT MESSAGES TO DISCUSS HIS WORSENING CONDITION AND SEE IF THEY WOULD CONSIDER HOSPICE LIKE PATIENT HAS BEEN ASKING FOR. Review of Systems is unable to be obtained Physical Examination - Vital Signs Temperature: 97.1 F Blood Pressure: 89/49 Pulse: 66 Respirations: 18 Pulse Ox (%): 98 - Physical Exam General: Oriented x1, Mild distress, Unresponsive (MOST OF THE TIMES. NOT RESPONDING TO MY QUESTIONS ANY LONGER. ) HEENT: Atraumatic, PERRLA, EOMI Neck: Supple, JVD not distended Respiratory: Clear to auscultation bilaterally, Normal air movement Cardiovascular: Regular rate/rhythm, Normal S1 S2 Gastrointestinal: Normal bowel sounds, No tenderness Musculoskeletal: No tenderness Integumentary: No rashes Neurological: Other (LETHARGIC AND MOSTLY UNSRESPONSIVE.) Lymphatics: No axilla or inguinal lymphadenopathy - Studies Medications List Reviewed: Yes Assessment And Plan - Current Problems (Diagnosis) (1) End stage liver disease Current Visit: Yes Status: Chronic Plan: PROGNOSIS IS POOR HE IS WORSENING ON DAILY BASIS FAMILY FAILS TO SEE THIS EVEN AFTER ME EXPLAINING. HE IS TERMINAL. HIS BP IS STARTING TO DROP HE SLIPPING INTO COMA SLOWLY. FAMILY HAS NOT LISTENED TO ANY ONE SO FAR. TODAY THEY ARE STARTING TO SEE WHAT I HAVE BEEN TELLING THEM ALL ALONG THAT HE IS TERMINAL AND THEY NEED TO FOLLOW HIS WISHES. (2) Hepatorenal failure Current Visit: Yes Status: Acute Plan: RENAL FUNCTION IS WORSE. I WILL START IV FLUIDS AGAIN UNTIL HE GETS DOBHOFF. NG TUBE IS RISKY WITH ESOPHAGEAL VARICES AND FAMILY UNDERSTANDS. I ASKED DR. LIU TO COME BY FAMILY HAS REFUSED TO FOLLOW MY RECOMMENDATIONS. THERE IS A HUGE DENIAL TO ACCEPT HIS CURRENT CONDITION FROM AND SONS. HE WANTS TO GO HOME AND BE ON HOSPICE. HE MAY NOT MAKE IT A WEEK OR SO GOING AT CURRENT CONDITION. WE CAN'T PLACE SUMA HE REFUSED TO COOPERATE WE CAN'T DO G TUBE IT IS CONTRAINDICATED. (3) Alcoholic cirrhosis of liver with ascites Current Visit: No Status: Chronic Plan: HIS FLUID IS BUILDING UP AGAIN IN ABDOMEN. I ALSO TOOK OPINION OF DR. FLORES ABOUT HIS LIFE-SPAN. HE SUGGESTED THAT WITH TWO MAJOR COMPLICATIONS OF CIRRHOSIS, THAT IS ASCITES AND HEMATEMESIS HE HAS ONLY 50% CHANCE OF MAKING THROUGH A YEAR. HOSPICE WILL BE GOOD IN THIS CONDITION. FAMILY HAS NOT AGREED TO IT YET. HIS PPN HAS STARTED. IDEALLY HE SHOULD BE IN LTAC HE MAY TAKE MORE THAN A COUPLE OF WEEKS TO RECOVER IF HE DOES RECOVER. I TALKED TO SON SHAHAB TODAY AND THEY WILL THINK ABOUT LTAC AFTER A FEW DAYS HERE. HE IS NOT SHOWING ANY SIGNS OF ALCOHOL DT YET. I AM NOT SURE IF WE CAN HAVE INDWELLING CATHETER IN HE HAS RECURRENT ASCITES TO A GOOD EXTENT ALREADY IN A WEEK I EXPECTED. HE NEEDS TAP AGAIN. DR. FLORES IS AGAINST PIGTAIL CATHETER. WILL DO REGULAR TAP. RAISE SPIRNOLACTONE STOP LASIX IV. TAP AGAIN TODAY. LTAC WEDNESDAY OR WEDNESDAY MAY BE POSSIBLE. POOR PROGNOSIS. (4) Dysphagia Current Visit: Yes Status: Chronic Plan: FROM DEBILTIY I SUSPECT NEUROLOGICAL ISSUES ALSO. I CONSULTED DR. ACUÑA. WILL ORDER SPEECH THERAPY. THIS ALL HAPPENED SINCE CURRENT ILLNESS THAT IS CONSEQUENCE OF HEAVY ALCOHOL RELATED CIRRHOSIS. FAMILY IS NOT DECIDING ON LTAC HE NEEDS TO GO TO LTAC I STILL SEE VERY POOR PROGNOSIS. FAMILY IS IN DENIAL. HE CAN'T HAVE G TUBE BEC OF SEVERE ASCITES. 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 NO EFFECT ON CURRENT FINDINGS. (6) Anemia Current Visit: Yes Status: Acute Plan: FROM VARICEAL BLEEDING. TRANSFUSE TWO UNITS OF PACKED RBCS. (7) Gout, arthritis Current Visit: Yes Status: Acute Plan: HE IS PAINFREE NOW. WE WILL START ULORIC NEEDS TO PT TO BE ABLE TO GO HOME.
[2022-09-10] MEDS ORDERED: NA CHLORIDE 0.9% 1,000 ML IV ONE (21:55)
[2022-09-11 00:37] VITALS: BP 90/57; TEMP 96.6
[2022-09-11] MEDS ORDERED: LIDOCAINE 4% PATCH TOP SCH (09:00)
[2022-09-13 14:21] LABS: Albumin, (SPE) 1.7 g/dL (3.8-4.8); Alpha-1-Globulins 0.3 g/dL (0.2-0.3); Alpha-2-Globulins 0.3 g/dL (0.5-0.9); Gamma Globulins 1.1 g/dL (0.8-1.7); INTERPRETATION REPORT
== END 2022-09-11 04:33 | disposition expired | DRG 432 ==
LOC: ER 15:45 → ERHOLD 21:32 → 4TH 22:36 → OBSVTOIN 08-26 09:37 → 2ND 09-10 21:42
PROVIDERS: ADMIT Internal Medicine; ATTEND Internal Medicine
PROC: 0DB78ZX Excision of Stomach, Pylorus, Via Natural or Artificial Opening Endoscopic, Diagnostic (ICD-10-PCS; 2022-08-26)
PROC: 0DB68ZX Excision of Stomach, Via Natural or Artificial Opening Endoscopic, Diagnostic (ICD-10-PCS; principal; 2022-08-26 11:30)
PROC: 3E0436Z Introduction of Nutritional Substance into Central Vein, Percutaneous Approach (ICD-10-PCS; 2022-08-27)
PROC: 02H633Z Insertion of Infusion Device into Right Atrium, Percutaneous Approach (ICD-10-PCS; 2022-08-28)
PROC: 0W9G3ZZ Drainage of Peritoneal Cavity, Percutaneous Approach (ICD-10-PCS; 2022-09-01)
PROC: 30233N1 Transfusion of Nonautologous Red Blood Cells into Peripheral Vein, Percutaneous Approach (ICD-10-PCS; 2022-09-02)
DX: K70.31 Alcoholic cirrhosis of liver with ascites (principal); G93.41 Metabolic encephalopathy; I85.11 Secondary esophageal varices with bleeding; K76.7 Hepatorenal syndrome; N17.0 Acute kidney failure with tubular necrosis; R64 Cachexia; E87.20 Acidosis, unspecified; N25.81 Secondary hyperparathyroidism of renal origin; M10.9 Gout, unspecified; E78.5 Hyperlipidemia, unspecified; D64.9 Anemia, unspecified; K29.70 Gastritis, unspecified, without bleeding; G20 Parkinson's disease; E87.6 Hypokalemia; I12.9 Hypertensive chronic kidney disease with stage 1 through stage 4 chronic kidney disease, or unspecified chronic kidney disease; N18.9 Chronic kidney disease, unspecified; F10.10 Alcohol abuse, uncomplicated; K72.10 Chronic hepatic failure without coma; K76.82 Hepatic encephalopathy; I25.2 Old myocardial infarction; I25.119 Atherosclerotic heart disease of native coronary artery with unspecified angina pectoris; R13.10 Dysphagia, unspecified; Z66 Do not resuscitate; Z51.5 Encounter for palliative care; Z88.5 Allergy status to narcotic agent; Z88.1 Allergy status to other antibiotic agents; Z95.5 Presence of coronary angioplasty implant and graft; Z95.1 Presence of aortocoronary bypass graft; Z68.23 Body mass index [BMI] 23.0-23.9, adult; Z90.49 Acquired absence of other specified parts of digestive tract; Z74.01 Bed confinement status; Z86.73 Personal history of transient ischemic attack (TIA), and cerebral infarction without residual deficits; Z28.310 Unvaccinated for COVID-19
CPT/HCPCS: 36415; 49083; 70551; 71045; 71046; 74176; 76770; 80048; 80069; 80076; 81001; 82140; 82550; 82607; 82728; 82945; 82947; 83540; 83735; 83880; 83970; 84134; 84157; 84165; 84238; 84300; 84443; 84466; 84484; 84550; 85025; 85044; 85610; 85730; 86850; 86900; 86901; 86920; 87070; 87086; 87088; 88108; 88305; 88312; 89050; 92610; 93005; 99285; C9113; G0378; J0696; J1100; J1170; J2001; J2354; J2405; J2704; J3411; J3480; J7030; J7040; J7050; J7120; J7799; P9016; P9047; Q0162